=== PATIENT | female | born 1975 | race Caucasian/White ===

== ENCOUNTER → 2017-07-24 09:28 | Outpatient (CLI) | payer OTHER, SELFPAY ==
[2017-07-24 10:38] LABS: Erythrocyte Sedimentation Rate 2 mm/hr (0-20)
[2017-07-24 10:40] LABS: Absolute Lymphocyte Count 0.97 X10^3/ul (0.83-4.51); Absolute Neutrophil Count 3.8 X10^3/uL (2.0-7.7); Basophil# 0.03 X10^3/uL; Basophil% 0.6 % (0-1); Eosinophil# 0.19 X10^3/uL; Eosinophils% 3.6 % (0-5); Hematocrit 41.6 % (37-47); Hemoglobin 13.7 g/dl (12.0-15.0); Lymphocyte # 0.97 X10^3/ul (4.0); Lymphocyte % 18.1 % (19-41); Mean Corp Hgb Conc 32.9 g/gl (32-36); Mean Corpuscular Hgb 31.4 pg (27.0-32.0); Mean Corpuscular Volume 95.2 fL (81-99); Mean Platelet Vol. 10.7 fl (6.2-12.0); Monocyte% 7.5 % (0-10); Neutrophil # 3.75 X10^3/uL (2.7-7.7); Platelet Count 189 K/mm3 (150-450); RBC Distribution Width SD 41.7 fl (35.1-43.9); Red Blood Count 4.37 M/mm3 (4.2-5.4); White Blood Count 5.4 K/mm3 (4.4-11.0)
[2017-07-24 10:42] LABS: POSITIVE COUNT NO; POSITIVE DIFFERENTIAL NO; POSITIVE MORPHOLOGY NO
[2017-07-24 11:00] LABS: BUN 11 mg/dL (7-18); Creatinine, Serum 0.68 mg/dL (0.55-1.02); Glucose 89 mg/dL (74-106)
[2017-07-24 11:01] LABS: ALB/GLOB Ratio 1.4 RATIO (0.9-2.4); AST(SGOT) 16 U/L (15-37); Alanine Aminotransfer ALT/SGPT 18 U/L (13-56); Albumin, Serum 4.4 g/dL (3.2-5.0); Alkaline Phosphatase 49 U/L (45-117); Anion Gap 8 (5-15); BUN/Creat Ratio 16.1 RATIO (10-20); CRP < 2.90 mg/L (0.0-3.0); Calcium,Total 8.8 mg/dL (8.5-10.1); Chloride 105 mmol/L (98-107); EST Glomerular Filtration Rate 101 mL/min (>60); Est Glom Filt Rate - Afr Amer 122 mL/min (>60); Globulin 3.2 g/dL (2.2-4.2); Potassium 4.2 mmol/L (3.5-5.1); Protein, Total 7.6 g/dL (6.4-8.2); Sodium Level 141 mmol/L (136-145)
== END ==
PROVIDERS: Family Provider Family Medicine; PCP Family Medicine; Visit Provider Internal Medicine Rheumatology
DX: M06.00 Rheumatoid arthritis without rheumatoid factor, unspecified site (principal)
CPT/HCPCS: 36415; 80053; 85025; 85652; 86140

== ENCOUNTER → 2017-08-10 10:09 | Outpatient (CLI) | payer OTHER, SELFPAY ==
--- NOTE | 2017-08-10 10:09 | DT_ITS ---
This patient was seen during an EMR downtime August 07, 2017 - August 14, 2017. This patient may have a combination of paper and electronic documentation or all paper documentation. All documentation is viewable within the e-chart portion of [facility] for each patient visit.
--- NOTE | 2017-08-10 10:50 | MRI_ITS ---
STUDY: MRI LEFT WRIST WITH AND WITHOUT CONTRAST REASON FOR EXAM: Dorsal wrist swelling. TECHNIQUE: Standardized fat and water weighted pulse sequences were obtained in all 3 orthogonal planes, pre-and post gadolinium contrast administration. COMPARISON: Radiographs 09/29/2016. FINDINGS: Normal visualized distal radius and ulna. Normal distal radioulnar articulation (DRUJ). There is a small partial tear of the proximal surface of the ulnar aspect of the triangular fibrocartilage (inversion recovery coronal image 11; T1 coronal image 11). Normal carpal bones. Normal radiocarpal, intercarpal and midcarpal articulations. Normal pisotriquetral articulation. Normal visualized interosseous scapholunate ligament. There is fluid in the second and third extensor compartments (inversion recovery axial images 7-11) with contrast enhancement of the tendon sheath (postcontrast T1 axial images 8-15), corresponding to the skin marker. There is mild flexor carpi radialis tenosynovitis with contrast enhancement of the tendon sheath (postcontrast T1 axial images 12-15). Normal carpal tunnel with a normal median nerve. There is a small subchondral cyst of the base of the first metacarpal at the carpometacarpal articulation of the thumb. Normal second through fifth carpometacarpal articulations. Normal visualized metacarpal bones. There is no demonstrated soft tissue abnormality. MRI/Upper Ext Joint Only W/WO Cont IMPRESSION: Extensor carpi radialis brevis and longus tenosynovitis, and extensor pollicis longus tenosynovitis, corresponding to the skin marker. Mild flexor carpi radialis tenosynovitis. Small partial tear of the triangular fibrocartilage. Electronically Signed: Ashok Ambrocio MD at 13:38 EDT Tel , Service support ,
== END ==
PROVIDERS: Family Provider Family Medicine; PCP Family Medicine; Visit Provider Internal Medicine Rheumatology
DX: M06.00 Rheumatoid arthritis without rheumatoid factor, unspecified site (principal); G47.00 Insomnia, unspecified
CPT/HCPCS: 73223; A9585

== ENCOUNTER → 2017-10-19 08:14 | Outpatient (CLI) | payer OTHER, SELFPAY ==
[2017-10-19 09:36] LABS: Free T3 2.9 pg/mL (2.18-3.98); T4 Free Direct 0.82 ng/dL (0.76-1.46)
== END ==
PROVIDERS: Family Provider Family Medicine; PCP Family Medicine; Visit Provider Family Medicine
DX: E03.9 Hypothyroidism, unspecified (principal); M06.9 Rheumatoid arthritis, unspecified; Z51.81 Encounter for therapeutic drug level monitoring
CPT/HCPCS: 36415; 84439; 84443; 84481

== ENCOUNTER → 2017-11-16 10:09 | Outpatient (CLI) | payer OTHER, SELFPAY ==
--- NOTE | 2017-11-16 10:11 | BI_ITS ---
MAMMOGRAPHY - BILATERAL SCREENING REASON FOR EXAM: Female, 42 years old. Routine annual screening examination. PERTINENT HISTORY: Non-contributory. TECHNIQUE: Digital bilateral breast shanna (3D mammographic acquisition) in the CC and MLO projections. 2-D mediolateral oblique (MLO) and craniocaudad (CC) views of both breasts were obtained. CAD: Full Field Digital Mammography with Computer Added Detection was performed. COMPARISON: Comparison is made with prior study dated November 04, 2016. FINDINGS: Breast Composition: There are scattered areas of fibroglandular density. There are no dominant masses or suspicious calcifications. No other significant abnormalities are identified. There has been no significant change since the prior study. BI/SCREENING MAMM (CAD), BILAT IMPRESSION: Stable bilateral screening mammogram. Yearly follow-up mammogram recommended. (A) ASSESSMENT CATEGORY: BIRADS Category 1: Negative. A letter regarding these results will be sent to the patient by the facility within 30 days. Approximately 10% of breast cancers are not detected by mammography. A normal mammogram should not delay biopsy of a clinically suspicious abnormality. [id number] Electronically Signed: Juan Diego Sebastian MD at 9:24 EDT Tel [phone], Service support ,
== END ==
PROVIDERS: Family Provider Family Medicine; PCP Family Medicine; Visit Provider Obstetrics & Gynecology
DX: Z12.31 Encounter for screening mammogram for malignant neoplasm of breast (principal)
CPT/HCPCS: 77063; 77067

== ENCOUNTER 2018-01-19 19:01 | Emergency (ER) | payer OTHER, SELFPAY ==
[2018-01-19 19:02] VITALS: BP 132/85; PULSE 78; RESP 20; TEMP 36.5; O2SAT 100; BMI 25.3
--- NOTE | 2018-01-19 20:10 | EKG12_ITS ---
Test Reason : PALPITATIONS Blood Pressure : / mmHG Vent. Rate : 082 BPM Atrial Rate : 082 BPM P-R Int : 110 ms QRS Dur : 078 ms QT Int : 340 ms P-R-T Axes : 000 084 -37 degrees QTc Int : 397 ms Sinus rhythm with short OK with Premature atrial complexes with Aberrant conduction Abnormal QRS-T angle, consider primary T wave abnormality Abnormal ECG Confirmed by ILENE ALDANA, BC ([id number]), deputy editor in chief PAOLA JUAREZ ([id number]) on 01/24/2018 11:37:11 AM Referred By: SCHUYLER/MU Confirmed By:BC ODOM MD
--- NOTE | 2018-01-19 20:18 | ED.RN ---
NO OLD EKGS IN MUSE
--- NOTE | 2018-01-19 20:25 | ED.DCSUM_ITS ---
- ER Visit Summary Date of Service: 01/19/18 Chief Complaint: Palpitations, dyspnea History of Present Illness: The patient is a 42 F intermittent palpitation dyspnea over last 2 weeks. No cough or chest pains. No lightheaded symptoms. He does drink 2 cups of caffeine daily. Concern did not ed due to family history of atrial fibrillation. She is have history of rheumatoid arthritis on Plaquenil. No previous similar symptoms in the past. Denies any recent nausea vomiting or diarrhea. No diuretics. Physical Examination: General: Alert and oriented ?3, no acute distress HEENT: Normocephalic, atraumatic. Moist mucosa membranes Neck: supple, nontender. Cardiovascular: Regular rate and rhythm, no murmurs Respiratory: Normal breath sounds, symmetric, no distress Abdomen: Soft, nontender, nondistended Extremities: Nontender, no edema, pulses intact ?4 Neuro: no focal neurological deficits. Test Results: EKG: Sinus rate of 82, occasional PVCs noted. No ST changes. Emergency Department Course and Treatment: Patient on the monitor is noting occasional PVCs. She feels these symptoms. No recent nausea vomiting diarrhea, discussed evaluate for electrolytes however states recent blood tests outpatient has been normal. Discussed decreasing her caffeine intake. A 48-hour Holter monitor was placed. Patient given follow-up as an outpatient with cardiology for further management. Treatment Plan: [] Disposition: Discharge Impression: 1. Palpitations 2. Premature ventricular contractions This note was generated with [employer] dictation software. It may contain incorrect words, spelling, and punctuation that were not noted in review of the chart prior to signing ED Disposition - Plan for ED Patient: Disposition: Home or Assisted Living Chief Complaint: Palpitations Diagnosis: Palpitations, Premature ventricular contractions Instructions: Premature Ventricular Contractions, ED Palpitations Referrals: Stephanie Hedrick DO [Primary Care Provider] - 3-5 Days Jeremy Patel MD [STAFF PHYSICIAN] - 3-5 Days Additional Instructions: Occasional PVCs noted on the monitor. Holter monitor 48 hours. Follow-up as an outpatient. Decrease caffeine intake.
[2018-01-19 20:30] VITALS: BP 128/74; PULSE 75; RESP 14; O2SAT 98
== END 2018-01-19 21:27 | disposition home or self-care (01) ==
PROVIDERS: Emergency Provider Emergency Medicine; Family Provider Family Medicine; PCP Family Medicine
DX: I49.3 Ventricular premature depolarization (principal); M06.9 Rheumatoid arthritis, unspecified; Z79.899 Other long term (current) drug therapy
CPT/HCPCS: 93005; 93225; 93226; 99283

== ENCOUNTER → 2018-02-08 08:51 | Outpatient (CLI) | payer OTHER, SELFPAY ==
[2018-01-23 14:14] VITALS: BMI 25.2
--- NOTE | 2018-02-08 08:52 | ECHOCS_ITS ---
Reason For Study: Arrhythmia Procedure This was a 2D Doppler, Color Flow transthoracic echocardiogram. Contrast injection was performed. Exam performed in department. Left Ventricle Mildly dilated left ventricle. The estimated ejection fraction is 50 %. Normal diastology for age. There is mild global hypokinesis of the left ventricle. Right Ventricle Mildly dilated right ventricle. Normal systolic function. Atria The left atrium is mildly enlarged. Normal right atrium. Normal atrial septum. Positive bubble study with R to L crossover. Mitral Valve The mitral valve is structurally normal. No prolapse or stenosis seen. Mild (1+) mitral valve insufficiency. Tricuspid Valve Normal tricuspid valve. Mild (1+) tricuspid valve insufficiency. Right ventricular systolic pressure estimated to be 29 mmHg. Aortic Valve Trisinus/trileaflet aortic valve. Normal aortic valve. Pulmonic Valve Normal pulmonic valve. Great Vessels Normal aortic root. Normal arch. Normal inferior vena cava. Inferior vena cava collapse with respiration. Pericardium/Pleural No pericardial effusion. Medication 22 gauge I.V. with prn adaptor inserted into right arm. Diluted definity 3ml given slow IV push to enhance endocardial definition. Performed a rapid injection of agitated mix of 9 cc saline and 1cc air to assess for atrial septal defect. MMode/2D Measurements & Calculations LVIDd: 5.3 cm IVSd: 0.74 cm Ao root diam: 2.8 cm LVIDs: 4.2 cm LVPWd: 0.64 cm LA dimension: 3.8 cm RVDd: 4.3 cm FS: 22.1 % LAV(MOD-sp4): 68.7 ml LVAd ap4: 35.9 cm2 SV(MOD-sp4): 64.5 ml EDV(MOD-sp4): 129.3 ml EDV(sp4-el): 133.7 ml LVAs ap4: 22.8 cm2 ESV(MOD-sp4): 64.8 ml ESV(sp4-el): 65.9 ml EF(MOD-sp4): 49.9 % EF(sp4-el): 50.7 % SV(sp4-el): 67.8 ml LA A4 area: 21.8 cm2 RA A4 area: 16.5 cm2 Time Measurements MV dec time: 0.30 sec Doppler Measurements & Calculations MV E max cornelius: 76.2 cm/sec Lat Peak E' Cornelius: 16.9 cm/sec Med Peak E' Cornelius: 12.7 cm/sec MV A max cornelius: 52.8 cm/sec E/E' lat: 4.5 E/E' med: 6.0 MV E/A: 1.4 MV V2 max: 82.8 cm/sec MV P1/2t max cornelius: 84.7 cm/sec Ao V2 max: 105.9 cm/sec MV max P.7 mmHg MV P1/2t: 82.4 msec Ao max P.5 mmHg MV V2 mean: 46.2 cm/sec Ao V2 mean: 72.4 cm/sec MV mean P.99 mmHg MV dec slope: 301.3 cm/sec2 Ao mean P.4 mmHg MV V2 VTI: 26.2 cm MVA(P1/2t): 2.7 cm2 Ao V2 VTI: 22.1 cm LV V1 max: 80.5 cm/sec MR max cornelius: 528.9 cm/sec PA V2 max: 78.3 cm/sec LV V1 max P.6 mmHg MR max P.9 mmHg LV V1 mean P.3 mmHg MR mean cornelius: 407.3 cm/sec LV V1 mean: 52.1 cm/sec MR mean P.2 mmHg LV V1 VTI: 17.0 cm MR VTI: 203.7 cm TR max cornelius: 234.4 cm/sec TR max P.0 mmHg Interpretation Summary Mildly dilated left ventricle. The estimated ejection fraction is 50 %. Normal diastology for age. There is mild global hypokinesis of the left ventricle. Mildly dilated right ventricle. The left atrium is mildly enlarged. Positive bubble study with R to L crossover. Mild (1+) mitral valve insufficiency. Mild (1+) tricuspid valve insufficiency. Right ventricular systolic pressure estimated to be 29 mmHg. There is no comparison study available. The study was technically difficult. Contrast injection was performed. Ordering Physician: Jeremy Patel Referring Physician: Jeremy Patel Performed By: Nas Doll RCS
== END ==
PROVIDERS: Family Provider Family Medicine; PCP Family Medicine; Referring Provider Internal Medicine Cardiovascular Disease; Visit Provider Internal Medicine Cardiovascular Disease
DX: R06.00 Dyspnea, unspecified (principal); R00.2 Palpitations; I49.3 Ventricular premature depolarization
CPT/HCPCS: 93306; Q9957; A4216; C8929

== ENCOUNTER → 2018-02-09 09:28 | Outpatient (CLI) | payer OTHER, SELFPAY ==
[2018-01-23 14:14] VITALS: BMI 25.2
--- NOTE | 2018-02-09 09:29 | STEWCON_ITS ---
Reason For Study: ARRHYTHMIA Stress Results Protocol: Hans Protocol Maximum Predicted HR: 179 bpm Target HR: 152 bpm % Maximum Predicted HR: 103 % DurationHeart Rate Stage (mm:ss) (bpm) BP Comment BASELINE 75 112/700.2 ML DEFINITY STAGE 1 3:00 118 132/74 STAGE 2 3:00 134 138/74 STAGE 3 3:00 162 148/80 STAGE 4 2:30 184 / 0.2 ML DEFINITY RECOVERY 101 116/70 Stress Duration: 11:30 mm:ss Maximum Stress HR: 184 bpm Baseline Echocardiogram Findings The estimated ejection fraction is 45 %. Stress Echo Wall motion Data Resting WM Intermediate WM Stress WM Resting Wall Motion No regional wall motion abnormalities noted. EKG Data Normal intervals are noted. The patient exercised according to the regular Hans protocol for a total duration of 11:31. The maximum heart rate attained was 184 beats per minute. This was 102% of maximum predicted heart rate. The patient exercised into stage 4 of the Hans protocol. During stress, there were no ST or T wave changes noted to suggest ischemia. No clinical angina was noted. Interpretation Summary The study was technically difficult. Contrast injection was performed. The estimated ejection fraction is 45 %. Normal, adequate, treadmill echocardiogram. Negative for ischemia by EKG and echocardiographic criteria. No anginal symptoms noted. Rare PVC noted. Appropriate blood pressure response to exercise. Above average exercise capacity for age. Patient appeared to have mild global LV dysfunction at baseline with an EF around 45%. Decreased sensitivity due to poor echo windows requiring Definity agent. Final LVEF of 55%. Test terminated due to target heart rate, dyspnea and leg discomfort. No complications. Ordering Physician: Jeremy Patel Referring Physician: Jeremy Patel Performed By: Katty Mcmahan, MAMIE, RVT
== END ==
PROVIDERS: Family Provider Family Medicine; PCP Family Medicine; Referring Provider Internal Medicine Cardiovascular Disease; Visit Provider Internal Medicine Cardiovascular Disease
DX: R06.00 Dyspnea, unspecified (principal); R00.2 Palpitations; I49.3 Ventricular premature depolarization
CPT/HCPCS: 93017; 93350; Q9957; A4216; C8928

== ENCOUNTER → 2018-02-21 20:27 | Outpatient (CLI) | payer OTHER, SELFPAY ==
[2018-01-23 14:14] VITALS: BMI 25.2
== END ==
PROVIDERS: Family Provider Family Medicine; PCP Family Medicine; Referring Provider Internal Medicine Cardiovascular Disease; Visit Provider Internal Medicine Cardiovascular Disease
DX: G47.19 Other hypersomnia (principal); I49.3 Ventricular premature depolarization; R00.2 Palpitations
CPT/HCPCS: 95810

== ENCOUNTER → 2018-03-29 11:50 | Outpatient (CLI) | payer OTHER, SELFPAY ==
[2018-01-23 14:14] VITALS: BMI 25.2
[2018-03-29 15:21] LABS: Absolute Lymphocyte Count 1.28 X10^3/ul (0.83-4.51); Absolute Neutrophil Count 3.6 X10^3/uL (2.0-7.7); Basophil# 0.06 X10^3/uL; Basophil% 1.1 % (0-1); Eosinophil# 0.21 X10^3/uL; Eosinophils% 3.8 % (0-5); Hematocrit 43.3 % (37-47); Hemoglobin 14.1 g/dl (12.0-15.0); Lymphocyte # 1.28 X10^3/ul (4.0); Mean Corp Hgb Conc 32.6 g/gl (32-36); Mean Corpuscular Hgb 31.7 pg (27.0-32.0); Mean Corpuscular Volume 97.3 fL (81-99); Mean Platelet Vol. 11.2 fl (6.2-12.0); Monocyte# 0.43 X10^3/uL; Monocyte% 7.7 % (0-10); Neutrophil # 3.58 X10^3/uL (2.7-7.7); Neutrophil % 64.2 % (47-70); Platelet Count 185 K/mm3 (150-450); RBC Distribution Width CV 12.3 % (11.6-14.6); Red Blood Count 4.45 M/mm3 (4.2-5.4); White Blood Count 5.6 K/mm3 (4.4-11.0)
[2018-03-29 15:31] LABS: POSITIVE COUNT NO; POSITIVE DIFFERENTIAL NO; POSITIVE MORPHOLOGY NO
[2018-03-29 15:40] LABS: Progesterone Level 0.39 ng/mL (See Comment); Vitamin B12 579 pg/mL (211-911)
[2018-03-29 15:44] LABS: ALB/GLOB Ratio 1.3 RATIO (0.9-2.4); AST(SGOT) 18 U/L (15-37); Alanine Aminotransfer ALT/SGPT 32 U/L (13-56); Albumin, Serum 4.4 g/dL (3.2-5.0); Alkaline Phosphatase 47 U/L (45-117); Anion Gap 8 (5-15); BUN 20 mg/dL (7-18); BUN/Creat Ratio 27.3 RATIO (10-20); Calcium,Total 8.7 mg/dL (8.5-10.1); Chloride 107 mmol/L (98-107); Creatinine, Serum 0.73 mg/dL (0.55-1.02); EST Glomerular Filtration Rate 93 mL/min (>60); Est Glom Filt Rate - Afr Amer 112 mL/min (>60); Estradiol 25.6 pg/mL; Free T3 2.8 pg/mL (2.18-3.98); Globulin 3.4 g/dL (2.2-4.2); Glucose 88 mg/dL (74-106); Potassium 4.4 mmol/L (3.5-5.1); Protein, Total 7.8 g/dL (6.4-8.2); Sodium Level 140 mmol/L (136-145); Thyroid Stim Hormone (TSH) 3.47 uIU/mL (0.358-3.74)
== END ==
PROVIDERS: Family Provider Family Medicine; PCP Family Medicine; Visit Provider Family Medicine
DX: E53.8 Deficiency of other specified B group vitamins (principal); N92.6 Irregular menstruation, unspecified; R00.2 Palpitations; R53.83 Other fatigue; Z51.81 Encounter for therapeutic drug level monitoring
CPT/HCPCS: 36415; 80053; 82607; 82670; 84144; 84443; 84481; 85025

== ENCOUNTER → 2018-11-15 | Outpatient (CLI) | payer OTHER, SELFPAY ==
[2018-05-03 13:19] VITALS: BMI 25.5
[2018-11-21 12:12] LABS: HPV Reflexed? NOT INDICATED
== END | disposition home or self-care (01) ==
LOC: LABSPEC 13:51
PROVIDERS: PCP Family Medicine; Visit Provider Obstetrics & Gynecology
DX: Z12.4 Encounter for screening for malignant neoplasm of cervix (principal)
CPT/HCPCS: 87624; 88175; G0145

== ENCOUNTER → 2018-11-22 | Outpatient (CLI) | payer OTHER, SELFPAY ==
[2018-05-03 13:19] VITALS: BMI 25.5
--- NOTE | 2018-11-22 10:14 | BI_ITS ---
MAMMOGRAPHY - BILATERAL SCREENING REASON FOR EXAM: Female, 43 years old. Routine annual screening examination. PERTINENT HISTORY: Non-contributory. TECHNIQUE: Digital bilateral breast kolton (3D mammographic acquisition) in the CC and MLO projections. 2-D mediolateral oblique (MLO) and craniocaudad (CC) views of both breasts were obtained. CAD: Full Field Digital Mammography with Computer Added Detection was performed. COMPARISON: Comparison is made with prior study dated November 16, 2017 and November 04, 2016. FINDINGS: Breast Composition: There are scattered areas of fibroglandular density. There are no dominant masses or suspicious calcifications. No other significant abnormalities are identified. There has been no significant change since the prior study. BI/SCREEN MAMM (CAD) W/KOLTON BILAT IMPRESSION: Stable bilateral screening mammogram. Yearly follow-up mammogram recommended. (A) ASSESSMENT CATEGORY: BIRADS Category 1: Negative. A letter regarding these results will be sent to the patient by the facility within 30 days. Approximately 10% of breast cancers are not detected by mammography. A normal mammogram should not delay biopsy of a clinically suspicious abnormality. [id number] Electronically Signed: Juan Diego Sebastian, at 11:32 EDT , Service support ,
== END | disposition home or self-care (01) ==
LOC: OPBI 10:12
PROVIDERS: Family Provider Family Medicine; PCP Family Medicine; Referring Provider Obstetrics & Gynecology; Visit Provider Obstetrics & Gynecology
DX: Z12.31 Encounter for screening mammogram for malignant neoplasm of breast (principal)
CPT/HCPCS: 77063; 77067

== ENCOUNTER → 2019-07-12 | Outpatient (CLI) | payer OTHER, SELFPAY ==
[2019-07-04 11:14] VITALS: BMI 26.3
[2019-07-12 11:54] LABS: Absolute Lymphocyte Count 1.31 X10^3/uL (0.83-4.51); Absolute Neutrophil Count 4.7 X10^3/uL (2.0-7.7); Basophil# 0.08 X10^3/uL; Basophil% 1.1 % (0-1); Eosinophil# 0.22 X10^3/uL; Eosinophils% 3.1 % (0-5); Hematocrit 44.2 % (37-47); Hemoglobin 14.6 g/dL (12.0-15.0); Lymphocyte # 1.31 X10^3/ul (4.0); Lymphocyte % 18.7 % (19-41); Mean Corpuscular Hgb 32.7 pg (27.0-32.0); Mean Corpuscular Volume 99.1 fL (81-99); Mean Platelet Vol. 10.6 fl (6.2-12.0); NRBC Flagged by Analyzer 0 % (0-5); Neutrophil # 4.68 X10^3/uL (2.7-7.7); Neutrophil % 66.7 % (47-70); Platelet Count 214 K/mm3 (150-450); RBC Distribution Width SD 43.4 fl (35.1-43.9); Red Blood Count 4.46 M/mm3 (4.2-5.4)
[2019-07-12 12:06] LABS: ALB/GLOB Ratio 1.3 RATIO (0.9-2.4); AST(SGOT) 19 U/L (15-37); Alanine Aminotransfer ALT/SGPT 26 U/L (13-56); Albumin, Serum 4.3 g/dL (3.2-5.0); Alkaline Phosphatase 47 U/L (45-117); Anion Gap 5 (5-15); BUN 20 mg/dL (7-18); BUN/Creat Ratio 27.7 RATIO (10-20); Calcium,Total 9.3 mg/dL (8.5-10.1); Chloride 104 mmol/L (98-107); Creatinine, Serum 0.72 mg/dL (0.55-1.02); EST Glomerular Filtration Rate 94 mL/min (>60); Est Glom Filt Rate - Afr Amer 113 mL/min (>60); Globulin 3.3 g/dL (2.2-4.2); Glucose 89 mg/dL (74-106); Potassium 4.4 mmol/L (3.5-5.1); Protein, Total 7.6 g/dL (6.4-8.2); Sodium Level 138 mmol/L (136-145)
== END | disposition home or self-care (01) ==
LOC: LAB 10:47
PROVIDERS: PCP Family Medicine; Referring Provider Family Medicine; Visit Provider Family Medicine
DX: M06.9 Rheumatoid arthritis, unspecified (principal); Z51.81 Encounter for therapeutic drug level monitoring
CPT/HCPCS: 36415; 80053; 85025

== ENCOUNTER → 2019-10-28 | Outpatient (CLI) | payer OTHER, SELFPAY ==
[2019-07-04 11:14] VITALS: BMI 26.3
--- NOTE | 2019-10-28 16:10 | RAD_ITS ---
STUDY: X-RAY - LEFT WRIST REASON FOR EXAM: Female, 44 years old. LEFT WRIST INJURY FROM FALL X 3 DAYS AGO. PAIN IN L WRIST. TECHNIQUE: 3 view(s) of the wrist were obtained. COMPARISON: Comparison is made with prior examination dated 09/29/2016. FINDINGS: Normal visualized distal radius and ulna. Normal radiocarpal articulation. Normal distal radioulnar articulation. Normal carpal bones. Normal carpal articulations. Normal carpometacarpal articulation of the thumb. Normal second through fifth carpometacarpal articulations. Normal visualized metacarpal bones. Soft tissue swelling RAD/Wrist min 3 Views IMPRESSION: Soft tissue swelling. Electronically Signed: Juan Diego Sebastian, at 15:56 EDT , Service support ,
== END | disposition home or self-care (01) ==
LOC: RAD 16:02
PROVIDERS: PCP Family Medicine; Referring Provider Family Medicine; Visit Provider Family Medicine
DX: M25.532 Pain in left wrist (principal)
CPT/HCPCS: 73110

== ENCOUNTER → 2019-12-19 | Outpatient (CLI) | payer OTHER, SELFPAY ==
[2019-07-04 11:14] VITALS: BMI 26.3
--- NOTE | 2019-12-19 07:48 | BI_ITS ---
MAMMOGRAPHY - BILATERAL SCREENING REASON FOR EXAM: Female, 44 years old. Routine annual screening examination. PERTINENT HISTORY: Non-contributory. TECHNIQUE: Digital bilateral breast kolton (3D mammographic acquisition) in the CC and MLO projections. 2-D mediolateral oblique (MLO) and craniocaudad (CC) views of both breasts were obtained. CAD: Full Field Digital Mammography with Computer Added Detection was performed. COMPARISON: Comparison is made with prior examination dated 11/22/2018 and 11/16/2017. FINDINGS: Breast Composition: There are scattered areas of fibroglandular density. There are no dominant masses or suspicious calcifications. No other significant abnormalities are identified. There has been no significant change since the prior study. BI/SCREEN MAMM (CAD) W/KOLTON BILAT IMPRESSION: Stable bilateral screening mammogram. Yearly follow-up mammogram recommended. (A) ASSESSMENT CATEGORY: BIRADS Category 1: Negative. A letter regarding these results will be sent to the patient by the facility within 30 days. Approximately 10% of breast cancers are not detected by mammography. A normal mammogram should not delay biopsy of a clinically suspicious abnormality. [id number] Electronically Signed: Juan Diego Sebastian, at 9:21 EDT , Service support ,
== END | disposition home or self-care (01) ==
LOC: OPBI 07:47
PROVIDERS: PCP Family Medicine; Referring Provider Obstetrics & Gynecology; Visit Provider Obstetrics & Gynecology
DX: Z12.31 Encounter for screening mammogram for malignant neoplasm of breast (principal)
CPT/HCPCS: 77063; 77067

== ENCOUNTER → 2020-02-13 08:58 | Outpatient (CLI) | payer OTHER, SELFPAY ==
[2020-02-06 08:28] VITALS: BMI 27.6
[2020-02-13 11:12] LABS: Free T3 2.5 pg/mL (2.18-3.98); Thyroid Stim Hormone (TSH) 3.04 uIU/mL (0.358-3.74)
== END ==
PROVIDERS: PCP Family Medicine; Referring Provider Nurse Practitioner Family; Visit Provider Nurse Practitioner Family
DX: R00.2 Palpitations (principal); R53.83 Other fatigue; R63.5 Abnormal weight gain
CPT/HCPCS: 36415; 84439; 84443; 84481

== ENCOUNTER → 2020-07-30 | Outpatient (CLI) | payer OTHER, SELFPAY ==
[2020-04-24 08:29] VITALS: BMI 27.7
[2020-08-06 18:43] LABS: HPV Reflexed? NOT INDICATED
== END | disposition home or self-care (01) ==
LOC: LABSPEC 13:29
PROVIDERS: PCP Family Medicine; Visit Provider Obstetrics & Gynecology
DX: Z12.4 Encounter for screening for malignant neoplasm of cervix (principal)
CPT/HCPCS: 88175; G0145

== ENCOUNTER → 2020-12-24 07:01 | Outpatient (CLI) | payer OTHER, SELFPAY ==
[2020-04-24 08:29] VITALS: BMI 27.7
--- NOTE | 2020-12-24 07:03 | BI_ITS ---
MAMMOGRAPHY - BILATERAL SCREENING REASON FOR EXAM: Female, 45 years old. Routine annual screening examination. PERTINENT HISTORY: Non-contributory. TECHNIQUE: Digital bilateral breast kolton (3D mammographic acquisition) in the CC and MLO projections. 2-D mediolateral oblique (MLO) and craniocaudad (CC) views of both breasts were obtained. CAD: Full Field Digital Mammography with Computer Added Detection was performed. COMPARISON: Comparison is made with prior study of 12/19/2019 and 11/22/2018. FINDINGS: Breast Composition: There are scattered areas of fibroglandular density. There are no dominant masses or suspicious calcifications. No other significant abnormalities are identified. There has been no significant change since the prior study. BI/SCRN MAMM (CAD)W/KOLTON BILAT IMPRESSION: Stable bilateral screening mammogram. Yearly follow-up mammogram recommended. (A) ASSESSMENT CATEGORY: BIRADS Category 1: Negative. A letter regarding these results will be sent to the patient by the facility within 30 days. Approximately 10% of breast cancers are not detected by mammography. A normal mammogram should not delay biopsy of a clinically suspicious abnormality. [id number] Electronically Signed: Juan Diego Sebastian MD at 8:53 EDT , Service support ,
== END ==
PROVIDERS: PCP Family Medicine; Referring Provider Obstetrics & Gynecology; Visit Provider Obstetrics & Gynecology
DX: Z12.31 Encounter for screening mammogram for malignant neoplasm of breast (principal)
CPT/HCPCS: 77063; 77067

== ENCOUNTER → 2021-03-02 11:07 | Outpatient (CLI) | payer OTHER, SELFPAY ==
--- NOTE | 2021-03-02 11:09 | ECHOD_ITS ---
Reason For Study: PALPITATIONS Procedure This was a 2D Doppler, Color Flow transthoracic echocardiogram. The study was technically difficult. Due to arrhythmia. Exam performed in department. Left Ventricle Normal LV size. Left ventricular systolic function is normal. Normal diastology for age. No regional wall motion abnormalities noted. Right Ventricle Normal RV size. Normal systolic function. Atria Normal left atrium. Normal right atrium. Mitral Valve Normal mitral valve. Tricuspid Valve Normal tricuspid valve. Mild (1+) tricuspid valve insufficiency. Pulmonary artery systolic pressure is 26 mmHg. Aortic Valve Normal aortic valve. Trisinus/trileaflet aortic valve. Pulmonic Valve Normal pulmonic valve. Great Vessels Normal aortic root. The pulmonary artery is normal size. Normal inferior vena cava. Pericardium/Pleural No pericardial effusion. MMode/2D Measurements & Calculations LVIDd: 5.9 cm IVSd: 0.75 cm Ao root diam: 2.9 cm LVIDs: 3.7 cm LVPWd: 0.57 cm RVDd: 3.2 cm FS: 37.9 % LAV(MOD-bp): 72.2 ml LA A4 area: 21.4 cm2 LA dimension(2D): 4.0 cm LAV(MOD-bp) Indexed: 39.2 ml/m2 LAV(MOD-sp2): 60.6 ml LAV(MOD-sp4): 75.5 ml RA A4 area: 13.1 cm2 Time Measurements MV dec time: 0.19 sec Doppler Measurements & Calculations MV E max ann: 85.3 cm/sec Ao V2 max: 118.4 cm/sec LV V1 max: 111.8 cm/sec MV A max ann: 72.9 cm/sec Ao max P.6 mmHg LV V1 max P.0 mmHg MV E/A: 1.2 TR max ann: 231.7 cm/sec TR max P.5 mmHg ECHO/Echo Complete Interpretation Summary Normal LV size. Left ventricular systolic function is normal. Normal diastology for age. Pulmonary artery systolic pressure is 26 mmHg. Structurally normal valves. Ordering Physician: Orlin Galvan Referring Physician: Stephanie Hedrick Performed By: Ilda Gomez, MAMIE, RVT
== END ==
PROVIDERS: PCP Family Medicine; Referring Provider Internal Medicine Cardiovascular Disease; Visit Provider Internal Medicine Cardiovascular Disease
DX: R00.2 Palpitations (principal)
CPT/HCPCS: 93225; 93226; 93306

== ENCOUNTER 2021-03-30 13:53 | Outpatient (CLI) | payer OTHER, SELFPAY | END 2021-03-30 23:59 | disposition short-term general hospital (02) | LOC: PSN 13:55 | PROVIDERS: PCP Family Medicine; Referring Provider Physician Assistant Medical; Visit Provider Physician Assistant Medical | DX: I49.3 Ventricular premature depolarization (principal) | CPT/HCPCS: 93225; 93226 ==

== ENCOUNTER → 2021-12-30 | Outpatient (CLI) | payer OTHER, SELFPAY ==
--- NOTE | 2021-12-30 07:08 | BI_ITS ---
MAMMOGRAPHY - BILATERAL SCREENING REASON FOR EXAM: Female, 46 years old. Routine annual screening examination. PERTINENT HISTORY: Non-contributory. TECHNIQUE: Digital bilateral breast kolton (3D mammographic acquisition) in the CC and MLO projections. 2-D mediolateral oblique (MLO) and craniocaudad (CC) views of both breasts were obtained. CAD: Full Field Digital Mammography with Computer Added Detection was performed. COMPARISON: Comparison is made with prior study dated 12/24/2020 and 12/19/2019. FINDINGS: Breast Composition: There are scattered areas of fibroglandular density. There are no dominant masses or suspicious calcifications. No other significant abnormalities are identified. There has been no significant change since the prior study. BI/SCRN MAMM (CAD)W/KOLTON BILAT IMPRESSION: Stable bilateral screening mammogram. Yearly follow-up mammogram recommended. (A) ASSESSMENT CATEGORY: BIRADS Category 1: Negative. A letter regarding these results will be sent to the patient by the facility within 30 days. Approximately 10% of breast cancers are not detected by mammography. A normal mammogram should not delay biopsy of a clinically suspicious abnormality. [id number] Electronically Signed: Juan Diego Sebastian MD at 8:41 EDT ,
== END | disposition home or self-care (01) ==
PROVIDERS: PCP Family Medicine; Referring Provider Obstetrics & Gynecology; Visit Provider Family Medicine
DX: Z12.31 Encounter for screening mammogram for malignant neoplasm of breast (principal)
CPT/HCPCS: 77063; 77067

== ENCOUNTER 2022-02-18 07:25 | Day surgery (SDC) | payer OTHER, SELFPAY ==
[2022-02-18] MEDS: Lactated Ringers 1,000 ML 15 ML IV (07:35)
[2022-02-18 07:53] LABS: Internal QC Validated? YES +Cl - CLEAR BKGD; Pregnancy, Urine Negative Negative
[2022-02-18 07:55] VITALS: BP 132/96; PULSE 85; RESP 18; TEMP 36.9; O2SAT 98; BMI 27.3
--- NOTE | 2022-02-18 08:14 | HP.PCM_ITS ---
HPI - General HPI Narrative RANGEL BECKER, is a 46 F who presents for screening colonoscopy. She has never had a colonoscopy in the past. She denies abdominal pain or blood in the stool. She has no family history of colon cancer. FOR[facility]LY [facility], [facility] Medical History (Updated 02/16/22 @ 13:16 by Ashely Herring) Cardiology follow-up encounter Excessive daytime sleepiness History of echocardiogram History of stress test Multiple premature ventricular complexes Non-smoker Palpitations Rheumatoid arthritis Wears contact lenses Wears glasses Home Medications flecainide 50 mg tablet 50 mg PO Q12H #180 tabs 04/06/21 [Rx Last Taken 02/18/22] diltiazem HCl 180 mg capsule,extended release 24 hr 180 mg PO DAILY #90 caps 05/31/21 [Rx Last Taken 02/18/22] buspirone 10 mg tablet 7.5 mg PO BID 10/15/21 [History Last Taken Unknown] Allergy/AdvReac Type Severity Reaction Status Date / Time No Known Allergies Allergy Verified 02/18/22 07:54 Family History Other Hypertension Thyroid disorder Surgical History H/O arthroscopic knee surgery History of shoulder surgery jaw surgery Social History Smoking Status: Never smoker alcohol intake: current alcohol intake frequency: a few times a month Alcohol type: beer Past Medical/Surgical History Planned Operation Planned Operative Procedure/s: CSCOPE S.O.S: No Previous Hospitalizations/Surgeries HX Hospitalizations: No HX of Surgeries: LEFT ARTHROSCOPY X2 JAW SURGERY X2 TUBES EAR LEFT CHILDBIRTH X2 VAG Any Problems With Anesthesia: No You/Your Family Experience Fever (Hyperthermia) With Anes: No Cholinesterase deficiency: No Cardiovascular Hx Chest Pain within Last 2 months: No Hx of Irregular Heartbeat and/or Afib: No Hx Heart Attack: No Hx Congestive Heart Failure: No Hx Rheumatic Fever: No Hx Hypertension: No Hx Internal Defibrillator: No Hx Pacemaker: No Hx Cardiac Catheterization: No Hx Cardiac Surgery/Stents/Etc.: No Hx Stress Test: No Hx Pain in Legs when Walking/Leg Cramps: No Respiratory Chronic Cough: No HX of Shortness of Breath: No Hoarseness: No Hx Chronic Obstructive Pulmonary Disease (COPD): No Hx Asthma: No Hx Emphysema: No Hx Sleep Apnea: No CPAP: No BIPAP: No Hx Respiratory Tract Infection/Cold (presently): No Do You Snore Loudly (louder than talking or can be heard): No Do You Often Feel Tired/ Fatigued/ Sleepy Dring Daytime?: No Has Anyone Observed You Stop Breathing During Sleep?: No Result (for STOP score): Negative Hx Smoking: No Smoking Status: Never smoker Gastrointestinal Hx Gastroesophageal Reflux: No Hx Gastrointestinal Disorders: No Hx Gastrointestinal Bleed: No Hx Ulcer: No Hx Hiatal Hernia: No Difficulty Chewing/Swallowing: No Special diet followed at home: No Hx Unplanned Weight Loss of 20#: No HX Unplanned Weight Gain of 20#: No Neurological Hx Seizures: No HX Syncope/Blackout Spells/Unconsciousness: No Hx Transient Ischemic Attacks (TIA): No Hx Multiple Sclerosis: No Hx Parkinson's Disease: No Hx Head/Neck Injury: No Hx Headaches: No Hx Back Injury/Pain: No Recent Onset of Speech Difficulty: No Restless Legs: No Does patient have nerve stimulator: No Blood Disorder Hx Leukemia: No Bleeding Tendencies: No Hx Deep Vein Thrombosis: No Hx High Cholesterol: No Blood Transmitted Disease: No Hx Hepatitis: No Hx Cirrhosis: No Hx Anemia: No Hx Blood Disorders: No Reproduction : No Is Patient Lactating: No Hx Tubal Ligation: No Genitourinary Hx Renal Disease: No Musculoskeletal Hx Arthritis: No Hx Rheumatoid Arthritis: Yes Hx Gout: No Recent Onset of an Orthopedic Problem: No Endocrine Hx Diabetes: No Thyroid Disease: No Hx Steroid Therapy: Yes (SEPTEMBER 2013) Psycho/Social Hx Substance Use: No Hx Alcohol Use: No Hx Anxiety: No Hx Depression: No Mental Illness: No Hx Dementia: No Miscellaneous Hx Cancer: No Recent Exposure to Contagious Disease: No Hx of C-Diff: No Any Loose Teeth: No Allergies No Known Allergies Allergy (Verified 02/18/22 07:54) Discharge Is Pt Admitted From a Penitentiary, or a Fdc: No After D/C, Where Do you Plan to Go: Return Home Vital Signs Vital Signs Vital Signs: 02/18/22 07:55 02/18/22 07:55 Temperature 98.5 F Temperature Source Temporal Pulse Rate 85 Respiratory Rate 18 Respiratory Pattern Normal Blood Pressure 132/96 H Blood Pressure Mean 108 Blood Pressure Source Monitor Blood Pressure Position Semi-Fowlers Blood Pressure Location Left Arm Pulse Ox 98 Oxygen Delivery Method Room Air Weight Weight: 169 lb 12.095 oz Body Mass Index (BMI) 27.3 Physical Exam Const alert and oriented x3 HEENT normocephalic Eyes PERRL Resp normal respiratory effort and normal air movement Cardio regular rate and regular rhythm GI soft to palpation, non-tender and non-distended Extremity normal to inspection Assessment & Plan Assessment/Plan (1) Encounter for screening for malignant neoplasm of colon: PLAN: I explained endoscopy in detail to the patient. I explained the risks including but not limited to stroke or heart attack with anesthesia, perforation of the GI tract, bleeding, infection. I explained that any of these could necessitate further emergency surgery. The patient understands and all questions were answered sufficiently. The patient wishes to proceed with procedure. Mukesh Mendoza MD Pager: [facility] [address] [place] [address], [address] [place] [address] Office: Surgery Risks - Colonoscopy Risks Include but are not Limited To: Risks include but are not limited to: Bleeding, perforation requiring further surgery, inability to complete colonoscopy requiring barium enema.
--- NOTE | 2022-02-18 08:57 | OP.COLON_ITS ---
Patient Name: Natasha Trent Procedure Date: 02/18/2022 8:25 AM Date of : 1975 Age: 46 Procedure: Colonoscopy Indications: Screening for colorectal malignant neoplasm Providers: Mukesh Mendoza MD Referring MD: Stephanie Hedrick Medicines: Monitored Anesthesia Care Patient Profile: This is a 46 year old female. Refer to note in patient chart for documentation of history and physical. Last Colonoscopy: none. The patient's first colonoscopy is today. Complications: No immediate complications. Procedure: Pre-Anesthesia Assessment: - Prior to the procedure, a History and Physical was performed, and patient medications and allergies were reviewed. The patient's tolerance of previous anesthesia was also reviewed. The risks and benefits of the procedure and the sedation options and risks were discussed with the patient. All questions were answered, and informed consent was obtained. Prior Anticoagulants: The patient has taken no previous anticoagulant or antiplatelet agents. After reviewing the risks and benefits, the patient was deemed in satisfactory condition to undergo the procedure. After I obtained informed consent, the scope was passed under direct vision. Throughout the procedure, the patient's blood pressure, pulse, and oxygen saturations were monitored continuously. The Colonoscope was introduced through the anus and advanced to the cecum, identified by appendiceal orifice and ileocecal valve. The colonoscopy was performed without difficulty. The patient tolerated the procedure well. The quality of the bowel preparation was good. Scope In: 8:41:35 AM Scope Withdrawal Time 0 hours 6 minutes 12 seconds Scope Out: 8:53:30 AM Total Procedure Duration Time 0 hours 11 minutes 55 seconds Findings: The entire examined colon appeared normal on direct and retroflexion views. Impression: - The entire examined colon is normal on direct and retroflexion views. - No specimens collected. Recommendation: - Discharge patient to home. - Resume previous diet. - Continue present medications. - Repeat colonoscopy in 10 years for screening purposes. Procedure Code(s): --- Professional --- 66337, Colonoscopy, flexible; diagnostic, including collection of specimen(s) by brushing or washing, when performed (separate procedure) Diagnosis Code(s): --- Professional --- Z12.11, Encounter for screening for malignant neoplasm of colon CPT copyright 2017 [employer]. All rights reserved. The codes documented in this report are preliminary and upon time study statistician review may be revised to meet current compliance requirements. Mukesh Mendoza MD 02/18/2022 8:57:00 AM This report has been signed electronically. Number of Addenda: 0 Note Initiated On: 02/18/2022 8:25 AM
[2022-02-18 08:58] VITALS: BP 100/61; BP 132/96; PULSE 65; RESP 18; TEMP 37.1; O2SAT 98
--- NOTE | 2022-02-18 08:58 | OP.CCLET_ITS ---
02/18/2022 Stephanie Hedrick [address] [place] [address] Re : Colonoscopy procedure for Natasha Trent Dear Dr. Hedrick This procedure was performed on Friday, February 18, 2022. My impressions and recommendations are as follows: Impressions : - The entire examined colon is normal on direct and retroflexion views. - No specimens collected. Recommendations : - Discharge patient to home. - Resume previous diet. - Continue present medications. - Repeat colonoscopy in 10 years for screening purposes. My findings are described in the full procedure note, which is enclosed. If I can be of further assistance, please feel free to contact me at Doctor phone number(s): , Work: . Sincerely, Mukesh Mendoza MD 02/18/2022 8:57:00 AM This report has been signed electronically.
[2022-02-18 09:03] VITALS: BP 132/96; BP 96/64; PULSE 72; RESP 18; O2SAT 97
[2022-02-18 09:07] VITALS: BP 107/69; BP 132/96; PULSE 65; RESP 18; O2SAT 95
[2022-02-18 09:11] VITALS: BP 105/73; BP 132/96; PULSE 61; RESP 18; TEMP 36.4; O2SAT 99
[2022-02-18 09:30] VITALS: BP 132/96
== END 2022-02-18 09:51 | disposition home or self-care (01) ==
LOC: EN 07:25 → AC 07:26
PROVIDERS: Anesthesiology; PCP Family Medicine; Referring Provider Family Medicine; Visit Provider Surgery
PROC: 0DJD8ZZ Inspection of Lower Intestinal Tract, Via Natural or Artificial Opening Endoscopic (ICD-10-PCS; CPT 45378; principal; 2022-02-18 08:25)
DX: Z12.11 Encounter for screening for malignant neoplasm of colon (principal); Z79.899 Other long term (current) drug therapy
CPT/HCPCS: G0121; 81025; J7120; J2405

== ENCOUNTER → 2022-05-05 | Outpatient (CLI) | payer OTHER, SELFPAY ==
--- NOTE | 2022-05-05 10:48 | LES_PTH ---
PATIENT: RANGEL BECKER LOC: [facility]#:[id number] AGE/SX: 47/F ROOM: RE05/05/[address]: Dr. Stephanie Hedrick DO : 1975 BED: DIS: 05/05/2022 SPEC #: [id number] RECD: 05/05/22 14:57 STATUS: RALF KYRA #: [id number] YANDEL: 05/05/22 10:[address]: Stephanie Hedrick DEPT: SURGICAL PATHOLOGY RECD BY: Ernestina Nowak Tissues: A - Skin of breast, NOS B - Skin of arm C - Skin of arm Procedures: Surgery Specimen Level IV HEADER OPERATION: Excisional biopsies PRE-OP DIAGNOSIS: Nevus vs basal cell carcinoma; atypical nevus vs melanoma TISSUE SUBMITTED: A ? Left breast, B ? Right posterior shoulder, C ? Right inferior shoulder MICROSCOPIC DIAGNOSIS A. Skin lesion of left breast, biopsy: Compound nevus. B. Right posterior shoulder skin lesion, biopsy: Intradermal nevus. C. Right inferior shoulder skin lesion, biopsy: Consistent with solar lentigo. AM:an 05/10/2022 MICROSCOPIC DESCRIPTION Slides are reviewed. GROSS DESCRIPTION A - Received in fixative is one container labeled with the patient's name and designated left breast. The specimen consists of diego-white skin measuring 0.7 x 0.4 x 0.1 cm. A brown lesion is noted on the surface measuring 0.2 x 0.2 cm. The specimen is inked, bisected and submitted entirely in one cassette. B - Received in fixative is one container labeled with the patient's name and designated right posterior shoulder. The specimen consists of a piece of diego-white skin ellipse measuring 0.7 x 0.3 x 0.2 cm. The specimen is inked, serially sectioned and submitted entirely in one cassette. C - Received in fixative is one container labeled with the patient's name and designated right inferior shoulder. The specimen consists of one fragment of diego skin measuring 0.8 x 0.7 x 0.2 cm. The specimen is inked, bisected and submitted entirely in one cassette. / SJ:an 05/06/2022 TC:5 CPT: 02656 x3
== END | disposition home or self-care (01) ==
LOC: LABSPEC 11:49
PROVIDERS: PCP Family Medicine; Visit Provider Family Medicine
DX: D22.5 Melanocytic nevi of trunk (principal); D22.61 Melanocytic nevi of right upper limb, including shoulder
CPT/HCPCS: 88305

== ENCOUNTER → 2022-06-03 | Outpatient (CLI) | payer OTHER, SELFPAY ==
--- NOTE | 2022-06-03 07:40 | RAD_ITS ---
STUDY: X-RAY - LEFT KNEE REASON FOR EXAM: Female, 47 years old. left knee pain following recent fall. TECHNIQUE: 3 view(s) of the knee. COMPARISON: None. FINDINGS: Normal visualized distal femur. Normal visualized proximal tibia and fibula. Normal proximal tibiofibular articulation. Normal medial femorotibial compartment. Normal lateral femorotibial compartment. Normal patellofemoral articulation. Small joint effusion. RAD/Knee 3 Views IMPRESSION: Small joint effusion. Electronically Signed: Juan Diego Sebastian MD at 15:21 EDT ,
== END | disposition home or self-care (01) ==
LOC: RAD 07:34
PROVIDERS: PCP Family Medicine; Referring Provider Physician Assistant Medical; Visit Provider Physician Assistant Medical
DX: M25.562 Pain in left knee (principal)
CPT/HCPCS: 73562

== ENCOUNTER → 2022-06-30 | Outpatient (CLI) | payer OTHER, SELFPAY ==
--- NOTE | 2022-06-30 09:02 | RAD_ITS ---
HISTORY: injury. TECHNIQUE: XR Elbow Min 3 Views. COMPARISON: None. FINDINGS: BONES : Small vertically oriented linear lucency in the radial head with intra-articular extension. Mineralization unremarkable. JOINTS: No dislocation. Joint spaces maintained. SOFT TISSUES: Joint effusion with elevation of the fat pads. RAD/Elbow min 3 Views IMPRESSION: Nondisplaced radial head fracture. Mild joint effusion of the left elbow. Electronically Signed: Leidy Healy MD at 9:43 EDT ,
== END | disposition home or self-care (01) ==
LOC: MTRAD 09:02
PROVIDERS: PCP Family Medicine; Referring Provider Physician Assistant; Visit Provider Physician Assistant
DX: S59.902A Unspecified injury of left elbow, initial encounter (principal); X58.XXXA Exposure to other specified factors, initial encounter
CPT/HCPCS: 73080

== ENCOUNTER → 2022-07-26 | Outpatient (CLI) | payer OTHER, SELFPAY ==
--- NOTE | 2022-07-26 09:47 | RAD_ITS ---
INDICATION: f/u radial head fracture EXAMINATION/TECHNIQUE: X-RAY - LEFT XR Elbow Min 3 Views COMPARISON: Left elbow radiographs from 06/30/2022 FINDINGS: SOFT TISSUES: No significant soft tissue swelling. No radiopaque foreign body detected. BONES/JOINTS: Small nondisplaced linear lucency remains within radial head extending along articular surface. Adequate alignment of osseous structures. Preservation of the joint space(s). RAD/Elbow min 3 Views IMPRESSION: Persistent nondisplaced left radial head fracture Electronically Signed: Erickson Quinn MD at 7:29 EDT ,
== END | disposition home or self-care (01) ==
LOC: MTRAD 09:47
PROVIDERS: PCP Family Medicine
DX: S52.125A Nondisplaced fracture of head of left radius, initial encounter for closed fracture (principal)
CPT/HCPCS: 73080

== ENCOUNTER → 2023-01-03 | Outpatient (CLI) | payer OTHER, SELFPAY ==
--- NOTE | 2023-01-03 07:14 | BI_ITS ---
MAMMOGRAPHY - BILATERAL SCREENING REASON FOR EXAM: Female, 47 years old. Routine annual screening examination. PERTINENT HISTORY: Non-contributory. TECHNIQUE: Digital bilateral breast kolton (3D mammographic acquisition) in the CC and MLO projections. 2-D mediolateral oblique (MLO) and craniocaudad (CC) views of both breasts were obtained. CAD: Full Field Digital Mammography with Computer Added Detection was performed. COMPARISON: Comparison is made with prior study December 30, 2021 and December 24, 2020. FINDINGS: Breast Composition: There are scattered areas of fibroglandular density. There are no dominant masses or suspicious calcifications. No other significant abnormalities are identified. There has been no significant change since the prior study. BI/SCRN MAMM (CAD)W/KOLTON BILAT IMPRESSION: Stable bilateral screening mammogram. Yearly follow-up mammogram recommended. (A) ASSESSMENT CATEGORY: BIRADS Category 1: Negative. A letter regarding these results will be sent to the patient by the facility within 30 days. Approximately 10% of breast cancers are not detected by mammography. A normal mammogram should not delay biopsy of a clinically suspicious abnormality. [id number] Electronically Signed: Juan Diego Sebastian MD at 15:43 EDT ,
== END | disposition home or self-care (01) ==
LOC: OPBI 07:11
PROVIDERS: PCP Family Medicine; Referring Provider Family Medicine; Visit Provider Family Medicine
DX: Z12.31 Encounter for screening mammogram for malignant neoplasm of breast (principal)
CPT/HCPCS: 77063; 77067

== ENCOUNTER → 2023-08-23 | Outpatient (CLI) | payer OTHER, SELFPAY ==
[2023-08-26 11:11] LABS: HPV APTIMA, High Risk Negative (Negative)
== END | disposition home or self-care (01) ==
LOC: LABSPEC 12:00
PROVIDERS: PCP Family Medicine; Referring Provider Nurse Practitioner Women's Health; Visit Provider Nurse Practitioner Women's Health
DX: Z12.4 Encounter for screening for malignant neoplasm of cervix (principal)
CPT/HCPCS: 87624; 88175; G0145

== ENCOUNTER → 2023-08-28 | Outpatient (CLI) | payer OTHER, SELFPAY ==
--- NOTE | 2023-08-28 12:15 | RAD_ITS ---
STUDY: X-RAY - LEFT HAND REASON FOR EXAM: Female, 48 years old. Injury to the fifth digit. TECHNIQUE: 3 view(s) of the hand. COMPARISON: None. FINDINGS: Normal radiocarpal articulation. Normal distal radioulnar joint. Normal visualized carpal bones. Normal carpal articulations Normal carpometacarpal articulation of the thumb. Normal second through fifth carpometacarpal joints. Normal metacarpi. Normal metacarpophalangeal joint of the thumb. Normal interphalangeal joint of the thumb. Normal proximal and distal phalanges of the thumb. Normal metacarpophalangeal joints of the second through fifth fingers. Normal proximal and distal interphalangeal joints of the second through fifth fingers. Nondisplaced oblique fracture at the base of the proximal phalanx of the fifth digit. Soft tissue swelling. RAD/Hand Min 3 Views IMPRESSION: There is a nondisplaced oblique fracture at the base of the proximal phalanx of the fifth digit with overlying soft tissue swelling. Electronically Signed: Juan Diego Sebastian MD at 12:38 EDT ,
[2023-08-28 12:50] LABS: Vitamin D,25 Hydroxy 26.2 ng/mL
[2023-08-28 13:19] LABS: T4 Free Direct 0.74 ng/dL (0.76-1.46); Thyroid Stim Hormone (TSH) 2.89 uIU/mL (0.358-3.74)
[2023-08-29 08:11] LABS: Thyroid Peroxidase AB 119 IU/mL (0-34)
== END | disposition home or self-care (01) ==
LOC: RAD.FUTURE 11:51 → RAD 11:52
PROVIDERS: Nurse Practitioner Women's Health; PCP Family Medicine; Referring Provider Family Medicine; Visit Provider Family Medicine
DX: M79.645 Pain in left finger(s) (principal); L65.9 Nonscarring hair loss, unspecified; Z13.29 Encounter for screening for other suspected endocrine disorder; Z13.21 Encounter for screening for nutritional disorder
CPT/HCPCS: 36415; 73130; 82306; 84439; 84443; 86376

== ENCOUNTER → 2023-10-30 | Outpatient (CLI) | payer OTHER, SELFPAY ==
[2023-10-30 09:38] LABS: Free T3 2.5 pg/mL (2.18-3.98); T4 Free Direct 0.84 ng/dL (0.76-1.46)
== END | disposition home or self-care (01) ==
LOC: LAB 08:00
PROVIDERS: PCP Family Medicine; Referring Provider Family Medicine; Visit Provider Family Medicine
DX: E03.9 Hypothyroidism, unspecified (principal)
CPT/HCPCS: 36415; 84439; 84443; 84481

== ENCOUNTER → 2024-01-11 | Outpatient (CLI) | payer OTHER, SELFPAY | END | disposition home or self-care (01) | LOC: OPBI 07:24 | PROVIDERS: PCP Family Medicine; Referring Provider Nurse Practitioner Women's Health; Visit Provider Nurse Practitioner Women's Health | DX: Z12.31 Encounter for screening mammogram for malignant neoplasm of breast (principal) | CPT/HCPCS: 77063; 77067 ==

== ENCOUNTER → 2024-02-09 | Outpatient (CLI) | payer OTHER, SELFPAY ==
--- NOTE | 2024-02-09 12:05 | RAD_ITS ---
EXAM: XR LEFT FOOT COMPLETE, 3 OR MORE VIEWS CLINICAL INDICATION: PAIN IN LEFT FOOT TECHNIQUE: Frontal, lateral and oblique views of the left foot. COMPARISON: Ankle on the same date. FINDINGS: BONES/JOINTS: Degenerative changes in the foot with marginal osteophytes and joint space narrowing at the metatarsal phalangeal and interphalangeal joints. Calcaneal spurs. No acute fracture. No subluxation. Normal alignment. No sclerotic or destructive changes observed. SOFT TISSUES: No significant abnormality. No soft tissue swelling or gas. No radiopaque foreign body. RAD/Foot min 3 Views IMPRESSION: Degenerative changes. No acute findings. Electronically Signed: Chad Waterman DO at 21:56 EST ,
--- NOTE | 2024-02-09 12:05 | RAD_ITS ---
EXAM: XR LEFT ANKLE COMPLETE, 3 OR MORE VIEWS CLINICAL INDICATION: PAIN IN LEFT ANKLE AND JOINT TECHNIQUE: Frontal, lateral and oblique views of the left ankle. COMPARISON: Foot on the same date. FINDINGS: BONES/JOINTS: Calcaneal spurs. Spurring of the medial lateral malleoli. Midfoot arthrosis. No acute fracture. No subluxation. Normal alignment. Preservation of the joint space. No sclerotic or destructive changes observed. SOFT TISSUES: No significant abnormality. No soft tissue swelling or gas. No radiopaque foreign body. RAD/Ankle min 3 Views IMPRESSION: Degenerative changes. No acute osseous findings. Electronically Signed: Chad Waterman DO at 21:57 EST ,
== END | disposition home or self-care (01) ==
LOC: RAD 11:59
PROVIDERS: PCP Family Medicine; Referring Provider Nurse Practitioner Family; Visit Provider Nurse Practitioner Family
DX: M79.672 Pain in left foot (principal); M25.572 Pain in 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
CPT/HCPCS: 73610; 73630

== ENCOUNTER → 2024-03-21 | Outpatient (CLI) | payer OTHER, SELFPAY ==
--- NOTE | 2024-03-21 12:37 | MRI_ITS ---
STUDY: MRI LEFT ANKLE WITHOUT CONTRAST REASON FOR EXAM: Female, 48 years old. Osteochondritis. Left anterior ankle pain greater than 6 months. Sharp, nerve pain. TECHNIQUE: Standardized fat and water weighted pulse sequences were obtained in all 3 orthogonal planes. COMPARISON: Left ankle and foot radiographs dated 02/09/2024. FINDINGS: Normal subcutis adipose space. There is mild posterior tibialis tenosynovitis. Intact posterior tibialis tendon. Normal flexor digitorum longus tendon. Normal flexor hallucis longus tendon. Normal peroneus longus and brevis tendons. Normal tibialis anterior tendon. Normal extensor hallucis longus tendon. Normal extensor digitorum longus tendons. Normal Achilles tendon and teno-osseous insertion. Normal plantar fascia. Normal plantar calcaneal tubercles. Normal intrinsic muscles of the rearfoot. Normal distal tibiofibular syndesmotic ligamentous complex. Normal lateral ligamentous complex. Normal subtalar ligaments and sinus tarsi. Normal deltoid ligamentous complex. Normal plantar calcaneonavicular (spring) ligament. There is a tiny tibiotalar joint effusion. Normal talar dome. Normal subtalar articulations. There is marrow stress edema in the talar head/neck, anterior calcaneus, lateral navicular, medial cuneiform, lateral cuneiform, as well as bases of the second through fourth metatarsals. MRI/Lower Ext Joint Only (Routine) IMPRESSION: Marrow stress edema in the talar head/neck, anterior calcaneus, lateral navicular, medial cuneiform, lateral cuneiform, as well as bases of the second through fourth metatarsals. Mild posterior tibialis tenosynovitis. Tiny tibiotalar joint effusion. Electronically Signed: Brooks Little MD at 14:18 EST ,
== END | disposition home or self-care (01) ==
LOC: MRI 12:28
PROVIDERS: PCP Family Medicine; Referring Provider Podiatrist; Visit Provider Podiatrist
DX: M93.272 Osteochondritis dissecans, 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 (principal)
CPT/HCPCS: 73721

== ENCOUNTER → 2024-04-12 | Outpatient (CLI) | payer OTHER, SELFPAY ==
[2024-04-12 15:52] LABS: CRP < 2.90 mg/L (0.0-3.0); Rheumatoid Factor < 10.0 IU/mL (<15)
[2024-04-12 16:01] LABS: Erythrocyte Sedimentation Rate 5 mm/hr (0-30)
[2024-04-12 16:03] LABS: Hematocrit 41.6 % (37-47); Mean Corp Hgb Conc 33.7 g/dL (32-36); Mean Corpuscular Hgb 31.6 pg (27.0-32.0); Mean Corpuscular Volume 93.9 fL (81-99); Mean Platelet Vol. 11.2 fl (6.2-12.0); Platelet Count 304 K/mm3 (150-450); RBC Distribution Width CV 12.4 % (11.6-14.6); Red Blood Count 4.43 M/mm3 (4.2-5.4); White Blood Count 14.5 K/mm3 (4.4-11.0)
[2024-04-15 16:07] LABS: ANTINUCLEAR ANTIBODIES DIRECT Positive (Negative); Anti-Centromere B Ab <0.2 AI (0.0-0.9); Anti-Chromatin <0.2 AI (0.0-0.9); Anti-Jo <0.2 AI (0.0-0.9); Anti-Scleroderma-70 AB <0.2 AI (0.0-0.9); Anti-dsDNA Ab <1 IU/mL (0-9); RNP Ab 1.4 AI (0.0-0.9); SJOGREN'S Anti-SS-A test < 0.2 AI (0.0-0.9); SJOGREN'S Anti-SS-B test < 0.2 AI (0.0-0.9); Smith Ab <0.2 AI (0.0-0.9)
[2024-04-19 18:08] LABS: CCP IgG Antibodies 2 units (0-19); HLA B27 Negative (.)
== END | disposition home or self-care (01) ==
LOC: MTLAB 13:20
PROVIDERS: PCP Family Medicine; Referring Provider Podiatrist; Visit Provider Podiatrist
DX: M79.671 Pain in right foot (principal); M79.672 Pain in left foot
CPT/HCPCS: 36415; 81374; 85027; 85652; 86038; 86140; 86200; 86225; 86235; 86431

== ENCOUNTER → 2024-05-30 | Outpatient (CLI) | payer OTHER, SELFPAY ==
[2024-05-30 12:41] LABS: Erythrocyte Sedimentation Rate 2 mm/hr (0-30)
[2024-05-30 20:04] LABS: CRP < 3.00 mg/L (0.0-3.0); Rheumatoid Factor < 10.0 IU/mL (<15)
[2024-06-04 09:08] LABS: Anti-Nuclear Antibody Test Negative (.); RNP Ab 1.1 AI (0.0-0.9)
== END | disposition home or self-care (01) ==
PROVIDERS: PCP Family Medicine; Referring Provider Family Medicine; Visit Provider Family Medicine
DX: M25.50 Pain in unspecified joint (principal); M06.9 Rheumatoid arthritis, unspecified; M79.10 Myalgia, unspecified site
CPT/HCPCS: 36415; 85652; 86038; 86140; 86235; 86431

== ENCOUNTER → 2024-07-12 | Outpatient (CLI) | payer OTHER, SELFPAY ==
--- NOTE | 2024-07-12 08:29 | RAD_ITS ---
PROCEDURE: HAND MIN 3 VIEWS 07/12/2024 REASON FOR EXAM: INFLAMMATORY POLYARTHRITIS TECHNIQUE: 3 view(s) of the left hand COMPARISON: 08/28/2023 FINDINGS: Mild degenerative appearing osteoarthrosis at the 1st carpometacarpal and metacarpophalangeal joints. No inflammatory appearing arthropathy identified. Old healed intra-articular fracture of the 5th proximal phalanx at the MCP joint. Possible old fracture deformity of the radial styloid again noted. RAD/Hand Min 3 Views IMPRESSION: Mild degenerative appearing osteoarthrosis at the 1st carpometacarpal and metac arpophalangeal joints. No inflammatory appearing arthropathy identified. Reading Location: [id number]
--- NOTE | 2024-07-12 08:29 | RAD_ITS ---
PROCEDURE: HAND MIN 3 VIEWS 07/12/2024 REASON FOR EXAM: INFLAMMATORY POLYARTHRITIS TECHNIQUE: 4 view(s) of the right hand; AP, oblique, lateral and a bilateral oblique view COMPARISON: None available FINDINGS: Mild appearing degenerative osteoarthrosis at the 1st IP joint. No inflammatory appearing arthropathy identified. Joint spaces appear within limits. Visualized soft tissues appear within limits. RAD/Hand Min 3 Views IMPRESSION: Mild appearing degenerative osteoarthrosis at the 1st IP joint. No inflammatory appearing arthropathy identified. Reading Location: [id number]
--- NOTE | 2024-07-12 08:30 | RAD_ITS ---
EXAM: DX foot minimum three views CLINICAL HISTORY: Inflammatory polyarthritis COMPARISON: None available TECHNIQUE: Three views right foot FINDINGS: No fracture or dislocation. Developmental osseous fusion of the middle and distal phalanx of the 5th ray. The joint spaces otherwise appear within limits. Small enthesophyte formation at the Achilles surface of the calcaneus. Soft tissues appear within limits. RAD/Foot min 3 Views IMPRESSION: No inflammatory appearing arthropathy identified. Reading Location: [id number]
[2024-07-12 08:46] LABS: Bacteria 0 SEEN /hpf (None Seen); Mucous, Urine 0 SEEN /hpf (<or=2+)
[2024-07-12 13:42] LABS: Absolute Lymphocyte Count 1.03 X10^3/uL (0.83-4.51); Absolute Neutrophil Count 3.5 X10^3/uL (2.0-7.7); Basophil# 0.09 X10^3/uL; Basophil% 1.6 % (0-1); Eosinophil# 0.37 X10^3/uL; Eosinophils% 6.6 % (0-5); Hematocrit 42.5 % (37-47); Hemoglobin 14.3 g/dL (12.0-15.0); Lymphocyte # 1.03 X10^3/ul (0.83-4.51); Lymphocyte % 18.5 % (19-41); Mean Corp Hgb Conc 33.6 g/dL (32-36); Mean Corpuscular Hgb 31.8 pg (27.0-32.0); Mean Corpuscular Volume 94.4 fL (81-99); Mean Platelet Vol. 11.5 fl (6.2-12.0); Monocyte# 0.53 X10^3/uL; Monocyte% 9.5 % (0-10); NRBC Flagged by Analyzer 0 % (0-5); Neutrophil # 3.54 X10^3/uL (2.7-7.7); Neutrophil % 63.4 % (47-70); Platelet Count 185 K/mm3 (150-450); RBC Distribution Width CV 12.4 % (11.6-14.6); RBC Distribution Width SD 43.3 fl (35.1-43.9); White Blood Count 5.6 K/mm3 (4.4-11.0)
[2024-07-12 13:59] LABS: Erythrocyte Sedimentation Rate 4 mm/hr (0-30)
[2024-07-12 14:11] LABS: AST(SGOT) 19 U/L (<=31); Alanine Aminotransfer ALT/SGPT 14 U/L (<=34); Albumin, Serum 4.8 g/dL (3.5-5.0); Alkaline Phosphatase 49 U/L (35-104); Bilirubin, Direct 0.21 mg/dL (0.00-0.30); Globulin 2.8 g/dL (2.2-4.2); Protein, Total 7.6 g/dL (5.9-8.4); Total Bilirubin 0.49 mg/dL (0.00-1.30)
[2024-07-12 14:19] LABS: CRP < 3.00 mg/L (0.0-3.0)
[2024-07-12 15:13] LABS: Microalbumin,Random Urine < 12.0 mg/L (NO RANGE EST.); Microalbumin:Creatinine Ratio UNABLE TO CALCULATE mg/g CRE
[2024-07-12 15:27] LABS: Color, Urine Straw (Yellow); Glucose, Dipstick Normal (Normal); Ketone-Dipstick Negative (Negative); Leukocyte Esterase-Dipstick Negative /ul (Negative); Nitrite-Dipstick Negative (Negative); Occult Blood-Urine Negative /ul (Negative); Protein-Dipstick 15 mg/dl (Negative); Specific Gravity, Urine 1.005 (1.002-1.030); Urine Bilirubin Dipstick Negative (Negative); Urine Clarity Clear (Clear); Urine Urobilinogen Normal (Normal)
[2024-07-12 17:24] LABS: Red Blood Cells-Urine 0-5 SEEN /hpf (0-5); White Blood Cells 0-5 SEEN /hpf (0-5)
[2024-07-12 17:25] LABS: Squamous Epithelial Cells - UA 0-5 SEEN /hpf (5-10); Transitional Epithelial - Ur 0-5 SEEN /hpf (0-5)
[2024-07-13 11:51] LABS: Creatinine, Serum 0.78 mg/dL (0.70-1.20); EST Glomerular Filtration Rate 93 (>60)
[2024-07-17 13:08] LABS: ANTINUCLEAR ANTIBODIES DIRECT Positive (Negative); Anti-Centromere B Ab <0.2 AI (0.0-0.9); Anti-Histone Abs 0.3 Units (0.0-0.9); Anti-Jo <0.2 AI (0.0-0.9); Anti-Scleroderma-70 AB <0.2 AI (0.0-0.9); Anti-dsDNA Ab <1 IU/mL (0-9); Anti-ribosomal P Antibodies <0.2 AI (0.0-0.9); RNP Ab 1.1 AI (0.0-0.9); SJOGREN'S Anti-SS-A test < 0.2 AI (0.0-0.9); SJOGREN'S Anti-SS-B test < 0.2 AI (0.0-0.9); Smith Ab <0.2 AI (0.0-0.9)
== END | disposition home or self-care (01) ==
PROVIDERS: PCP Family Medicine; Referring Provider Internal Medicine Rheumatology; Visit Provider Internal Medicine Rheumatology
DX: M06.4 Inflammatory polyarthropathy (principal); R76.8 Other specified abnormal immunological findings in serum; E06.3 Autoimmune thyroiditis
CPT/HCPCS: 36415; 73130; 73630; 80076; 81001; 82043; 82565; 82570; 84432; 85025; 85652; 86038; 86140; 86147; 86160; 86225; 86235; 86376; 86800

== ENCOUNTER → 2024-10-07 | Outpatient (CLI) | payer OTHER, SELFPAY ==
--- OUTSIDE RECORDS SUMMARY | 2024-10-07 07:19 | XMS RPT_ITS | CCD ---
Author Organization [facility] Care Team Providers Care Pull Up Hand Name Role Phone Juan Jose CHIEF SCIENTIST, Elvia N Unavailable Unavailab le Juan Jose JASMINE, Elvia Sheets Unavailable Unavailab le Elvia Ingram LPN Unavailable Unavailab Dr. Stephanie Olivarez Primary Care Provider [phone] Dr. Stephanie Hedrick Referring Provider Puneet RIOS, RYANC Eli Attending Provider Dr. Stephanie Hedrick Primary Care Provider [phone] Elo Sands Attending Provider Unavailable Dr. Stephanie Hedrick Referring Provider Dr. Mukesh Mendoza Attending Provider Dr. Mukesh Mendoza Other Provider Puneet RIOS, RYANC Eli Attending Provider Stephanie Hedrick DO Primary Care Provider Cole, [place] S Unavailable COLE, ORLIN S Referring Unavailable STEPHANIE HEDRICK Primary Care Unavailable JUAN DONG Attending Unavailable Dr. Stephanie Hedrick Primary Care Provider [phone] Dr. Stephanie Hedrick Referring Provider Dr. Mukesh Mendoza Attending Provider Dr. Mukesh Mendoza Other Provider [phone] Puneet RIOS, GABRIEL-C Eli Attending Provider Samantha SOLANO, RUSS Hollingsworth Attending Provider Floridalma, Dr. Brown Primary Care Provider Floridalma, Dr. Brown Referring Provider RUSS Cates Attending Provider RUSS Ann Attending Provider Floridalma AVILEZ, Dr. Brown Primary Care Provider 1([facility])[phone] Magno LAY UPS ASSEMBLER-C, Katty Attending Provider Magno LAY UPS ASSEMBLER-C, Katty Referring Provider Samara DPM, Dr. Luna Attending Provider Samara DPM, Dr. Luna Referring Provider Floridalma DO, Dr. Brown Attending Provider [phone]([facility])[phone] Floridalma DO, Dr. Brown Referring Provider 1([facility])[phone] Floridalma AVILEZ, Dr. Brown Primary Care Provider 1([facility])[phone] Melissa ALDANA, Dr. Ramey Attending Provider Melissa ALDANA, Dr. Ramey Referring Provider Malys, Stephanie Attending Unavailable Malys, Stephanie Referring Unavailable Malys, Stephanie Primary Care Unavailable Malys, Stephanie Primary Care Unavailable TorresTanvir Attending Unavailable Torres, Tanvir Referring Unavailable Gregg LAY UPS ASSEMBLER, Gissell Referring Unavailable Malys, Stephanie Primary Care Unavailable Gregg LAY UPS ASSEMBLER, Gissell Attending Unavailable Malys, Stephanie Primary Care Unavailable Malys, Stephanie Attending Unavailable Malys, Stephanie Referring Unavailable Gregg LAY UPS ASSEMBLER, Gissell Consulting Unavailable Malys, Stephanie Primary Care Unavailable Malys, Stephanie Attending Unavailable Malys, Stephanie Referring Unavailable Gregg LAY UPS ASSEMBLER, Gissell Referring Unavailable Malys, Stephanie Primary Care Unavailable [place] LAY UPS ASSEMBLER, Gissell Attending Unavailable Assessment, Health Risk Attending Unavaila ble Malys, Stephanie Referring Unavailable Malys, Stephanie Primary Care Unavailable Gregg LAY UPS ASSEMBLER, Gissell Attending Unavailable Malys, Stephanie Primary Care Unavailable Malys, Stephanie Referring Unavailable Malys, Stephanie Primary Care Unavailable Magno, Katty Attending Unavailable Magno, Katty Referring Unavailable Malys, Stephanie Primary Care Unavailable Jeremy Pascual Attending Unavailable Jeremy Pascual Referring Unavailable Stephanie Hedrick Primary Care Unavailable Jeremy Pascual Attending Unavailable Jeremy Pascual Referring Unavailable Medications Current Medications Medication Drug Class(es) Dates Sig (Normalized) Sig (Original) meloxicam 15 mg oral tablet (1 source) Nonsteroidal Anti-inflammatory Drug Start: 06-18-2024 take 1 tablet by mouth once daily Meloxicam 15 mg tablet Active 15 mg PO DAILY June 18, 2024 12:00am Completed/Discontinued Medications Medication Drug Class(es) Dates Sig (Normalized) Sig (Original) acetaminophen 325 mg / oxyCODONE hydrochloride 5 mg oral tablet (9 sources) Opioid Agonist Start: 02-06-2014 End: 09-05-2017 Oxycodone-Acetamino phen 1 TABLET tablet Discontinued 1 - 2 {tbl} PO EVERY 4 HOURS NEEDED as needed for Pain 60 February 06, 2014 1:00am September 05, 2017 5:38pm Start: 02-06-2014 End: 09-05-2017 take 1 tablet by mouth every four hours as needed Oxycodone-Acetaminophen Discontinued 1 - 2 TABLET PO EVERY 4 HOURS NEEDED 60 February 06, 2014 1:00am September 05, 2017 5:38pm acyclovir 800 mg oral tablet (3 sources) Herpesvirus Nucleoside Analog DNA Polymerase Inhibitor, Herpes Simplex Virus Nucleoside Analog DNA Polymerase Inhibitor, Herpes Zoster Virus Nucleoside Analog DNA Polymerase Inhibitor Start: 05-20-2016 End: 05-27-2016 ACYCLOVIR 800 MG TABS Take one tab 5 times daily ACYCLOVIR [id number] Roque SOLANO amoxicillin 500 mg oral capsule (9 sources) Penicillin-class Antibacterial Start: 09-05-2017 End: 09-15-2017 take 2 capsules by mouth twice daily Amoxicillin 500 mg capsule Discontinued 1000 mg PO TWICE A DAY 40 September 05, 2017 12:00am September 14, 2017 12:00am September 15, 2017 12:09am Start: 09-05-2017 End: 09-15-2017 take 1000 mg by mouth twice daily Amoxicillin Discontinued 1000 MG PO TWICE A DAY 40 September 05, 2017 12:00am September 15, 2017 12:09am azithromycin 250 mg oral tablet (6 sources) Macrolide Antimicrobial Start: 07-17-2009 End: 07-21-2009 ZITHROMAX Z-LOLIS 250 MG TABS AZITHROMYCIN [id number] Dee Rosario MS,PABrendaC busPIRone hydrochloride 7.5 mg oral tablet (20 sources) Start: 03-29-2022 End: 05-13-2022 take 1 tablet by mouth twice daily busPIRone (BUSPAR) 7.5 mg tablet Take 7.5 mg by mouth twice daily. 0 03/29/2022 Active Start: 10-15-2021 take 7.5 mg by mouth twice daily Buspirone 10 mg tablet Active 7.5 mg PO TWICE A DAY October 15, 2021 8:31am Start: 10-15-2021 take 7.5 mg by mouth twice daily Buspirone Active 7.5 MG PO TWICE A DAY October 15, 2021 8:31am Start: 10-15-2021 take 5 mg by mouth twice daily Buspirone Active 5 MG PO TWICE A DAY October 15, 2021 8:31am Start: 04-09-2021 End: 10-15-2021 take 1 tablet by mouth twice daily Buspirone 10 mg tablet Discontinued 10 mg PO TWICE A DAY April 09, 2021 1:00am October 15, 2021 8:32am Start: 05-03-2018 End: 12-13-2018 take 1 tablet by mouth twice daily Buspirone 5 mg tablet Discontinued 5 mg PO TWICE A DAY May 03, 2018 1:00am December 13, 2018 1:45pm Comment on above: Take 7.5 mg by mouth twice daily. calcium carbonate 1500 mg / cholecalciferol 0.01 mg oral capsule (9 sources) Vitamin D Start: 09-05-2017 End: 01-23-2018 Calcium Carbonate-Vitamin D3 (Calcium 600 With Vitamin D3) 600 mg(1,500mg) -400 unit capsule Discontinued NMA PO September 05, 2017 12:00am January 23, 2018 3:17pm Start: 09-05-2017 End: 01-23-2018 Calcium Carbonate-Vitamin D3 (Calcium 600 With Vitamin D3) 600 mg(1,500mg) -400 unit capsule Discontinued CAP PO September 05, 2017 12:00am January 23, 2018 3:17pm ciprofloxacin 500 mg oral tablet (3 sources) Quinolone Antimicrobial Start: 05-14-2010 End: 05-24-2010 CIPRO 500 MG TABS Take 1 tablet by mouth morning and night X 10 days CIPROFLOXACIN HCL [id number] Alla Bruno PA-C 24 hr dilTIAZem hydrochloride 180 mg extended release oral capsule (20 sources) Calcium Channel Alberto Start: 02-11-2021 End: 06-30-2022 take 1 capsule by mouth once daily Diltiazem Hcl 180 mg capsule,extended release 24hr Discontinued 180 mg PO DAILY February 24, 2022 2:38pm June 30, 2022 9:25am Start: 03-03-2020 End: 02-11-2021 take 1 capsule by mouth once daily Diltiazem Hcl 120 mg capsule,extended release 24hr Discontinued 120 mg PO DAILY April 24, 2020 9:47am February 11, 2021 10:26am Comment on above: Take 180 mg by mouth once daily. docusate sodium 100 mg oral capsule (9 sources) Start: 014 End: take 1 capsule by mouth twice daily as needed for constipation Docusate Sodium 100 MG capsule Discontinued 100 mg PO TWICE DAILY NEEDED as needed for Constipation February 06, 2014 1:00am September 05, 2017 5:38pm flecainide acetate 50 mg oral tablet (20 sources) Antiarrhythmic Start: 023 take 1 tablet by mouth twice daily flecainide (TAMBOCOR) 50 mg tablet Take 50 mg by mouth twice daily. 0 03/29/2022 Active Start: 03-09-2021 End: 06-30-2022 take 1 tablet by mouth every twelve hours Flecainide 50 mg tablet Discontinued 50 mg PO Q12H March 29, 2022 1:51pm June 30, 2022 9:25am Comment on above: Take 50 mg by mouth twice daily. Take 50 mg by mouth q 12 HR. hydroxychloroquine sulfate 200 mg oral tablet (20 sources) Antimalarial, Antirheumatic Agent Start: 2017 End: 2022 take 1 tablet by mouth once daily Hydroxychloroquine 200 mg tablet Discontinued 200 mg PO DAILY January 23, 2018 3:17pm February 06, 2020 9:28am Start: 07-17-2009 End: 01-23-2018 take 1 tablet by mouth twice daily at mealtime Hydroxychloroquine 200 mg tablet Discontinued 200 mg PO TWICE DAILY WITH MEALS September 05, 2017 5:39pm January 23, 2018 3:17pm Comment on above: Take by mouth once d aily. ibuprofen 200 mg oral capsule (13 sources) Nonsteroidal Anti-inflammatory Drug Start: 3 End: take 1 capsule by mouth every six hours as needed Ibuprofen 200 mg capsule Discontinued 200 mg PO EVERY 6 HOURS as needed July 07, 2022 12:00am April 07, 2023 4:24pm Start: 02-06-2014 End: 09-05-2017 take 2 tablets by mouth every six hours as needed for pain Ibuprofen 200 MG tablet Discontinued 400 mg PO EVERY 6 HOURS NEEDED as needed for Pain February 06, 2014 1:00am September 05, 2017 5:38pm Start: 02-06-2014 End: 09-05-2017 take 400 mg by mouth every six hours as needed Ibuprofen Discontinued 400 MG PO EVERY 6 HOURS NEEDED February 06, 2014 1:00am September 05, 2017 5:38pm levonorgestrel 0.881421 mg/hr intrauterine system (12 sources) Progestin, Progestin-containing Intrauterine Device Start: 01-29-2014 End: 09-05-2017 Levonorgestrel 1 EACH intrauterine device Discontinued 1 NMA IY ONE TIME January 29, 2014 1:00am September 05, 2017 5:38pm Start: 07-17-2009 MIRENA (52 MG) 20 MCG/24HR IUD as directed LEVONORGESTREL [id number] Dee Rosario MSPABrendaC Start: 07-17-2009 MIRENA (52 MG) 20 MCG/24HR IUD as directed LEVONORGESTREL [id number] Dee Rosario MSPABrendaC metoprolol tartrate 25 mg oral tablet (20 sources) beta-Adrenergic Alberto Start: 02-11-2021 End: 02-11-2021 take 1 tablet by mouth once daily as needed Metoprolol Tartrate 25 mg tablet Discontinued 25 mg PO DAILY as needed February 11, 2021 10:09am February 11, 2021 10:25am Start: 04-24-2020 End: 02-11-2021 take 1 tablet by mouth twice daily Metoprolol Tartrate 25 mg tablet Discontinued 25 mg PO TWICE A DAY 180 April 24, 2020 9:47am February 11, 2021 10:10am Start: 03-03-2020 End: 04-02-2020 Metoprolol Tartrate 50 mg ta blet Discontinued 25 mg PO TWICE A DAY 1 March 03, 2020 3:19pm April 01, 2020 1:00am April 02, 2020 1:03am Start: 03-03-2020 End: 04-02-2020 take 25 mg by mouth twice daily Metoprolol Tartrate Di scontinued 25 MG PO TWICE A DAY 1 March 03, 2020 3:19pm April 02, 2020 1:03am Start: 02-06-2020 End: 03-03-2020 take 1 tablet by mouth three times daily Metoprolol Tartrate 50 mg tablet Discontinued 50 mg PO THREE TIMES A DAY February 06, 2020 10:06am March 03, 2020 3:20pm Start: 01-10-2019 End: 02-06-2020 take 1 tablet by mouth twice daily Metoprolol Tartrate 50 mg tablet Discontinued 50 mg PO TWICE A DAY 180 January 08, 2020 4:51pm February 06, 2020 9:28am Start: 06-01-2018 End: 01-10-2019 Metoprolol Tartrate 50 mg ta blet Discontinued 50 mg PO .COMPLEX January 08, 2019 11:14am January 10, 2019 11:46am 50 mg PO Patient is to take a 25 mg tablet in the am and a 50 mg tablet at night due to symptoms; Start: 05-18-2018 End: 01-10-2019 Metoprolol Tartrate 25 mg ta blet Discontinued 25 mg PO .COMPLEX January 08, 2019 11:14am January 10, 2019 11:45am 25 mg PO patient is to take a 25 mg tablet in the am and a 50 mg tablet at night due to symptoms; Start: 05-18-2018 End: 06-01-2018 take 1 tablet by mouth once daily in the evening Metoprolol Tartrate 50 mg tablet Discontinued 50 mg PO EVERY EVENING May 18, 2018 12:00am June 01, 2018 5:34pm Start: 02-12-2018 End: 05-18-2018 take 1 tablet by mouth twice daily Metoprolol Tartrate 25 mg tablet Discontinued 25 mg PO TWICE A DAY February 15, 2018 12:48pm May 18, 2018 2:37pm Start: 01-23-2018 End: 02-12-2018 Metoprolol Tartrate 25 mg ta blet Discontinued 12.5 mg PO TWICE A DAY January 23, 2018 4:28pm February 12, 2018 6:50pm Start: 01-23-2018 End: 02-12-2018 take 12.5 mg by mouth twice daily Metoprolol Tartrate Discontinued 12.5 MG PO TWICE A DAY January 23, 2018 4:28pm February 12, 2018 6:50pm MULTIPLE VITAMIN (2 sources) Start: 07-17-2009 take 1 tablet by mouth once daily MULTIVITAMINS TABS One tablet by mouth daily MULTIPLE VITAMIN [id number] Dee Rosario MS, PA-C MULTIPLE VITAMIN (1 source) Start: 07-17-2009 take 1 tablet by mouth once daily MULTIVITAMINS TABS One tablet by mouth daily MULTIPLE VITAMIN [id number] Dee Rosario MS, PA-C Multivitamin preparation (7 sources) Start: 01-23-2018 End: 10-15-2021 take 1 tablet by mouth once daily Multivitamin Discontinued 1 TABLET PO DAILY January 23, 2018 12:00am October 15, 2021 7:31am Start: 01-23-2018 End: 10-15-2021 take 1 tablet by mouth once daily Multivitamin Discontinued 1 TABLET PO DAILY January 23, 2018 1:00am October 15, 2021 8:31am Multivitamin tablet (2 sources) Start: 01-23-2018 End: 10-15-2021 Multivitamin tablet Discontinued 1 {tbl} PO DAILY January 23, 2018 1:00am October 15, 2021 8:31am Multivitamin With Folic Acid (7 sources) Start: 01-29-2014 End: 09-05-2017 take 1 tablet by mouth once daily Multivitamin With Folic Acid Discontinued 1 TABLET PO DAILY January 29, 2014 12:00am September 05, 2017 4:38pm Start: 01-29-2014 End: 09-05-2017 take 1 tablet by mouth once daily Multivitamin With Folic Acid Discontinued 1 TABLET PO DAILY January 29, 2014 1:00am September 05, 2017 5:38pm Multivitamin With Folic Acid 1 TABLET tablet (2 sources) Start: 01-29-2014 End: 09-05-2017 take 1 tablet by mouth once daily Multivitamin With Folic Acid 1 TABLET tablet Discontinued 1 {tbl} PO DAILY January 29, 2014 1:00am September 05, 2017 5:38pm naproxen 250 mg oral tablet (9 sources) Nonsteroidal Anti-inflammatory Drug Start: 01-29-2014 End: 09-05-2017 take 1 tablet by mouth twice daily as needed for pain Naproxen 250 MG tablet Discontinued 250 mg PO TWICE DAILY NEEDED as needed for Pain January 29, 2014 1:00am September 05, 2017 5:38pm predniSONE 20 mg oral tablet (15 sources) Start: 08-15-2022 End: 04-07-2023 Prednisone 20 mg tablet Discontinued 0 PO .COMPLEX as needed August 15, 2022 12:00am April 07, 2023 4:24pm Taper orally PRN; Start: 08-15-2022 Prednisone Act shaista 0 PO .COMPLEX August 15, 2022 12:00am Taper orally PRN; Start: 09-05-2016 End: 09-17-2016 PREDNISONE 10 MG TABS 4 tabl ets daily for 3 days, then 3 tablest daily for 3 days, then 2 tablets daily for 3 days, then 1 tablet daily for 3 days. PREDNISONE [id number] Roque SOLANO Start: 01-29-2014 End: 09-05-2017 take 1 tablet by mouth once daily as needed for pain Prednisone 10 MG tablet Discontinued 10 mg PO DAILY NEEDED as needed for Pain January 29, 2014 1:00am September 05, 2017 5:38pm promethazine hydrochloride 25 mg oral tablet (9 sources) Phenothiazine Start: 02-06-2014 End: 09-05-2017 take 1 tablet by mouth every four hours as needed for nausea Promethazine 25 MG tablet Discontinued 25 mg PO EVERY 4 HOURS NEEDED as needed for Nausea February 06, 2014 1:00am September 05, 2017 5:38pm SUMAtriptan 25 mg oral tablet (9 sources) Serotonin-1b and Serotonin-1d Receptor Agonist Start: 07-04-2019 End: 10-15-2021 take 1 tablet by mouth every two hours Sumatriptan Succinate (Imitrex) 25 mg tablet Discontinued 0 PO .COMPLEX July 04, 2019 12:00am October 15, 2021 8:32am take 1 tab at onset of headache; if no relief may repeat 1 tab after at least 2 hrs; max = 4 tabs/24 hr PO Problems Active Problems Problem Classification Problem Date Documented Date Episodic/Chronic Cardiac dysrhythmias (20 sources) Multiple premature ventricular complexes; Translations: [Ventricular premature depolarization] Onset: 3 Chronic Comment on above: 3.8% per holter 2017 , 13.5% 02/23, 0% 03/27. Cardiac dysrhythmias (20 sources) Palpitations; Translations: [Palpitations] 02-06-2020 Episodic Conditions associated with dizziness or vertigo (9 sources) Labyrinthitis; Translations: [Labyrinthitis, unspecified ear] 01-22-2018 Episodic Contraceptive and procreative management (2 sources) Intrauterine contraceptive device in situ; Translations: [Presence of (intrauterine) contraceptive device] 08-28-2023 Episodic Comment on above: 07/2019 inserted Fracture of upper limb (9 sources) Fracture of radial head; Translations: [Nondisplaced fracture of head of left radius, initial encounter for closed fracture] 06-30-2022 Episodic Other aftercare (2 sources) Long-term current use of drug therapy; Translations: [Other 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 block 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 (current) drug therapy] Episodic Other bone disease and musculoskeletal deformities (1 source) Osteochondritis dissecans, 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; Translations: [Osteochondritis dissecans, 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] Onset: 5 Chronic Other circulatory disease (7 sources) Elevated blood pressure; Translations: [Elevated blood-pressure reading, without diagnosis of hypertension] 04-15-2022 Episodic Other circulatory disease (4 sources) Elevated blood-pressure reading, without diagnosis of hypertension; Translations: [Elevated blood pressure reading without diagnosis of hypertension] 04-15-2022 Episodic Other non-traumatic joint disorders (3 sources) Arthritis of acromioclavicular joint; Translations: [Unspecified osteoarthritis, unspecified site] Onset: 4 07-05-2013 Chronic Other non-traumatic joint disorders (7 sources) Pain in left knee; Translations: [Left knee pain] 06-03-2022 Episodic Other non-traumatic joint disorders (1 source) Pain in unspecified joint; Translations: [Pain in unspecified joint] Onset: 04-03-202 5 Episodic Other skin disorders (2 sources) Loss of hair; Translations: [Nonscarring hair loss, unspecified] 08-23-2023 Episodic Comment on above: labs Residual codes; unclassified (9 sources) Daytime somnolence; Translations: [Other hypersomnia] 02-10-2021 Chronic Rheumatoid arthritis and related disease (14 sources) Rheumatoid arthritis; Translations: [Rheumatoid arthritis, unspecified] Onset: 2 07-17-2009 Chronic Sprains and strains (3 sources) Strain of muscle of lower limb; Translations: [Strain of unspecified muscle(s) and tendon(s) at lower leg level, left leg, initial encounter] 08-15-2022 Episodic Thyroid disorders (1 source) Hypothyroidism, unspecified; Translations: [Hypothyroidism, unspecified] Onset: Chronic Past or Other Problems Problem Classification Problem Date Documented Da te Episodic/Chronic Acute bronchitis (3 sources) Acute bronchitis; Translations: [Acute bronchitis, unspecified] Onset: 05-14-2010 Resolved: 06-13-2010 05-14-2010 Episodic Allergic reactions (6 sources) Contact dermatitis due to poison shruti; Translations: [Contact dermatitis due to plants] Onset: 09-05-2016 09-05-2016 Episodic Other aftercare (3 sources) Follow-up orthopedic assessment; Translations: [Encounter for other orthopedic aftercare] Onset: 02-20-2014 02-26-2014 Episodic Other connective tissue disease (1 source) Pain in right foot; Translations: [Pain in right foot] Onset: 04-30-2024 Episodic Other connective tissue disease (1 source) Pain in left foot; Translations: [Pain in left foot] Onset: 03-12-2024 Episodic Other connective tissue disease (1 source) Pain in left finger(s); Translations: [Pain in left finger(s)] Onset: 09-06-2023 Episodic Other non-traumatic joint disorders (3 sources) Pain in unspecified shoulder; Translations: [Pain in unspecified shoulder] Onset: 07-04-2013 07-05-2013 Episodic Other screening for suspected conditions (not mental disorders or infectious disease) (12 sources) Patient encounter status; Translations: [Encounter for screening for malignant neoplasm of colon] Onset: 08-23-2023 Episodic Other skin disorders (1 source) Nonscarring hair loss, unspecified; Translations: [Nonscarring hair loss, unspecified] Onset: 08-23-2023 Episodic Other upper respiratory infections (6 sources) Acute pharyngitis; Translations: [Sinusitis] Onset: 07-17-2009 Resolved: 08-16-2009 07-17-2009 Episodic Unclassified (3 sources) Contusion of left lower leg, initial encounter 08-15-2022 Viral infection (6 sources) Herpes zoster; Translations: [Zoster without complications] Onset: 05-20-2016 05-20-2016 Episodic Results Test Name Value Interpretation Reference Range Facility Anticardiolipin IgA,G,Mon ANTICARDIO IgA < 9 Normal 0-11 [facility] Comment on above: Result Comment: Nega tive: <12 Indeterminate: 12 - 20 Low-Med Positive: >20 - 80 High Positive: >80 Performed By: #### L 101.9900, L3100.5450, L3410.1400, L501.6710, L4600.0100, L505.7010, L100.0500 #### [facility] [address], [place], [id number] ANTICARDIO IgG < 9 Normal 0-14 [facility] Comment on above: Result Comment: Nega tive: <15 Indeterminate: 15 - 20 Low-Med Positive: >20 - 80 High Positive: >80 Performed By: #### L 101.9900, L3100.5450, L3410.1400, L501.6710, L4600.0100, L505.7010, L100.0500 #### [facility] [address] [facility] [place], [place], [id number] Anticardio.IgM < 9 Normal 0-12 [facility] Comment on above: Result Comment: Nega tive: <13 Indeterminate: 13 - 20 Low-Med Positive: >20 - 80 High Positive: >80 Performed By: #### L 101.9900, L3100.5450, L3410.1400, L501.6710, L4600.0100, L505.7010, L100.0500 #### [facility] [address] [place], [address] Complement C3on 07-24-2024 COMP C3 109 mg/dL Normal 82-167 [facility] Comment on above: Performed By: #### L 101.9900, L3100.5450, L3410.1400, L501.6710, L4600.0100, L505.7010, L100.0500 #### [facility] [address] [place], [address] Complement C4on 07-24-2024 COMPLEMENT, C4 24 mg/dL Normal 12-38 [facility] Comment on above: Performed By: #### L 101.9900, L3100.5450, L3410.1400, L501.6710, L4600.0100, L505.7010, L100.0500 #### [facility] [address] [place], [address] Lupus Anticoagulant Compon 0 - aPTT Coag (Bld) [Time] 38.1 s Normal 0.0-43.5 [facility] Comment on above: Performed By: #### L 101.9900, L3100.5450, L3410.1400, L501.6710, L4600.0100, L505.7010, L100.0500 #### [facility] [address] [place], [address] DILUTE PT (dPT) 39.4 sec Normal 0.0-47.6 [facility] Comment on above: Performed By: #### L 101.9900, L3100.5450, L3410.1400, L501.6710, L4600.0100, L505.7010, L100.0500 #### [facility] [address] [place], [address] dPT Conf. Ratio 1.06 Ratio Normal 0.00-1.34 [facility] Comment on above: Performed By: #### L 101.9900, L3100.5450, L3410.1400, L501.6710, L4600.0100, L505.7010, L100.0500 #### [facility] [address] [place], [place], [id number] DRVVT 42.4 sec Normal 0.0-47.0 [facility] Comment on above: Performed By: #### L 101.9900, L3100.5450, L3410.1400, L501.6710, L4600.0100, L505.7010, L100.0500 #### [facility] [address] [place], [address] Interpretation Comment: Normal . [facility] Comment on above: Result Comment: No l upus anticoagulant was detected. Performed By: #### L 101.9900, L3100.5450, L3410.1400, L501.6710, L4600.0100, L505.7010, L100.0500 #### [facility] [address] [place], [address] THROMBIN TIME 21.9 sec Normal 0.0-23.0 [facility] Comment on above: Performed By: #### L 101.9900, L3100.5450, L3410.1400, L501.6710, L4600.0100, L505.7010, L100.0500 #### [facility] [address] [place], [place], [id number] Thyroglobulin w/Anti-TG ABon 07-24-2024 Anti-TG AB 3.4 IU/mL High 0.0-0.9 [facility] Comment on above: Result Comment: Thyr oglobulin Antibody measured by [employer] It should be noted that the presence of thyroglobulin antibodies may not be pathogenic nor diagnostic, especially at very low levels. The assay ambulance driver has found that four percent of individuals without evidence of thyroid disease or autoimmunity will have positive TgAb levels up to 4 IU/mL. Performed By: #### L 101.9900, L3100.5450, L3410.1400, L501.6710, L4600.0100, L505.7010, L100.0500 #### [facility] Laboratory [address] [place], [place], [id number] TG-ALEXANDRA 15 ng/mL Normal . [facility] Comment on above: Result Comment: This test was developed and its performance characteristics determined by [employer]. It has not been cleared or approved by the Food and Drug Administration. Reference Range: Pubertal Children and Adults: <40 According to the National Academy of Clinical Biochemistry, the reference interval for Thyroglobulin (TG) should be related to euthyroid patients and not for patients who underwent thyroidectomy. TG reference intervals for these patients depend on the residual mass of the thyroid tissue left after surgery. Establishing a post-operative baseline is recommended. The assay quantitation limit is 2.0 ng/mL. Performed By: #### L 101.9900, L3100.5450, L3410.1400, L501.6710, L4600.0100, L505.7010, L100.0500 #### [facility] [address] [place], [address] Thyroid Peroxidase ABon 05-2 -2024 THYR PEROX AB 127 IU/mL High 0-34 [facility] Comment on above: Result Comment: Perf ormed at: [facility] [address] [id number] Cad Specialist: Qi Carney MD, Phone: [phone] Performed at: [facility] [address] [id number] Cad Specialist: Dallin Vizcaino PhD, Phone: [phone] Performed at: [facility] [address] [place] [id number] Cad Specialist: Johnnie Beavers MD, Phone: [phone] Performed By: #### L 101.9900, L3100.5450, L3410.1400, L501.6710, L4600.0100, L505.7010, L100.0500 #### [facility] [address] [place], [place], [address] L3410.9992on 07-19-2024 [facility] COMMENT Normal . [facility] Comment on above: Order Comment: 99111 3ANTICHROMATIN AB SERUM RF Result Comment: Test Ordered: [id number] Anti-Chromatin Ab, IgG (RDL) Anti-Chromatin Ab, IgG (RDL) <20 Units [facility] Reference Range: <20 Negative: <20 Weak Positive: 20-39 Moderate Positive: 40-80 Strong Positive: >80 Performed at: [facility] [address] [id number] Cad Specialist: Johnnie Beavers MD, Phone: [phone] Performed at: [address] [id number] Cad Specialist: Dallin Vizcaino PhD, Phone: [phone] Performed By: #### L 3410.9992 ####[facility] [address] [place], [address] ANTINUCLEAR ANTIBODIES DIREC Ton 07-17-2024 MARIE,DIRECT Positive Abnormal Negative [facility] Comment on above: Result Comment: Perf ormed at: [address] [id number] Cad Specialist: Dallin Vizcaino PhD, Phone: [phone] Performed at: [address] [id number] Cad Specialist: Qi Carney MD, Phone: [phone] Performed By: #### L 101.9900, L3100.5450, L3410.1400, L501.6710, L4600.0100, L505.7010, L100.0500 #### [facility] Laboratory [address] [place], [place], [address] Anti-Centromere B Abon 07-17 ANTI-CENT B AB <0.2 Normal 0.0-0.9 [facility] Comment on above: Result Comment: AMENDED REPORT 07/17/24 1308 ANTI-CENT B previously reported as: Test not performed Performed By: #### L 3410.0700, L3410.9992, L4500.0100, L501.1105, L3300.6900, L502.0250, L3100.8408, L3100.5500, L3410.0800, L500.3400, L3100.5475, L3300.6820, L3100.5700, L400.0001, L3410.4010, L101.9900, L3100.9100, L501.6710, L3100.5800, L3410.0500, L3100.9400, L100.0100, L3410.1200, L3410.1300 ####[facility] [address] [place], [place], [address] Anti-Histone Abson 5 ANTI-HISTONE AB 0.3 Units Normal 0.0-0.9 [facility] Comment on above: Result Comment: Nega tive <1.0 Weak Positive 1.0 - 1.5 Moderate Positive 1.6 - 2.5 Strong Positive >2.5 Performed By: #### L 101.9900, L3100.5450, L3410.1400, L501.6710, L4600.0100, L505.7010, L100.0500 #### [facility] [address] [facility] [place], [place], [address] Anti-Rocky 07-17-2024 ANTI-TERRI-1 <0.2 Normal 0.0-0.9 [facility] Comment on above: Result Comment: AMENDED REPORT 07/17/24 1308 ANTI-TERRI previously reported as: Test not performed Performed By: #### L 3410.0700, L3410.9992, L4500.0100, L501.1105, L3300.6900, L502.0250, L3100.8408, L3100.5500, L3410.0800, L500.3400, L3100.5475, L3300.6820, L3100.5700, L400.0001, L3410.4010, L101.9900, L3100.9100, L501.6710, L3100.5800, L3410.0500, L3100.9400, L100.0100, L3410.1200, L3410.1300 ####[facility] [address] [place], [address] Qdnp-Uprzmaznknq-11 ABon ANTISCLERODERM <0.2 Normal 0.0-0.9 [facility] Comment on above: Result Comment: AMENDED REPORT 07/17/24 1308 ANTISCLER previously reported as: Test not performed Performed By: #### L 101.9900, L3100.5450, L3410.1400, L501.6710, L4600.0100, L505.7010, L100.0500 #### [facility] [address] [place], [address] [facility] ANTI-DNA (DS)AB <1 Normal 0-9 [facility] Comment on above: Result Comment: Nega tive <5 Equivocal 5 - 9 Positive >9 Performed By: #### L 101.9900, L3100.5450, L3410.1400, L501.6710, L4600.0100, L505.7010, L100.0500 #### [facility] [address] [place], [address] Anti-ribosomal P Antibodieso n 07-17-2024 Antiribosomal P <0.2 Normal 0.0-0.9 [facility] Comment on above: Performed By: #### L 101.9900, L3100.5450, L3410.1400, L501.6710, L4600.0100, L505.7010, L100.0500 #### [facility] [address] [place], [address] L3410.9992on 07-17-2024 [facility] Misc. COMMENT Normal . [facility] Comment on above: Order Comment: [id number] 9ANTIPHOPHOLIPID ABS SERUM RT Result Comment: Test Ordered: [id number] Antiphospholipid Syndrome Anticardiolipin Ab,IgG,Qn <9 GPL U/mL CB Reference Range: 0-14 Negative: <15 Indeterminate: 15 - 20 Low-Med Positive: >20 - 80 High Positive: >80 Anticardiolipin Ab,IgM,Qn <9 MPL U/mL CB Reference Range: 0-12 Negative: <13 Indeterminate: 13 - 20 Low-Med Positive: >20 - 80 High Positive: >80 Beta-2 Glycoprotein I Ab, IgG <9 CB Units of Measure: GPI IgG units Reference Range: 0-20 The reference interval reflects a 3SD or 99th percentile interval, which is thought to represent a potentially clinically significant result in accordance with the International Consensus Statement on the classification criteria for definitive antiphospholipid syndrome (APS). J Thromb Haem 2006;4:295-306. Beta-2 Glycoprotein I Ab, IgM <9 CB Units of Measure: GPI IgM units Reference Range: 0-32 The reference interval reflects a 3SD or 99th percentile interval, which is thought to represent a potentially clinically significant result in accordance with the International Consensus Statement on the classification criteria for definitive antiphospholipid syndrome (APS). J Thromb Haem 2006;4:295-306. APS Panel Interpretation Comment BN Reference Range: . Please refer to the Coag Studies Interp Report. Performed at: [facility] [address] [place] [id number] Cad Specialist: Penelope lFeming MD, Phone: [phone] Performed at: [facility] [address] [id number] Cad Specialist: Dallin Vizcaino PhD, Phone: [phone] Performed at: [facility] [address] [id number] Cad Specialist: Qi Carney MD, Phone: [phone] AMENDED REPORT 07/17/24 1308 [facility]. previously reported as: COMMENT Test Ordered: [id number] Antiphospholipid Syndrome aPTT NOLAB Reference Range: . Test not performed PT NOLAB Reference Range: . Test not performed INR LAY UPS ASSEMBLER NOLAB Reference Range: . Thrombin Time NOLAB Reference Range: . Test not performed dRVVT NOLAB Reference Range: . Test not performed Hexagonal Phase Phospholipid NOLAB Reference Range: . Test not performed Anticardiolipin Ab,IgG,Qn <9 GPL U/mL CB Reference Range: 0-14 Negative: <15 Indeterminate: 15 - 20 Low-Med Positive: >20 - 80 High Positive: >80 Anticardiolipin Ab,IgM,Qn <9 MPL U/mL CB Reference Range: 0-12 Negative: <13 Indeterminate: 13 - 20 Low-Med Positive: >20 - 80 High Positive: >80 Beta-2 Glycoprotein I Ab, IgG <9 CB Units of Measure: GPI IgG units Reference Range: 0-20 The reference interval reflects a 3SD or 99th percentile interval, which is thought to represent a potentially clinically significant result in accordance with the International Consensus Statement on the classification criteria for definitive antiphospholipid syndrome (APS). J Thromb Haem 2006;4:295-306. Beta-2 Glycoprotein I Ab, IgM <9 CB Units of Measure: GPI IgM units Reference Range: 0-32 The reference interval reflects a 3SD or 99th percentile interval, which is thought to represent a potentially clinically significant result in accordance with the International Consensus Statement on the classification criteria for definitive antiphospholipid syndrome (APS). J Thromb Haem 2006;4:295-306. APS Panel Interpretation Comment BN Reference Range: . Please refer to the Coag Studies Interp Report. Performed at: [facility] [address] [place] [id number] Cad Specialist: Penelope Fleming MD, Phone: [phone] Performed at: [facility] [address] [id number] Cad Specialist: Dallin Vizcaino PhD, Phone: [phone] Performed at: [facility] [address] [id number] Cad Specialist: Qi Carney MD, Phone: [phone] Performed By: #### L 101.9900, L3100.5250, L3410.1400, L501.7610, L4600.0100, L505.7010, L100.0500 #### [facility] [address] [place] [address]. [place], [address] KARATE TEACHER Abon 05-14-2025 KARATE TEACHER Ab 1.1 AI Abnormal 0.0-0.9 [facility] Comment on above: Result Comment: AMENDED REPORT 07/17/241307 KARATE TEACHER Ab previously reported as: Test not performed Performed By: #### L 101.9900, L3100.5450, L3410.1400, L501.6710, L4600.0100, L505.7010, L100.0500 #### [facility] [address] [place], [address] Sjogren's Antibodies A/Bon 0 07-17-2024 ANTI-SS-A < 0.2 Normal 0.0-0.9 [facility] Comment on above: Performed By: #### L 101.9900, L3100.5450, L3410.1400, L501.6710, L4600.0100, L505.7010, L100.0500 #### [facility] [address] [place], [address] ANTI-SS-B < 0.2 Normal 0.0-0.9 [facility] Comment on above: Performed By: #### L 101.9900, L3100.5450, L3410.1400, L501.6710, L4600.0100, L505.7010, L100.0500 #### [facility] [address] [place], [address] Bowman Abon 07-17-2024 BOWMAN Ab <0.2 Normal 0.0-0.9 [facility] Comment on above: Result Comment: AMENDED REPORT 07/17/241307 BOWMAN Ab previously reported as: Test not performed Performed By: #### L 101.9900, L3100.5450, L3410.1400, L501.6710, L4600.0100, L505.7010, L100.0500 #### [facility] [address] [place], [address] Serum Creatinine AND GFRon 0 07-13-2024 Creatinine [Mass/Vol] 0.78 mg/dL Normal 0.70-1.20 [facility] Comment on above: Order Comment: ADD C REATININE TO LABS DONE ON 07/12/2024 Performed By: #### L 101.9900, L3100.5450, L3410.1400, L501.6710, L4600.0100, L505.7010, L100.0500 #### [facility] [address] [place], [place], [address] GFR/1.73 sq M.predicted among non-blacks MDRD (S/P/Bld) [Vol rate/Area] 93 mL/min/{1.73_m2} Normal >60 [facility] Comment on above: Order Comment: ADD C REATININE TO LABS DONE ON 07/12/2024 Result Comment: mL/m in/1.73m2 CKD-EPI Creatinine Equation (2020) Performed By: #### L 101.9900, L3100.5450, L3410.1400, L501.6710, L4600.0100, L505.7010, L100.0500 #### [facility] [address] [place], [address] Absolute lymphocyte countOrd ered By: Tanvir Torres on 07-12-2024 Lymphocytes Auto (Unsp spec) [#/Vol] 1.03 10*3/uL 0.83-4.51 [facility] Absolute neutrophil countOrd ered By: Tanvir Torres on 07-12-2024 Neutrophils (Bld) [#/Vol] 3.5 10*3/uL 2.0-7.7 [facility] Automated lymphocyte count a s percentage of total leukocytesOrdered By: Tanvir Torres on 07-12-2024 Lymphocytes/100 WBC Auto (Unsp spec) 18.5 % Low 19-41 [facility] Basophil percentageOrdered B y: Tanvir Torres on 07-12-2024 Basophils/100 WBC (Bld) 1.6 % High 0-1 [facility] Bilirubin Test strip Ql (U)O rdered By: Tanvir Torres on 07-12-2024 Bilirubin Ql (U) Negative Negative [facility] Bilirubin directOrdered By: Tanvir Torres on 07-12-2024 Bilirubin.direct [Mass/Vol] 0.21 mg/dL 0.00-0.30 [facility] Bilirubin, totalOrdered By: Tanvir Torres on 07-12-2024 Bilirubin [Mass/Vol] 0.49 mg/dL 0.00-1.30 [facility] CBC W/Diff, Automatedon Absolute Lymph 1.03 X10 3/uL Normal 0.83-4.51 [facility] Comment on above: Performed By: #### L 101.9900, L3100.5450, L3410.1400, L501.6710, L4600.0100, L505.7010, L100.0500 #### [facility] [address] [place], [address] Absolute Neut 3.5 X10 3/uL Normal 2.0-7.7 [facility] Comment on above: Performed By: #### L 101.9900, L3100.5450, L3410.1400, L501.6710, L4600.0100, L505.7010, L100.0500 #### [facility] [address] [place], [address] Basophils/100 WBC (Bld) 1.6 % High 0-1 [facility] Comment on above: Performed By: #### L 101.9900, L3100.5450, L3410.1400, L501.6710, L4600.0100, L505.7010, L100.0500 #### [facility] [address] [place], [address] Eosinophils/100 WBC (Bld) 6.6 % High 0-5 [facility] Comment on above: Performed By: #### L 101.9900, L3100.5450, L3410.1400, L501.6710, L4600.0100, L505.7010, L100.0500 #### [facility] [address] [place], [address] Erythrocyte distribution width (RBC) [Ratio] 12.4 % Normal 11.6-14.6 [facility] Comment on above: Performed By: #### L 101.9900, L3100.5450, L3410.1400, L501.6710, L4600.0100, L505.7010, L100.0500 #### [facility] [address] [place], [address] Hematocrit (Bld) [Volume fraction] 42.5 % Normal 37-47 [facility] Comment on above: Performed By: #### L 101.9900, L3100.5450, L3410.1400, L501.6710, L4600.0100, L505.7010, L100.0500 #### [facility] [address] [place], [address] Hemoglobin (Bld) [Mass/Vol] 14.3 g/dL Normal 12.0-15.0 [facility] Comment on above: Performed By: #### L 101.9900, L3100.5450, L3410.1400, L501.6710, L4600.0100, L505.7010, L100.0500 #### [facility] [address] [place], [address] IG% 0.400 Normal 0.0-0.9 [facility] Comment on above: Result Comment: IG% - Immature Granulocytes (promyelocytes, myelocytes and metamyelocytes) > 1% indicates that a LEFT SHIFT is Present. Performed By: #### L 101.9900, L3100.5450, L3410.1400, L501.6710, L4600.0100, L505.7010, L100.0500 #### [facility] [address] [place], [address] Lymphocytes/100 WBC (Bld) 18.5 % Low 19-41 [facility] Comment on above: Performed By: #### L 101.9900, L3100.5450, L3410.1400, L501.6710, L4600.0100, L505.7010, L100.0500 #### [facility] [address] [place], [address] MCH (RBC) [Entitic mass] 31.8 pg Normal 27.0-32.0 [facility] Comment on above: Performed By: #### L 101.9900, L3100.5450, L3410.1400, L501.6710, L4600.0100, L505.7010, L100.0500 #### [facility] [address] [place], [address] MCHC (RBC) [Mass/Vol] 33.6 g/dL Normal 32-36 [facility] Comment on above: Performed By: #### L 101.9900, L3100.5450, L3410.1400, L501.6710, L4600.0100, L505.7010, L100.0500 #### [facility] [address] [place], [address] MCV (RBC) [Entitic vol] 94.4 fL Normal 81-99 [facility] Comment on above: Performed By: #### L 101.9900, L3100.5450, L3410.1400, L501.6710, L4600.0100, L505.7010, L100.0500 #### [facility] [address] [place], [address] Monocytes/100 WBC (Bld) 9.5 % Normal 0-10 [facility] Comment on above: Performed By: #### L 101.9900, L3100.5450, L3410.1400, L501.6710, L4600.0100, L505.7010, L100.0500 #### [facility] [address] [place], [address] Neutrophils/100 WBC (Bld) 63.4 % Normal 47-70 [facility] Comment on above: Performed By: #### L 101.9900, L3100.5450, L3410.1400, L501.6710, L4600.0100, L505.7010, L100.0500 #### [facility] [address] [place], [address] Nucleated RBC (Bld) [#/Vol] 0 10*3/uL Normal 0-5 [facility] Comment on above: Performed By: #### L 101.9900, L3100.5450, L3410.1400, L501.6710, L4600.0100, L505.7010, L100.0500 #### [facility] [address] [place], [address] Platelet mean volume (Bld) [Entitic vol] 11.5 fL Normal 6.2-12.0 [facility] Comment on above: Performed By: #### L 101.9900, L3100.5450, L3410.1400, L501.6710, L4600.0100, L505.7010, L100.0500 #### [facility] [address] [place], [address] Platelets (Bld) [#/Vol] 185 10*3/uL Normal 150-450 [facility] Comment on above: Performed By: #### L 101.9900, L3100.5450, L3410.1400, L501.6710, L4600.0100, L505.7010, L100.0500 #### [facility] [address] [place], [address] RBC (Bld) [#/Vol] 4.50 10*6/uL Normal 4.2-5.4 [facility] Comment on above: Performed By: #### L 101.9900, L3100.5450, L3410.1400, L501.6710, L4600.0100, L505.7010, L100.0500 #### [facility] [address] [place], [address] RDW SD 43.3 fl Normal 35.1-43.9 [facility] Comment on above: Performed By: #### L 101.9900, L3100.5450, L3410.1400, L501.6710, L4600.0100, L505.7010, L100.0500 #### [facility] [address] [place], [address] WBC (Bld) [#/Vol] 5.6 10*3/uL Normal 4.4-11.0 [facility] Comment on above: Performed By: #### L 101.9900, L3100.5450, L3410.1400, L501.6710, L4600.0100, L505.7010, L100.0500 #### [facility] [address] [place], [address] CRPon 07-12-2024 C-REACTIVE PROT < 3.00 Normal 0.0-3.0 [facility] Comment on above: Performed By: #### L 101.9900, L3100.5450, L3410.1400, L501.6710, L4600.0100, L505.7010, L100.0500 #### [facility] [address] [place], [address] Eosinophil percentageOrdered By: Tanvir Torres on 07-12-2024 Eosinophils/100 WBC (Bld) 6.6 % High 0-5 [facility] Erythrocyte Sed Rateon 07-12 SED RATE 4 mm/hr Normal 0-30 [facility] Comment on above: Performed By: #### L 101.9900, L3100.5450, L3410.1400, L501.6710, L4600.0100, L505.7010, L100.0500 #### [facility] [address] [place], [address] Erythrocyte distribution wid th ratioOrdered By: Tanvir Torres on 07-12-2024 Erythrocyte distribution width (RBC) [Ratio] 12.4 % 11.6-14.6 [facility] Erythrocyte distribution wid th standard deviationOrdered By: Tanvir Trores on 07-12-2024 Erythrocyte distribution width (RBC) [Ratio] 43.3 fl 35.1-43.9 [facility] Erythrocyte sedimentation ra teOrdered By: Tanvir Torres on 07-12-2024 ESR (Bld) [Velocity] 4 mm/h 0-30 [facility] Foot min 3 Viewson Foot min 3 Views [facility] Imaging [facility] [address] [place] [address] Foot min 3 Views MR#: [id number] Acct: [id number] Name: RANGEL TRENT Rep #: [id number] : 1975 F 49 From: Juan Denise MD PCP: Dr. Stephanie Hedrick DO Status: REG CLI Study: Foot min 3 Views Date of Exam: 07/12/24 Exam# [id number] Ordering Dr: Tanvir Torres MD EXAM: DX foot minimum three views CLINICAL HISTORY: Inflammatory polyarthritis COMPARISON: None available TECHNIQUE: Three views right foot FINDINGS: No fracture or dislocation. Developmental osseous fusion of the middle and distal phalanx of the 5th ray. The joint spaces otherwise appear within limits. Small enthesophyte formation at the Achilles surface of the calcaneus. Soft tissues appear within limits. RAD/Foot min 3 Views IMPRESSION: No inflammatory appearing arthropathy identified. Reading Location: [id number] CC: Dr. Tanvir Torres MD; Dr. Stephanie Hedrick DO Cover Stripper: Signed Normal [facility] Glomerular filtration rate ( GFR) estimation/1.73 sq m using serum, plasma, or whole bOrdered By: Tanvir Torres on 07-12-2024 GFR/1.73 sq M.predicted among non-blacks MDRD (S/P/Bld) [Vol rate/Area] 93 mL/min/{1.73_m2} >60 [facility] Comment on above: mL/min/1.73m2 CKD-EP I Creatinine Equation (2020) Hand Min 3 Viewson Hand Min 3 Views [facility] Imaging Services [address] [place], [place] [address] [phone]- Hand Min 3 Views MR#: [id number] Acct: [id number] Name: RANGEL TRENT Rep #: [id number] : 1975 F 49 From: Juan Denise MD PCP: Dr. Stephanie Hedrick DO Status: REG CLI Study: Hand Min 3 Views Date of Exam: 07/12/24 Exam# [id number] Ordering Dr: Tanvir Torres MD PROCEDURE: HAND MIN 3 VIEWS 07/12/2024 REASON FOR EXAM: INFLAMMATORY POLYARTHRITIS TECHNIQUE: 4 view(s) of the right hand; AP, oblique, lateral and a bilateral oblique view COMPARISON: None available FINDINGS: Mild appearing degenerative osteoarthrosis at the 1st IP joint. No inflammatory appearing arthropathy identified. Joint spaces appear within limits. Visualized soft tissues appear within limits. RAD/Hand Min 3 Views IMPRESSION: Mild appearing degenerative osteoarthrosis at the 1st IP joint. No inflammatory appearing arthropathy identified. Reading Location: [facility] CC: Dr. Tanvir Torres MD; Dr. Stephanie Hedrick DO Cover Stripper: Signed Normal [facility] Hand Min 3 Views [place] [facility] [address] [place] [address] Hand Min 3 Views MR#: [id number] Acct: [id number] Name: RANGEL TRENT Rep #: [id number] : 1975 F 49 From: Juan Denise MD PCP: Dr. Stephanie Hedrick DO Status: REG CLI Study: Hand Min 3 Views Date of Exam: 07/12/24 Exam# [id number] Ordering Dr: Tanvir Torres MD PROCEDURE: HAND MIN 3 VIEWS 07/12/2024 REASON FOR EXAM: INFLAMMATORY POLYARTHRITIS TECHNIQUE: 3 view(s) of the left hand COMPARISON: 08/28/2023 FINDINGS: Mild degenerative appearing osteoarthrosis at the 1st carpometacarpal and metacarpophalangeal joints. No inflammatory appearing arthropathy identified. Old healed intra-articular fracture of the 5th proximal phalanx at the MCP joint. Possible old fracture deformity of the radial styloid again noted. RAD/Hand Min 3 Views IMPRESSION: Mild degenerative appearing osteoarthrosis at the 1st carpometacarpal and metacarpophalangeal joints. No inflammatory appearing arthropathy identified. Reading Location: [id number] CC: Dr. Tanvir Torres MD; Dr. Stephanie Hedrick DO Cover Stripper: Signed Normal [facility] Hematocrit Auto (Bld) [Volum e fraction]Ordered By: Tanvir Torres on 07-12-2024 Hematocrit (Bld) [Volume fraction] 42.5 % 37-47 [facility] Hemoglobin measurementOrdere d By: Tanvir Torres on 07-12-2024 Hemoglobin (Bld) [Mass/Vol] 14.3 g/dL 12.0-15.0 [facility] Immature granulocytes/100 WB C Auto (Bld)Ordered By: Tanvir Torres on 07-12-2024 Immature granulocytes/100 WBC (Bld) 0.400 % 0.0-0.9 [facility] Comment on above: IG% - Immature Granu locytes (promyelocytes, myelocytes and metamyelocytes) > 1% indicates that a LEFT SHIFT is Present. Ketones Test strip Ql (U)Ord ered By: Tanvir Torres on 07-12-2024 Ketones Ql (U) Negative Negative [facility] Laboratory - Chemistry and C hemistry - challengeOrdered By: Tanvir Torres on 07-12-2024 AST [Catalytic activity/Vol] 19 U/L <32 [facility] Liver Profileon 07-12-2024 Albumin [Mass/Vol] 4.8 g/dL Normal 3.5-5.0 [facility] Comment on above: Performed By: #### L 101.9900, L3100.5450, L3410.1400, L501.6710, L4600.0100, L505.7010, L100.0500 #### [facility] Laboratory [address] [place], [address] ALK PHOS 49 U/L Normal 35-104 [facility] Comment on above: Performed By: #### L 101.9900, L3100.5450, L3410.1400, L501.6710, L4600.0100, L505.7010, L100.0500 #### [facility] [address] [place], [address] ALT [Catalytic activity/Vol] 14 U/L Normal <=34 [facility] Comment on above: Performed By: #### L 101.9900, L3100.5450, L3410.1400, L501.6710, L4600.0100, L505.7010, L100.0500 #### [facility] [address] [place], [address] AST [Catalytic activity/Vol] 19 U/L Normal <=31 [facility] Comment on above: Performed By: #### L 101.9900, L3100.5450, L3410.1400, L501.6710, L4600.0100, L505.7010, L100.0500 #### [facility] [address] [place], [address] Bilirubin [Mass/Vol] 0.49 mg/dL Normal 0.00-1.30 [facility] Comment on above: Performed By: #### L 101.9900, L3100.5450, L3410.1400, L501.6710, L4600.0100, L505.7010, L100.0500 #### [facility] [address] [place], [address] Bilirubin.direct [Mass/Vol] 0.21 mg/dL Normal 0.00-0.30 [facility] Comment on above: Performed By: #### L 101.9900, L3100.5450, L3410.1400, L501.6710, L4600.0100, L505.7010, L100.0500 #### [facility] [address] [place], [address] Globulin (S) [Mass/Vol] 2.8 g/dL Normal 2.2-4.2 [facility] Comment on above: Performed By: #### L 101.9900, L3100.5450, L3410.1400, L501.6710, L4600.0100, L505.7010, L100.0500 #### [facility] [address] [place], [address] T PROT 7.6 g/dL Normal 5.9-8.4 [facility] Comment on above: Performed By: #### L 101.9900, L3100.5450, L3410.1400, L501.6710, L4600.0100, L505.7010, L100.0500 #### [facility] [address] [place], [address] MCV (mean corpuscular volume ) determinationOrdered By: Tanvir Torres on 07-12-2024 MCV (RBC) [Entitic vol] 94.4 fL 81-99 [facility] Mean corpuscular hemoglobin (MCH) determinationOrdered By: Tanvir Torres on 07-12-2024 MCH (RBC) [Entitic mass] 31.8 pg 27.0-32.0 [facility] Mean corpuscular hemoglobin concentration (MCHC) determinationOrdered By: Tanvir Torres on 07-12-2024 MCHC (RBC) [Mass/Vol] 33.6 g/dL 32-36 [facility] Mean platelet volume determi nationOrdered By: Tanvir Torres on 07-12-2024 Platelet mean volume (Bld) [Entitic vol] 11.5 fL 6.2-12.0 [facility] Microalb:Creat Ratio,Random URon 07-12-2024 Creatinine [Mass/Vol] 25.60 mg/dL Low 28.00- 217. 00 [facility] Comment on above: Performed By: #### L 101.9900, L3100.5450, L3410.1400, L501.6710, L4600.0100, L505.7010, L100.0500 #### [facility] Laboratory [address] [place], [place], [id number] (140) MALB:CREAT UNABLE TO CALCULATE Normal [facility] Comment on above: Performed By: #### L 101.9900, L3100.5450, L3410.1400, L501.6710, L4600.0100, L505.7010, L100.0500 #### [facility] [address] [place], [place], [id number] (593) MICROALBUMIN,UR < 12.0 Normal NO RANGE EST. [facility] Comment on above: Performed By: #### L 101.9900, L3100.5450, L3410.1400, L501.6710, L4600.0100, L505.7010, L100.0500 #### [facility] [address] [place], [place], [id number] Microalbumin/creat ratio urO rdered By: Tanvir Torres on 07-12-2024 Urine microalbumin/creatinin e ratio measurement UNABLE TO CALCULATE mg/g CRE [facility] Microscopic analysis of urin e for red blood cells (RBC)Ordered By: Tanvir Torres on 07-12-2024 Microscopic analysis of urine for red blood cells (RBC) 0-5 SEEN /hpf 0-5 [facility] Monocyte percentageOrdered B y: Tanvir Torres on 07-12-2024 Monocytes/100 WBC (Bld) 9.5 % 0-10 [facility] Mucus LM Ql (Urine sed)Order ed By: Tanvir Torres on 07-12-2024 Mucus Ql (Urine sed) 0 SEEN /hpf [facility] Neutrophil percentageOrdered By: Tanvir Torres on 07-12-2024 Neutrophils/100 WBC (Bld) 63.4 % 47-70 [facility] Nitrite Test strip Ql (U)Ord ered By: Tanvir Torres on 07-12-2024 Nitrite Ql (U) Negative Negative [facility] Nucleated red blood cell per centageOrdered By: Tanvir Torres on 07-12-2024 Nucleated RBC/100 WBC (Bld) [Ratio] 0 % 0-5 [facility] Platelet countOrdered By: Terri Torres on 07-12-2024 Platelets (Bld) [#/Vol] 185 10*3/uL 150-450 [facility] Protein Test strip Ql (U)Ord ered By: Tanvir Torres on 07-12-2024 Protein Ql (U) 15 mg/dl High Negative [facility] RBC Auto (Bld) [#/Vol]Ordere d By: Tanvir Torres on 07-12-2024 RBC (Bld) [#/Vol] 4.50 10*6/uL 4.2-5.4 [facility] Random urine creatinine moises urement (mass/volume)Ordered By: Tanvir Torres on 07-12-2024 Creatinine Unsp time (U) [Mass/Vol] 25.60 mg/dL Low 28.00-217. 00 [facility] Serum DNA double strand anti body assay (units/volume)Ordered By: Tanvir Torres on 07-12-2024 DNA double strand Ab Qn (S) [IU]/mL 0-9 [facility] Comment on above: Negative <5 Equivoca l 5 - 9 Positive >9 Serum Scl-70 antibody assay (units/volume)Ordered By: Tanvir Torres on 07-12-2024 SCL-70 extractable nuclear Ab Qn (S) <0.2 AI 0.0-0.9 [facility] Comment on above: Previous reported re sult: TNP AIEdited by: CHARY on 07/17/24:1308 AMENDED REPORT 07/17/24 1308 ANTISCLER previously reported as: Test not performed Serum creatinine measurement (mass/volume)Ordered By: Tanvir Torres on 07-12-2024 Creatinine [Mass/Vol] 0.78 mg/dL 0.70-1.20 [facility] Serum globulin measurementOr dered By: Tanvir Torres on 07-12-2024 Globulin (S) [Mass/Vol] 2.8 g/dL 2.2-4.2 [facility] Serum histone antibody assay (units/volume)Ordered By: Tanvir Torrse on 07-12-2024 Histone Ab Qn (S) 0.3 Units 0.0-0.9 [facility] Comment on above: Negative <1.0 Weak P ositive 1.0 - 1.5 Moderate Positive 1.6 - 2.5 Strong Positive >2.5 Serum or plasma C reactive p rotein measurement (mass/volume)Ordered By: Tanvir Torres on 07-12-2024 CRP [Mass/Vol] mg/L 0.0-3.0 [facility] Serum or plasma alanine wilcox otransferase (ALT) measurementOrdered By: Tanvir Torres on 07-12-2024 ALT [Catalytic activity/Vol] 14 U/L <35 [facility] Serum or plasma albumin moises urement (mass/volume)Ordered By: Tanvir Torres on 07-12-2024 Albumin [Mass/Vol] 4.8 g/dL 3.5-5.0 [facility] Serum or plasma alkaline matt sphatase measurementOrdered By: Tanvir Torres on 07-12-2024 ALP [Catalytic activity/Vol] 49 U/L 35-104 [facility] Squamous epithelial cells de tection in urine sediment by light microscopyOrdered By: Tanvir Torres on 07-12-2024 Epithelial cells.squamous LM Ql (Urine sed) 0-5 SEEN /hpf 5-10 [facility] Total proteinOrdered By: Darnell Torres on 07-12-2024 Protein [Mass/Vol] 7.6 g/dL 5.9-8.4 [facility] Transitional cells detection in urine sediment by light microscopyOrdered By: Tanvir Torres on 07-12-2024 Transitional cells LM Ql (Urine sed) 0-5 SEEN /hpf 0-5 [facility] Urinalysis, Completeon 07-12 EPI,SQUAMOUS 0-5 SEEN Normal 5-10 [facility] Comment on above: Order Comment: Urine , Random Performed By: #### L 101.9900, L3100.5450, L3410.1400, L501.6710, L4600.0100, L505.7010, L100.0500 #### [facility] Laboratory [facility] [place], [address] EPI,TRANSITION 0-5 SEEN Normal 0-5 [facility] Comment on above: Order Comment: Urine , Random Performed By: #### L 101.9900, L3100.5450, L3410.1400, L501.6710, L4600.0100, L505.7010, L100.0500 #### [facility] [address] [place], [address] RBC 0-5 SEEN Normal 0-5 [facility] Comment on above: Order Comment: Urine , Random Performed By: #### L 101.9900, L3100.5450, L3410.1400, L501.6710, L4600.0100, L505.7010, L100.0500 #### [facility] [address] [place], [address] WBC 0-5 SEEN Normal 0-5 [facility] Comment on above: Order Comment: Urine , Random Performed By: #### L 101.9900, L3100.5450, L3410.1400, L501.6710, L4600.0100, L505.7010, L100.0500 #### [facility] [address] [place], [address] BACTERIA 0 SEEN Normal None Seen [facility] Comment on above: Order Comment: Urine , Random Performed By: #### L 101.9900, L3100.5450, L3410.1400, L501.6710, L4600.0100, L505.7010, L100.0500 #### [facility] [address] [place], [address] Mucus Ql (Urine sed) 0 SEEN Normal [facility] Comment on above: Order Comment: Urine , Random Performed By: #### L 101.9900, L3100.5450, L3410.1400, L501.6710, L4600.0100, L505.7010, L100.0500 #### [facility] [address] [place], [address] Urine albumin measurement wi detection limit of 20 mg/L or less (mass/volume)Ordered By: Tanvir Torres on 07-12-2024 Albumin DL <= 20 mg/L (U) [Mass/Vol] < 12.0 mg/L NO RANGE EST. [facility] Urine clarityOrdered By: Darnell Torres on 07-12-2024 Clarity (U) Clear Clear [facility] Urine color determinationOrd ered By: Tanvir Torres on 07-12-2024 Color (U) Straw Yellow [facility] Urine glucose detectionOrder ed By: Tanvir Torres on 07-12-2024 Glucose Ql (U) Normal mg/dl Normal [facility] Urine leukocyte esterase det ection by dipstickOrdered By: Tanvir Torres on 07-12-2024 Leukocyte esterase Test strip Ql (U) Negative Negative [facility] Urine pHOrdered By: Tanvir Kirby u on 07-12-2024 pH (U) 6.0 [pH] 5.0 - 8.0 [facility] Urine sediment bacteria coun t by microscopy (number/high power field)Ordered By: Tanvir Torres on 07-12-2024 Bacteria LM.HPF (Urine sed) [#/Area] 0 /[HPF] None Seen [facility] Urine specific gravity measu rementOrdered By: Tanvir Torres on 07-12-2024 Specific gravity (U) [Rel density] 1.005 1.002-1.03 0 [facility] Urine urobilinogen measureme ntOrdered By: Tanvir Torres on 07-12-2024 Urobilinogen Ql (U) Normal mg/dl Normal [facility] White blood cell (WBC) count Ordered By: Tanvir Torres on 07-12-2024 WBC (Bld) [#/Vol] 5.6 10*3/uL 4.4-11.0 [facility] White blood cell countOrdere d By: Tanvir Torres on 07-12-2024 White blood cell count 0-5 SEEN /hpf 0-5 [facility] Antinuclear Antibody, IFAon 06-04-2024 MARIE, IFA Negative Normal . [facility] Comment on above: Result Comment: Nega tive <1:80 Borderline 1:80 Positive >1:80 ICAP nomenclature: AC-0 For more information about Hep-2 cell patterns use ANApatterns.org, the official website for the International Consensus on Antinuclear Antibody (MARIE) Patterns (ICAP). Performed at: [facility] [address] [place], [place] [id number] Cad Specialist: Dallin Vizcaino PhD, Phone: [phone] Performed By: #### L 101.9900, L3100.5450, L3410.1400, L501.6710, L4600.0100, L505.7010, L100.0500 #### [facility] Laboratory [address] [place], [address] KARATE TEACHER Abon 06-04-2024 KARATE TEACHER Ab 1.1 AI Abnormal 0.0-0.9 [facility] Comment on above: Result Comment: AMENDED REPORT 06/04/24 0908 KARATE TEACHER Ab previously reported as: Test not performed Performed By: #### L 101.9900, L3100.5450, L3410.1400, L501.6710, L4600.0100, L505.7010, L100.0500 #### [facility] [address] [place], [place], [id number] Antinuclear antibody (MARIE) a ssayOrdered By: Stephanie Hedrick on 05-30-2024 Anti-Nuclear Antibody Screen Negative . [facility] Comment on above: Negative <1:80 Borde rline 1:80 Positive >1:80ICAP nomenclature: AC-0For more information about Hep-2 cell patterns useANApatterns.org, the official website for theInternational Consensus on Antinuclear Antibody (MARIE)Patterns (ICAP).Performed at: [facility], [place] [id number] Director: Dallin Vizcaino PhD, Phone: [phone] CRPon 05-30-2024 C-REACTIVE PROT < 3.00 Normal 0.0-3.0 [facility] Comment on above: Performed By: #### L 101.9900, L3100.5450, L3410.1400, L501.6710, L4600.0100, L505.7010, L100.0500 #### [facility] [address] [place], [place], [id number] CRP [Mass/Vol]Ordered By: Miriam Hedrick on 05-30-2024 C-Reactive Protein Extended Range < 3.00 mg/L 0.0-3.0 [facility] Erythrocyte Sed Rateon 05-30 SED RATE 2 mm/hr Normal 0-30 [facility] Comment on above: Performed By: #### L 101.9900, L3100.5450, L3410.1400, L501.6710, L4600.0100, L505.7010, L100.0500 #### [facility] [address] [place], [address] Erythrocyte sedimentation ra teOrdered By: Stephanie Hedrick on 05-30-2024 ESR (Bld) [Velocity] 2 mm/h 0-30 [facility] KARATE TEACHER abOrdered By: Stephanie Hedrick on 05-30-2024 KARATE TEACHER Antibody 1.1 AI High 0.0-0.9 [facility] Comment on above: Previous reported re sult: TNP AIEdited by: CHARY on 06/04/24:0908 AMENDED REPORT 06/04/24 0908 KARATE TEACHER Ab previously reported as: Test not performed Rheumatoid Factoron 05-31-19 RHEUMATOID FAC < 10.0 Normal <15 [facility] Comment on above: Performed By: #### L 101.9900, L3100.5450, L3410.1400, L501.6710, L4600.0100, L505.7010, L100.0500 #### [facility] [address] [place], [address] Rheumatoid factor Ql (S)Orde red By: Stephanie Hedrick on 05-30-2024 Rheumatoid Factor < 10.0 IU/mL <15 [facility] Serum or plasma C reactive p rotein measurement (mass/volume)Ordered By: Stephanie Hedrick on 05-30-2024 CRP [Mass/Vol] mg/L 0.0-3.0 [facility] Serum rheumatoid factor dete ctionOrdered By: Stephanie Hedrick on 05-30-2024 Rheumatoid factor Ql (S) < 10.0 IU/mL <15 [facility] CCP IgG Antibodieson 025 CCP IgG Ab. 2 units Normal 0-19 [facility] Comment on above: Result Comment: Nega tive <20 Weak positive 20 - 39 Moderate positive 40 - 59 Strong positive >59 Performed at: [address] [place], [place] [address] [place], [place] [id number] Cad Specialist: Sepideh Hylton PhD, Phone: [phone] Performed at: [address] [id number] Cad Specialist: Dallin Vizcaino PhD, Phone: [phone] Performed By: #### L 101.9900, L3100.5450, L3410.1400, L501.6710, L4600.0100, L505.7010, L100.0500 #### [facility] [address] [place], [address] HLA B27on 04-19-2024 HLA B27 Negative Normal . [facility] Comment on above: Result Comment: HLA- B*27 Negative B27 allele interpretation for all loci based on IMGT/HLA database version 3.51.0 This test was developed and its performance characteristics determined by [employer]. It has not been cleared or approved by the Food and Drug Administration. The FDA has determined that such clearance or approval is not necessary. [facility] CLIA ID Number [id number] This test was performed using Polymerase Chain Reaction (PCR) and Sequence Specific Oligonucleotide Probes (SSOP) technique. Sequence Based Typing (SBT) may be used as a supplemental method when necessary. If you have questions, please call [facility] customer service at or email at [email or web address]. Performed By: #### L 101.9900, L3100.5450, L3410.1400, L501.6710, L4600.0100, L505.7010, L100.0500 #### [facility] [address] [place], [address] MARIE w/ Reflex Mult Confirmon 04-15-2024 MARIE,DIRECT Positive Abnormal Negative [facility] Comment on above: Performed By: #### L 101.9900, L3100.5450, L3410.1400, L501.6710, L4600.0100, L505.7010, L100.0500 #### [facility] [address] [place], [address] ANTI-DNA (DS)AB <1 Normal 0-9 [facility] Comment on above: Result Comment: Nega tive <5 Equivocal 5 - 9 Positive >9 Performed By: #### L 101.9900, L3100.5450, L3410.1400, L501.6710, L4600.0100, L505.7010, L100.0500 #### [facility] [address] [place], [address] ANTISCLERODERM <0.2 Normal 0.0-0.9 [facility] Comment on above: Performed By: #### L 101.9900, L3100.5450, L3410.1400, L501.6710, L4600.0100, L505.7010, L100.0500 #### [facility] [address] [place], [address] AMRIE serumOrdered By: Jeremy Pascual on 04-12-2024 Anti-Nuclear Antibody Screen Positive High Negative [facility] C-reactive protein measureme nt by high sensitivity methodOrdered By: Jeremy Pascual on 04-12-2024 C-Reactive Protein Extended Range < 2.90 mg/L 0.0-3.0 [facility] Comment on above: C-Reactive Protein ( CRP) provides useful information for thediagnosis, therapy and monitoring of inflammatory processesand associated diseases. For the evaluation of Relative Riskfor Cardiovascular Disease, a High Sensitivity CRP (HSCRP)should be ordered. CBC-Complete Blood Cnt No Di ffon 04-12-2024 Erythrocyte distribution width (RBC) [Ratio] 12.4 % Normal 11.6-14.6 [facility] Comment on above: Performed By: #### L 101.9900, L3100.5450, L3410.1400, L501.6710, L4600.0100, L505.7010, L100.0500 #### [facility] [address] [place], [address] Hematocrit (Bld) [Volume fraction] 41.6 % Normal 37-47 [facility] Comment on above: Performed By: #### L 101.9900, L3100.5450, L3410.1400, L501.6710, L4600.0100, L505.7010, L100.0500 #### [facility] [address] [place], [address] Hemoglobin (Bld) [Mass/Vol] 14.0 g/dL Normal 12.0-15.0 [facility] Comment on above: Performed By: #### L 101.9900, L3100.5450, L3410.1400, L501.6710, L4600.0100, L505.7010, L100.0500 #### [facility] [address] [place], [address] MCH (RBC) [Entitic mass] 31.6 pg Normal 27.0-32.0 [facility] Comment on above: Performed By: #### L 101.9900, L3100.5450, L3410.1400, L501.6710, L4600.0100, L505.7010, L100.0500 #### [facility] [address] [place], [address] MCHC (RBC) [Mass/Vol] 33.7 g/dL Normal 32-36 [facility] Comment on above: Performed By: #### L 101.9900, L3100.5450, L3410.1400, L501.6710, L4600.0100, L505.7010, L100.0500 #### [facility] [address] [place], [address] MCV (RBC) [Entitic vol] 93.9 fL Normal 81-99 [facility] Comment on above: Performed By: #### L 101.9900, L3100.5450, L3410.1400, L501.6710, L4600.0100, L505.7010, L100.0500 #### [facility] [address] [place], [address] Platelet mean volume (Bld) [Entitic vol] 11.2 fL Normal 6.2-12.0 [facility] Comment on above: Performed By: #### L 101.9900, L3100.5450, L3410.1400, L501.6710, L4600.0100, L505.7010, L100.0500 #### [facility] [address] [place], [address] Platelets (Bld) [#/Vol] 304 10*3/uL Normal 150-450 [facility] Comment on above: Performed By: #### L 101.9900, L3100.5450, L3410.1400, L501.6710, L4600.0100, L505.7010, L100.0500 #### [facility] [address] [place], [address] RBC (Bld) [#/Vol] 4.43 10*6/uL Normal 4.2-5.4 [facility] Comment on above: Performed By: #### L 101.9900, L3100.5450, L3410.1400, L501.6710, L4600.0100, L505.7010, L100.0500 #### [facility] [address] [place], [address] RDW SD 43.0 fl Normal 35.1-43.9 [facility] Comment on above: Performed By: #### L 101.9900, L3100.5450, L3410.1400, L501.6710, L4600.0100, L505.7010, L100.0500 #### [facility] [address] [place], [address] WBC (Bld) [#/Vol] 14.5 10*3/uL High 4.4-11.0 [facility] [place] Comment on above: Performed By: #### L 101.9900, L3100.5450, L3410.1400, L501.6710, L4600.0100, L505.7010, L100.0500 #### [facility] [address] [place], [address] CRPon 04-12-2024 C-REACTIVE PROT < 2.90 Normal 0.0-3.0 [facility] Comment on above: Result Comment: C-Re active Protein (CRP) provides useful information for the diagnosis, therapy and monitoring of inflammatory processes and associated diseases. For the evaluation of Relative Risk for Cardiovascular Disease, a High Sensitivity CRP (HSCRP) should be ordered. Performed By: #### L 101.9900, L3100.5450, L3410.1400, L501.6710, L4600.0100, L505.7010, L100.0500 #### [facility] [address] [place], [address] Centromere B antibody assayO rdered By: Jeremy Pascual on 04-12-2024 Centromere B Antibody <0.2 AI 0.0-0.9 [facility] Comment on above: Previous reported re sult: TNP AIEdited by: CHARY on 04/15/24:1607 AMENDED REPORT 04/15/24 1607 ANTI-CENT B previously reported as: Test not performed Chromatin antibody assayOrde red By: Jeremy Pascual on 04-12-2024 Antichromatin Antibodies <0.2 AI 0.0-0.9 [facility] Comment on above: Previous reported re sult: TNP AIEdited by: CHARY on 04/15/24:1607 AMENDED REPORT 04/15/24 1607 ANTICHROMATIN previously reported as: Test not performed Cyclic citrullinated peptide IgG QnOrdered By: Jeremy Pascual on 04-12-2024 Cyclic Citrullinated Peptide IgG Ab 2 units 0-19 [facility] Comment on above: Negative <20 Weak po sitive 20 - 39 Moderate positive 40 - 59 Strong positive >59Performed at: [facility] [id number] [place], [place] [id number] Director: Sepideh Hylton PhD, Phone: [phone] at: [facility] [address] [id number] Director: Dallin Vizcaino PhD, Phone: [phone] DNA double strand Ab Qn (S)O rdered By: Jeremy Pascual on 04-12-2024 Anti-Double Strand DNA Antibody <1 IU/mL 0-9 [facility] Comment on above: Negative <5 Equivoca l 5 - 9 Positive >9 Erythrocyte Sed Rateon 04-12 SED RATE 5 mm/hr Normal 0-30 [facility] Comment on above: Performed By: #### L 101.9900, L3100.5450, L3410.1400, L501.6710, L4600.0100, L505.7010, L100.0500 #### [facility] [address] [place] [address]. [place], [place], [id number] Erythrocyte distribution wid th (RBC) [Ratio]Ordered By: Jeremy Pascual on 04-12-2024 Erythrocyte distribution width (RBC) [Entitic vol] 43.0 fL 35.1-43.9 [facility] Erythrocyte distribution wid th ratioOrdered By: Jeremy Pascual on 04-12-2024 Erythrocyte distribution width (RBC) [Ratio] 12.4 % 11.6-14.6 [facility] Erythrocyte distribution wid th standard deviationOrdered By: Jeremy Pascual on 04-12-2024 Erythrocyte distribution width (RBC) [Ratio] 43.0 fl 35.1-43.9 [facility] Erythrocyte sedimentation ra teOrdered By: Jeremy Pascual on 04-12-2024 ESR (Bld) [Velocity] 5 mm/h 0-30 [facility] [place] Hematocrit Auto (Bld) [Volum e fraction]Ordered By: Jeremy Samara on 04-12-2024 Hematocrit (Bld) [Volume fraction] 41.6 % 37-47 [facility] Hemoglobin measurementOrdere d By: Jeremy Pascual on 04-12-2024 Hemoglobin (Bld) [Mass/Vol] 14.0 g/dL 12.0-15.0 [facility] Human leukocyte antigen (HLA ) B27 typingOrdered By: Jeremy Pascual on 04-12-2024 HLA-B27 Negative . [facility] Comment on above: HLA-B*27 KvsuzfixU22 allele interpretation for all loci based on IMGT/HLAdatabase version 3.51.0This test was developed and its performance characteristicsdetermined by [employer]. It has not been cleared or approvedby the Food and Drug Administration.The FDA has determined that such clearance or approval isnot necessary.[facility] Lab CLIA ID Number [id number] test was performed using Polymerase Chain Reaction(PCR) and Sequence Specific Oligonucleotide Probes (SSOP)technique. Sequence Based Typing (SBT) may be used as asupplemental method when necessary.If you have questions, please call [employer] customer serviceat or email at [email or web address]. Terri-1 antibody assayOrdered B y: Jeremy Thomasard on 04-12-2024 TERRI-1 Antibody <0.2 AI 0.0-0.9 [facility] Comment on above: Previous reported re sult: TNP AIEdited by: CHARY on 04/15/24:1607 AMENDED REPORT 04/15/24 1607 ANTI-TERRI previously reported as: Test not performed MCV (mean corpuscular volume ) determinationOrdered By: Jeremy Pascual on 04-12-2024 MCV (RBC) [Entitic vol] 93.9 fL 81-99 [facility] Mean corpuscular hemoglobin (MCH) determinationOrdered By: Jeremy Pascual on 04-12-2024 MCH (RBC) [Entitic mass] 31.6 pg 27.0-32.0 [facility] Mean corpuscular hemoglobin concentration (MCHC) determinationOrdered By: Jeremy Pascual on 04-12-2024 MCHC (RBC) [Mass/Vol] 33.7 g/dL 32-36 [facility] Mean platelet volume determi nationOrdered By: Jeremy Pascual on 04-12-2024 Platelet mean volume (Bld) [Entitic vol] 11.2 fL 6.2-12.0 [facility] Platelet countOrdered By: Liu Pascual on 04-12-2024 Platelets (Bld) [#/Vol] 304 10*3/uL 150-450 [facility] RBC Auto (Bld) [#/Vol]Ordere d By: Jeremy Pascual on 04-12-2024 RBC (Bld) [#/Vol] 4.43 10*6/uL 4.2-5.4 [facility] [place] KARATE TEACHER abOrdered By: Jeremy marrufo on 04-12-2024 KARATE TEACHER Antibody 1.4 AI High 0.0-0.9 [facility] Comment on above: Previous reported re sult: TNP AIEdited by: CHARY on 04/15/24:1607 AMENDED REPORT 04/15/24 1607 KARATE TEACHER Ab previously reported as: Test not performed Rheumatoid Factoron 04-12-19 RHEUMATOID FAC < 10.0 Normal <15 [facility] Comment on above: Performed By: #### L 101.9900, L3100.5450, L3410.1400, L501.6710, L4600.0100, L505.7010, L100.0500 #### [facility] [address] [place] [address]. [place], [address] Rheumatoid factor measuremen tOrdered By: Jeremy Pascual on 04-12-2024 Rheumatoid Factor < 10.0 IU/mL <15 [facility] [place] SCL-70 extractable nuclear A b Qn (S)Ordered By: Jeremy Pascual on 04-12-2024 Scl-70 (Scleroderma) Antibody <0.2 AI 0.0-0.9 [facility] SS-A IgG antibody assayOrder ed By: Jeremy Pascual on 04-12-2024 SS-A/Ro IgG Antibody < 0.2 AI 0.0-0.9 [facility] [place] Comment on above: Previous reported re sult: TNP AIEdited by: CHARY on 04/15/24:1607 AMENDED REPORT 04/15/241606 Anti-SS-A previously reported as: Test not performed SS-B IgG antibody assayOrder ed By: Jeremy Pascual on 04-12-2024 SS-B/La IgG Antibody < 0.2 AI 0.0-0.9 [facility] [place] Comment on above: Previous reported re sult: TNP AIEdited by: CHARY on 04/15/24:1607 AMENDED REPORT 04/15/241606 Anti-SS-B previously reported as: Test not performed Serum DNA double strand anti body assay (units/volume)Ordered By: Jeremy Pascual on 04-12-2024 DNA double strand Ab Qn (S) [IU]/mL 0-9 [facility] Comment on above: Negative <5 Equivoca l 5 - 9 Positive >9 Serum Scl-70 antibody assay (units/volume)Ordered By: Jeremy Pascual on 04-12-2024 SCL-70 extractable nuclear Ab Qn (S) <0.2 AI 0.0-0.9 [facility] Serum or plasma cyclic citru llinated peptide IgG antibody assay (units/volume)Ordered By: Jeremy Pascual on 04-12-2024 Cyclic citrullinated peptide IgG Qn 2 units 0-19 [facility] Comment on above: Negative <20 Weak po sitive 20 - 39 Moderate positive 40 - 59 Strong positive >59Performed at: 2 - [facility] [id number] [place], [place] [id number] Director: Sepideh Hylton PhD, Phone: [phone] at: [facility] [address] [id number] Director: Dallin Vizcaino PhD, Phone: [phone] Bowman antibody assayOrdered By: Jeremy Pascual on 04-12-2024 SM Antibody <0.2 AI 0.0-0.9 [facility] Comment on above: Previous reported re sult: TNP AIEdited by: CHARY on 04/15/24:1607 AMENDED REPORT 04/15/24 1607 HORACIO Rodríguez previously reported as: Test not performed White blood cell (WBC) count Ordered By: Jeremy Pascual on 04-12-2024 WBC (Bld) [#/Vol] 14.5 10*3/uL High 4.4-11.0 [facility] [place] Lower Ext Joint Only (Routin e)on 03-21-2024 Lower Ext Joint Only (Routine) [facility] Imaging Services [address] [place], [place] [address] Lower Ext Joint Only (Routine) MR#: [id number] Acct: [id number] Name: RANGEL TRENT Rep #: [id number] : 1975 F 48 From: Brooks Little MD PCP: Dr. Stephanie Hedrick, DO Status: REG CLI Study: Lower Ext Joint Only (Routine) Date of Exam: 0 03/21/24 Exam# [id number] Ordering Dr: Jeremy Pascual [facility] [id number] STUDY: MRI LEFT ANKLE WITHOUT CONTRAST REASON FOR EXAM: Female, 48 years old. Osteochondritis. Left anterior ankle pain greater than 6 months. Sharp, nerve pain. TECHNIQUE: Standardized fat and water weighted pulse sequences were obtained in all 3 orthogonal planes. COMPARISON: Left ankle and foot radiographs dated 02/09/2024. FINDINGS: Normal subcutis adipose space. There is mild posterior tibialis tenosynovitis. Intact posterior tibialis tendon. Normal flexor digitorum longus tendon. Normal flexor hallucis longus tendon. Normal peroneus longus and brevis tendons. Normal tibialis anterior tendon. Normal extensor hallucis longus tendon. Normal extensor digitorum longus tendons. Normal Achilles tendon and teno-osseous insertion. Normal plantar fascia. Normal plantar calcaneal tubercles. Normal intrinsic muscles of the rearfoot. Normal distal tibiofibular syndesmotic ligamentous complex. Normal lateral ligamentous complex. Normal subtalar ligaments and sinus tarsi. Normal deltoid ligamentous complex. Normal plantar calcaneonavicular (spring) ligament. There is a tiny tibiotalar joint effusion. Normal talar dome. Normal subtalar articulations. There is marrow stress edema in the talar head/neck, anterior calcaneus, lateral navicular, medial cuneiform, lateral cuneiform, as well as bases of the second through fourth metatarsals. MRI/Lower Ext Joint Only (Routine) IMPRESSION: Marrow stress edema in the talar head/neck, anterior calcaneus, lateral navicular, medial cuneiform, lateral cuneiform, as well as bases of the second through fourth metatarsals. Mild posterior tibialis tenosynovitis. Tiny tibiotalar joint effusion. Electronically Signed: Brooks Little MD at 14:18 EST Reading Location ID and State: [facility] / [place] , Service support , CC: STERLING Pascual; Dr. Stephanie Hedrick DO Cover Stripper: Signed Normal [facility] Ankle min 3 Viewson 02-09-20 Ankle min 3 Views [facility] Imaging Services [address] [place], [place] [id number] Ankle min 3 Views MR#: [id number] Acct: [id number] Name: RANGEL TRENT Rep #: [id number] : 1975 F 48 From: Chad ricketts DO PCP: Dr. Stephanie Hedrick DO Status: REG CLI Study: Ankle min 3 Views Date of Exam: 02/09/24 Exam# [id number] Ordering Dr: Katty Kiran [employer] [id number] EXAM: XR LEFT ANKLE COMPLETE, 3 OR MORE VIEWS CLINICAL INDICATION: PAIN IN LEFT ANKLE AND JOINT TECHNIQUE: Frontal, lateral and oblique views of the left ankle. COMPARISON: Foot on the same date. FINDINGS: BONES/JOINTS: Calcaneal spurs. Spurring of the medial lateral malleoli. Midfoot arthrosis. No acute fracture. No subluxation. Normal alignment. Preservation of the joint space. No sclerotic or destructive changes observed. SOFT TISSUES: No significant abnormality. No soft tissue swelling or gas. No radiopaque foreign body. RAD/Ankle min 3 Views IMPRESSION: Degenerative changes. No acute osseous findings. Electronically Signed: Chad Waterman DO at 21:57 EST , CC: NORMA Kiran; Dr. Stephanie Hedrick DO Cover Stripper: Signed Normal [facility] Foot min 3 Viewson 4 Foot min 3 Views [facility] Imaging Services [address] [place] [id number] Foot min 3 Views MR#: [id number] Acct: [id number] Name: RANGEL TRENT Rep #: [id number] : 1975 F 48 From: Chad ricketts DO PCP: Dr. Stephanie Hedrick DO Status: REG CLI Study: Foot min 3 Views Date of Exam: 02/09/24 Exam# [id number] Ordering Dr: aKtty Kiran [id number] EXAM: XR LEFT FOOT COMPLETE, 3 OR MORE VIEWS CLINICAL INDICATION: PAIN IN LEFT FOOT TECHNIQUE: Frontal, lateral and oblique views of the left foot. COMPARISON: Ankle on the same date. FINDINGS: BONES/JOINTS: Degenerative changes in the foot with marginal osteophytes and joint space narrowing at the metatarsal phalangeal and interphalangeal joints. Calcaneal spurs. No acute fracture. No subluxation. Normal alignment. No sclerotic or destructive changes observed. SOFT TISSUES: No significant abnormality. No soft tissue swelling or gas. No radiopaque foreign body. RAD/Foot min 3 Views IMPRESSION: Degenerative changes. No acute findings. Electronically Signed: Chad WatermanDO at 21:56 EST , CC: [employer] Katty Kiran; Dr. Stephanie Hedrick DO Cover Stripper: Signed Normal [facility] SCRN MAMM (CAD)W/KOLTON BILATo n 01-11-2024 SCRN MAMM (CAD)W/KOLTON BILAT [facility] Imaging Services [address] [place] [address] SCRN MAMM (CAD)W/KOLTON BILAT MR#: [id number] Acct: [id number] Name: RANGEL TRENT Rep #: [id number] : 1975 F 48 From: Juan Diego kc MD PCP: Dr. Stephanie Hedrick DO Status: REG CLI Study: SCRN MAMM (CAD)W/KOLTON BILAT Date of Exam: 09/26 Exam# [id number] Ordering Dr: Gissell Escobedo NP [employer] -[employer] [id number] MAMMOGRAPHY - BILATERAL SCREENING REASON FOR EXAM: Female, 48 years old. Routine annual screening examination. PERTINENT HISTORY: Non-contributory. TECHNIQUE: Digital bilateral breast kolton (3D mammographic acquisition) in the CC and MLO projections. 2-D mediolateral oblique (MLO) and craniocaudad (CC) views of both breasts were obtained. CAD: Full Field Digital Mammography with Computer Added Detection was performed. COMPARISON: Comparison is made with prior study dated January 03, 2023 and December 30, 2021. FINDINGS: Breast Composition: There are scattered areas of fibroglandular density. There are no dominant masses or suspicious calcifications. No other significant abnormalities are identified. There has been no significant change since the prior study. BI/SCRN MAMM (CAD)W/KOLTON BILAT IMPRESSION: Stable bilateral screening mammogram. Yearly follow-up mammogram recommended. (A) ASSESSMENT CATEGORY: BIRADS Category 1: Negative. A letter regarding these results will be sent to the patient by the facility within 30 days. Approximately 10% of breast cancers are not detected by mammography. A normal mammogram should not delay biopsy of a clinically suspicious abnormality. [id number] Electronically Signed: Juan Diego Sebastian MD at 8:54 EST Reading Location ID and State: [address] [place] [address] , Service support , CC: NORMA Escobedo; Dr. Stephanie Herdick, DO Cover Stripper: Signed Normal [facility] CBC, Employeeon 10-30-2023 Absolute Lymph 1.01 X10 3/uL Normal 0.83-4.51 [facility] Comment on above: Performed By: #### L 400.0100, L100.0200, L500.2900 ####[facility] [address] [place], [place], [id number] Performed By: #### L 500.2900, L400.0100, L100.0200 ####[facility] [address] [place], [address] Absolute Neut 3.4 X10 3/uL Normal 2.0-7.7 [facility] Comment on above: Performed By: #### L 400.0100, L100.0200, L500.2900 ####[facility] [address] [place], [address] Performed By: #### L 500.2900, L400.0100, L100.0200 ####[facility] [address] [place], [address] Basophils/100 WBC (Bld) 1.5 % High 0-1 [facility] Comment on above: Performed By: #### L 400.0100, L100.0200, L500.2900 ####[facility] [address] [place], [address] Performed By: #### L 500.2900, L400.0100, L100.0200 ####[facility] [address] [place], [address] Eosinophils/100 WBC (Bld) 5.9 % High 0-5 [facility] Comment on above: Performed By: #### L 400.0100, L100.0200, L500.2900 ####[facility] [address] [place], [address] Performed By: #### L 500.2900, L400.0100, L100.0200 ####[facility] [address] [place], [address] Erythrocyte distribution width (RBC) [Ratio] 12.1 % Normal 11.6-14.6 [facility] Comment on above: Performed By: #### L 400.0100, L100.0200, L500.2900 ####[facility] [address] [place], [address] Performed By: #### L 500.2900, L400.0100, L100.0200 ####[facility] [address] [place], [address] Hematocrit (Bld) [Volume fraction] 41.4 % Normal 37-47 [facility] Comment on above: Performed By: #### L 400.0100, L100.0200, L500.2900 ####[facility] [address] [place], [address] Performed By: #### L 500.2900, L400.0100, L100.0200 ####[facility] [address] [place], [address] Hemoglobin (Bld) [Mass/Vol] 13.6 g/dL Normal 12.0-15.0 [facility] Comment on above: Performed By: #### L 400.0100, L100.0200, L500.2900 ####[facility] [address] [place], [address] Performed By: #### L 500.2900, L400.0100, L100.0200 ####[facility] [address] [place], [address] Lymphocytes/100 WBC (Bld) 19.1 % Normal 19-41 [facility] Comment on above: Performed By: #### L 400.0100, L100.0200, L500.2900 ####[facility] [address] [place], [address] Performed By: #### L 500.2900, L400.0100, L100.0200 ####[facility] [address] [place], [address] MCH (RBC) [Entitic mass] 31.1 pg Normal 27.0-32.0 [facility] Comment on above: Performed By: #### L 400.0100, L100.0200, L500.2900 ####[facility] [address] [place], [address] Performed By: #### L 500.2900, L400.0100, L100.0200 ####[facility] [address] [place], [address] MCHC (RBC) [Mass/Vol] 32.9 g/dL Normal 32-36 [facility] Comment on above: Performed By: #### L 400.0100, L100.0200, L500.2900 ####[facility] [address] [place], [address] Performed By: #### L 500.2900, L400.0100, L100.0200 ####[facility] [address] [place], [address] MCV (RBC) [Entitic vol] 94.7 fL Normal 81-99 [facility] Comment on above: Performed By: #### L 400.0100, L100.0200, L500.2900 ####[facility] [address] [place], [address] Performed By: #### L 500.2900, L400.0100, L100.0200 ####[facility] [address] [place], [address] Monocytes/100 WBC (Bld) 9.3 % Normal 0-10 [facility] Comment on above: Performed By: #### L 400.0100, L100.0200, L500.2900 ####[facility] [address] [place], [address] Performed By: #### L 500.2900, L400.0100, L100.0200 ####[facility] [address] [place], [address] Neutrophils/100 WBC (Bld) 63.8 % Normal 47-70 [facility] Comment on above: Performed By: #### L 400.0100, L100.0200, L500.2900 ####[facility] [address] [place], [address] Performed By: #### L 500.2900, L400.0100, L100.0200 ####[facility] [address] [place], [address] NRBC # 0.00 10 3/uL Normal 0-5 [facility] Comment on above: Performed By: #### L 400.0100, L100.0200, L500.2900 ####[facility] [address] [place], [address] Performed By: #### L 500.2900, L400.0100, L100.0200 ####[facility] [address] [place], [address] Nucleated RBC (Bld) [#/Vol] 0 10*3/uL Normal 0-5 [facility] Comment on above: Performed By: #### L 400.0100, L100.0200, L500.2900 ####[facility] [address] [place], [address] Performed By: #### L 500.2900, L400.0100, L100.0200 ####[facility] [address] [place], [address] Platelet mean volume (Bld) [Entitic vol] 10.0 fL Normal 6.2-12.0 [facility] Comment on above: Performed By: #### L 400.0100, L100.0200, L500.2900 ####[facility] [address] [place], [address] Performed By: #### L 500.2900, L400.0100, L100.0200 ####[facility] [address] [place], [address] Platelets (Bld) [#/Vol] 251 10*3/uL Normal 150-450 [facility] Comment on above: Performed By: #### L 400.0100, L100.0200, L500.2900 ####[facility] [address] [place], [address] Performed By: #### L 500.2900, L400.0100, L100.0200 ####[facility] [address] [place], [address] RBC (Bld) [#/Vol] 4.37 10*6/uL Normal 4.2-5.4 [facility] [place] Comment on above: Performed By: #### L 400.0100, L100.0200, L500.2900 ####[facility] [address] [place], [address] Performed By: #### L 500.2900, L400.0100, L100.0200 ####[facility] [address] [place], [address] RDW SD 42.5 fl Normal 35.1-43.9 [facility] Comment on above: Performed By: #### L 400.0100, L100.0200, L500.2900 ####[facility] [address] [place], [address] Performed By: #### L 500.2900, L400.0100, L100.0200 ####[facility] [address] [place], [address] WBC (Bld) [#/Vol] 5.3 10*3/uL Normal 4.4-11.0 [facility] Comment on above: Performed By: #### L 400.0100, L100.0200, L500.2900 ####[facility] [address] [place], [address] Performed By: #### L 500.2900, L400.0100, L100.0200 ####[facility] [address] [place], [address] Employee Profileon 4 Albumin [Mass/Vol] 3.9 g/dL Normal 3.2-5.0 [facility] Comment on above: Performed By: #### L 400.0100, L100.0200, L500.2900 ####[facility] [address] [place], [address] Performed By: #### L 500.2900, L400.0100, L100.0200 ####[facility] [address] [place], [address] Albumin/Globulin [Mass ratio] 1.1 {ratio} Normal 0.9-2.4 [facility] Comment on above: Performed By: #### L 400.0100, L100.0200, L500.2900 ####[facility] [address] [place], [address] Performed By: #### L 500.2900, L400.0100, L100.0200 ####[facility] [address] [place], [address] ALK P 56 U/L Normal 45-117 [facility] Comment on above: Performed By: #### L 400.0100, L100.0200, L500.2900 ####[facility] [address] [place], [address] Performed By: #### L 500.2900, L400.0100, L100.0200 ####[facility] [address] [place], [address] ALT [Catalytic activity/Vol] 21 U/L Normal 13-56 [facility] Comment on above: Performed By: #### L 400.0100, L100.0200, L500.2900 ####[facility] [address] [place], [address] Performed By: #### L 500.2900, L400.0100, L100.0200 ####[facility] [address] [place], [address] AST [Catalytic activity/Vol] 14 U/L Low 15-37 [facility] Comment on above: Performed By: #### L 400.0100, L100.0200, L500.2900 ####[facility] [address] [place], [address] Performed By: #### L 500.2900, L400.0100, L100.0200 ####[facility] [address] [place], [address] Bilirubin [Mass/Vol] 0.60 mg/dL Normal 0.20-1.00 [facility] [place] Comment on above: Result Comment: For patients on eltrombopag therapy, use of Dimension [place] TBIL is not recommended. Performed By: #### L 400.0100, L100.0200, L500.2900 ####[facility] [address] [place], [address] Performed By: #### L 500.2900, L400.0100, L100.0200 ####[facility] [address] [place], [address] Bilirubin.direct [Mass/Vol] 0.14 mg/dL Normal 0.00-0.30 [facility] Comment on above: Performed By: #### L 400.0100, L100.0200, L500.2900 ####[facility] [address] [place], [address] Performed By: #### L 500.2900, L400.0100, L100.0200 ####[facility] [address] [place], [address] BUN/CRE 21.2 RATIO High 10-20 [facility] Comment on above: Performed By: #### L 400.0100, L100.0200, L500.2900 ####[facility] [address] [place], [address] Performed By: #### L 500.2900, L400.0100, L100.0200 ####[facility] [address] [place], [address] CA,Total 8.5 mg/dL Normal 8.5-10.1 [facility] Comment on above: Performed By: #### L 400.0100, L100.0200, L500.2900 ####[facility] [address] [place], [address] Performed By: #### L 500.2900, L400.0100, L100.0200 ####[facility] [address] [place], [address] Chloride [Moles/Vol] 109 mmol/L High 98-107 [facility] [place] Comment on above: Performed By: #### L 400.0100, L100.0200, L500.2900 ####[facility] [address] [place], [address] Performed By: #### L 500.2900, L400.0100, L100.0200 ####[facility] [address] [place], [address] CHOL:HDL 3.20 Normal [facility] Comment on above: Performed By: #### L 400.0100, L100.0200, L500.2900 ####[facility] [address] [place], [address] Performed By: #### L 500.2900, L400.0100, L100.0200 ####[facility] [address] [place], [address] Cholesterol [Mass/Vol] 230 mg/dL High 200 [facility] Comment on above: Result Comment: <200 mg/dL Desirable 200-240 mg/dL Borderline >240 mg/dL High Risk Performed By: #### L 400.0100, L100.0200, L500.2900 ####[facility] [address] [place], [address] Performed By: #### L 500.2900, L400.0100, L100.0200 ####[facility] [address] [place], [address] Cholesterol in HDL [Mass/Vol] 71 mg/dL Normal [facility] Comment on above: Result Comment: The drugs N-Acetylcysteine and Metamizole may falsely depress this assay. Reference Range HDL <40 mg/dL Low HDL Cholesterol HDL >or= 60 mg/dL High HDL Cholesterol Performed By: #### L 400.0100, L100.0200, L500.2900 ####[facility] [address] [place], [address] Performed By: #### L 500.2900, L400.0100, L100.0200 ####[facility] [address] [place], [address] Cholesterol in LDL [Mass/Vol] 145 mg/dL High 0-130 [facility] Comment on above: Performed By: #### L 400.0100, L100.0200, L500.2900 ####[facility] [address] [place], [address] Performed By: #### L 500.2900, L400.0100, L100.0200 ####[facility] [address] [place], [address] Cholesterol in VLDL [Mass/Vol] 14 mg/dL Normal 5-40 [facility] Comment on above: Performed By: #### L 400.0100, L100.0200, L500.2900 ####[facility] [address] [place], [address] Performed By: #### L 500.2900, L400.0100, L100.0200 ####[facility] [address] [place], [address] CO2 [Moles/Vol] 24.0 mmol/L Normal 21.0-32.0 [facility] Comment on above: Performed By: #### L 400.0100, L100.0200, L500.2900 ####[facility] [address] [place], [address] Performed By: #### L 500.2900, L400.0100, L100.0200 ####[facility] [address] [place], [address] Creatinine [Mass/Vol] 0.85 mg/dL Normal 0.55-1.02 [facility] Comment on above: Result Comment: The validity of the calculated GFR GFRAA in patients over 70 years has not been determined. Clinical correlation is essential. Performed By: #### L 400.0100, L100.0200, L500.2900 ####[facility] [address] [place], [address] Performed By: #### L 500.2900, L400.0100, L100.0200 ####[facility] [address] [place], [address] EST GFR - AA 92 mL/min Normal >60 [facility] Comment on above: Result Comment: Afri can Pakistani GFR Calc Performed By: #### L 400.0100, L100.0200, L500.2900 ####[facility] [address] [place], [address] Performed By: #### L 500.2900, L400.0100, L100.0200 ####[facility] [address] [place], [address] GAP 6 Normal 5-15 [facility] Comment on above: Performed By: #### L 400.0100, L100.0200, L500.2900 ####[facility] [address] [place], [address] Performed By: #### L 500.2900, L400.0100, L100.0200 ####[facility] [address] [place], [address] GFR/1.73 sq M.predicted among non-blacks MDRD (S/P/Bld) [Vol rate/Area] 76 mL/min/{1.73_m2} Normal >60 [facility] Comment on above: Result Comment: Non- GFR Calc Performed By: #### L 400.0100, L100.0200, L500.2900 ####[facility] [address] [place], [address] Performed By: #### L 500.2900, L400.0100, L100.0200 ####[facility] [address] [place], [address] Globulin (S) [Mass/Vol] 3.4 g/dL Normal 2.2-4.2 [facility] Comment on above: Performed By: #### L 400.0100, L100.0200, L500.2900 ####[facility] [address] [place], [address] Performed By: #### L 500.2900, L400.0100, L100.0200 ####[facility] [address] [place], [address] Glucose [Mass/Vol] 101 mg/dL Normal 74-106 [facility] Comment on above: Result Comment: Fast ing Glucose result from 100 to 125 mg/dL suggests IMPAIRED HOMEOSTASIS per A.D.A. criteria. Performed By: #### L 400.0100, L100.0200, L500.2900 ####[facility] [address] [place], [address] Performed By: #### L 500.2900, L400.0100, L100.0200 ####[facility] [address] [place], [address] LDH 172 U/L Normal 84-246 [facility] Comment on above: Performed By: #### L 400.0100, L100.0200, L500.2900 ####[facility] [address] [place], [address] Performed By: #### L 500.2900, L400.0100, L100.0200 ####[facility] [address] [place], [address] Phosphate [Mass/Vol] 2.2 mg/dL Low 2.5-4.9 [facility] Comment on above: Performed By: #### L 400.0100, L100.0200, L500.2900 ####[facility] [address] [place], [address] Performed By: #### L 500.2900, L400.0100, L100.0200 ####[facility] [address] [place], [address] Potassium [Moles/Vol] 4.3 mmol/L Normal 3.5-5.1 [facility] Comment on above: Performed By: #### L 400.0100, L100.0200, L500.2900 ####[facility] [address] [place], [address] Performed By: #### L 500.2900, L400.0100, L100.0200 ####[facility] [address] [place], [address] Sodium [Moles/Vol] 139 mmol/L Normal 136-145 [facility] Comment on above: Performed By: #### L 400.0100, L100.0200, L500.2900 ####[facility] [address] [place], [address] Performed By: #### L 500.2900, L400.0100, L100.0200 ####[facility] [address] [place], [address] T PROT 7.3 g/dL Normal 6.4-8.2 [facility] Comment on above: Performed By: #### L 400.0100, L100.0200, L500.2900 ####[facility] [address] [place], [address] Performed By: #### L 500.2900, L400.0100, L100.0200 ####[facility] [address] [place], [address] Triglyceride [Mass/Vol] 68 mg/dL Normal [facility] Comment on above: Result Comment: The drugs N-Acetylcysteine and Metamizole may falsely depress this assay. Serum Triglycerides Reference Interval Normal <150 mg/dL Borderline high 150 - 199 mg/dL High 200 - 499 mg/dL Very High > or = 500 mg/dL Performed By: #### L 400.0100, L100.0200, L500.2900 ####[facility] [address] [place], [address] Performed By: #### L 500.2900, L400.0100, L100.0200 ####[facility] [address] [place], [address] Urea nitrogen [Mass/Vol] 18 mg/dL Normal 7-18 [facility] Comment on above: Performed By: #### L 400.0100, L100.0200, L500.2900 ####[facility] [address] [place], [address] Performed By: #### L 500.2900, L400.0100, L100.0200 ####[facility] [address] [place], [address] URIC 6.1 mg/dL High 2.6-6.0 [facility] Comment on above: Result Comment: The drugs N-Acetylcysteine and Metamizole may falsely depress this assay. Performed By: #### L 400.0100, L100.0200, L500.2900 ####[facility] [address] [place], [address] Performed By: #### L 500.2900, L400.0100, L100.0200 ####[facility] [address] [place], [address] Free T3on 10-30-2023 Free T3 [Mass/Vol] 2.5 pg/mL Normal 2.18-3.98 [facility] Comment on above: Performed By: #### L 501.9520, L506.0400, L501.83269 ####[facility] [address] [place], [address] Performed By: #### L 501.9520, L501.43464, L506.0400 ####[facility] [address] [place], [address] T4 Free Directon 10-30-2023 T4 FREE DIRECT 0.84 ng/dL Normal 0.76-1.46 [facility] Comment on above: Performed By: #### L 501.9520, L506.0400, L501.51345 ####[facility] [address] [place], [address] Performed By: #### L 501.9520, L501.91903, L506.0400 ####[facility] [address] [place], [address] Thyroid Stim Hormone (TSH)on 10-30-2023 TSH 2.220 uIU/mL Normal 0.358-3.74 0 [facility] Comment on above: Performed By: #### L 501.9520, L506.0400, L501.19391 ####[facility] [address] [place], [address] Performed By: #### L 501.9520, L501.44627, L506.0400 ####[facility] [address] [place], [address] Urinalysis, Employeeon 10-29 Clarity (U) Sl Cldy Normal Clear [facility] Comment on above: Performed By: #### L 400.0100, L100.0200, L500.2900 ####[facility] [address] [place], [address] Performed By: #### L 500.2900, L400.0100, L100.0200 ####[facility] [address] [place], [address] Color (U) YELLOW Normal Yellow [facility] Comment on above: Performed By: #### L 400.0100, L100.0200, L500.2900 ####[facility] [address] [place], [address] Performed By: #### L 500.2900, L400.0100, L100.0200 ####[facility] [address] [place], [address] BILIRUBIN URINE Negative Normal Negative [facility] Comment on above: Performed By: #### L 400.0100, L100.0200, L500.2900 ####[facility] [address] [place], [address] Performed By: #### L 500.2900, L400.0100, L100.0200 ####[facility] [address] [place], [address] GLUCOSE, UR Normal Normal Normal [facility] Comment on above: Performed By: #### L 400.0100, L100.0200, L500.2900 ####[facility] [address] [place], [address] Performed By: #### L 500.2900, L400.0100, L100.0200 ####[facility] [address] [place], [address] KETONE UR Negative Normal Negative [facility] Comment on above: Performed By: #### L 400.0100, L100.0200, L500.2900 ####[facility] [address] [place], [address] Performed By: #### L 500.2900, L400.0100, L100.0200 ####[facility] [address] [place], [address] LEUK ESTERASE Negative Normal Negative [facility] Comment on above: Performed By: #### L 400.0100, L100.0200, L500.2900 ####[facility] [address] [place], [address] Performed By: #### L 500.2900, L400.0100, L100.0200 ####[facility] [address] [place], [address] Nitrite Ql (U) Negative Normal Negative [facility] Comment on above: Performed By: #### L 400.0100, L100.0200, L500.2900 ####[facility] [address] [place], [address] Performed By: #### L 500.2900, L400.0100, L100.0200 ####[facility] [address] [place], [address] OCCULT BLOOD-UR 25 /ul Abnormal Negative [facility] Comment on above: Performed By: #### L 400.0100, L100.0200, L500.2900 ####[facility] [address] [place], [address] Performed By: #### L 500.2900, L400.0100, L100.0200 ####[facility] [address] [place], [address] pH UR 5.0 Normal 5.0 - 8.0 [facility] Comment on above: Performed By: #### L 400.0100, L100.0200, L500.2900 ####[facility] [address] [place], [address] Performed By: #### L 500.2900, L400.0100, L100.0200 ####[facility] [address] [place], [address] PROT DIPSTX 15 mg/dl Abnormal Negative [facility] Comment on above: Performed By: #### L 400.0100, L100.0200, L500.2900 ####[facility] [address] [place], [address] Performed By: #### L 500.2900, L400.0100, L100.0200 ####[facility] [address] [place], [address] SP.GR. DIPSTX 1.020 Normal 1.002-1.03 0 [facility] Comment on above: Performed By: #### L 400.0100, L100.0200, L500.2900 ####[facility] [address] [place], [address] Performed By: #### L 500.2900, L400.0100, L100.0200 ####[facility] [address] [place], [address] UROBILI Normal Normal Normal [facility] Comment on above: Performed By: #### L 400.0100, L100.0200, L500.2900 ####[facility] [address] [place], [address] Performed By: #### L 500.2900, L400.0100, L100.0200 ####[facility] [address] [place], [address] Thyroid Peroxidase ABon 06-2 THYR PEROX AB 119 IU/mL High 0-34 [facility] Comment on above: Result Comment: Perf ormed at: - [facility] [address] [id number] Cad Specialist: Dallin Vizcaino PhD, Phone: [phone] Performed By: #### L 3300.6900, L501.3720, L506.0400, L506.1000 ####[facility] [address] [place], [address] Hand Min 3 Viewson 4 Hand Min 3 Views [facility] [address] [place] [address] Hand Min 3 Views MR#: [id number] Acct: [id number] Name: EUGENIORANGEL HANSONE Rep #: [id number] : 1975 F 48 From: Juan Diego kc MD PCP: Dr. Stephanie Hedrick DO Status: [facility] Study: Hand Min 3 Views Date of Exam: 08/28/23 Exam# [id number] Ordering Dr: Stephanie Hedrick DO 3:[id number] STUDY: X-RAY - LEFT HAND REASON FOR EXAM: Female, 48 years old. Injury to the fifth digit. TECHNIQUE: 3 view(s) of the hand. COMPARISON: None. FINDINGS: Normal radiocarpal articulation. Normal distal radioulnar joint. Normal visualized carpal bones. Normal carpal articulations Normal carpometacarpal articulation of the thumb. Normal second through fifth carpometacarpal joints. Normal metacarpi. Normal metacarpophalangeal joint of the thumb. Normal interphalangeal joint of the thumb. Normal proximal and distal phalanges of the thumb. Normal metacarpophalangeal joints of the second through fifth fingers. Normal proximal and distal interphalangeal joints of the second through fifth fingers. Nondisplaced oblique fracture at the base of the proximal phalanx of the fifth digit. Soft tissue swelling. RAD/Hand Min 3 Views IMPRESSION: There is a nondisplaced oblique fracture at the base of the proximal phalanx of the fifth digit with overlying soft tissue swelling. Electronically Signed: Juan Diego Sebastian MD at 12:38 EDT , CC: Dr. Stephanie Hedrick DO Cover Stripper: Signed Normal [facility] T4 Free Directon 08-28-2023 T4 FREE DIRECT 0.74 ng/dL Low 0.76-1.46 [facility] Comment on above: Performed By: #### L 3300.6900, L501.9520, L506.0400, L506.1000 ####[facility] [address] [place], [address] Thyroid Stim Hormone (TSH)on 08-28-2023 TSH 2.89 uIU/mL Normal 0.358-3.74 [facility] Comment on above: Performed By: #### L 3300.6900, L501.9520, L506.0400, L506.1000 ####[facility] [address] [place], [address] Vitamin D,25 Hydroxyon 08-27 Vitamin D 25-OH 26.2 ng/mL Normal [facility] Comment on above: Result Comment: Che min D 25(OH) Status Range Deficiency <20 ng/mL (50nmol/L) Insufficiency 20 - 30 ng/mL (50 - 75 nmol/L) Sufficiency 30 - 100 ng/mL (75 - 250 nmol/L) Toxicity >100 ng/mL (>250 nmol/L) Performed By: #### L 3300.6900, L501.9520, L506.0400, L506.1000 ####[facility] [address] [place], [address] PAP IG HPV APTIMA 16/18,45on 08-26-2023 ADEQ Comment Normal . [facility] Comment on above: Order Comment: Speci men Comment: [id number] Comment: Source.............CervixSpecimen Comment: No. of containers..01 ThinPrep Vial Result Comment: Sati sfactory for evaluation. Endocervical and/or squamous metaplastic cells (endocervical component) are present. Performed By: #### L 7400.0280 ####[facility] [address] [place], [address] COMM . Normal . [facility] Comment on above: Order Comment: Speci men Comment: [id number] Comment: Source.............CervixSpecimen Comment: No. of containers..01 ThinPrep Vial Performed By: #### L 7400.0280 ####[facility] [address] [place], [address] COMMENT Comment Normal . [facility] Comment on above: Order Comment: Speci men Comment: [id number] Comment: Source.............CervixSpecimen Comment: No. of containers..01 ThinPrep Vial Result Comment: This liquid based ThinPrep(R) pap test was screened with the use of an image guided system. Performed By: #### L 7400.0280 ####[facility] [address] [place], [address] DIAG Comment Normal . [facility] Comment on above: Order Comment: Speci men Comment: [id number] Comment: Source.............CervixSpecimen Comment: No. of containers..01 ThinPrep Vial Result Comment: NEGA TIVE FOR INTRAEPITHELIAL LESION OR MALIGNANCY. Performed By: #### L 7400.0280 ####[facility] [address] [place], [address] HPV APTIMA, HR Negative Normal Negative [facility] Comment on above: Order Comment: Speci men Comment: [id number] Comment: Source.............CervixSpecimen Comment: No. of containers..01 ThinPrep Vial Result Comment: This nucleic acid amplification test detects fourteen high- risk HPV types (16,18,31,33,35,39,45,51,52,56,58,59,66,68) without differentiation. Performed By: #### L 7400.0280 ####[facility] [address] [place], [address] HPV Xiao Rfx Comment Normal . [facility] Comment on above: Order Comment: Speci men Comment: [id number] Comment: Source.............CervixSpecimen Comment: No. of containers..01 ThinPrep Vial Result Comment: Crit venus not met, HPV Genotype not performed. Performed at: - [facility] [id number] Cad Specialist: Mary Lynch MD, Phone: [phone] Performed at: = - [facility] [id number] Cad Specialist: Mary Lynch MD, Phone: [phone] Performed By: #### L 7400.0280 ####[facility] [address] [place], [place], [address] PAPSMR Comment Normal . [facility] Comment on above: Order Comment: Speci men Comment: [id number] Comment: Source.............CervixSpecimen Comment: No. of containers..01 ThinPrep Vial Result Comment: The Pap smear is a screening test designed to aid in the detection of premalignant and malignant conditions of the uterine cervix. It is not a diagnostic procedure and should not be used as the sole means of detecting cervical cancer. Both false-positive and false-negative reports do occur. Performed By: #### L 7400.0280 ####[facility] [address] [place], [place], [id number] PERFORM Comment Normal . [facility] Comment on above: Order Comment: Speci men Comment: [id number] Comment: Source.............CervixSpecimen Comment: No. of containers..01 ThinPrep Vial Result Comment: Ana Ma Programmer Developer (ASCP) Performed By: #### L 7400.0280 ####[facility] [address] [place], [place], [id number] Biology Adjunct Instructor Office Visit Reporton 08-23-2023 Biology Adjunct Instructor Office Visit Report [facility] 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 Date Name GA/Weeks Outcome Route Bth Weight Gen Labor Lgth Anesthesia Del Locatn Provider FOB Unknown Kaila Unknown Any HPI Encounter for routine gynecological examination Details: RANGEL TRENT is a 48 year old who presents for new patient annual exam. Denies SAS ADMINISTRATOR concerns. Previous exams Dr Bailon. Rare light menses with liletta IUD, thinks placed in 2019. 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 Last PAP: 2020 pap only History of abnormal PAP: no Last mammogram: 2021 History of abnormal mammogram: no Colon cancer screenin Other preventative health care screenings: Malys ROS Const Constitutional: Denies fatigue, weight gain or weight loss Cardio Card: Denies chest pain Resp Resp: Denies cough or dyspnea on exertion GI GI: Denies abdominal pain, bloating, change in stool character, constipation or vomiting : Reports as per HPI; Denies difficulty voiding, pelvic pain, urinary frequency, urinary incontinence, urinary urgency, vaginal discharge or vaginal pruritus Exam Const General: cooperative, healthy appearing, no acute distress and well developed Orientation: alert, oriented to person and oriented to place HENKS Head: normal to inspection Neck Neck: normal visual inspection Thyroid: thyroid normal Lymphatic: no lymphadenopathy noted Chest Breast inspection: normal inspection of the breasts and normal inspection of the axillae Breast palpation: normal palpation of the breasts, normal palpation of the axillae and no axillary lymphadenopathy Resp Effort Inspection: normal respiratory effort GI Palpation: soft, no masses and nontender Rectal Exam: deferred External Female Exam: normal external appearance and normal appearance of the urethra Urethra: normal appearance of the urethra and normal palpation Speculum Exam - Vagina: normal appearance of the vagina and normal vaginal discharge Speculum Exam - Cervix: normal appearance of the cervix (IUD strings 1cm from os) Bimanual Exam- Vagina Uterus: normal bimanual exam, uterine size normal, uterine shape normal and non-tender Bimanual Exam- Adnexa, other: normal adnexae, no masses, normal and non-tender Pelvic Support: normal Neuro General: patient alert and patient oriented x3 Psych Affect: normal affect Coding Level of (more content not included)... Normal [facility] Absolute lymphocyte countOrd ered By: HEALTH ASSESSMENT on 11-01-2022 Lymphocytes Auto (Unsp spec) [#/Vol] 1.27 10*3/uL 0.83-4.51 [facility] Absolute reticulocyte countO rdered By: HEALTH ASSESSMENT on 11-01-2022 Reticulocytes (Bld) [#/Vol] 0.00 10*3/uL 0-5 [facility] Basophil percentageOrdered B y: HEALTH ASSESSMENT on 11-01-2022 Basophil percentage 2.6 mg/dL 2.5-4.9 [facility] Bilirubin [Mass/Vol] 0.70 mg/dL 0.20-1.00 [facility] Comment on above: For patients on eltr ombopag therapy, use of Dimension [place] TBIL is not recommended. Chloride [Moles/Vol] 106 mmol/L 98-107 [facility] Cholesterol [Mass/Vol] 187 mg/dL <200 [facility] Comment on above: <200 mg/dL Desirable 200-240 mg/dL Borderline >240 mg/dL High Risk Glucose [Mass/Vol] 97 mg/dL 74-106 [facility] LDH [Catalytic activity/Vol] 149 U/L 84-246 [facility] Neutrophils (Bld) [#/Vol] 4.7 10*3/uL 2.0-7.7 [facility] Potassium [Moles/Vol] 4.0 mmol/L 3.5-5.1 [facility] Protein [Mass/Vol] 6.7 g/dL 6.4-8.2 [facility] Sodium [Moles/Vol] 138 mmol/L 136-145 [facility] Triglyceride [Mass/Vol] 58 mg/dL <199 [facility] Comment on above: The drugs N-Acetylcy steine and Metamizole may falsely depress this assay.Serum Triglycerides Reference Interval Normal <150 mg/dL Borderline high 150 - 199 mg/dL High 200 - 499 mg/dL Very High > or = 500 mg/dL WBC (Bld) [#/Vol] 6.9 10*3/uL 4.4-11.0 [facility] Bilirubin Test strip Ql (U)O rdered By: HEALTH ASSESSMENT on 11-01-2022 Bilirubin Ql (U) Negative Negative [facility] Blood erythrocytes count (nu mber/volume)Ordered By: HEALTH ASSESSMENT on 11-01-2022 RBC (Bld) [#/Vol] 4.21 10*6/uL 4.2-5.4 [facility] Blood hemoglobin measurement (mass/volume)Ordered By: HEALTH ASSESSMENT on 11-01-2022 Hemoglobin (Bld) [Mass/Vol] 13.4 g/dL 12.0-15.0 [facility] Blood platelet mean volumeOr dered By: HEALTH ASSESSMENT on 11-01-2022 Platelet mean volume (Bld) [Entitic vol] 10.9 fL 6.2-12.0 [facility] Determination of erythrocyte mean corpuscular volume (MCV)Ordered By: HEALTH ASSESSMENT on 11-01-2022 MCV (RBC) [Entitic vol] 99.5 fL 81-99 [facility] Direct bilirubinOrdered By: HEALTH ASSESSMENT on 11-01-2022 Bilirubin.direct [Mass/Vol] 0.15 mg/dL 0.00-0.30 [facility] Hematocrit Auto (Bld) [Volum e fraction]Ordered By: HEALTH ASSESSMENT on 11-01-2022 Hematocrit (Bld) [Volume fraction] 41.9 % 37-47 [facility] Ketones Test strip Ql (U)Ord ered By: HEALTH ASSESSMENT on 11-01-2022 Ketones Ql (U) Negative Negative [facility] Laboratory - Chemistry and C hemistry - challengeOrdered By: HEALTH ASSESSMENT on 11-01-2022 ALP [Catalytic activity/Vol] 48 U/L 45-117 [facility] ALT [Catalytic activity/Vol] 18 U/L 13-56 [facility] Cholesterol.total/Chol esterol in HDL [Mass ratio] 3.00 {ratio} [facility] CO2 [Moles/Vol] 26.0 mmol/L 21.0-32.0 [facility] Globulin (S) [Mass/Vol] 3.0 g/dL 2.2-4.2 [facility] Urea nitrogen/Creatinine [Mass ratio] 21.9 mg/mg 10-20 [facility] Laboratory - Hematology and Cell countsOrdered By: HEALTH ASSESSMENT on 11-01-2022 Erythrocyte distribution width (RBC) [Entitic vol] 43.6 fL 35.1-43.9 [facility] Erythrocyte distribution width (RBC) [Ratio] 11.9 % 11.6-14.6 [facility] MCH (RBC) [Entitic mass] 31.8 pg 27.0-32.0 [facility] Nucleated RBC/100 WBC (Bld) [Ratio] 0 % 0-5 [facility] MCHC Auto (RBC) [Mass/Vol]Or dered By: HEALTH ASSESSMENT on 11-01-2022 MCHC (RBC) [Mass/Vol] 32.0 g/dL 32-36 [facility] Nitrite Test strip Ql (U)Ord ered By: HEALTH ASSESSMENT on 11-01-2022 Nitrite Ql (U) Negative Negative [facility] No Panel InformationOrdered By: HEALTH ASSESSMENT on 11-01-2022 Estimated GFR (MDRD) Amer 110 mL/min >60 [facility] Comment on above: GFR Calc Estimated GFR (MDRD) Non-Af Amer 91 mL/min >60 [facility] Comment on above: Non- GFR Calc Platelets bldOrdered By: [facility] ASSESSMENT on 11-01-2022 Platelets (Bld) [#/Vol] 183 10*3/uL 150-450 [facility] Protein Test strip Ql (U)Ord ered By: HEALTH ASSESSMENT on 11-01-2022 Protein Ql (U) Negative Negative [facility] Segmented neutrophils/100 WB C Auto (Bld)Ordered By: HEALTH ASSESSMENT on 11-01-2022 Segmented neutrophils/100 WBC (Bld) 68.0 % 47-70 [facility] Serum or plasma albumin moises urement (mass/volume)Ordered By: HEALTH ASSESSMENT on 11-01-2022 Albumin [Mass/Vol] 3.7 g/dL 3.2-5.0 [facility] Serum or plasma albumin/glob ulin mass ratioOrdered By: HEALTH ASSESSMENT on 11-01-2022 Albumin/Globulin [Mass ratio] 1.2 {ratio} 0.9-2.4 [facility] Serum or plasma calcium moises urement (mass/volume)Ordered By: HEALTH ASSESSMENT on 11-01-2022 Calcium [Mass/Vol] 8.5 mg/dL 8.5-10.1 [facility] Serum or plasma cholesterol in HDL measurement (mass/volume)Ordered By: HEALTH ASSESSMENT on 11-01-2022 Cholesterol in HDL [Mass/Vol] 62 mg/dL >40 [facility] Comment on above: The drugs N-Acetylcy steine and Metamizole may falsely depress this assay. Reference Range HDL <40 mg/dL Low HDL Cholesterol HDL >or= 60 mg/dL High HDL Cholesterol Serum or plasma cholesterol in VLDL measurement (mass/volume)Ordered By: HEALTH ASSESSMENT on 11-01-2022 Cholesterol in VLDL [Mass/Vol] 12 mg/dL 5-40 [facility] Serum or plasma creatinine m easurement (mass/volume)Ordered By: HEALTH ASSESSMENT on 11-01-2022 Creatinine [Mass/Vol] 0.73 mg/dL 0.55-1.02 [facility] Comment on above: The validity of the calculated GFR & GFRAA in patients over 70 years has not been determined. Clinical correlation is essential. Serum or plasma low density lipoprotein (LDL) cholesterol measurement (mass/volume)Ordered By: HEALTH ASSESSMENT on 11-01-2022 Cholesterol in LDL [Mass/Vol] 113 mg/dL 0-130 [facility] Serum or plasma urea nitroge n measurement (mass/volume)Ordered By: HEALTH ASSESSMENT on 11-01-2022 Urea nitrogen [Mass/Vol] 16 mg/dL 7-18 [facility] Serum or plasma uric acid me asurement (mass/volume)Ordered By: HEALTH ASSESSMENT on 11-01-2022 Urate [Mass/Vol] 4.6 mg/dL 2.6-6.0 [facility] Comment on above: The drugs N-Acetylcy steine and Metamizole may falsely depress this assay. Thin prep Papanicolaou smear with manual screeningOrdered By: HEALTH ASSESSMENT on 11-01-2022 Thin prep Papanicolaou smear with manual screening 11 U/L 15-37 [facility] Thin prep Papanicolaou smear with manual screening 6 5-15 [facility] Urine blood detectionOrdered By: HEALTH ASSESSMENT on 11-01-2022 RBC Ql (U) 25 /ul Negative [facility] Urine clarityOrdered By: HEA LTH ASSESSMENT on 11-01-2022 Clarity (U) Sl. Cloudy Clear [facility] Urine color determinationOrd ered By: HEALTH ASSESSMENT on 11-01-2022 Color (U) Yellow Yellow [facility] Urine glucose detectionOrder ed By: HEALTH ASSESSMENT on 11-01-2022 Glucose Ql (U) Normal mg/dl Normal [facility] Urine leukocyte esterase det ection by dipstickOrdered By: HEALTH ASSESSMENT on 11-01-2022 Leukocyte esterase Test strip Ql (U) Negative Negative [facility] Urine pHOrdered By: HEALTH A SSESSMENT on 11-01-2022 pH (U) 6.0 [pH] 5.0 - 8.0 [facility] Urine specific gravity measu rementOrdered By: HEALTH ASSESSMENT on 11-01-2022 Specific gravity (U) [Rel density] 1.015 1.002-1.03 0 [facility] Urobilinogen Auto test strip Ql (U)Ordered By: HEALTH ASSESSMENT on 11-01-2022 Urobilinogen Ql (U) Normal mg/dl Normal [facility] CNOVon 05-13-2022 CNOV Office Visit (HALINA DIAL) RANGEL TRENT ([id number]) 1975 F Date Time Provider Department 05/13/22 1:00 PM JUAN DONG During your visit today, we recorded the following information about you: Pulse Blood pressure Weight Height 83/minute 147/84 76.7 kg 1.689 m Ni Melvin MA 05/13/2022 1:14 PM Signed No cardiac complaints today. SHELDON Lynch MD 05/16/2022 5:53 PM Signed PRIMARY CARE PHYSICIAN: Stephanie Hedrick [address] [place] [address] REFERRING PHYSICIAN: Orlin Galvan MD ([facility]) [address] [place] [address] Patient Care Team: Stephanie Hedrick DO as PCP - General (Family Medicine) Orlin Galvan as Specialty Electronic Technologist (Cardiology) CHIEF COMPLAINT: Evaluation for arrhythmia HISTORY OF PRESENT ILLNESS: Ms. Trent is a 47 year old female who presents today for evaluation of arrhythmia. She states she has experienced symptoms since about 2019. She experiences bothersome palpitations. She thinks that the palpitations have been worse or even precipitated by COVID illness or more specifically COVID vaccines. She regrets having received the COVID vaccines. She states that early in the process she was experiencing about 3% PVC burden. However that has increased to about 13% more recently. She experiences bothersome symptoms, including feeling exhausted, fatigue, and exertional shortness of breath. She has not experienced severe lightheadedness, near-syncope or syncope. She states about a year ago she was treated with flecainide and diltiazem. Her symptoms were relieved at that time but she does not want to continue to take these medications forever. She also feels that her heart rate is limited when she works out and exercises. She does feel sometimes lightheadedness or dizziness. She does not experience severe exertional symptoms more recently such as shortness of breath or chest discomfort. I have confirmed and edited as necessary, the PFSH and ROS obtained by others. PAST MEDICAL HISTORY Diagnosis Date skilled nursing current use of antiarrhythmic drug Palpitations Premature ventricular contractions (PVCs) (VPCs) 05/12/2022 Rheumatoid arthritis (HCC) Ventricular premature depolarization PAST SURGICAL HISTORY Procedure Laterality Date COLONOSCOPY SCREENING 02/2022 EXTENSIVE JAW SURGERY KNEE ARTHROSCOPY/SURGERY Left SHOULDER SURGERY HX Right bone spur SOCIAL HISTORY Social History Tobacco Use Smoking status: Never Smokeless tobacco: Never Substance Use Topics Alcohol use: Yes Comment: occasionally Drug use: Never FAMILY HISTORY Problem Relation Age of Onset Thyroid Mother hypothyroidism other (palpitations) Mother since COVID vaccination Arrhythmia Father atrial fibrillation; has had multiple ablations Heart Father has AVR other (pacemaker) Father Hyperlipidemia Father Hypertension Sister Back Pain Sister Thyroid Sister hyperthyroidism Thyroid Sister hypothyrodism other (other) Maternal Grandmother in her sleep at age 60 yrs, no autopsy Hypertension Maternal Grandmother Hypertension Maternal Grandfather Stroke Maternal Grandfather 92 Diabetes Paternal Grandmother Stroke Paternal Grandmother Heart Attack Paternal Grandmother 68 Arrhythmia Paternal Grandfather atrial fibrillation since his 60s ALLERGIES: ALLERGIES No Known Allergies MEDICATIONS: busPIRone (BUSPAR) 7.5 mg tablet Take 7.5 mg by mouth twice daily. dilTIAZem CD (CARDIZEM CD, CARTIA XT) 180 mg 24 hr capsule Take 180 mg by mouth once daily. flecainide (TAMBOCOR) 50 mg tablet Take 50 mg by mouth twice daily. REVIEW OF SYSTEMS: Review of Systems Constitutional: Positive for malaise/fatigue. Negative for chills and fever. Respiratory: Negative for cough, hemoptysis, sputum production and shortness of breath. Cardiovascular: Positive for palpitations. Negative for chest pain, orthopnea, claudication, leg swelling and PND. Gastrointestinal: Negative for abdominal pain, nausea and vomiting. Musculoskeletal: Negative for falls. Skin: Negative for rash. Neurological: Positive for dizziness. Negative for loss of consciousness. PHYSICAL EXAMINATION: BP 147/84 Pulse 83 Ht 5' 6.5 (1.69m) Wt 169 lb (76.7kg) SpO2 99% BMI 26.87 kg/(m2). Physical Exam Vitals reviewed. Constitutional: General: She is not in acute distress. Appearance: Normal appearance. HENT: Head: Normocephalic and atraumatic. Cardiovascular: Rate and Rhythm: Normal rate and regular rhythm. Heart sounds: Normal heart sounds, S1 normal and S2 normal. No murmur heard. No friction rub. Pulmonary: Effort: Pulmonary effort is normal. No respiratory distress. Breath sounds: Normal breath sounds. No wheezing, rhonchi or rales. Musculoskeletal: (more content not included)... Normal [facility] Laboratory - Chemistry and C hemistry - challengeOrdered By: Dr. Bailon on 02-18-2022 HCG ( test) Ql (U) Negative [facility] Comment on above: Very dilute urine sp ecimens, as indicated by a low specificgravity, may not contain patient registration representative levels of hCG. If is still suspected, a first morning urinespecimen should be collected 48 hours later and tested. Absolute lymphocyte counton 10-20-2022 Lymphocytes Auto (Unsp spec) [#/Vol] 1.12 10*3/uL 0.83-4.51 [facility] Work Phone: Absolute reticulocyte counto n 12-23-2021 Reticulocytes (Bld) [#/Vol] 0.00 10*3/uL 0-5 [facility] Work Phone: [phone] Basophil percentageon 2021 Basophil percentage 3.1 mg/dL 2.5-4.9 [facility] Work Phone: [phone] Bilirubin [Mass/Vol] 0.50 mg/dL 0.20-1.00 [facility] Work Phone: [phone] Comment on above: For patients on eltr ombopag therapy, use of Dimension [place] TBIL is not recommended. Chloride [Moles/Vol] 108 mmol/L 98-107 [facility] Work Phone: [phone] Cholesterol [Mass/Vol] 210 mg/dL <200 [facility] Work Phone: [phone] Comment on above: <200 mg/dL Desirable 200-240 mg/dL Borderline >240 mg/dL High Risk Glucose [Mass/Vol] 99 mg/dL 74-106 [facility] Work Phone: [phone] Neutrophils (Bld) [#/Vol] 4.2 10*3/uL 2.0-7.7 [facility] Work Phone: [phone] Potassium [Moles/Vol] 4.2 mmol/L 3.5-5.1 [facility] Work Phone: [phone] Protein [Mass/Vol] 6.8 g/dL 6.4-8.2 [facility] Work Phone: [phone] Sodium [Moles/Vol] 139 mmol/L 136-145 [facility] Work Phone: [phone] Triglyceride [Mass/Vol] 72 mg/dL <199 [facility] Work Phone: [phone] Comment on above: The drugs N-Acetylcy steine and Metamizole may falsely depress this assay.Serum Triglycerides Reference Interval Normal <150 mg/dL Borderline high 150 - 199 mg/dL High 200 - 499 mg/dL Very High > or = 500 mg/dL WBC (Bld) [#/Vol] 6.2 10*3/uL 4.4-11.0 [facility] Work Phone: Bilirubin Test strip Ql (U)o n 12-23-2021 Bilirubin Ql (U) Negative Negative [facility] Work Phone: Blood erythrocytes count (nu mber/volume)on 12-23-2021 RBC (Bld) [#/Vol] 4.34 10*6/uL 4.2-5.4 [facility] Work Phone: Blood hemoglobin measurement (mass/volume)on 12-23-2021 Hemoglobin (Bld) [Mass/Vol] 14.3 g/dL 12.0-15.0 [facility] Work Phone: Blood platelet mean volumeon 12-23-2021 Platelet mean volume (Bld) [Entitic vol] 9.9 fL 6.2-12.0 [facility] Work Phone: [phone] Determination of erythrocyte mean corpuscular volume (MCV)on 12-23-2021 MCV (RBC) [Entitic vol] 96.3 fL 81-99 [facility] Work Phone: Direct bilirubinon Bilirubin.direct [Mass/Vol] 0.11 mg/dL 0.00-0.30 [facility] Work Phone: Hematocrit Auto (Bld) [Volum e fraction]on 12-23-2021 Hematocrit (Bld) [Volume fraction] 41.8 % 37-47 [facility] Work Phone: [phone] Ketones Test strip Ql (U)on 12-23-2021 Ketones Ql (U) Negative Negative [facility] Work Phone: [phone] Laboratory - Chemistry and C hemistry - challengeon 12-23-2021 ALP [Catalytic activity/Vol] 53 U/L 45-117 [facility] Work Phone: [phone] ALT [Catalytic activity/Vol] 23 U/L 13-56 [facility] Work Phone: [phone] Cholesterol.total/Chol esterol in HDL [Mass ratio] 2.80 {ratio} [facility] Work Phone: [phone] CO2 [Moles/Vol] 26.0 mmol/L 21.0-32.0 [facility] Work Phone: [phone] Globulin (S) [Mass/Vol] 3.0 g/dL 2.2-4.2 [facility] Work Phone: [phone] Urea nitrogen/Creatinine [Mass ratio] 22.6 mg/mg 12-23 [facility] Work Phone: Laboratory - Hematology and Cell countson 12-23-2021 Erythrocyte distribution width (RBC) [Entitic vol] 42.4 fL 35.1-43.9 [facility] Work Phone: [phone] Erythrocyte distribution width (RBC) [Ratio] 11.9 % 11.6-14.6 [facility] Work Phone: [phone] MCH (RBC) [Entitic mass] 32.9 pg 27.0-32.0 [facility] Work Phone: [phone] Nucleated RBC/100 WBC (Bld) [Ratio] 0 % 0-5 [facility] Work Phone: MCHC Auto (RBC) [Mass/Vol]on 12-23-2021 MCHC (RBC) [Mass/Vol] 34.2 g/dL 32-36 [facility] Work Phone: Nitrite Test strip Ql (U)on 12-23-2021 Nitrite Ql (U) Negative Negative [facility] Work Phone: No Panel Informationon 12-23 Estimated GFR (MDRD) Amer 100 mL/min >60 [facility] Work Phone: Comment on above: GFR Calc Estimated GFR (MDRD) Non-Af Amer 83 mL/min >60 [facility] Work Phone: Comment on above: Non- GFR Calc Platelets bldon 12-23-2021 Platelets (Bld) [#/Vol] 196 10*3/uL 150-450 [facility] Work Phone: [phone] Protein Test strip Ql (U)on 12-23-2021 Protein Ql (U) 15 mg/dl Negative [facility] Work Phone: [phone] Segmented neutrophils/100 WB C Auto (Bld)on 12-23-2021 Segmented neutrophils/100 WBC (Bld) 67.5 % 47-70 [facility] Work Phone: [phone] Serum or plasma albumin moises urement (mass/volume)on 12-23-2021 Albumin [Mass/Vol] 3.8 g/dL 3.2-5.0 [facility] Work Phone: [phone] Serum or plasma albumin/glob ulin mass ratioon 12-23-2021 Albumin/Globulin [Mass ratio] 1.3 {ratio} 0.9-2.4 [facility] Work Phone: [phone] Serum or plasma calcium moises urement (mass/volume)on 12-23-2021 Calcium [Mass/Vol] 8.6 mg/dL 8.5-10.1 [facility] Work Phone: Serum or plasma cholesterol in HDL measurement (mass/volume)on 12-23-2021 Cholesterol in HDL [Mass/Vol] 74 mg/dL >40 [facility] Work Phone: Comment on above: The drugs N-Acetylcy steine and Metamizole may falsely depress this assay. Reference Range HDL <40 mg/dL Low HDL Cholesterol HDL >or= 60 mg/dL High HDL Cholesterol Serum or plasma cholesterol in VLDL measurement (mass/volume)on 12-23-2021 Cholesterol in VLDL [Mass/Vol] 14 mg/dL 5-40 [facility] Work Phone: Serum or plasma creatinine m easurement (mass/volume)on 12-23-2021 Creatinine [Mass/Vol] 0.80 mg/dL 0.55-1.02 [facility] Work Phone: Comment on above: The validity of the calculated GFR & GFRAA in patients over 70 years has not been determined. Clinical correlation is essential. Serum or plasma low density lipoprotein (LDL) cholesterol measurement (mass/volume)on 12-23-2021 Cholesterol in LDL [Mass/Vol] 122 mg/dL 0-130 [facility] Work Phone: Serum or plasma urea nitroge n measurement (mass/volume)on 12-23-2021 Urea nitrogen [Mass/Vol] 18 mg/dL 7-18 [facility] Work Phone: Serum or plasma uric acid me asurement (mass/volume)on 12-23-2021 Urate [Mass/Vol] 5.0 mg/dL 2.6-6.0 [facility] Work Phone: Comment on above: The drugs N-Acetylcy steine and Metamizole may falsely depress this assay. Thin prep Papanicolaou smear with manual screeningon 12-23-2021 Thin prep Papanicolaou smear with manual screening 17 U/L 15-37 [facility] Work Phone: Thin prep Papanicolaou smear with manual screening 5 5-15 [facility] Work Phone: Thin prep Papanicolaou smear with manual screening 165 U/L 84-246 [facility] Work Phone: Urine blood detectionon 12-05 RBC Ql (U) 10 /ul Negative [facility] Work Phone: Urine clarityon 12-23-2021 Clarity (U) Clear Clear [facility] Work Phone: Urine color determinationon 12-23-2021 Color (U) Yellow Yellow [facility] Work Phone: Urine glucose detectionon Glucose Ql (U) Normal mg/dl Normal [facility] Work Phone: Urine leukocyte esterase det ection by dipstickon 12-23-2021 Leukocyte esterase Test strip Ql (U) Negative Negative [facility] Work Phone: Urine pHon 12-23-2021 pH (U) 6.5 [pH] 5.0 - 8.0 [facility] Work Phone: Urine specific gravity measu rementon 12-23-2021 Specific gravity (U) [Rel density] 1.015 1.002-1.03 0 [facility] Work Phone: Urobilinogen Auto test strip Ql (U)on 12-23-2021 Urobilinogen Ql (U) Normal mg/dl Normal [facility] Work Phone: Office Visit: UC: kaycee bahena on 09-05-2016 Documentation of current medications (procedure) Done Invalid Interpretation Code [facility] Work Phone: Fall risk assessment No Invalid Interpretation Code [facility] Work Phone: Protein mass conc Done [facility] Work Phone: Tobacco smoking status NHIS Never smoker [facility] Work Phone: Tobacco use HS Never smoker Invalid Interpretation Code [facility] Work Phone: Lab Report: CBCDon 4 Absolute Neutrophil count 3.7 X10 3/UL Normal 2.0-7.7 [facility] Work Phone: ANC 3.7 X10 3/UL Normal 2.0-7.7 [facility] Work Phone: Basophils/100 leukocytes 0.6 % Normal 0-1 [facility] Work Phone: Basophils/100 WBC (Bld) 0.6 % Normal 0-1 [facility] Work Phone: Eosinophils/100 leukocytes 3.3 % Normal 0-5 [facility] Work Phone: Eosinophils/100 WBC (Bld) 3.3 % Normal 0-5 [facility] Work Phone: [phone] Erythrocytes (RBC) 4.28 10*6/uL Normal 4.2-5.4 [facility] Work Phone: Hematocrit (HCT) 40.5 % Normal 37-47 [facility] Work Phone: [phone] Hematocrit Volume Fraction (Bld) 40.5 % Normal 37-47 [facility] Work Phone: Hemoglobin mass conc (Bld) 13.7 g/dL Normal 12.0-15.0 [facility] Work Phone: Lymphocytes/100 leukocytes 19.7 % Normal 19-41 [facility] Work Phone: Lymphocytes/100 WBC (Bld) 19.7 % Normal 19-41 [facility] Work Phone: MCH 32.0 pg Normal 27.0-32.0 [facility] Work Phone: MCH Entitic mass (RBC) 32.0 pg Normal 27.0-32.0 [facility] Work Phone: MCHC 33.8 G/GL Normal 32-36 [facility] Work Phone: MCHC mass conc (RBC) 33.8 G/GL Normal 32-36 [facility] Work Phone: MCV 94.6 fL Normal 81-99 [facility] Work Phone: MCV Entitic volume (RBC) 94.6 fL Normal 81-99 [facility] Work Phone: Monocytes/100 leukocytes 8.7 % Normal 0-10 [facility] Work Phone: Monocytes/100 WBC (Bld) 8.7 % Normal 0-10 [facility] Work Phone: Neutrophils/100 leukocytes 67.5 % Normal 47-70 [facility] Work Phone: Neutrophils/100 WBC (Bld) 67.5 % Normal 47-70 [facility] Work Phone: Platelet mean volume Entitic volume (Bld) 11.1 fL Normal 6.2-12.0 [facility] Work Phone: Platelets 174 10*3/mm3 Normal 150-450 [facility] Work Phone: Platelets #/vol (Bld) 174 10*3/mm3 Normal 150-450 [facility] Work Phone: PMV by Luis 11.1 fL Normal 6.2-12.0 [facility] Work Phone: RBC #/vol (Bld) 4.28 10*6/uL Normal 4.2-5.4 [facility] Work Phone: WBC #/vol (Bld) 5.4 10*3/uL Normal 4.4-11.0 [facility] Work Phone: WBC (Leukocytes) 5.4 10*3/uL Normal 4.4-11.0 [facility] Work Phone: Lab Report: John 01-30-20 14 GE use only - for [employer] import when terms are not otherwise specified Negative Normal 0-9 Nonpreg [facility] Work Phone: tPREGS Negative Normal 0-9 Nonpreg [facility] Work Phone: Office Visiton 07-17-2009 Rapid strep test Positive Invalid Interpretation Code [facility] Work Phone: S. pyogenes DNA OLVIN+probe Ql (Throat) Positive [facility] Work Phone: ECG B/O W INTERP (MED OFFICE ) [facility] Vital Signs Date Time Vital Sign Value Performing Clinician Faci lity 07-07-2022 13:40-0400 Body height 167.[address] Stephanie Hedrick Work Phone: [facility] 07-07-2022 13:40-0400 Body mass index (BMI) [Ratio] 27.1 kg/m2 Dr. Stephanie Hedrick Work Phone: [facility] 07-07-2022 13:40-0400 Body weight 76.[address] Stephanie Hedrick Work Phone: [facility] 06-30-2022 09:23-0400 Body height 167.[address] Stephanie Hedrick Work Phone: [facility] 06-30-2022 09:23-0400 Body mass index (BMI) [Ratio] 27 kg/m2 Dr. Stephanie Hedrick Work Phone: [facility] 06-30-2022 09:23-0400 Body temperature 98.1 [degF] Dr. Stephanie Hedrick Work Phone: [facility] 06-30-2022 09:23-0400 Body weight 75.[address] Stephanie Hedrick Work Phone: [facility] 06-30-2022 09:23-0400 Diastolic blood pressure 78 mm[Hg] Dr. Stephanie Hedrick Work Phone: [facility] 06-30-2022 09:23-0400 Heart rate 75 /min Dr. Stephanie Hedrick Work Phone: [facility] 06-30-2022 09:23-0400 Respiratory rate 16 /min Dr. Stephanie Hedrick Work Phone: [facility] 06-30-2022 09:23-0400 SaO2% (BldA) [Mass fraction] 98 % Dr. Stephanie Hedrick Work Phone: [facility] 06-30-2022 09:23-0400 Systolic blood pressure 124 mm[Hg] Dr. Stephanie Hedrick Work Phone: [facility] 06-03-2022 07:10-0400 Body temperature 98.6 [degF] Dr. Stephanie Hedrick Work Phone: [facility] 06-03-2022 07:10-0400 Diastolic blood pressure 72 mm[Hg] Dr. Stephanie Hedrick Work Phone: [facility] 06-03-2022 07:10-0400 Heart rate 83 /min Dr. Stephanie Hedrick Work Phone: [facility] 06-03-2022 07:10-0400 Respiratory rate 12 /min Dr. Stephanie Hedrick Work Phone: [facility] 06-03-2022 07:10-0400 SaO2% (BldA) [Mass fraction] 98 % Dr. Stephanie Hedrick Work Phone: [facility] 06-03-2022 07:10-0400 Systolic blood pressure 122 mm[Hg] Dr. Stephanie Hedrick Work Phone: [facility] 05-13-2022 13:05-0500 Body height 168.9 cm Juan Dong MD Work Phone: [facility] 05-13-2022 13:05-0500 Body weight 76.66 kg Juan Dong MD Work Phone: [facility] 05-13-2022 13:05-0500 Diastolic blood pressure 84 mm[Hg] Juan Dong MD Work Phone: [facility] 05-13-2022 13:05-0500 Heart rate 83 /min Juan Dong MD Work Phone: [facility] 05-13-2022 13:05-0500 SaO2% (BldA) [Mass fraction] 99 % Juan Dong MD Work Phone: [facility] 05-13-2022 13:05-0500 Systolic blood pressure 147 mm[Hg] Juan Dong MD Work Phone: [facility] 04-15-2022 08:44-0500 Body height 167.[address] Stephanie Hedrick Work Phone: [facility] 04-15-2022 08:44-0500 Body mass index (BMI) [Ratio] 28.3 kg/m2 Dr. Stephanie Hedrick Work Phone: [facility] 04-15-2022 08:44-0500 Body weight 79.[address] Stephanie Hedrick Work Phone: [facility] 04-15-2022 08:44-0500 Diastolic blood pressure 90 mm[Hg] Dr. Stephanie Hedrick Work Phone: [facility] 04-15-2022 08:44-0500 Heart rate 73 /min Dr. Stephanie Hedrick Work Phone: [facility] 04-15-2022 08:44-0500 Respiratory rate 16 /min Dr. Stephanie Hedrick Work Phone: [facility] 04-15-2022 08:44-0500 SaO2% (BldA) [Mass fraction] 98 % Dr. Stephanie Hedrick Work Phone: [facility] 04-15-2022 08:44-0500 Systolic blood pressure 147 mm[Hg] Dr. Stephanie Hedrick Work Phone: [facility] 02-18-2022 09:11-0500 Body temperature 97.6 [degF] Dr. Stephanie Hedrick Work Phone: [facility] 02-18-2022 09:11-0500 Diastolic blood pressure 73 mm[Hg] Dr. Stephanie Hedrick Work Phone: [facility] 02-18-2022 09:11-0500 Heart rate 61 /min Dr. Stephanie Hedrick Work Phone: [facility] 02-18-2022 09:11-0500 Respiratory rate 18 /min Dr. Stephanie Hedrick Work Phone: [facility] 02-18-2022 09:11-0500 SaO2% (BldA) [Mass fraction] 99 % Dr. Stephanie Hedrick Work Phone: [facility] 02-18-2022 09:11-0500 Systolic blood pressure 105 mm[Hg] Dr. Stephanie Hedrick Work Phone: [facility] 02-18-2022 07:55-0500 Body height 167.[address] Stephanie Hedrick Work Phone: [facility] Work Phone: 02-18-2022 07:55-0500 Body mass index (BMI) [Ratio] 27.3 kg/m2 Dr. Stephanie Hedrick Work Phone: [facility] 02-18-2022 07:55-0500 Body weight [address] Stephanie Hedrick Work Phone: [facility] 01-13-2022 08:25-0500 Body mass index (BMI) [Ratio] 26.6 kg/m2 Dr. Stephanie Hedrick Work Phone: [facility] 01-13-2022 08:25-0500 Body weight 74.[address] Stephanie Hedrick Work Phone: [facility] 10-15-2021 08:28-0400 Body height 177.[address] Stephanie Hedrick Work Phone: [facility] Work Phone: 10-15-2021 08:28-0400 Body mass index (BMI) [Ratio] 25.9 kg/m2 Dr. Stephanie Hedrick Work Phone: [facility] Work Phone: 10-15-2021 08:28-0400 Body weight 73.[address] Stephanie Hedrick Work Phone: [facility] Work Phone: 10-15-2021 08:28-0400 Diastolic blood pressure 87 mm[Hg] Dr. Stephanie Hedrick Work Phone: [facility] Work Phone: 10-15-2021 08:28-0400 Heart rate 59 /min Dr. Stephanie Hedrick Work Phone: [facility] Work Phone: 10-15-2021 08:28-0400 Respiratory rate 18 /min Dr. Stephanie Hedrick Work Phone: [facility] Work Phone: 10-15-2021 08:28-0400 Systolic blood pressure 125 mm[Hg] Dr. Stephanie Hedrick Work Phone: [facility] Work Phone: 09-05-2016 17:35-0400 BMI (Body Mass Index) 24.3 kg/m2 Elvia Ingram LPN [facility] Work Phone: 09-05-2016 17:35-0400 Body Temperature 98.5 [degF] Elvia Ingram LPN [facility] Work Phone: 09-05-2016 17:35-0400 BP Diastolic 74 mm[Hg] Elvia Ingram LPN [facility] Work Phone: 09-05-2016 17:35-0400 BP Systolic 110 mm[Hg] Elvia Ingram LPN [facility] Work Phone: 09-05-2016 17:35-0400 Height 167.64 cm Elvia Ingram LPN [facility] Work Phone: 09-05-2016 17:35-0400 Pulse (Heart Rate) 81 /min Elvia Ingram LPN [facility] Work Phone: 09-05-2016 17:35-0400 Respiratory Rate 14 /min Elvia Ingram LPN [facility] Work Phone: 09-05-2016 17:35-0400 Weight 68.31 kg Elvia Ingram LPN [facility] Work Phone: Encounters Encounter Date Encounter Type Care Provider Facility Start: 07-12-2024 End: 07-12-[address] Stephanie Hedrick DO Work Phone: [facility] Work Phone: Start: 07-12-2024 End: 07-12-[address] Tanvir Torres MD -Laboratory [facility] Work Phone: Start: 07-12-2024 End: 07-12-2024 ambulatory Stephanie Hedrick Facility:[facility] Start: 05-30-2024 End: 05-30-[address] Stephanie Hedrick DO Work Phone: [facility] Work Phone: Start: 05-30-2024 End: 05-30-[address] Stephanie Hedrick DO -Laboratory, [facility] Start: 05-30-2024 End: 05-30-2024 ambulatory Stephanie Malys Facility:[facility] Start: 04-12-2024 End: 04-12-[address] Jeremy Pascual DPM -Laboratory, [facility] Work Phone: Start: 04-12-2024 End: 04-12-2024 ambulatory Stephanieteddy Hedrick Facility:[facility] Start: 03-21-2024 End: 03-21-[address] Jeremy Pascual DPM -MRI - [facility] Work Phone: Start: 03-21-2024 End: 03-21-2024 ambulatory Stephanieteddy Hedrick Facility:[facility] Start: 02-09-2024 End: 02-09-2024 Patient encounter procedure Katty Kiran [employer] -Radiology, [facility] Work Phone: Start: 02-09-2024 End: 02-09-2024 ambulatory Stephanie Malys Facility:[facility] Start: 01-11-2024 End: 01-11-2024 ambulatory Gissell Gregg [employer] Facility:[facility] Start: 10-30-2023 ambulatory Health Risk Assessment Facility:[facility] Start: 10-30-2023 End: 10-30-2023 ambulatory Stephanie Malys Facility:[facility] Start: 08-28-2023 End: 08-28-2023 ambulatory Stephanie Malys Facility:[facility] Start: 08-23-2023 End: 08-23-2023 ambulatory Gissell Gregg [employer] Facility:[facility] Start: 08-23-2023 End: 08-23-2023 ambulatory Gissell [place] [employer] Facility:[facility] Start: 01-03-2023 End: 01-03-2023 ambulatory [facility] Work Phone: Start: 01-03-2023 End: 01-03-2023 Patient encounter procedure [facility]-Outpatient Breast Imaging Work Phone: Start: 11-01-2022 Registered Referred [facility] Start: 07-27-2022 End: 07-27-[address] Stephanie Hedrick Work Phone: [facility] Start: 07-26-2022 End: 07-26-[address] Stephanie Hedrick Work Phone: [facility] Work Phone: Start: 07-26-2022 End: 07-26-[address] Stephanie Hedrick Work Phone: [facility] Start: 07-07-2022 End: 07-07-[address] Stephanie Hedrick Work Phone: [facility] Start: 06-30-2022 End: 06-30-[address] Stephanie Hedrick Work Phone: [facility] Work Phone: Start: 06-30-2022 End: 06-30-[address] Stephanie Hedrick Work Phone: [facility] Start: 06-03-2022 End: 06-03-[address] Stephanie Hedrick Work Phone: [facility] Work Phone: Start: 06-03-2022 End: 06-03-[address] 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 Stephanie Hedrick Work Phone: [facility] Work Phone: Start: 05-05-2022 End: 05-05-[address] Stephanie Hedrick Work Phone: [facility]-Laboratory, Specimen Start: 04-15-2022 End: 04-15-[address] Stephanie Hedrick Work Phone: [facility] Start: 02-18-2022 Non-patient / Non-visit Dr. Miriam Hedrick Work Phone: [facility] Start: 02-18-2022 End: 02-18-2022 Admission to same day surgery center Dr. Stephanie Hedrick Work Phone: [facility]-Endoscopy Start: 02-18-2022 End: 02-18-[address] Stephanie Hedrick Work Phone: [facility] Work Phone: Start: 01-13-2022 Non-patient / Non-visit Dr. Miriam Hedrick Work Phone: [facility] Start: 12-30-2021 End: 12-30-[address] Stephanie Hedrick Work Phone: [facility] Work Phone: Start: 12-30-2021 End: 12-30-[address] Stephanie Hedrick Work Phone: [facility]-Outpatient Breast Imaging Start: 12-23-[address] Stephanie rodriguez Work Phone: [facility] Start: 10-15-2021 End: 10-15-[address] Stephanie Hedrick Work Phone: [facility] Procedures Date Procedure Procedure Detail Performing Clinician Start: 07-12-[address] Stephanie Hedrick DO Work Phone: Comment on above: Test Ordered: [id number] Antiphospholipid Sy ndromeAnticardiolipin Ab,IgG,Qn <9 GPL U/mL CB Reference Range: 0-14 Negative: <15 Indeterminate: 15 - 20 Low-Med Positive: >20 - 80 High Positive: >80Anticardiolipin Ab,IgM,Qn <9 MPL U/mL CB Reference Range: 0-12 Negative: <13 Indeterminate: 13 - 20 Low-Med Positive: >20 - 80 High Positive: >80Beta-2 Glycoprotein I Ab, IgG <9 CB Units of Measure: GPI IgG units Reference Range: 0-20The reference interval reflects a 3SD or 99th percentileinterval, which is thought to represent a potentiallyclinically significant result in accordance with theInternational Consensus Statement on the classificationcriteria for definitive antiphospholipid syndrome (APS). JThromb Haem 2006;4:295-306.Beta-2 Glycoprotein I Ab, IgM <9 CB Units of Measure: GPI IgM units Reference Range: 0-32The reference interval reflects a 3SD or 99th percentileinterval, which is thought to represent a potentiallyclinically significant result in accordance with theInternational Consensus Statement on the classificationcriteria for definitive antiphospholipid syndrome (APS). JThromb Haem 2006;4:295-306.APS Panel Interpretation Comment BN Reference Range: .Please refer to the Coag Studies Interp Report.Performed at: [facility] [facility] Clinical / [id number] [place] [address] [id number] Director: Penelope Fleming MD, Phone: [phone] at: [facility] [address] [id number] Director: Dallin Vizcaino PhD, Phone: [phone] at: [facility] [address] [id number] Director: Qi Carney MD, Phone: [phone] reported result: COMMENT Edited by: CHARY on 07/17/24:1308 AMENDED REPORT 07/17/24 1308 [facility]. previously reported as: COMMENT Test Ordered: [id number] Antiphospholipid SyndromeaPTT NOLAB Reference Range: .Test not performedPT NOLAB Reference Range: .Test not performedINR [employer] NOLAB Reference Range: .Thrombin Time NOLAB Reference Range: .Test not performeddRVVT NOLAB Reference Range: .Test not performedHexagonal Phase Phospholipid NOLAB Reference Range: .Test not performedAnticardiolipin Ab,IgG,Qn <9 GPL U/mL CB Reference Range: 0-14 Negative: <15 Indeterminate: 15 - 20 Low-Med Positive: >20 - 80 High Positive: >80Anticardiolipin Ab,IgM,Qn <9 MPL U/mL CB Reference Range: 0-12 Negative: <13 Indeterminate: 13 - 20 Low-Med Positive: >20 - 80 High Positive: >80Beta-2 Glycoprotein I Ab, IgG <9 CB Units of Measure: GPI IgG units Reference Range: 0-20The reference interval reflects a 3SD or 99th percentileinterval, which is thought to represent a potentiallyclinically significant result in accordance with theInternational Consensus Statement on the classificationcriteria for definitive antiphospholipid syndrome (APS). JThromb Haem 2006;4:295-306.Beta-2 Glycoprotein I Ab, IgM <9 CB Units of Measure: GPI IgM units Reference Range: 0-32The reference interval reflects a 3SD or 99th percentileinterval, which is thought to represent a potentiallyclinically significant result in accordance with theInternational Consensus Statement on the classificationcriteria for definitive antiphospholipid syndrome (APS). JThromb Haem 2006;4:295-306.APS Panel Interpretation Comment BN Reference Range: .Please refer to the Coag Studies Interp Report.Performed at: [facility] Clinical / [email or web address] [place] [id number] Director: Penelope Fleming MD, Phone: [phone] at: [address] [id number] Director: Dallin Vizcaino PhD, Phone: [phone] at: [facility] Lab[address] [id number] Director: Qi Carney MD, Phone: [phone] Start: 07-12-2024 Urnls dip stick/tablet reagent auto microscopy Dr. Stephanie Hedrick DO Work Phone: Start: 07-12-[address] Stephanie Hedrick DO Work Phone: Comment on above: Performed at: - [facility] [id number] [place], [place] [id number] Director: Dallin Vizcaino PhD, Phone: [phone] at: - [facility] [address] [id number] Director: Qi Carney MD, Phone: [phone] Start: 07-12-2024 Antibody to centromere measurement Dr. Vlad Hedrick DO Work Phone: Comment on above: Previous reported result: TNP AIEdited b y: INFCE on 07/17/24:1308 AMENDED REPORT 07/17/24 1308 ANTI-CENT B previously reported as: Test not performed Start: 07-12-2024 Antibody to extractable nuclear antigen measurement Dr. Stephanie Hedrick DO Work Phone: Comment on above: Previous reported result: TNP AIEdited b y: INFCE on 07/17/24:1308 AMENDED REPORT 07/17/24 1308 BOWMAN Ab previously reported as: Test not performed Start: 07-12-2024 Antibody to TERRI-[address] Stephanie landaverde DO Work Phone: Comment on above: Previous reported result: TNP AIEdited b y: INFCE on 07/17/24:1308 AMENDED REPORT 07/17/24 1308 ANTI-TERRI previously reported as: Test not performed Start: 07-12-2024 Antibody to lupus La protein measurement Dr. Stephanie Hedrick DO Work Phone: Start: 07-12-2024 Antibody to SS-A measurement Dr. Stephanie landaverde DO Work Phone: Start: 07-12-2024 Measurement of ribosomal P protein antibody Dr. Stephanie Hedrick DO Work Phone: Start: 07-12-2024 KARATE TEACHER antibody measurement Dr. Stephanie Hedrick DO Work Phone: Comment on above: Previous reported result: TNP AIEdited b y: INFCE on 07/17/24:1308 AMENDED REPORT 07/17/24 1308 KARATE TEACHER Ab previously reported as: Test not performed Start: 07-12-2024 X-ray of foot, three or more views Dr. Vlad Hedrick DO Work Phone: Start: 07-12-2024 Plain x-ray of hand Dr. Stephanie Hedrick DO Work Phone: Start: 05-30-[address] Stephanie Hedrick DO Work Phone: Comment on above: Negative <1:80 Borderline 1:80 Positive >1:80ICAP nomenclature: AC-0For more information about Hep-2 cell patterns useANApatterns.org, the official website for theInternational Consensus on Antinuclear Antibody (MARIE)Patterns (ICAP).Performed at: [facility] [address] [id number] Director: Dallin Vizcaino PhD, Phone: [phone] Start: 05-30-2024 KARATE TEACHER antibody measurement Dr. Stephanie Hedrick DO Work Phone: Comment on above: Previous reported result: TNP AIEdited b y: INFCE on 06/04/24:0908 AMENDED REPORT 06/04/24 0908 KARATE TEACHER Ab previously reported as: Test not performed Start: 04-12-[address] Stephanie Hedrick DO Work Phone: Start: 04-12-2024 Antibody to centromere measurement Dr. Vlad Hedrick DO Work Phone: Comment on above: Previous reported result: TNP AIEdited b y: INFCE on 04/15/24:1607 AMENDED REPORT 04/15/24 1607 ANTI-CENT B previously reported as: Test not performed Start: 04-12-2024 Antibody to extractable nuclear antigen measurement Dr. Stephanie Hedrick DO Work Phone: Comment on above: Previous reported result: TNP AIEdited b y: INFCE on 04/15/24:1607 AMENDED REPORT 04/15/24 1607 BOWMAN Ab previously reported as: Test not performed Start: 04-12-2024 Antibody to TERRI-[address] Stephanie landaverde DO Work Phone: Comment on above: Previous reported result: TNP AIEdited b y: INFCE on 04/15/24:1607 AMENDED REPORT 04/15/24 1607 ANTI-TERRI previously reported as: Test not performed Start: 04-12-2024 Antibody to lupus La protein measurement Dr. Stephanei Hedrick DO Work Phone: Comment on above: Previous reported result: TNP AIEdited b y: INFCE on 04/15/24:1607 AMENDED REPORT 04/15/24 1607 Anti-SS-B previously reported as: Test not performed Start: 04-12-2024 Antibody to SS-A measurement Dr. Stephanie landaverde DO Work Phone: Comment on above: Previous reported result: TNP AIEdited b y: INFCE on 04/15/24:1607 AMENDED REPORT 04/15/24 1607 Anti-SS-A previously reported as: Test not performed Start: 04-12-[address] Stephanie Hedrick DO Work Phone: Comment on above: Previous reported result: TNP AIEdited b y: INFCE on 04/15/24:1607 AMENDED REPORT 04/15/24 1607 ANTICHROMATIN previously reported as: Test not performed Start: 04-12-2024 Human leukocyte antigen B27 antigen phenotyping Dr. Stephanie Hedrick DO Work Phone: Comment on above: HLA-B*27 [id number] allele interpretati on for all loci based on IMGT/HLAdatabase version 3.51.0This test was developed and its performance characteristicsdetermined by [facility]. It has not been cleared or approvedby the Food and Drug Administration.The FDA has determined that such clearance or approval isnot necessary.[facility] CLIA ID Number [id number] test was performed using Polymerase Chain Reaction(PCR) and Sequence Specific Oligonucleotide Probes (SSOP)technique. Sequence Based Typing (SBT) may be used as asupplemental method when necessary.If you have questions, please call [facility] customer serviceat or email at [email or web address]. Start: 04-12-2024 Measurement of C-reactive protein using high sensitivity technique Dr. Stephanie Hedrick DO Work Phone: Comment on above: C-Reactive Protein (CRP) provides useful information for thediagnosis, therapy and monitoring of inflammatory processesand associated diseases. For the evaluation of Relative Riskfor Cardiovascular Disease, a High Sensitivity CRP (HSCRP)should be ordered. Start: 04-12-[address] Stephanie Hedrick DO Work Phone: Start: 04-12-20[address] KARATE TEACHER antibody measurement Dr. Stephanie Hedrick DO Work Phone: Comment on above: Previous reported result: TNP AIEdited b y: INFCE on 04/15/24:1607 AMENDED REPORT 04/15/24 1607 KARATE TEACHER Ab previously reported as: Test not performed Start: 03-21-2024 MRI of joint of lower extremity Dr. Stephanie Hedrick DO Work Phone: Start: 02-09-2024 X-ray of ankle, three or more views Dr. Stephanie Hedrick DO Work Phone: Start: 02-09-2024 X-ray of both feet Dr. Stephanie Hedrick DO Work Phone: Start: 01-03-2023 Screening mammography Start: 07-26-2022 Plain x-ray of elbow Dr. Stephanie Hedrick Work Phone: Start: 06-30-2022 Plain x-ray of elbow Dr. Stephanie Hedrick Work Phone: Start: 06-03-2022 Radiologic examination of knee Dr. Stephanie Hedrick Work Phone: Start: 05-13-2022 Ecg routine ecg w/least 12 lds w/i&r Juan Dong MD Work Phone: Start: 02-18-[address] Stephanie Hedrick Work Phone: Start: 12-30-[address] Stephanie Hedrick Work Phone: Start: 09-05-2016 End: 09-05-2016 Ther/proph/diag inj, sc/im Roque SOLANO Work Phone: Start: 01-22-2014 End: 01-23-2014 Documentation of current medications Jaydon Robert Start: 07-17-2009 End: 07-17-2009 Iaadiadoo streptococcus group a Dee Rosario MS,ISABEL Start: 07-17-2009 End: 07-17-2009 Rapid strep test Dee Rosario MSPABrendaC Plan of Treatment Date Care Activity Detail Author Start: 05-05-2032 Urine microalbumin profile DTAP,TDAP,TD (2 - Td or Tdap) [facility] Start: 07-12-2024 Procedure [facility] Start: 07-12-2024 Lupus anticoagulant assay [facility] Start: 06-30-2022 Patient referral [facility] Work Phone: Start: 04-15-2022 Patient referral [facility] Work Phone: Start: 03-06-2022 DEPRESSION ASSESSMENT DEPRESSION ASSESSMENT [facility] Start: 02-18-2022 Patient discharge [facility] Start: 11-04-2021 Influenza vaccination INFLUENZA (#1) [facility] Start: 2021 COLOGUARD (FIT-DNA) COLOGUARD (FIT-DNA) [facility] Start: 2021 Colonoscopy COLONOSCOPY [facility] Start: 2021 COLORECTAL CANCER SCREENING COLORECTAL CANCER SCREENING [facility] Start: [address] COLONOGRAPHY [facility] Start: 2021 DIABETES SCREEN DIABETES SCREEN [facility] Start: 2021 FECAL OCCULT BLOOD FECAL OCCULT BLOOD [facility] Start: 2021 LIPID SCREEN LIPID SCREEN [facility] Start: 2021 SIGMOIDOSCOPY SIGMOIDOSCOPY [facility] Start: 06-16-2020 COVID-19 VACCINE (3 - Booster for Moderna series) COVID-19 VACCINE (3 - Booster for Moderna series) [facility] Start: 09-05-2016 End: 09-05-2016 Appointment Appointment [facility] Work Phone: Start: 2016 Mammography MAMMOGRAM [facility] Start: 2006 HPV TESTING HPV TESTING [facility] Start: 1997 PAP TESTING PAP TESTING [facility] Start: 1994 HEPATITIS C SCREENING HEPATITIS C SCREENING [facility] Start: 1994 HIV SCREENING HIV SCREENING [facility] Start: 1976 HEPATITIS B (1 of 3 - 3-dose series) HEPATITIS B (1 of 3 - 3-dose series) [facility] Cardiolipin IgG Ab [Units/volume] in Serum or Plasma [facility] Cardiolipin IgM Ab [Units/volume] in Serum or Plasma [facility] Colonoscopy [facility] Work Phone: Colonoscopy [facility] Complement C3 [Mass/volume] in Serum or Plasma [facility] Complement C4 [Mass/volume] in Serum or Plasma [facility] IgA anticardiolipin level [facility] Lupus anticoagulant screening test [facility] Partial thromboplast in time ratio [facility] Patient Education [facility] Now [facility] in Work Phone: Patient referral [facility] Work Phone: Thrombin time [facility] Thyroglobulin antibo dy measurement [facility] Thyroperoxidase Ab [Units/volume] in Serum or Plasma [facility] Immunizations Immunization Date Immunization Notes Care Provider Fa cility 05-05-2022 tetanus toxoid, reduced diphtheria toxoid, and acellular pertussis vaccine, adsorbed Juan Dong MD Work Phone: [facility] Work Phone: 12-21-2020 influenza, injectabl e, quadrivalent, preservative free [facility] 12-21-2020 influenza, seasonal, injectable Dr. Stephanie Hedrick Work Phone: [facility] 12-21-2020 influenza, seasonal, injectable, preservative free Juan Dong MD Work Phone: [facility] Work Phone: 04-21-2020 Covid (Moderna) Dr. Stephanie pennington Work Phone: [facility] 03-24-2020 Covid (Moderna) Dr. Stephanie pennington Work Phone: [facility] 12-11-2019 influenza, injectabl e, quadrivalent, preservative free [facility] 12-11-2019 influenza, seasonal, injectable Dr. Stephanie Hedrick Work Phone: [facility] 12-11-2019 influenza, seasonal, injectable, preservative free Juan Dong MD Work Phone: [facility] Work Phone: 11-29-2018 influenza, injectabl e, quadrivalent, preservative free [facility] 11-29-2018 influenza, seasonal, injectable Dr. Stephanie Hedrick Work Phone: [facility] 11-29-2018 influenza, seasonal, injectable, preservative free Juan Dong MD Work Phone: [facility] Work Phone: 12-18-2017 influenza, injectabl e, quadrivalent, preservative free [facility] 12-18-2017 influenza, seasonal, injectable Dr. Stephanie Hedrick Work Phone: [facility] 11-30-2016 influenza, injectabl e, quadrivalent, preservative free [facility] 11-30-2016 influenza, seasonal, injectable Dr. Stephanie Hedrick Work Phone: [facility] 12-03-2015 influenza, injectabl e, quadrivalent, preservative free [facility] 12-03-2015 influenza, seasonal, injectable Dr. Stephanie Hedrick Work Phone: [facility] 12-04-2014 influenza, injectabl e, quadrivalent, preservative free [facility] 12-04-2014 influenza, seasonal, injectable Dr. Stephanie Hedrick Work Phone: [facility] 12-04-2014 influenza, seasonal, injectable, preservative free Juan Dong MD Work Phone: [facility] Work Phone: 01-13-2014 influenza, injectabl e, quadrivalent, preservative free [facility] 01-13-2014 influenza, seasonal, injectable Dr. Stephanie Hedrick Work Phone: [facility] 01-13-2014 influenza, seasonal, injectable, preservative free Juan Dong MD Work Phone: [facility] Work Phone: Payers Date Payer Category Payer Self-pay [id number] 2022 Private Health Insurance [employer] [id number] 2022-Present [phone] [address] [place] [address] PPO [id number] 2022 Unknown [id number] Unknown [id number] Unknown [id number] 62 Unknown [id number] 62 Unknown [id number] 62 Unknown [id number] 62 Unknown [id number] 62 Unknown [id number] 62 Unknown [id number] 62 Unknown [id number] 62 Unknown [id number] 62 Unknown [id number] 62 Unknown [id number] 62 Social History Date Type Detail Facility Start: 10-15-2021 End: 08-15-2022 Tobacco smoking status NHIS Unknown if ever smoked [facility] Start: 1975 Sex Assigned At Female [facility] Start: 05-13-2022 End: 08-23-2023 Tobacco smoking status NHIS Never smoked tobacco [facility] Work Phone: Start: 05-13-2022 Tobacco use and exposure Smokeless tobacco non-user [facility] Work Phone: Start: 05-13-2022 Alcohol intake Current drinke r of alcohol (finding) [facility] Start: 05-13-2022 Alcohol Comment occasionally [facility] Start: 1975 Sex Assigned At Not on file [facility] Start: 06-06-2024 Sex Female (finding) [facility] NEGATED: Highlighted row [facility] Goals Date Patient Goal Desired Activity /State Mental Status Date Assessment Result Facility 02-18-2022 Cognitive function Level Of Cons ciousness Awake;Alert;Appropriate [facility] Work Phone: 02-18-2022 Cognitive function Voice/Name [facility] Work Phone: Clinical Notes 05-13-2022 to 07-13-2024 Juan Dong MD - 05/13/2022 1:45 PM ESTAntoaimee Melvin MA - 05/13/2022 1:09 PM EST Note Date & Type Note Facility 07-13-2024 Radiology Diagnostic study note [facility] [address] [place] [address] Foot min 3 Views MR#: [id number] Acct: [id number] Name: RANGEL TRENT Rep #: [id number] : 1975 F 49 From: Bishop Denise MD PCP: Dr. Stephanie Hedrick DO Status: REG CLI Study:Foot min 3 Views Date of Exam: 11/28 Exam# [id number] Ordering Dr: Ino Torres MD EXAM: DX foot minimum three views CLINICAL HISTORY: Inflammatory polyarthritis COMPARISON: None available TECHNIQUE: Three views right foot FINDINGS: No fracture or dislocation. Developmental osseous fusion of the middle and distal phalanx of the 5th ray. The joint spaces otherwise appear within limits. Small enthesophyte formation at the Achilles surface of the calcaneus. Soft tissues appear within limits. RAD/Foot min 3 Views IMPRESSION: No inflammatory appearing arthropathy identified. Reading Location: [facility] CC: Dr. Tanvir Torres MD; Dr. Stephanie Hedrick, ~ Cover Stripper: Signed [facility] 07-13-2024 Radiology Diagnostic study note [facility] [address] [place], [place] [address] Hand Min 3 Views MR#: [id number] Acct: [id number] Name: RANGEL TRENT Rep #: [id number] : 1975 F 49 From: Bishop Denise MD PCP: Dr. Stephanie Hedrick, Status: REG CLI Study:Hand Min 3 Views Date of Exam: 11/28 Exam# [id number] Ordering Dr: Ino Torres MD PROCEDURE: HAND MIN 3 VIEWS 07/12/2024 REASON FOR EXAM: INFLAMMATORY POLYARTHRITIS TECHNIQUE: 4 view(s) of the right hand; AP, oblique, lateral and a bilateral oblique view COMPARISON: None available FINDINGS: Mild appearing degenerative osteoarthrosis at the 1st IP joint. No inflammatoryappearing arthropathy identified. Joint spaces appear within limits. Visualized soft tissues appear within limits. RAD/Hand Min 3 Views IMPRESSION: Mild appearing degenerative osteoarthrosis at the 1st IP joint. No inflammatory appearing arthropathy identified. Reading Location: [facility] CC: Dr. Tanvir Torres MD; Dr. Stephanie Hedrick DO ~ Cover Stripper: Signed [facility] 07-13-2024 Radiology Diagnostic study note [facility] [address] [place], [place] [id number] Hand Min 3 Views MR#: [id number] Acct: [id number] Name: RANGEL TRENT Rep #: [id number] : 1975 F 49 From: Bishop Denise MD PCP: Dr. Stephanie Hedrick DO Status: REG CLI Study:Hand Min 3 Views Date of Exam: 11/28 Exam# [id number] Ordering Dr: Ino Torres MD PROCEDURE: HAND MIN 3 VIEWS 07/12/2024 REASON FOR EXAM: INFLAMMATORY POLYARTHRITIS TECHNIQUE: 3 view(s) of the left hand COMPARISON: 08/28/2023 FINDINGS: Mild degenerative appearing osteoarthrosis at the 1st carpometacarpal and metacarpophalangeal joints. No inflammatory appearing arthropathy identified. Old healed intra-articular fracture of the 5th proximalphalanx at the MCP joint. Possible old fracture deformity of the radial styloid again noted. RAD/Hand Min 3 Views IMPRESSION: Mild degenerative appearing osteoarthrosis at the 1st carpometacarpal and metacarpophalangeal joints. No inflammatory appearing arthropathy identified. Reading Location: [facility] CC: Dr. Tanvir Torres MD; Dr. Stephanie Hedrick DO ~ Cover Stripper: Signed [facility] 05-13-2022 Note HNO ID: [id number] Author: Juan Dong MD Service: ? Author Type: Physician Type: Progress Notes Filed: 05/16/2022 5:53 PM Note Text: PRIMARY CARE PHYSICIAN: Stephanie Hedrick [address] [place] [address] REFERRING PHYSICIAN: Orlin Galvan MD ([facility]) [address] [place] [address] Patient Care Team: Stephanie Hedrick DO as PCP - General (Family Medicine) Orlin Galvan as Specialty Electronic Technologist (Cardiology) CHIEF COMPLAINT: Evaluation for arrhythmia HISTORY OF PRESENT ILLNESS: Ms. Trent is a 47 year old female who presents today for evaluation of arrhythmia. She states she has experienced symptoms since about 2019. She experiences bothersome palpitations. She thinks that the palpitations have been worse or even precipitated by COVID illness or more specifically COVID vaccines. She regrets having received the COVID vaccines. She states that early in the process she was experiencing about 3% PVC burden. However that has increased to about 13% more recently. She experiences bothersome symptoms, including feeling exhausted, fatigue, and exertional shortness of breath. She has not experienced severe lightheadedness, near-syncope or syncope. She states about a year ago she was treated with flecainide and diltiazem. Her symptoms were relieved at that time but she does not want to continue to take these medications forever. She also feels that her heart rate is limited when she works out and exercises. She does feel sometimes lightheadedness or dizziness. She does not experience severe exertional symptoms more recently such as shortness of breath or chest discomfort. I have confirmed and edited as necessary, the PFSH and ROS obtained by others. PAST MEDICAL HISTORY Diagnosis Date skilled nursing current use of antiarrhythmic drug Palpitations Premature ventricular contractions (PVCs) (VPCs) 05/12/2022 Rheumatoid arthritis (HCC) Ventricular premature depolarization PAST SURGICAL HISTORY Procedure Laterality Date COLONOSCOPY SCREENING 02/2022 EXTENSIVE JAW SURGERY KNEE ARTHROSCOPY/SURGERY Left SHOULDER SURGERY HX Right bone spur SOCIAL HISTORY Social History Tobacco Use Smoking status: Never Smokeless tobacco: Never Substance Use Topics Alcohol use: Yes Comment: occasionally Drug use: Never FAMILY HISTORY Problem Relation Age of Onset Thyroid Mother hypothyroidism other (palpitations) Mother since COVID vaccination Arrhythmia Father atrial fibrillation; has had multiple ablations Heart Father has AVR other (pacemaker) Father Hyperlipidemia Father Hypertension Sister Back Pain Sister Thyroid Sister hyperthyroidism Thyroid Sister hypothyrodism other (other) Maternal Grandmother in her sleep at age 60 yrs, no autopsy Hypertension Maternal Grandmother Hypertension Maternal Grandfather Stroke Maternal Grandfather 92 Diabetes Paternal Grandmother Stroke Paternal Grandmother Heart Attack Paternal Grandmother 68 Arrhythmia Paternal Grandfather atrial fibrillation since his 60s ALLERGIES: ALLERGIES No Known Allergies MEDICATIONS: busPIRone (BUSPAR) 7.5 mg tablet Take 7.5 mg by mouth twice daily. dilTIAZem CD (CARDIZEM CD, CARTIA XT) 180 mg 24 hr capsule Take 180 mg by mouth once daily. flecainide (TAMBOCOR) 50 mg tablet Take 50 mg by mouth twice daily. REVIEW OF SYSTEMS: Review of Systems Constitutional: Positive for malaise/fatigue. Negative for chills and fever. Respiratory: Negative for cough, hemoptysis, sputum production and shortness of breath. Cardiovascular: Positive for palpitations. Negative for chest pain, orthopnea, claudication, leg swelling and PND. Gastrointestinal: Negative for abdominal pain, nausea and vomiting. Musculoskeletal: Negative for falls. Skin: Negative for rash. Neurological: Positive for dizziness. Negative for loss of consciousness. PHYSICAL EXAMINATION: BP 147/84 Pulse 83 Ht 5' 6.5 (1.69m) Wt 169 lb (76.7kg) SpO2 99% BMI 26.87 kg/(m2). Physical Exam Vitals reviewed. Constitutional: General: She is not in acute distress. Appearance: Normal appearance. HENT: Head: Normocephalic and atraumatic. Cardiovascular: Rate and Rhythm: Normal rate and regular rhythm. Heart sounds: Normal heart sounds, S1 normal and S2 normal. No murmur heard. No friction rub. Pulmonary: Effort: Pulmonary effort is normal. No respiratory distress. Breath sounds: Normal breath sounds. No wheezing, rhonchi or rales. Musculoskeletal: Cervical back: Neck supple. Right lower leg: No edema. Left lower leg: No edema. Skin: General: Skin is warm and dry. Neurological: General: No focal deficit present. Mental Status: She is alert and oriented to person, place, and time. Psychiatric: Mood and Affect: Mood normal. Behavior: Behavior normal. Thought Content: Thought content normal. CAR (more content not included)... [facility] 05-13-2022 History of Present illness Narrative PRIMARY CARE PHYSICIAN: Stephanie Hedrick [address] [place] [address] REFERRING PHYSICIAN: Orlin Galvan MD ([facility]) [address] [facility] [address] maria esther [facility] [address] Patient Care Team: Stephanie Hedrick DO as PCP - General (Family Medicine) Orlin Galvan as Specialty Electronic Technologist (Cardiology) CHIEF COMPLAINT: Evaluation for arrhythmia HISTORY OF PRESENT ILLNESS: Ms. Trent is a 47 year old female who presents today for evaluation of arrhythmia. She states she has experienced symptoms since about 2019. She experiences bothersome palpitations. She thinks that the palpitations have been worse or even precipitated by COVID illness or more specifically COVID vaccines. She regrets having received the COVID vaccines. She states that early in the process she was experiencing about 3% PVC burden. However that has increased to about 13% more recently. She experiences bothersome symptoms, including feeling exhausted, fatigue, and exertional shortness of breath. She has not experienced severe lightheadedness, near-syncope or syncope. She states about a year ago she was treated with flecainide and diltiazem. Her symptoms were relieved at that time but she does not want to continue to take these medications forever. She also feels that her heart rate is limited when she works out and exercises. She does feel sometimes lightheadedness or dizziness. She does not experience severe exertional symptoms more recently such as shortness of breath or chest discomfort. I have confirmed and edited as necessary, the PFSH and ROS obtained by others. PAST MEDICAL HISTORY Diagnosis Date skilled nursing current use of antiarrhythmic drug Palpitations Premature ventricular contractions (PVCs) (VPCs) 05/12/2022 Rheumatoid arthritis (HCC) Ventricular premature depolarization PAST SURGICAL HISTORY Procedure Laterality Date COLONOSCOPY SCREENING 02/2022 EXTENSIVE JAW SURGERY KNEE ARTHROSCOPY/SURGERY Left SHOULDER SURGERY HX Right bone spur SOCIAL HISTORY Social History Tobacco Use Smoking status: Never Smokeless tobacco: Never Substance Use Topics Alcohol use: Yes Comment: occasionally Drug use: Never FAMILY HISTORY Problem Relation Age of Onset Thyroid Mother hypothyroidism other (palpitations) Mother since COVID vaccination Arrhythmia Father atrial fibrillation; has had multiple ablations Heart Father has AVR other (pacemaker) Father Hyperlipidemia Father Hypertension Sister Back Pain Sister Thyroid Sister hyperthyroidism Thyroid Sister hypothyrodism other (other) Maternal Grandmother in her sleep at age 60 yrs, no autopsy Hypertension Maternal Grandmother Hypertension Maternal Grandfather Stroke Maternal Grandfather 92 Diabetes Paternal Grandmother Stroke Paternal Grandmother Heart Attack Paternal Grandmother 68 Arrhythmia Paternal Grandfather atrial fibrillation since his 60s ALLERGIES: ALLERGIES No Known Allergies MEDICATIONS: busPIRone (BUSPAR) 7.5 mg tablet Take 7.5 mg by mouth twice daily. dilTIAZem CD (CARDIZEM CD, CARTIA XT) 180 mg 24 hr capsule Take 180 mg by mouth once daily. flecainide (TAMBOCOR) 50 mg tablet Take 50 mg by mouth twice daily. REVIEW OF SYSTEMS: Review of Systems Constitutional: Positive for malaise/fatigue. Negative for chills and fever. Respiratory: Negative for cough, hemoptysis, sputum production and shortness of breath. Cardiovascular: Positive for palpitations. Negative for chest pain, orthopnea, claudication, leg swelling and PND. Gastrointestinal: Negative for abdominal pain, nausea and vomiting. Musculoskeletal: Negative for falls. Skin: Negative for rash. Neurological: Positive for dizziness. Negative for loss of consciousness. PHYSICAL EXAMINATION: BP 147/84 Pulse 83 Ht 5' 6.5 (1.69m) Wt 169 lb (76.7kg) SpO2 99% BMI 26.87 kg/(m^2). Physical Exam Vitals reviewed. Constitutional: General: She is not in acute distress. Appearance: Normal appearance. HENT: Head: Normocephalic and atraumatic. Cardiovascular: Rate and Rhythm: Normal rate and regular rhythm. Heart sounds: Normal heart sounds, S1 normal and S2 normal. No murmur heard. No friction rub. Pulmonary: Effort: Pulmonary effort is normal. No respiratory distress. Breath sounds: Normal breath sounds. No wheezing, rhonchi or rales. Musculoskeletal: Cervical back: Neck supple. Right lower leg: No edema. Left lower leg: No edema. Skin: General: Skin is warm and dry. Neurological: General: No focal deficit present. Mental Status: She is alert and oriented to person, place, and time. Psychiatric: Mood and Affect: Mood normal. Behavior: Behavior normal. Thought Content: Thought content normal. CARDIOVASCULAR MEDICINE TESTING: Electrocardiogram: Sinus rhythm 71 bpm; normal conduction intervals (AR 148 ms, QRS 96 ms); QTc 436 ms; conduction intervals and QTc appropriate on flecainide I have personally reviewed the Electrocardiogram. ASSESSMENT/PLAN: 1. Premature ventricular contractions (PVCs) (VPCs) - ICD9: 427.69, ICD10: I49.3 (primary diagnosis) 2. Palpitations - ICD9: 785.1, ICD10: R00.2 3. 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 Trent has a history of symptomatic PVCs, with improvement with antiarrhythmic drug therapy (flecainide) and diltiazem. She has been experiencing bothersome symptoms that she attributes to side effects from these medications. She would like to discontinue the medications. I did reassure her that the PVCs are benign, and that if she would like to discontinue the flecainide and the diltiazem she could do so without endangering herself. If the PVCs recur, she could be a very reasonable candidate for catheter ablation. I had a detailed discussion with Ms. Trent regarding my evaluation and recommendations. After our discussion, Ms. Trent expressed her understanding and I answered all her questions to her apparent satisfaction. PLAN AND RECOMMENDATIONS: She would like to try to see how she does with discontinuation of the flecainide and diltiazem, and consider treatment options such as catheter ablation if the PVCs recur off these medications. I would need her off these medications anyway for such a procedure. Juan Dong MD 05/13/2022 Medical Decision Making: Problems: Moderate: New problem with uncertain prognosis Data: Unique source(s) for external note(s) reviewed: 3+ Unique test result(s) reviewed: 3+ Unique test(s) ordered: 1 Risk: Moderate: Moderate risk from testing/treatment, Drug management and Decision on minor surgery w/ risk factors Medical Decision Making Level: 4 - Moderate documented in this encounter [facility] 05-13-2022 Nurse Note No cardiac complaints today. Ni Melvin MA documented in this encounter [facility] Evaluation note Diagnosis Onset Date Multiple premature ventricular complexes chronic [facility] Work Phone: Evaluation note* Diagnosis Onset Date Resolution Status Encounter for screening for malignant neoplasm of colo n acute [facility] Work Phone: Evaluation note* Diagnosis Onset Date Resolution Status Encounter for screening for malignant neoplasm of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
[2024-10-07 08:02] LABS: Creatinine, Urine (random) 77.00 mg/dL (28.00-217.00); Protein, Urine (Random) 7.7 mg/dL (0.0-12.0); Protein:Creat Ratio 100 mg/g CRE (0-200)
[2024-10-07 08:32] LABS: CRP < 3.00 mg/L (0.0-3.0)
[2024-10-08 13:08] LABS: ANTINUCLEAR ANTIBODIES DIRECT Positive (Negative); Anti-dsDNA Ab <1 IU/mL (0-9)
== END | disposition home or self-care (01) ==
LOC: LAB 07:09
PROVIDERS: PCP Family Medicine; Referring Provider Internal Medicine Rheumatology; Visit Provider Internal Medicine Rheumatology
DX: R76.8 Other specified abnormal immunological findings in serum (principal); M35.9 Systemic involvement of connective tissue, unspecified; Z79.899 Other long term (current) drug therapy
CPT/HCPCS: 36415; 82570; 84156; 85652; 86038; 86140; 86160; 86225

== ENCOUNTER → 2025-01-17 | Outpatient (CLI) | payer OTHER, SELFPAY ==
--- NOTE | 2025-01-17 07:49 | BI_ITS ---
EXAM: SCRN MAMM (CAD)W/KOLTON BILAT DATE: 01/17/2025 CLINICAL HISTORY: F, Age 49 y/o , SCREENING No family history. TECHNIQUE: Procedure Code: [id number] Modality: MG Procedure: SCRN MAMM (CAD)W/KOLTON BILAT COMPARISON: Prior exam(s) dated January 11, 2024.. FINDINGS: TISSUE DENSITY: The breasts are heterogeneously dense, which may obscure small masses. Bilateral Breast Mammographic Findings: Faint cluster of microcalcification is seen in the upper lateral aspect of the right breast. The patient will be recalled for additional views including compression magnification spot views. BI/SCRN MAMM (CAD)W/KOLTON BILAT IMPRESSION: Cluster of microcalcification in the upper lateral aspect of the right breast a s described. The patient will be recalled for additional views including magnification spot views. OVERALL FINAL ASSESSMENT BI-RADS 0: INCOMPLETE - NEED ADDITIONAL IMAGING EVALUATION. RECOMMENDATION: Additional Views obtained/call backs Additional Recommendation none A letter with findings and recommendations will be mailed to the patient. Reading Location: [place] [address]
== END | disposition home or self-care (01) ==
LOC: OPBI 07:47
PROVIDERS: PCP Family Medicine; Referring Provider Family Medicine; Visit Provider Family Medicine
DX: Z12.31 Encounter for screening mammogram for malignant neoplasm of breast (principal)
CPT/HCPCS: 77063; 77067

== ENCOUNTER → 2025-01-24 | Outpatient (CLI) | payer OTHER, SELFPAY ==
--- NOTE | 2025-01-24 12:56 | BI_ITS ---
EXAM: DIAG MAMM W/CAD, UNILAT; RT BRST UNILAT KOLTON ADD-ON 01/24/2025 CLINICAL HISTORY: F, Age 49 y/o , ABD MAMM RIGHT SIDE ONLY; ABN MAMM TECHNIQUE: Procedure Code: [id number]; MARLIITOBETTIE Modality: MG Procedure: DIAG MAMM W/CAD, UNILAT; RT BRST UNILAT KOLTON ADD-ON. COMPARISON: Prior exam(s) dated 01/17/2025, 01/11/2024, 01/03/2023, 12/30/2021. FINDINGS: TISSUE DENSITY: The breasts are heterogeneously dense, which may obscure small masses. Unilateral Right Breast Mammographic Findings: Follow-up examination performed for the calcifications in the right breast seen on examination of 01/17/2025. On the present examination, there are round calcifications in the central outer right breast at middle depth. These appear not significantly changed when compared to multiple priors dating back to 2021. BI/DIAG MAMM W/CAD, UNILAT IMPRESSION: Probably benign right breast calcifications. Recommend short interval six-izzy h diagnostic mammogram with magnification views of the right breast. OVERALL FINAL ASSESSMENT BI-RADS 3: PROBABLY BENIGN. RECOMMENDATION: 6 Month Follow-up Additional Recommendation none A letter with findings and recommendations will be mailed to the patient. Reading Location: [id number]
--- OUTSIDE RECORDS SUMMARY | 2025-01-24 13:13 | XMS RPT_ITS | CCD ---
Author Organization [facility] Care Team Providers Care Pharmacy Informatics Manager Name Role Phone Juan Jose LIBRARY PARAPROFESSIONAL, Elvia N Unavailable Unavailab le Juan Jose JASMINE, Elvia Sheets Unavailable Unavailab le Elvia Ingram LPN Unavailable Unavailab Dr. Stephanie Olivarez Primary Care Provider Dr. Stephanie Hedrick Referring Provider Puneet RIOS, RYANC Eli Attending Provider Dr. Stephanie Hedrick Primary Care Provider Elo Sands Attending Provider Unavailable Dr. Stephanie Hedrick Referring Provider Dr. Mukesh Mendoza Attending Provider [phone] Dr. Mukesh Mendoza Other Provider Puneet RIOS, RYANC Eli Attending Provider Stephanie Hedrick DO Primary Care Provider Cole, Spencer S Unavailable COLE, ORLIN S Referring Unavailable STEPHANIE HEDRICK Primary Care Unavailable JUAN DONG Attending Unavailable Dr. Stephanie Hedrick Primary Care Provider Dr. Stephanie Hedrick Referring Provider Dr. Mukesh Mendoza Attending Provider Dr. Mukesh Mendoza Other Provider Puneet RIOS, GABRIEL-C Eli Attending Provider Samnatha SOLANO, RUSS Hollingsworth Attending Provider Floridalma, Dr. Brown Primary Care Provider Floridalma, Dr. Brown Referring Provider 1([facility])[phone] RUSS Cates Attending Provider RUSS Ann Attending Provider 1([facility])[phone] Floridalma AVILEZ, Dr. Brown Primary Care Provider 1([facility])[phone] Magno ELECTRIC STOP INSTALLER-C, Katty Attending Provider [phone] Magno ELECTRIC STOP INSTALLER-C, Katty Referring Provider Samara DPM, Dr. Luna Attending Provider Samara DPM, Dr. Luna Referring Provider [phone] Floridalma AVILEZ, Dr. Brown Attending Provider 1([facility])[phone] [place]ma DO, Dr. Brown Referring Provider 1([facility])[phone] Floridalma DO, Dr. Brown Primary Care Provider 1([facility])[phone] Melissa ALDANA, Dr. Ramey Attending Provider Melissa ALDANA, Dr. Ramey Referring Provider 1([facility])[phone] Floridalma AVILEZ, Dr. Brown Primary Care Provider 1([facility])2 -2007 Assessment, Health Risk Attending Provider Unava ilable Assessment, Health Risk Referring Provider Unava ilable Assessment, Health Risk Attending Unavaila ble Malys, Stephanie Primary Care Unavailable Assessment, Health Risk Referring Unavaila ble Malys, Stephanie Primary Care Unavailable Jeremy Pascual Attending Unavailable Jeremy Pascual Referring Unavailable Malys, Stephanie Primary Care Unavailable Malys, Stepahnie Attending Unavailable Malys, Stephanie Referring Unavailable Torres, Tanvir Referring Unavailable Malys, Stephanie Primary Care Unavailable Torres, Tanvir Attending Unavailable Malys, Stephanie Primary Care Unavailable Jeremy Pascual Attending Unavailable Jeremy Pascual Referring Unavailable Malys, Stephanie Primary Care Unavailable Magno, Katty Attending Unavailable Magno, Katty Referring Unavailable [place] ELECTRIC STOP INSTALLER, Gissell Attending Unavailable [place] ELECTRIC STOP INSTALLER, Gissell Referring Unavailable Malys, Stephanie Primary Care Unavailable Torres, Tanvir Referring Unavailable Malys, Stephanie Primary Care Unavailable TorresTanvir Attending Unavailable Malys, Stephanie Primary Care Unavailable Malys, Stephanie Attending Unavailable Malys, Stephanie Referring Unavailable Gissell Escobedo NP Attending Unavailable Stephanie Hedrick Primary Care Unavailable Stephanie Hedrick Referring Unavailable Medications Current Medications Medication Drug Class(es) Dates Sig (Normalized) Sig (Original) meloxicam 15 mg oral tablet (2 sources) Nonsteroidal Anti-inflammatory Drug Start: 06-18-2024 take 1 tablet by mouth once daily Meloxicam 15 mg tablet Active 15 mg PO DAILY 30 June 18, 2024 12:00am Completed/Discontinued Medications Medication Drug Class(es) Dates Sig (Normalized) Sig (Original) acetaminophen 325 mg / oxyCODONE hydrochloride 5 mg oral tablet (10 sources) Opioid Agonist Start: 02-06-2014 End: 09-05-2017 [...] Take one tab 5 times daily ACYCLOVIR [id number] Roque SOLANO amoxicillin 500 mg oral capsule (10 sources) Penicillin-class Antibacterial Start: 09-05-2017 End: 09-15-2017 take 2 capsules by mouth twice daily Amoxicillin 500 mg capsule Discontinued 1000 mg PO TWICE A DAY 40 10 0 September 05, 2017 12:00am September 14, 2017 12:00am September 15, 2017 12:09am Labyrinthitis, unspecified ear Start: 09-05-2017 End: 09-15-2017 take 1000 mg by mouth twice daily Amoxicillin Discontinued 1000 MG PO TWICE A DAY 40 10 September 05, 2017 12:00am September 15, 2017 12:09am azithromycin 250 mg oral tablet (6 sources) Macrolide Antimicrobial Start: 07-17-2009 End: 07-21-2009 ZITHROMAX Z-LOLIS 250 MG TABS AZITHROMYCIN [id number] Dee Rosario MS,PA-C busPIRone hydrochloride 7.5 mg oral tablet (20 [...] mg / cholecalciferol 0.01 mg oral capsule (10 sources) Vitamin D Start: 09-05-2017 End: 01-23-2018 Calcium Carbonate-Vitamin D3 (Calcium 600 With Vitamin D3) 600 mg(1,500mg) -400 unit capsule Discontinued NMA PO 0 September 05, 2017 12:00am January 23, 2018 [...] and night X 10 days CIPROFLOXACIN HCL [id number] Alla Bruno PA-C 24 hr dilTIAZem hydrochloride 180 mg extended release oral capsule (20 sources) Calcium Channel Alberto Start: 02-11-2021 End: 06-30-2022 take 1 capsule by mouth once daily Diltiazem Hcl 180 mg capsule,extended release 24hr Discontinued 180 mg PO DAILY 90 3 February 24, 2022 2:38pm June 30, 2022 9:25am Start: 03-03-2020 End: 02-11-2021 take 1 capsule by mouth once daily Diltiazem Hcl 120 mg capsule,extended release 24hr Discontinued 120 mg PO DAILY 90 3 April 24, 2020 9:47am February 11, 2021 10:26am Comment on above: Take 180 mg by mouth once daily. docusate sodium 100 mg oral capsule (10 sources) Start: 014 End: take 1 capsule by mouth twice daily as needed for constipation Docusate Sodium 100 MG capsule Discontinued 100 mg PO TWICE DAILY NEEDED as needed for Constipation 10 0 February 06, 2014 1:00am September 05, 2017 5:38pm flecainide acetate 50 mg oral tablet (20 sources) Antiarrhythmic Start: 023 take 1 tablet by mouth twice daily flecainide (TAMBOCOR) 50 mg tablet Take 50 mg by mouth twice daily. 0 03/29/2022 Active Start: 03-09-2021 End: 06-30-2022 take 1 tablet by mouth every twelve hours Flecainide 50 mg tablet Discontinued 50 mg PO Q12H 180 March 29, 2022 1:51pm June 30, 2022 [...] d aily. ibuprofen 200 mg oral capsule (15 sources) Nonsteroidal Anti-inflammatory Drug Start: End: take 1 capsule by mouth every [...] 2014 1:00am September 05, 2017 5:38pm levonorgestrel 0.925500 mg/hr intrauterine system (13 sources) Progestin, Progestin-containing Intrauterine Device Start: 01-29-2014 End: 09-05-2017 Levonorgestrel 1 EACH intrauterine device Discontinued 1 NMA IY ONE TIME January 29, 2014 1:00am September 05, 2017 5:38pm Start: 07-17-2009 MIRENA (52 MG) 20 MCG/24HR IUD as directed LEVONORGESTREL [id number] Dee Rosario MSPABrendaC Start: 07-17-2009 MIRENA (52 MG) 20 MCG/24HR IUD as directed LEVONORGESTREL [id number] Dee Rosario MSPABrendaC metoprolol tartrate 25 mg [...] 25 mg PO TWICE A DAY 1 30 March 03, 2020 3:19pm April 01, 2020 [...] 50 mg PO THREE TIMES A DAY 90 04 03February 06, 2020 10:06am March 03, 2020 3:20pm Start: 01-10-2019 End: 02-06-2020 take 1 tablet by mouth twice daily Metoprolol Tartrate 50 mg tablet Discontinued 50 mg PO TWICE A DAY 180 January 08, 2020 4:51pm February 06, 2020 9:28am Start: 06-01-2018 End: 01-10-2019 Metoprolol Tartrate 50 mg ta blet Discontinued 50 mg PO .COMPLEX 30 January 08, 2019 11:14am January 10, 2019 11:46am 50 mg PO Patient is to take a 25 mg tablet in the am and a 50 mg tablet at night due to symptoms; Start: 05-18-2018 End: 01-10-2019 Metoprolol Tartrate 25 mg ta blet Discontinued 25 mg PO .COMPLEX 30 January 08, 2019 11:14am January 10, 2019 11:45am palpitations 25 mg PO patient is to take a 25 mg tablet in the am and a 50 mg tablet at night due to symptoms; Start: 05-18-2018 End: 06-01-2018 take 1 tablet by mouth once daily in the evening Metoprolol Tartrate 50 mg tablet Discontinued 50 mg PO EVERY EVENING 30 May 18, 2018 12:00am June 01, 2018 5:34pm Start: 02-12-2018 End: 05-18-2018 take 1 tablet by mouth twice daily Metoprolol Tartrate 25 mg tablet Discontinued 25 mg PO TWICE A DAY 02 02February 15, 2018 12:48pm May 18, 2018 2:37pm palpitations Start: 01-23-2018 End: 02-12-2018 Metoprolol Tartrate 25 mg ta blet Discontinued 12.5 mg PO TWICE A DAY 02 02January 23, 2018 4:28pm February 12, 2018 6:50pm palpitations Start: 01-23-2018 End: 02-12-2018 take 12.5 mg by mouth twice daily Metoprolol Tartrate Discontinued 12.5 MG PO TWICE A DAY January 23, 2018 4:28pm February 12, 2018 6:50pm MULTIPLE VITAMIN (2 sources) Start: 07-17-2009 take 1 tablet by mouth once daily MULTIVITAMINS TABS One tablet by mouth daily MULTIPLE VITAMIN [id number] Dee Rosario MS,PA-C MULTIPLE VITAMIN (1 source) Start: 07-17-2009 take 1 tablet by mouth once daily MULTIVITAMINS TABS One tablet by mouth daily MULTIPLE VITAMIN [id number] Dee Rosario MSPABrendaC Multivitamin preparation (7 sources) Start: 01-23-2018 End: 10-15-2021 take 1 tablet by mouth once daily Multivitamin Discontinued 1 TABLET PO DAILY January 23, 2018 12:00am October 15, 2021 7:31am Start: 01-23-2018 End: 10-15-2021 take 1 tablet by mouth once daily Multivitamin Discontinued 1 TABLET PO DAILY January 23, 2018 1:00am October 15, 2021 8:31am Multivitamin tablet (3 sources) Start: 01-23-2018 End: 10-15-2021 Multivitamin tablet [...] Multivitamin With Folic Acid 1 TABLET tablet (3 sources) Start: 01-29-2014 End: 09-05-2017 take 1 tablet by mouth once daily Multivitamin With Folic Acid 1 TABLET tablet Discontinued 1 {tbl} PO DAILY January 29, 2014 1:00am September 05, 2017 5:38pm naproxen 250 mg oral tablet (10 sources) Nonsteroidal Anti-inflammatory Drug Start: 01-29-2014 End: 09-05-2017 take 1 tablet by mouth twice daily as needed for pain Naproxen 250 MG tablet Discontinued 250 mg PO TWICE DAILY NEEDED as needed for Pain January 29, 2014 1:00am September 05, 2017 5:38pm predniSONE 20 mg oral tablet (17 sources) Start: 08-15-2022 End: 04-07-2023 Prednisone 20 [...] 1 tablet daily for 3 days. PREDNISONE [id number] Roque SOLANO Start: 01-29-2014 End: 09-05-2017 take 1 tablet by mouth once daily as needed for pain Prednisone 10 MG tablet Discontinued 10 mg PO DAILY NEEDED as needed for Pain January 29, 2014 1:00am September 05, 2017 5:38pm promethazine hydrochloride 25 mg oral tablet (10 sources) Phenothiazine Start: 02-06-2014 End: 09-05-2017 take 1 tablet by mouth every four hours as needed for nausea Promethazine 25 MG tablet Discontinued 25 mg PO EVERY 4 HOURS NEEDED as needed for Nausea 10 0 February 06, 2014 1:00am September 05, 2017 5:38pm SUMAtriptan 25 mg oral tablet (10 sources) Serotonin-1b and Serotonin-1d Receptor Agonist Start: [...] Episodic Conditions associated with dizziness or vertigo (10 sources) Labyrinthitis; Translations: [Labyrinthitis, unspecified ear] 01-22-2018 Episodic Contraceptive and procreative management (3 sources) Intrauterine contraceptive device in situ; Translations: [Presence of (intrauterine) contraceptive device] 08-28-2023 Episodic Comment on above: 07/2019 inserted Fracture of upper limb (10 sources) Fracture of radial head; Translations: [Nondisplaced fracture of head of left radius, initial encounter for closed fracture] 06-30-2022 Episodic Immunizations and screening for infectious disease (1 source) Other specified abnormal immunological findings in serum; Translations: [Other specified abnormal immunological findings in serum] Onset: 5 Episodic Other aftercare (2 sources) Long-term current use of drug therapy; Translations: [Other detention (current) drug therapy] Episodic Other bone disease and musculoskeletal deformities (1 source) Osteochondritis dissecans, 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; Translations: [Osteochondritis dissecans, 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] Onset: 5 Chronic Other circulatory disease (8 sources) Elevated blood pressure; Translations: [Elevated blood-pressure [...] Translations: [Left knee pain] 06-03-2022 Episodic Other screening for suspected conditions (not mental disorders or infectious disease) (11 sources) Patient encounter status; Translations: [Encounter for screening for malignant neoplasm of colon] Onset: Episodic Other skin disorders (3 sources) Loss of hair; Translations: [Nonscarring hair loss, unspecified] 08-23-2023 Episodic Comment on above: labs Residual codes; unclassified (10 sources) Daytime somnolence; Translations: [Other hypersomnia] 02-10-2021 Chronic Rheumatoid arthritis and related disease (15 sources) Rheumatoid arthritis; Translations: [Rheumatoid arthritis, unspecified] Onset: 2 07-17-2009 Chronic Sprains and strains (4 sources) Strain of muscle of lower limb; Translations: [Strain of unspecified muscle(s) and tendon(s) at lower leg level, left leg, initial encounter] 08-15-2022 Episodic Past or Other Problems Problem Classification Problem [...] in left foot] Onset: 03-12-2024 Episodic Other non-traumatic joint disorders (3 sources) Pain in unspecified shoulder; Translations: [Pain in unspecified shoulder] Onset: 07-04-2013 07-05-2013 Episodic Other non-traumatic joint disorders (1 source) Pain in unspecified joint; Translations: [Pain in unspecified joint] Onset: 06-06-2024 Episodic Other upper respiratory infections (6 sources) Acute pharyngitis; Translations: [Sinusitis] Onset: 07-17-2009 Resolved: 08-16-2009 07-17-2009 Episodic Unclassified (4 sources) Contusion of left lower leg, initial encounter 08-15-2022 Viral infection (6 sources) Herpes zoster; Translations: [Zoster without complications] Onset: 05-20-2016 05-20-2016 Episodic Results Test Name Value Interpretation Reference Range Facility Electrotype Finisher Office Visit Reporton 12-26-2024 Electrotype Finisher Office Visit Report [facility] [address], [address] [place] [address] OFFICE VISIT Date of Service: 12/26/24 MR#: [id number] Acct: [id number] Name: RANGEL TRENT Rep #: [id number] : 1975 Provider: NORMA celestin Age/Sex: 49/F Location: [facility] Status: Signed Intake Vital Signs 08/23/23 09:06 12/26/24 13:10 12/26/24 13:16 Height 5 ft 6 in 5 ft 6 in 5 ft 6 in Weight: 152 lb 7 oz BMI 24.5 BP 138/84 H Intake Visit Reasons: 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 Required: No Is patient in pain?: No Allergies No Known Allergies Allergy (Verified 12/26/24 13:18) Medications ???Medication ???Instructions ???Recorded ???Confirmed ???Type buspirone 10 mg tablet 7.5 mg PO BID 10/15/21 12/26/24 Hi story levothyroxine 13 mcg capsule 13 mcg PO QDAY 12/26/24 12/26/24 H istory Is last menstrual period known: No Post menopausal: No Patient : No : No Control Method: Adwoa MULTANI Medical History Nondisplaced fracture of head of left radius Wears contact lenses Wears glasses Non-smoker Cardiology follow-up encounter Multiple premature ventricular complexes Excessive daytime sleepiness Rheumatoid arthritis Palpitations Surgical History H/O arthroscopic knee surgery jaw surgery History of shoulder surgery Family History Other Hypertension Thyroid disorder Social History household members: spouse current occupational status: employed 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 Date Name GA/Weeks Outcome Route Bth Weight Infant Gen Labor Lgth Anesthesia Del Locatn Provider FOB Unknown Kaila Agarwal HPI Encounter for routine gynecological examination Details: RANGEL TRENT is a 49 year old who presents for annual exam. Denies concerns. Light spotting end of each month but not problematic. Adwoa placed 2019 20 yr wound center and going to cardiac rehab in February Last PAP: 2023 History of abnormal PAP: no Last mammogram: 01/2024 History of abnormal mammogram: no Colon cancer screenin Other preventative health care screenings: Malys Female Reproductive History Questions: metrorrhagia: No, sexually active: Yes, dyspareunia: No and PCB: No ROS Const Constitutional: Denies fatigue, weight gain [...] oriented to person and oriented to place HENOK Head: normal to inspection Neck Neck: normal [...] Psych Affect: normal affect Coding Level of Care Code Off vis,est,prev 40-64yrs Diagnoses Encounter for gynecological examination without abnormal finding Z01.419 Gynecolo (more content not included)... Normal [facility] ANTINUCLEAR ANTIBODIES DIREC Ton 10-08-2024 MARIE,DIRECT Positive Abnormal Negative [facility] Comment on above: Result Comment: Perf ormed at: [employer] [address] [id number] [employer] Supervisor: Dallin Vizcaino PhD, Phone: [phone] Performed By: #### L 501.6710, L3100.5500, L3100.5800, L501.0900, L101.9900, L3100.5475, L3100.5700 ####[facility] [id number] [place], [place], [id number] Anti-dsDNA Abon 10-08-2024 ANTI-DNA (DS)AB <1 Normal 0-9 [facility] Comment on above: Result Comment: Nega tive <5 Equivocal 5 - 9 Positive >9 Performed By: #### L 501.6710, L3100.5500, L3100.5800, L501.0900, L101.9900, L3100.5475, L3100.5700 ####[facility] [id number] [facility] [place], [place], [id number] Complement C3on 10-08-2024 COMP C3 88 mg/dL Normal 82-167 [facility] Comment on above: Result Comment: Perf ormed at: [employer] [id number] [employer] Supervisor: Dallin Vizcaino PhD, Phone: [phone] Performed By: #### L 501.6710, L3100.5500, L3100.5800, L501.0900, L101.9900, L3100.5475, L3100.5700 ####[facility] [id number] [place], [place], [phone] Complement C4on 10-08-2024 COMPLEMENT, C4 22 mg/dL Normal 12-38 [facility] Comment on above: Performed By: #### L 501.6710, L3100.5500, L3100.5800, L501.0900, L101.9900, L3100.5475, L3100.5700 ####[facility] [id number] [place], [place], [phone] Absolute lymphocyte countOrd ered By: HEALTH ASSESSMENT on 10-07-2024 Lymphocytes Auto (Unsp spec) [#/Vol] 1.27 10*3/uL 0.83-4.51 [facility] Absolute neutrophil countOrd ered By: HEALTH ASSESSMENT on 10-07-2024 Neutrophils (Bld) [#/Vol] 2.8 10*3/uL 2.0-7.7 [facility] Absolute nucleated red blood cell countOrdered By: HEALTH ASSESSMENT on 10-07-2024 Nucleated RBC (Bld) [#/Vol] 0.00 10*3/uL 0-5 [facility] Anion gap in Serum or Plasma Ordered By: HEALTH ASSESSMENT on 10-07-2024 Anion gap [Moles/Vol] 11 mmol/L 5-15 [facility] BUN/creatinine ratioOrdered By: HEALTH ASSESSMENT on 10-07-2024 Urea nitrogen/Creatinine [Mass ratio] 22.8 mg/mg High 10-20 [facility] Bilirubin Test strip Ql (U)O rdered By: HEALTH ASSESSMENT on 10-07-2024 Bilirubin Ql (U) Negative Negative [facility] Bilirubin directOrdered By: HEALTH ASSESSMENT on 10-07-2024 Bilirubin.direct [Mass/Vol] 0.15 mg/dL 0.00-0.30 [facility] Bilirubin, totalOrdered By: HEALTH ASSESSMENT on 10-07-2024 Bilirubin [Mass/Vol] 0.40 mg/dL 0.00-1.30 [facility] Blood band neutrophil count as percentage of total leukocytesOrdered By: HEALTH ASSESSMENT on 10-07-2024 Band form neutrophils/100 WBC (Bld) 57.3 % 47-70 [facility] CBC, Employeeon 10-07-2024 Absolute Lymph 1.27 X10 3/uL Normal 0.83-4.51 [facility] Comment on above: Performed By: #### L 500.2900, L400.0100, L100.0200 #### [facility] Laboratory [address] [place], [address] Absolute Neut 2.8 X10 3/uL Normal 2.0-7.7 [facility] Comment on above: Performed By: #### L 500.2900, L400.0100, L100.0200 #### [facility] [address] [place], [address] Basophils/100 WBC (Bld) 1.4 % High 0-1 [facility] Comment on above: Performed By: #### L 500.2900, L400.0100, L100.0200 #### [facility] [address] [place], [address] Eosinophils/100 WBC (Bld) 5.5 % High 0-5 [facility] Comment on above: Performed By: #### L 500.2900, L400.0100, L100.0200 #### [facility] [address] [place], [address] Erythrocyte distribution width (RBC) [Ratio] 12.2 % Normal 11.6-14.6 [facility] Comment on above: Performed By: #### L 500.2900, L400.0100, L100.0200 #### [facility] [address] [place], [address] Hematocrit (Bld) [Volume fraction] 41.9 % Normal 37-47 [facility] Comment on above: Performed By: #### L 500.2900, L400.0100, L100.0200 #### [facility] [address] [place], [address] Hemoglobin (Bld) [Mass/Vol] 14.1 g/dL Normal 12.0-15.0 [facility] Comment on above: Performed By: #### L 500.2900, L400.0100, L100.0200 #### [facility] [address] [place], [address] Lymphocytes/100 WBC (Bld) 26.0 % Normal 19-41 [facility] Comment on above: Performed By: #### L 500.2900, L400.0100, L100.0200 #### [facility] [address] [place], [address] MCH (RBC) [Entitic mass] 32.1 pg High 27.0-32.0 [facility] Comment on above: Performed By: #### L 500.2900, L400.0100, L100.0200 #### [facility] [address] [place], [address] MCHC (RBC) [Mass/Vol] 33.7 g/dL Normal 32-36 [facility] Comment on above: Performed By: #### L 500.2900, L400.0100, L100.0200 #### [facility] [address] [place], [address] MCV (RBC) [Entitic vol] 95.4 fL Normal 81-99 [facility] Comment on above: Performed By: #### L 500.2900, L400.0100, L100.0200 #### [facility] [address] [place], [address] Monocytes/100 WBC (Bld) 9.6 % Normal 0-10 [facility] Comment on above: Performed By: #### L 500.2900, L400.0100, L100.0200 #### [facility] [address] [place], [address] Neutrophils/100 WBC (Bld) 57.3 % Normal 47-70 [facility] Comment on above: Performed By: #### L 500.2900, L400.0100, L100.0200 #### [facility] [address] [place], [address] NRBC # 0.00 10 3/uL Normal 0-5 [facility] Comment on above: Performed By: #### L 500.2900, L400.0100, L100.0200 #### [facility] Laboratory [address] [place], [address] Nucleated RBC (Bld) [#/Vol] 0 10*3/uL Normal 0-5 [facility] Comment on above: Performed By: #### L 500.2900, L400.0100, L100.0200 #### [facility] Laboratory [address] [place], [address] Platelet mean volume (Bld) [Entitic vol] 10.9 fL Normal 6.2-12.0 [facility] Comment on above: Performed By: #### L 500.2900, L400.0100, L100.0200 #### [facility] Laboratory [address] [place], [address] Platelets (Bld) [#/Vol] 195 10*3/uL Normal 150-450 [facility] Comment on above: Performed By: #### L 500.2900, L400.0100, L100.0200 #### [facility] Laboratory [address] [place], [address] RBC (Bld) [#/Vol] 4.39 10*6/uL Normal 4.2-5.4 [facility] Comment on above: Performed By: #### L 500.2900, L400.0100, L100.0200 #### [facility] Laboratory [address] [place], [address] RDW SD 42.9 fl Normal 35.1-43.9 [facility] Comment on above: Performed By: #### L 500.2900, L400.0100, L100.0200 #### [facility] Laboratory [address] [place], [address] WBC (Bld) [#/Vol] 4.9 10*3/uL Normal 4.4-11.0 [facility] Comment on above: Performed By: #### L 500.2900, L400.0100, L100.0200 #### [facility] Laboratory [address] [place], [address] CRPon 10-07-2024 C-REACTIVE PROT < 3.00 Normal 0.0-3.0 [facility] Comment on above: Performed By: #### L 501.6710, L3100.5500, L3100.5800, L501.0900, L101.9900, L3100.5475, L3100.5700 ####[facility] [address] [place], [address] Calculated very low density lipoprotein (VLDL) cholesterol measurementOrdered By: HEALTH ASSESSMENT on 10-07-2024 Calculated very low density lipoprotein (VLDL) cholesterol measurement 12 mg/dL 5-40 [facility] Carbon dioxide, total [Moles /volume] in Central venous bloodOrdered By: HEALTH ASSESSMENT on 10-07-2024 CO2 [Moles/Vol] 23.3 mmol/L 21.0-32.0 [facility] Chloride assayOrdered By: HE ALTH ASSESSMENT on 10-07-2024 Chloride [Moles/Vol] 107 mmol/L 98-108 [facility] Employee Profileon LDH 181 U/L Normal 84-246 [facility] Comment on above: Order Comment: SEND ALL TO DR.JOHNNY TORRES Performed By: #### L 500.2900, L400.0100, L100.0200 ####[facility] [address] [place], [address] Phosphate [Mass/Vol] 3.0 mg/dL Normal 2.7-4.5 [facility] Comment on above: Order Comment: SEND ALL TO DR.JOHNNY TORRES Performed By: #### L 500.2900, L400.0100, L100.0200 ####[facility] [address] [place], [address] URIC 5.3 mg/dL Normal 2.6-6.0 [facility] Comment on above: Order Comment: SEND ALL TO DR.JOHNNY TORRES Result Comment: The drugs N-Acetylcysteine and Metamizole may falsely depress this assay. Performed By: #### L 500.2900, L400.0100, L100.0200 ####[facility] [address] [place], [address] Erythrocyte Sed Rateon 10-07 SED RATE 1 mm/hr Normal 0- [facility] Comment on above: Performed By: #### L 501.6710, L3100.5500, L3100.5800, L501.0900, L101.9900, L3100.5475, L3100.5700 ####[facility] [address] [place], [address] Erythrocyte distribution wid th ratioOrdered By: HEALTH ASSESSMENT on 10-07-2024 Erythrocyte distribution width (RBC) [Ratio] 12.2 % 11.6-14.6 [facility] Erythrocyte distribution wid th standard deviationOrdered By: HEALTH ASSESSMENT on 10-07-2024 Erythrocyte distribution width (RBC) [Ratio] 42.9 fl 35.1-43.9 [facility] Erythrocyte sedimentation ra teOrdered By: Tanvir Torres on 10-07-2024 ESR (Bld) [Velocity] 1 mm/h 0-30 [facility] Glomerular filtration rate ( GFR) estimation/1.73 sq m using serum, plasma, or whole bOrdered By: HEALTH ASSESSMENT on 10-07-2024 GFR/1.73 sq M.predicted among non-blacks MDRD (S/P/Bld) [Vol rate/Area] 92 mL/min/{1.73_m2} >60 [facility] Comment on above: mL/min/1.73m2 CKD-EP I Creatinine Equation (2020) Hematocrit Auto (Bld) [Volum e fraction]Ordered By: HEALTH ASSESSMENT on 10-07-2024 Hematocrit (Bld) [Volume fraction] 41.9 % 37-47 [facility] Hemoglobin measurementOrdere d By: HEALTH ASSESSMENT on 10-07-2024 Hemoglobin (Bld) [Mass/Vol] 14.1 g/dL 12.0-15.0 [facility] Ketones Test strip Ql (U)Ord ered By: HEALTH ASSESSMENT on 10-07-2024 Ketones Ql (U) Negative Negative [facility] LDL calc ser/plasOrdered By: HEALTH ASSESSMENT on 10-07-2024 Cholesterol in LDL [Mass/Vol] 140 mg/dL [facility] Comment on above: Nvrxoergbp=279-472 m g/dL & Higher Tstw=635 mg/dL or greaterFriedwald Equation for LDL-C Laboratory - Chemistry and C hemistry - challengeOrdered By: HEALTH ASSESSMENT on 10-07-2024 AST [Catalytic activity/Vol] 18 U/L <32 [facility] Lactate dehydrogenase (LDH) measurementOrdered By: HEALTH ASSESSMENT on 10-07-2024 LDH [Catalytic activity/Vol] 181 U/L 84-246 [facility] MCV (mean corpuscular volume ) determinationOrdered By: HEALTH ASSESSMENT on 10-07-2024 MCV (RBC) [Entitic vol] 95.4 fL 81-99 [facility] Mean corpuscular hemoglobin (MCH) determinationOrdered By: HEALTH ASSESSMENT on 10-07-2024 MCH (RBC) [Entitic mass] 32.1 pg High 27.0-32.0 [facility] Mean corpuscular hemoglobin concentration (MCHC) determinationOrdered By: HEALTH ASSESSMENT on 10-07-2024 MCHC (RBC) [Mass/Vol] 33.7 g/dL 32-36 [facility] Mean platelet volume determi nationOrdered By: HEALTH ASSESSMENT on 10-07-2024 Platelet mean volume (Bld) [Entitic vol] 10.9 fL 6.2-12.0 [facility] Nitrite Test strip Ql (U)Ord ered By: HEALTH ASSESSMENT on 10-07-2024 Nitrite Ql (U) Negative Negative [facility] Nucleated red blood cell per centageOrdered By: HEALTH ASSESSMENT on 10-07-2024 Nucleated RBC/100 WBC (Bld) [Ratio] 0 % 0-5 [facility] Platelet countOrdered By: HE ALTH ASSESSMENT on 10-07-2024 Platelets (Bld) [#/Vol] 195 10*3/uL 150-450 [facility] Potassium measurement (mass/ volume)Ordered By: HEALTH ASSESSMENT on 10-07-2024 Potassium (Unsp spec) [Mass/Vol] 4.3 mmol/L 3.3-5.1 [facility] Protein Test strip Ql (U)Ord ered By: HEALTH ASSESSMENT on 10-07-2024 Protein Ql (U) 15 mg/dl High Negative [facility] Protein+Creatinine Ratio,Uri neon 10-07-2024 PROT:CRE RATIO 100 mg/g CRE Normal 0-200 [facility] Comment on above: Performed By: #### L 501.6710, L3100.5500, L3100.5800, L501.0900, L101.9900, L3100.5475, L3100.5700 ####[facility] [address] [place], [address] Protein (U) [Mass/Vol] 7.7 mg/dL Normal 0.0-12.0 [facility] Comment on above: Performed By: #### L 501.6710, L3100.5500, L3100.5800, L501.0900, L101.9900, L3100.5475, L3100.5700 ####[facility] [address] [place], [address] UR CREAT 77.00 mg/dL Normal 28.00-217. 00 [facility] Comment on above: Performed By: #### L 501.6710, L3100.5500, L3100.5800, L501.0900, L101.9900, L3100.5475, L3100.5700 ####[facility] [address] [place], [address] RBC Auto (Bld) [#/Vol]Ordere d By: HEALTH ASSESSMENT on 10-07-2024 RBC (Bld) [#/Vol] 4.39 10*6/uL 4.2-5.4 [facility] Random urine creatinine moises urement (mass/volume)Ordered By: Tanvir Torres on 10-07-2024 Creatinine Unsp time (U) [Mass/Vol] 77.00 mg/dL 28.00-217. 00 [facility] Screening total cholesterol/ high density lipoprotein (HDL) cholesterol ratioOrdered By: HEALTH ASSESSMENT on 10-07-2024 Cholesterol.total/Chol esterol in HDL [Mass ratio] 2.86 {ratio} [facility] Serum DNA double strand anti body assay (units/volume)Ordered By: Tanvir Torres on 10-07-2024 DNA double strand Ab Qn (S) [IU]/mL 0-9 [facility] Comment on above: Negative <5 Equivoca l 5 - 9 Positive >9 Serum creatinine measurement (mass/volume)Ordered By: HEALTH ASSESSMENT on 10-07-2024 Creatinine [Mass/Vol] 0.79 mg/dL 0.70-1.20 [facility] Serum globulin measurementOr dered By: HEALTH ASSESSMENT on 10-07-2024 Globulin (S) [Mass/Vol] 2.4 g/dL 2.2-4.2 [facility] Serum glucose measurement (m ass/volume)Ordered By: HEALTH ASSESSMENT on 10-07-2024 Glucose [Mass/Vol] 104 mg/dL High 70-99 [facility] Serum or plasma C reactive p rotein measurement (mass/volume)Ordered By: Tanvir Torres on 10-07-2024 CRP [Mass/Vol] mg/L 0.0-3.0 [facility] Serum or plasma alanine wilcox otransferase (ALT) measurementOrdered By: HEALTH ASSESSMENT on 10-07-2024 ALT [Catalytic activity/Vol] 12 U/L <35 [facility] Serum or plasma albumin moises urement (mass/volume)Ordered By: HEALTH ASSESSMENT on 10-07-2024 Albumin [Mass/Vol] 4.5 g/dL 3.5-5.0 [facility] Serum or plasma albumin/glob ulin mass ratioOrdered By: HEALTH ASSESSMENT on 10-07-2024 Albumin/Globulin [Mass ratio] 1.9 {ratio} 0.9-2.4 [facility] Serum or plasma alkaline matt sphatase measurementOrdered By: HEALTH ASSESSMENT on 10-07-2024 ALP [Catalytic activity/Vol] 45 U/L 35-104 [facility] Serum or plasma calcium moises urement (mass/volume)Ordered By: HEALTH ASSESSMENT on 10-07-2024 Calcium [Mass/Vol] 9.1 mg/dL 7.6-11.0 [facility] Serum or plasma cholesterol in HDL measurement (mass/volume)Ordered By: HEALTH ASSESSMENT on 10-07-2024 Cholesterol in HDL [Mass/Vol] 82 mg/dL >40 [facility] Comment on above: National Cholesterol Education Program (NCEP) guidelines:<40 mg/dL: Low HDL-cholesterol (major risk factor for CHD)>= 60 mg/dL: High HDL-cholesterol (negative risk factor for CHD)HDL-cholesterol is affected by a number of factors, e.g. smoking, exercise, hormones, sex and age. Serum or plasma cholesterol measurement (mass/volume)Ordered By: HEALTH ASSESSMENT on 10-07-2024 Cholesterol [Mass/Vol] 235 mg/dL High <201 [facility] Comment on above: Cholesterol level, D esirable <200 mg/dLBorderline high cholesterol 200-239 mg/dLHigh cholesterol >=240 mg/dLRecommendations of the NCEP Adult Treatment Panel for the following risk-cutoff thresholds for the [place] population. Serum or plasma complement C 4 measurement (mass/volume)Ordered By: Tanvir Torres on 10-07-2024 Complement C4 [Mass/Vol] 22 mg/dL 12-38 [facility] Serum or plasma urea nitroge n measurement (mass/volume)Ordered By: HEALTH ASSESSMENT on 10-07-2024 Urea nitrogen [Mass/Vol] 18 mg/dL 4-19 [facility] Serum or plasma uric acid me asurement (mass/volume)Ordered By: HEALTH ASSESSMENT on 10-07-2024 Urate [Mass/Vol] 5.3 mg/dL 2.6-6.0 [facility] Comment on above: The drugs N-Acetylcy steine and Metamizole may falsely depress this assay. Sodium levelOrdered By: HEAL ASSESSMENT on 10-07-2024 Sodium [Moles/Vol] 141 mmol/L 133-145 [facility] Total proteinOrdered By: [facility] ASSESSMENT on 10-07-2024 Protein [Mass/Vol] 6.9 g/dL 5.9-8.4 [facility] Triglycerides measurementOrd ered By: HEALTH ASSESSMENT on 10-07-2024 Triglyceride [Mass/Vol] 62 mg/dL <199 [facility] Comment on above: The drugs N-Acetylcy steine and Metamizole may falsely depress this assay. Normal range: <150 mg/dLBorderline High: 150-199 mg/dLHigh: 200-499 mg/dLVery High: >500 mg/dL Urinalysis, Employeeon 10-07 BILIRUBIN URINE Negative Normal Negative [facility] Comment on above: Order Comment: Urine , Random Performed By: #### L 500.2900, L400.0100, L100.0200 #### [facility] Laboratory [address] [place], [place], [address] Clarity (U) Clear Normal Clear [facility] Comment on above: Order Comment: Urine , Random Performed By: #### L 500.2900, L400.0100, L100.0200 #### [facility] Laboratory [address] [place], [address] Color (U) Yellow Normal Yellow [facility] Comment on above: Order Comment: Urine , Random Performed By: #### L 500.2900, L400.0100, L100.0200 #### [facility] Laboratory [address] [place], [place], [address] GLUCOSE, UR Normal Normal Normal [facility] Comment on above: Order Comment: Urine , Random Performed By: #### L 500.2900, L400.0100, L100.0200 #### [facility] Laboratory [address] [place], [address] KETONE UR Negative Normal Negative [facility] Comment on above: Order Comment: Urine , Random Performed By: #### L 500.2900, L400.0100, L100.0200 #### [facility] Laboratory [address] [place], [address] LEUK ESTERASE Negative Normal Negative [facility] Comment on above: Order Comment: Urine , Random Performed By: #### L 500.2900, L400.0100, L100.0200 #### [facility] Laboratory [address] [place], [address] Nitrite Ql (U) Negative Normal Negative [facility] Comment on above: Order Comment: Urine , Random Performed By: #### L 500.2900, L400.0100, L100.0200 #### [facility] Laboratory [address] [place], [address] OCCULT BLOOD-UR 25 /ul Abnormal Negative [facility] Comment on above: Order Comment: Urine , Random Performed By: #### L 500.2900, L400.0100, L100.0200 #### [facility] Laboratory [address] [place], [address] pH UR 6.0 Normal 5.0 - 8.0 [facility] Comment on above: Order Comment: Urine , Random Performed By: #### L 500.2900, L400.0100, L100.0200 #### [facility] Laboratory [address] [place], [address] PROT DIPSTX 15 mg/dl Abnormal Negative [facility] Comment on above: Order Comment: Urine , Random Performed By: #### L 500.2900, L400.0100, L100.0200 #### [facility] Laboratory [address] [place], [address] SP.GR. DIPSTX 1.015 Normal 1.002-1.03 0 [facility] Comment on above: Order Comment: Urine , Random Performed By: #### L 500.2900, L400.0100, L100.0200 #### [facility] Laboratory [address] [place], [place], [address] UROBILI Normal Normal Normal [facility] Comment on above: Order Comment: Urine , Random Performed By: #### L 500.2900, L400.0100, L100.0200 #### [facility] Laboratory [address] [place], [place], [address] Urine clarityOrdered By: [facility] ASSESSMENT on 10-07-2024 Clarity (U) Clear Clear [facility] Urine color determinationOrd ered By: HEALTH ASSESSMENT on 10-07-2024 Color (U) Yellow Yellow [facility] Urine glucose detectionOrder ed By: HEALTH ASSESSMENT on 10-07-2024 Glucose Ql (U) Normal mg/dl Normal [facility] Urine leukocyte esterase det ection by dipstickOrdered By: HEALTH ASSESSMENT on 10-07-2024 Leukocyte esterase Test strip Ql (U) Negative Negative [facility] Urine pHOrdered By: HEALTH A SSESSMENT on 10-07-2024 pH (U) 6.0 [pH] 5.0 - 8.0 [facility] Urine protein measurement (m ass/volume)Ordered By: Tanvir Torres on 10-07-2024 Protein (U) [Mass/Vol] 7.7 mg/dL 0.0-12.0 [facility] Urine protein/creatinine mas s ratioOrdered By: Tanvir Torres on 10-07-2024 Protein/Creatinine (U) [Mass ratio] 100 mg/g CRE 0-200 [facility] Urine specific gravity measu rementOrdered By: HEALTH ASSESSMENT on 10-07-2024 Specific gravity (U) [Rel density] 1.015 1.002-1.03 0 [facility] Urine urobilinogen measureme ntOrdered By: HEALTH ASSESSMENT on 10-07-2024 Urobilinogen Ql (U) Normal mg/dl Normal [facility] White blood cell (WBC) count Ordered By: HEALTH ASSESSMENT on 10-07-2024 WBC (Bld) [#/Vol] 4.9 10*3/uL 4.4-11.0 [facility] Anticardiolipin IgA,G,Mon ANTICARDIO IgA < 9 Normal 0-11 [facility] Comment on above: Result Comment: Nega tive: <12 Indeterminate: 12 - 20 Low-Med Positive: >20 - 80 High Positive: >80 Performed By: #### L 502.0250, L3100.8408, L3100.5500, L3410.0800, L500.3400, L3100.5475, L3300.6820, L3410.4010, L101.9900, L3100.9100, L501.6710, L3100.5800, L3410.0500, L3100.9400, L3410.0700, L3410.9992, L4500.0100, L501.1105, L3300.6900, L100.0100, L3410.1200, L3410.1300, L3100.5700, L400.0001 ####[facility] [address] [place], [address] ANTICARDIO IgG < 9 Normal 0-14 [facility] Comment on above: Result Comment: Nega tive: <15 Indeterminate: 15 - 20 Low-Med Positive: >20 - 80 High Positive: >80 Performed By: #### L 502.0250, L3100.8408, L3100.5500, L3410.0800, L500.3400, L3100.5475, L3300.6820, L3410.4010, L101.9900, L3100.9100, L501.6710, L3100.5800, L3410.0500, L3100.9400, L3410.0700, L3410.9992, L4500.0100, L501.1105, L3300.6900, L100.0100, L3410.1200, L3410.1300, L3100.5700, L400.0001 ####[facility] [address] [place], [place], [address] Anticardio.IgM < 9 Normal 0-12 [facility] Comment on above: Result Comment: Nega tive: <13 Indeterminate: 13 - 20 Low-Med Positive: >20 - 80 High Positive: >80 Performed By: #### L 502.0250, L3100.8408, L3100.5500, L3410.0800, L500.3400, L3100.5475, L3300.6820, L3410.4010, L101.9900, L3100.9100, L501.6710, L3100.5800, L3410.0500, L3100.9400, L3410.0700, L3410.9992, L4500.0100, L501.1105, L3300.6900, L100.0100, L3410.1200, L3410.1300, L3100.5700, L400.0001 ####[facility] [address] [place], [place], [address] Complement C3on 07-24-2024 COMP C3 109 mg/dL Normal 82-167 [facility] Comment on above: Performed By: #### L 502.0250, L3100.8408, L3100.5500, L3410.0800, L500.3400, L3100.5475, L3300.6820, L3410.4010, L101.9900, L3100.9100, L501.6710, L3100.5800, L3410.0500, L3100.9400, L3410.0700, L3410.9992, L4500.0100, L501.1105, L3300.6900, L100.0100, L3410.1200, L3410.1300, L3100.5700, L400.0001 ####[facility] [address] [place], [place], [address] Complement C4on 07-24-2024 COMPLEMENT, C4 24 mg/dL Normal 12-38 [facility] Comment on above: Performed By: #### L 502.0250, L3100.8408, L3100.5500, L3410.0800, L500.3400, L3100.5475, L3300.6820, L3410.4010, L101.9900, L3100.9100, L501.6710, L3100.5800, L3410.0500, L3100.9400, L3410.0700, L3410.9992, L4500.0100, L501.1105, L3300.6900, L100.0100, L3410.1200, L3410.1300, L3100.5700, L400.0001 ####[facility] [address] [facility] [place], [address] Lupus Anticoagulant Compon 0 - aPTT Coag (Bld) [Time] 38.1 s Normal 0.0-43.5 [facility] Comment on above: Performed By: #### L 502.0250, L3100.8408, L3100.5500, L3410.0800, L500.3400, L3100.5475, L3300.6820, L3410.4010, L101.9900, L3100.9100, L501.6710, L3100.5800, L3410.0500, L3100.9400, L3410.0700, L3410.9992, L4500.0100, L501.1105, L3300.6900, L100.0100, L3410.1200, L3410.1300, L3100.5700, L400.0001 ####[facility] [address] [place], [address] DILUTE PT (dPT) 39.4 sec Normal 0.0-47.6 [facility] Comment on above: Performed By: #### L 502.0250, L3100.8408, L3100.5500, L3410.0800, L500.3400, L3100.5475, L3300.6820, L3410.4010, L101.9900, L3100.9100, L501.6710, L3100.5800, L3410.0500, L3100.9400, L3410.0700, L3410.9992, L4500.0100, L501.1105, L3300.6900, L100.0100, L3410.1200, L3410.1300, L3100.5700, L400.0001 ####[facility] [address] [place], [place], [address] dPT Conf. Ratio 1.06 Ratio Normal 0.00-1.34 [facility] Comment on above: Performed By: #### L 502.0250, L3100.8408, L3100.5500, L3410.0800, L500.3400, L3100.5475, L3300.6820, L3410.4010, L101.9900, L3100.9100, L501.6710, L3100.5800, L3410.0500, L3100.9400, L3410.0700, L3410.9992, L4500.0100, L501.1105, L3300.6900, L100.0100, L3410.1200, L3410.1300, L3100.5700, L400.0001 ####[facility] [address] [place], [place], [address] DRVVT 42.4 sec Normal 0.0-47.0 [facility] Comment on above: Performed By: #### L 502.0250, L3100.8408, L3100.5500, L3410.0800, L500.3400, L3100.5475, L3300.6820, L3410.4010, L101.9900, L3100.9100, L501.6710, L3100.5800, L3410.0500, L3100.9400, L3410.0700, L3410.9992, L4500.0100, L501.1105, L3300.6900, L100.0100, L3410.1200, L3410.1300, L3100.5700, L400.0001 ####[facility] [address] [place], [place], [address] Interpretation Comment: Normal . [facility] [place] Comment on above: Result Comment: No l upus anticoagulant was detected. Performed By: #### L 502.0250, L3100.8408, L3100.5500, L3410.0800, L500.3400, L3100.5475, L3300.6820, L3410.4010, L101.9900, L3100.9100, L501.6710, L3100.5800, L3410.0500, L3100.9400, L3410.0700, L3410.9992, L4500.0100, L501.1105, L3300.6900, L100.0100, L3410.1200, L3410.1300, L3100.5700, L400.0001 ####[facility] [place] [address] [place], [address] THROMBIN TIME 21.9 sec Normal 0.0-23.0 [facility] [place] Comment on above: Performed By: #### L 502.0250, L3100.8408, L3100.5500, L3410.0800, L500.3400, L3100.5475, L3300.6820, L3410.4010, L101.9900, L3100.9100, L501.6710, L3100.5800, L3410.0500, L3100.9400, L3410.0700, L3410.9992, L4500.0100, L501.1105, L3300.6900, L100.0100, L3410.1200, L3410.1300, L3100.5700, L400.0001 ####[facility] [place] [address] [place], [address] Thyroglobulin w/Anti-TG ABon 07-24-2024 Anti-TG AB 3.4 IU/mL High 0.0-0.9 [facility] [place] Comment on above: Result Comment: Thyr oglobulin Antibody measured by [facility] [place] Methodology It should be noted that the presence of thyroglobulin antibodies may not be pathogenic nor diagnostic, especially at very low levels. The assay campaign specialist has found that four percent of individuals without evidence of thyroid disease or autoimmunity will have positive TgAb levels up to 4 IU/mL. Performed By: #### L 502.0250, L3100.8408, L3100.5500, L3410.0800, L500.3400, L3100.5475, L3300.6820, L3410.4010, L101.9900, L3100.9100, L501.6710, L3100.5800, L3410.0500, L3100.9400, L3410.0700, L3410.9992, L4500.0100, L501.1105, L3300.6900, L100.0100, L3410.1200, L3410.1300, L3100.5700, L400.0001 ####[facility] [place] [address] [place], [address] TG-ALEXANDRA 15 ng/mL Normal . [facility] [place] Comment on above: Result Comment: This test was developed and its performance characteristics determined by [employer]. It has not been cleared or approved [...] is 2.0 ng/mL. Performed By: #### L 502.0250, L3100.8408, L3100.5500, L3410.0800, L500.3400, L3100.5475, L3300.6820, L3410.4010, L101.9900, L3100.9100, L501.6710, L3100.5800, L3410.0500, L3100.9400, L3410.0700, L3410.9992, L4500.0100, L501.1105, L3300.6900, L100.0100, L3410.1200, L3410.1300, L3100.5700, L400.0001 ####[facility] [place] [address] [place], [place], [phone] Thyroid Peroxidase ABon 05-2 THYR PEROX AB 127 IU/mL High 0-34 [facility] [place] Comment on above: Result Comment: Perf ormed at: - [facility] [id number] [employer] Supervisor: Qi Carney MD, Phone: [phone] Performed at: [facility] [address] [id number] [employer] Supervisor: Dallin Vizcaino PhD, Phone: [phone] Performed at: [facility] [address] [place] [id number] [employer] Supervisor: Johnnie Beavers MD, Phone: [phone] Performed By: #### L 502.0250, L3100.8408, L3100.5500, L3410.0800, L500.3400, L3100.5475, L3300.6820, L3410.4010, L101.9900, L3100.9100, L501.6710, L3100.5800, L3410.0500, L3100.9400, L3410.0700, L3410.9992, L4500.0100, L501.1105, L3300.6900, L100.0100, L3410.1200, L3410.1300, L3100.5700, L400.0001 ####[facility] [place] [address] [place], [place], [address] L3410.9992on 07-19-2024 [facility]. COMMENT Normal . [facility] [place] Comment on above: Order Comment: [id number] 3ANTICHROMATIN AB SERUM RF Result Comment: Test Ordered: [id number] Anti-Chromatin Ab, IgG (RDL) Anti-Chromatin Ab, IgG (RDL) <20 Units ESECF Reference Range: <20 Negative: <20 Weak Positive: 20-39 Moderate Positive: 40-80 Strong Positive: >80 Performed at: [facility] [address] [place] [id number] [employer] Supervisor: Johnnie Beavers MD, Phone: [phone] Performed at: [address] [id number] [employer] Supervisor: Dallin Vizcaino PhD, Phone: [phone] Performed By: #### L 3410.9992 ####[facility] [place] [address] [place], [address] ANTINUCLEAR ANTIBODIES DIREC Ton 07-17-2024 MARIE,DIRECT Positive Abnormal Negative [facility] [place] Comment on above: Result Comment: Perf ormed at: [address] [id number] [employer] Supervisor: Dallin Vizcaino PhD, Phone: [phone] Performed at: [address] [id number] [employer] Supervisor: Qi Carney MD, Phone: [phone] Performed By: #### L 502.0250, L3100.8408, L3100.5500, L3410.0800, L500.3400, L3100.5475, L3300.6820, L3410.4010, L101.9900, L3100.9100, L501.6710, L3100.5800, L3410.0500, L3100.9400, L3410.0700, L3410.9992, L4500.0100, L501.1105, L3300.6900, L100.0100, L3410.1200, L3410.1300, L3100.5700, L400.0001 ####[facility] [place] [address] [place], [address] Anti-Centromere B Abon 07-17 ANTI-CENT B AB <0.2 Normal 0.0-0.9 [facility] [place] Comment on above: Result Comment: AMENDED REPORT 07/17/24 1308 ANTI-CENT B previously reported as: Test not performed Performed By: #### L 502.0250, L3100.8408, L3100.5500, L3410.0800, L500.3400, L3100.5475, L3300.6820, L3410.4010, L101.9900, L3100.9100, L501.6710, L3100.5800, L3410.0500, L3100.9400, L3410.0700, L3410.9992, L4500.0100, L501.1105, L3300.6900, L100.0100, L3410.1200, L3410.1300, L3100.5700, L400.0001 ####[facility] [place] [address] [facility] [place], [place], [phone] Anti-Histone Abson ANTI-HISTONE AB 0.3 Units Normal 0.0-0.9 [facility] [place] Comment on above: Result Comment: Nega tive <1.0 Weak Positive 1.0 - 1.5 Moderate Positive 1.6 - 2.5 Strong Positive >2.5 Performed By: #### L 502.0250, L3100.8408, L3100.5500, L3410.0800, L500.3400, L3100.5475, L3300.6820, L3410.4010, L101.9900, L3100.9100, L501.6710, L3100.5800, L3410.0500, L3100.9400, L3410.0700, L3410.9992, L4500.0100, L501.1105, L3300.6900, L100.0100, L3410.1200, L3410.1300, L3100.5700, L400.0001 ####[facility] [place] [address] [facility] [place], [place], [phone] Anti-Rocky 07-17-2024 ANTI-TERRI-1 <0.2 Normal 0.0-0.9 [facility] [place] Comment on above: Result Comment: AMENDED REPORT 07/17/24 1308 ANTI-TERRI previously reported as: Test not performed Performed By: #### L 502.0250, L3100.8408, L3100.5500, L3410.0800, L500.3400, L3100.5475, L3300.6820, L3410.4010, L101.9900, L3100.9100, L501.6710, L3100.5800, L3410.0500, L3100.9400, L3410.0700, L3410.9992, L4500.0100, L501.1105, L3300.6900, L100.0100, L3410.1200, L3410.1300, L3100.5700, L400.0001 ####[facility] [place] [address] [place], [address] Xynd-Byjbdobuiqd-18 [facility] ANTISCLERODERM <0.2 Normal 0.0-0.9 [facility] [place] Comment on above: Result Comment: AMENDED REPORT 07/17/24 1308 ANTISCLER previously reported as: Test not performed Performed By: #### L 502.0250, L3100.8408, L3100.5500, L3410.0800, L500.3400, L3100.5475, L3300.6820, L3410.4010, L101.9900, L3100.9100, L501.6710, L3100.5800, L3410.0500, L3100.9400, L3410.0700, L3410.9992, L4500.0100, L501.1105, L3300.6900, L100.0100, L3410.1200, L3410.1300, L3100.5700, L400.0001 ####[facility] [place] [address] [place], [address] Anti-dsDNA [facility] 07-17-2024 ANTI-DNA (DS)AB <1 Normal 0-9 [facility] [place] Comment on above: Result Comment: Nega tive <5 Equivocal 5 - 9 Positive >9 Performed By: #### L 502.0250, L3100.8408, L3100.5500, L3410.0800, L500.3400, L3100.5475, L3300.6820, L3410.4010, L101.9900, L3100.9100, L501.6710, L3100.5800, L3410.0500, L3100.9400, L3410.0700, L3410.9992, L4500.0100, L501.1105, L3300.6900, L100.0100, L3410.1200, L3410.1300, L3100.5700, L400.0001 ####[facility] [place] [address] [place], [place], [address] Anti-ribosomal P Antibodieso n 07-17-2024 Antiribosomal P <0.2 Normal 0.0-0.9 [facility] [place] Comment on above: Performed By: #### L 502.0250, L3100.8408, L3100.5500, L3410.0800, L500.3400, L3100.5475, L3300.6820, L3410.4010, L101.9900, L3100.9100, L501.6710, L3100.5800, L3410.0500, L3100.9400, L3410.0700, L3410.9992, L4500.0100, L501.1105, L3300.6900, L100.0100, L3410.1200, L3410.1300, L3100.5700, L400.0001 ####[facility] [place] [address] [place], [place], [address] L3410.9992on 07-17-2024 [facility] Misc. COMMENT Normal . [facility] [place] Comment on above: Order Comment: [id number] 9ANTIPHOPHOLIPID ABS SERUM RT Result Comment: Test Ordered: [id number] Antiphospholipid Syndrome Anticardiolipin Ab,IgG,Qn <9 GPL U/mL [...] Thromb Haem 2006;4:295-306. APS Panel Interpretation Comment Reference Range: . Please refer to the Coag Studies Interp Report. Performed at: [facility] [employer] [facility] Clinical / Digital [address] [place] [id number] [employer] Supervisor: Penelope Fleming MD, Phone: [phone] Performed at: [facility] [employer] [address] [id number] [employer] Supervisor: Dallin Vizcaino PhD, Phone: [phone] Performed at: [facility] [address] [id number] [employer] Supervisor: Qi Carney MD, Phone: [phone] AMENDED REPORT 07/17/24 1308 [facility]. previously reported as: COMMENT Test Ordered: [id number] Antiphospholipid Syndrome aPTT NOLAB Reference Range: . Test not performed PT NOLAB Reference Range: . 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 Thrombin Time NOLAB [...] Thromb Haem 2006;4:295-306. APS Panel Interpretation Comment Reference Range: . Please refer to the Coag Studies Interp Report. Performed at: [facility] [employer] [facility] [address] [place] [id number] [employer] Supervisor: Penelope Fleming MD, Phone: [phone] Performed at: [facility] [employer] [address] [id number] [employer] Supervisor: Dallin Vizcaino PhD, Phone: [phone] Performed at: [facility] [address] [id number] [employer] Supervisor: Qi Carney MD, Phone: [phone] Performed By: #### L 502.0250, L3100.8408, L3100.5500, L3410.0800, L500.3400, L3100.5475, L3300.6820, L3410.4010, L101.9900, L3100.9100, L501.6710, L3100.5800, L3410.0500, L3100.9400, L3410.0700, L3410.9992, L4500.0100, L501.1105, L3300.6900, L100.0100, L3410.1200, L3410.1300, L3100.5700, L400.0001 ####[facility] [address] [place], [place], [phone] FENDER MECHANIC Abon 07-17-2024 FENDER MECHANIC Ab 1.1 AI Abnormal 0.0-0.9 [facility] [place] Comment on above: Result Comment: AMENDED REPORT 07/17/24 1308 [employer] MECHANIC Ab previously reported as: Test not performed Performed By: #### L 502.0250, L3100.8408, L3100.5500, L3410.0800, L500.3400, L3100.5475, L3300.6820, L3410.4010, L101.9900, L3100.9100, L501.6710, L3100.5800, L3410.0500, L3100.9400, L3410.0700, L3410.9992, L4500.0100, L501.1105, L3300.6900, L100.0100, L3410.1200, L3410.1300, L3100.5700, L400.0001 ####[facility] [place] [address] [place], [place], [phone] Sjogren's Antibodies A/Bon 0 07-17-2024 ANTI-SS-A < 0.2 Normal 0.0-0.9 [facility] [place] Comment on above: Performed By: #### L 502.0250, L3100.8408, L3100.5500, L3410.0800, L500.3400, L3100.5475, L3300.6820, L3410.4010, L101.9900, L3100.9100, L501.6710, L3100.5800, L3410.0500, L3100.9400, L3410.0700, L3410.9992, L4500.0100, L501.1105, L3300.6900, L100.0100, L3410.1200, L3410.1300, L3100.5700, L400.0001 ####[facility] [place] [address] [place], [address] ANTI-SS-B < 0.2 Normal 0.0-0.9 [facility] [place] Comment on above: Performed By: #### L 502.0250, L3100.8408, L3100.5500, L3410.0800, L500.3400, L3100.5475, L3300.6820, L3410.4010, L101.9900, L3100.9100, L501.6710, L3100.5800, L3410.0500, L3100.9400, L3410.0700, L3410.9992, L4500.0100, L501.1105, L3300.6900, L100.0100, L3410.1200, L3410.1300, L3100.5700, L400.0001 ####[facility] [place] [address] [place], [address] Bowman Abon 07-17-2024 BOWMAN Ab <0.2 Normal 0.0-0.9 [facility] [place] Comment on above: Result Comment: AMENDED REPORT 07/17/24 1308 BOWMAN Ab previously reported as: Test not performed Performed By: #### L 502.0250, L3100.8408, L3100.5500, L3410.0800, L500.3400, L3100.5475, L3300.6820, L3410.4010, L101.9900, L3100.9100, L501.6710, L3100.5800, L3410.0500, L3100.9400, L3410.0700, L3410.9992, L4500.0100, L501.1105, L3300.6900, L100.0100, L3410.1200, L3410.1300, L3100.5700, L400.0001 ####[facility] [place] [address] [place], [address] Serum Creatinine AND GFRon 0 07-13-2024 Creatinine [Mass/Vol] 0.78 mg/dL Normal 0.70-1.20 [facility] Comment on above: Order Comment: ADD C REATININE TO LABS DONE ON 07/12/2024 Performed By: #### L 502.0250, L3100.8408, L3100.5500, L3410.0800, L500.3400, L3100.5475, L3300.6820, L3410.4010, L101.9900, L3100.9100, L501.6710, L3100.5800, L3410.0500, L3100.9400, L3410.0700, L3410.9992, L4500.0100, L501.1105, L3300.6900, L100.0100, L3410.1200, L3410.1300, L3100.5700, L400.0001 ####[facility] [address] [place], [address] GFR/1.73 sq M.predicted among non-blacks MDRD (S/P/Bld) [Vol rate/Area] 93 mL/min/{1.73_m2} Normal >60 [facility] [place] Comment on above: Order Comment: ADD C REATININE TO LABS DONE ON 07/12/2024 Result Comment: mL/m in/1.73m2 CKD-EPI Creatinine Equation (2020) Performed By: #### L 502.0250, L3100.8408, L3100.5500, L3410.0800, L500.3400, L3100.5475, L3300.6820, L3410.4010, L101.9900, L3100.9100, L501.6710, L3100.5800, L3410.0500, L3100.9400, L3410.0700, L3410.9992, L4500.0100, L501.1105, L3300.6900, L100.0100, L3410.1200, L3410.1300, L3100.5700, L400.0001 ####[facility] [place] [address] [place], [address] Absolute lymphocyte countOrd ered By: Tanvir Torres on 07-12-2024 Lymphocytes Auto (Unsp spec) [#/Vol] 1.03 10*3/uL 0.83-4.51 [facility] Absolute neutrophil countOrd ered By: Tanvir Torres on 07-12-2024 Neutrophils (Bld) [#/Vol] 3.5 10*3/uL 2.0-7.7 [facility] [place] Automated lymphocyte count a s percentage of total leukocytesOrdered By: Tanvir Torres on 07-12-2024 Lymphocytes/100 WBC Auto (Unsp spec) 18.5 % Low 19-41 [facility] [place] Basophil percentageOrdered B y: Tanvir Torres on 07-12-2024 Basophils/100 WBC (Bld) 1.6 % High 0-1 [facility] [place] Bilirubin Test strip Ql (U)O rdered By: Tanvir Torres on 07-12-2024 Bilirubin Ql (U) Negative Negative [facility] Bilirubin directOrdered By: Tanvir Torres on 07-12-2024 Bilirubin.direct [Mass/Vol] 0.21 mg/dL 0.00-0.30 [facility] [place] Bilirubin, totalOrdered By: Tanvir Torres on 07-12-2024 Bilirubin [Mass/Vol] 0.49 mg/dL 0.00-1.30 [facility] CBC W/Diff, Automatedon Absolute Lymph 1.03 X10 3/uL Normal 0.83-4.51 [facility] [place] Comment on above: Performed By: #### L 502.0250, L3100.8408, L3100.5500, L3410.0800, L500.3400, L3100.5475, L3300.6820, L3410.4010, L101.9900, L3100.9100, L501.6710, L3100.5800, L3410.0500, L3100.9400, L3410.0700, L3410.9992, L4500.0100, L501.1105, L3300.6900, L100.0100, L3410.1200, L3410.1300, L3100.5700, L400.0001 ####[facility] [address] [place], [address] Absolute Neut 3.5 X10 3/uL Normal 2.0-7.7 [facility] [place] Comment on above: Performed By: #### L 502.0250, L3100.8408, L3100.5500, L3410.0800, L500.3400, L3100.5475, L3300.6820, L3410.4010, L101.9900, L3100.9100, L501.6710, L3100.5800, L3410.0500, L3100.9400, L3410.0700, L3410.9992, L4500.0100, L501.1105, L3300.6900, L100.0100, L3410.1200, L3410.1300, L3100.5700, L400.0001 ####[facility] [address] [facility] [place], [place], [phone]) Basophils/100 WBC (Bld) 1.6 % High 0-1 [facility] [place] Comment on above: Performed By: #### L 502.0250, L3100.8408, L3100.5500, L3410.0800, L500.3400, L3100.5475, L3300.6820, L3410.4010, L101.9900, L3100.9100, L501.6710, L3100.5800, L3410.0500, L3100.9400, L3410.0700, L3410.9992, L4500.0100, L501.1105, L3300.6900, L100.0100, L3410.1200, L3410.1300, L3100.5700, L400.0001 ####[facility] [address] [place], [place], [phone]) Eosinophils/100 WBC (Bld) 6.6 % High 0-5 [facility] [place] Comment on above: Performed By: #### L 502.0250, L3100.8408, L3100.5500, L3410.0800, L500.3400, L3100.5475, L3300.6820, L3410.4010, L101.9900, L3100.9100, L501.6710, L3100.5800, L3410.0500, L3100.9400, L3410.0700, L3410.9992, L4500.0100, L501.1105, L3300.6900, L100.0100, L3410.1200, L3410.1300, L3100.5700, L400.0001 ####[facility] [address] [facility] [place], [place], [phone] Erythrocyte distribution width (RBC) [Ratio] 12.4 % Normal 11.6-14.6 [facility] [place] Comment on above: Performed By: #### L 502.0250, L3100.8408, L3100.5500, L3410.0800, L500.3400, L3100.5475, L3300.6820, L3410.4010, L101.9900, L3100.9100, L501.6710, L3100.5800, L3410.0500, L3100.9400, L3410.0700, L3410.9992, L4500.0100, L501.1105, L3300.6900, L100.0100, L3410.1200, L3410.1300, L3100.5700, L400.0001 ####[facility] [address] [facility] [place], [place], [phone] Hematocrit (Bld) [Volume fraction] 42.5 % Normal 37-47 [facility] [place] Comment on above: Performed By: #### L 502.0250, L3100.8408, L3100.5500, L3410.0800, L500.3400, L3100.5475, L3300.6820, L3410.4010, L101.9900, L3100.9100, L501.6710, L3100.5800, L3410.0500, L3100.9400, L3410.0700, L3410.9992, L4500.0100, L501.1105, L3300.6900, L100.0100, L3410.1200, L3410.1300, L3100.5700, L400.0001 ####[facility] [address] [facility] [place], [place], [phone] Hemoglobin (Bld) [Mass/Vol] 14.3 g/dL Normal 12.0-15.0 [facility] [place] Comment on above: Performed By: #### L 502.0250, L3100.8408, L3100.5500, L3410.0800, L500.3400, L3100.5475, L3300.6820, L3410.4010, L101.9900, L3100.9100, L501.6710, L3100.5800, L3410.0500, L3100.9400, L3410.0700, L3410.9992, L4500.0100, L501.1105, L3300.6900, L100.0100, L3410.1200, L3410.1300, L3100.5700, L400.0001 ####[facility] [address] [facility] [place], [place], [phone] IG% 0.400 Normal 0.0-0.9 [facility] Comment on above: Result Comment: IG% - Immature Granulocytes (promyelocytes, myelocytes and metamyelocytes) > 1% indicates that a LEFT SHIFT is Present. Performed By: #### L 502.0250, L3100.8408, L3100.5500, L3410.0800, L500.3400, L3100.5475, L3300.6820, L3410.4010, L101.9900, L3100.9100, L501.6710, L3100.5800, L3410.0500, L3100.9400, L3410.0700, L3410.9992, L4500.0100, L501.1105, L3300.6900, L100.0100, L3410.1200, L3410.1300, L3100.5700, L400.0001 ####[facility] [address] [place], [address] Lymphocytes/100 WBC (Bld) 18.5 % Low 19-41 [facility] Comment on above: Performed By: #### L 502.0250, L3100.8408, L3100.5500, L3410.0800, L500.3400, L3100.5475, L3300.6820, L3410.4010, L101.9900, L3100.9100, L501.6710, L3100.5800, L3410.0500, L3100.9400, L3410.0700, L3410.9992, L4500.0100, L501.1105, L3300.6900, L100.0100, L3410.1200, L3410.1300, L3100.5700, L400.0001 ####[facility] [address] [place], [place], [id number] MCH (RBC) [Entitic mass] 31.8 pg Normal 27.0-32.0 [facility] Comment on above: Performed By: #### L 502.0250, L3100.8408, L3100.5500, L3410.0800, L500.3400, L3100.5475, L3300.6820, L3410.4010, L101.9900, L3100.9100, L501.6710, L3100.5800, L3410.0500, L3100.9400, L3410.0700, L3410.9992, L4500.0100, L501.1105, L3300.6900, L100.0100, L3410.1200, L3410.1300, L3100.5700, L400.0001 ####[facility] [address] [place], [address] MCHC (RBC) [Mass/Vol] 33.6 g/dL Normal 32-36 [facility] Comment on above: Performed By: #### L 502.0250, L3100.8408, L3100.5500, L3410.0800, L500.3400, L3100.5475, L3300.6820, L3410.4010, L101.9900, L3100.9100, L501.6710, L3100.5800, L3410.0500, L3100.9400, L3410.0700, L3410.9992, L4500.0100, L501.1105, L3300.6900, L100.0100, L3410.1200, L3410.1300, L3100.5700, L400.0001 ####[facility] [address] [facility] [place], [place], [phone] MCV (RBC) [Entitic vol] 94.4 fL Normal 81-99 [facility] Comment on above: Performed By: #### L 502.0250, L3100.8408, L3100.5500, L3410.0800, L500.3400, L3100.5475, L3300.6820, L3410.4010, L101.9900, L3100.9100, L501.6710, L3100.5800, L3410.0500, L3100.9400, L3410.0700, L3410.9992, L4500.0100, L501.1105, L3300.6900, L100.0100, L3410.1200, L3410.1300, L3100.5700, L400.0001 ####[facility] [id number] [place], [address] Monocytes/100 WBC (Bld) 9.5 % Normal 0-10 [facility] Comment on above: Performed By: #### L 502.0250, L3100.8408, L3100.5500, L3410.0800, L500.3400, L3100.5475, L3300.6820, L3410.4010, L101.9900, L3100.9100, L501.6710, L3100.5800, L3410.0500, L3100.9400, L3410.0700, L3410.9992, L4500.0100, L501.1105, L3300.6900, L100.0100, L3410.1200, L3410.1300, L3100.5700, L400.0001 ####[facility] [address] [place], [address] Neutrophils/100 WBC (Bld) 63.4 % Normal 47-70 [facility] Comment on above: Performed By: #### L 502.0250, L3100.8408, L3100.5500, L3410.0800, L500.3400, L3100.5475, L3300.6820, L3410.4010, L101.9900, L3100.9100, L501.6710, L3100.5800, L3410.0500, L3100.9400, L3410.0700, L3410.9992, L4500.0100, L501.1105, L3300.6900, L100.0100, L3410.1200, L3410.1300, L3100.5700, L400.0001 ####[facility] [address] [place], [place], [phone]) Nucleated RBC (Bld) [#/Vol] 0 10*3/uL Normal 0-5 [facility] Comment on above: Performed By: #### L 502.0250, L3100.8408, L3100.5500, L3410.0800, L500.3400, L3100.5475, L3300.6820, L3410.4010, L101.9900, L3100.9100, L501.6710, L3100.5800, L3410.0500, L3100.9400, L3410.0700, L3410.9992, L4500.0100, L501.1105, L3300.6900, L100.0100, L3410.1200, L3410.1300, L3100.5700, L400.0001 ####[facility] [address] [place], [place], [phone](388) Platelet mean volume (Bld) [Entitic vol] 11.5 fL Normal 6.2-12.0 [facility] Comment on above: Performed By: #### L 502.0250, L3100.8408, L3100.5500, L3410.0800, L500.3400, L3100.5475, L3300.6820, L3410.4010, L101.9900, L3100.9100, L501.6710, L3100.5800, L3410.0500, L3100.9400, L3410.0700, L3410.9992, L4500.0100, L501.1105, L3300.6900, L100.0100, L3410.1200, L3410.1300, L3100.5700, L400.0001 ####[facility] [address] [facility] [place], [place], [phone]) Platelets (Bld) [#/Vol] 185 10*3/uL Normal 150-450 [facility] Comment on above: Performed By: #### L 502.0250, L3100.8408, L3100.5500, L3410.0800, L500.3400, L3100.5475, L3300.6820, L3410.4010, L101.9900, L3100.9100, L501.6710, L3100.5800, L3410.0500, L3100.9400, L3410.0700, L3410.9992, L4500.0100, L501.1105, L3300.6900, L100.0100, L3410.1200, L3410.1300, L3100.5700, L400.0001 ####[facility] [address] [place], [place], [phone] RBC (Bld) [#/Vol] 4.50 10*6/uL Normal 4.2-5.4 [facility] Comment on above: Performed By: #### L 502.0250, L3100.8408, L3100.5500, L3410.0800, L500.3400, L3100.5475, L3300.6820, L3410.4010, L101.9900, L3100.9100, L501.6710, L3100.5800, L3410.0500, L3100.9400, L3410.0700, L3410.9992, L4500.0100, L501.1105, L3300.6900, L100.0100, L3410.1200, L3410.1300, L3100.5700, L400.0001 ####[facility] [address] [place], [address] RDW SD 43.3 fl Normal 35.1-43.9 [facility] Comment on above: Performed By: #### L 502.0250, L3100.8408, L3100.5500, L3410.0800, L500.3400, L3100.5475, L3300.6820, L3410.4010, L101.9900, L3100.9100, L501.6710, L3100.5800, L3410.0500, L3100.9400, L3410.0700, L3410.9992, L4500.0100, L501.1105, L3300.6900, L100.0100, L3410.1200, L3410.1300, L3100.5700, L400.0001 ####[facility] [address] [facility] [place], [place], [phone] WBC (Bld) [#/Vol] 5.6 10*3/uL Normal 4.4-11.0 [facility] Comment on above: Performed By: #### L 502.0250, L3100.8408, L3100.5500, L3410.0800, L500.3400, L3100.5475, L3300.6820, L3410.4010, L101.9900, L3100.9100, L501.6710, L3100.5800, L3410.0500, L3100.9400, L3410.0700, L3410.9992, L4500.0100, L501.1105, L3300.6900, L100.0100, L3410.1200, L3410.1300, L3100.5700, L400.0001 ####[facility] [address] [place], [place], [phone] CRPon 07-12-2024 C-REACTIVE PROT < 3.00 Normal 0.0-3.0 [facility] Comment on above: Performed By: #### L 502.0250, L3100.8408, L3100.5500, L3410.0800, L500.3400, L3100.5475, L3300.6820, L3410.4010, L101.9900, L3100.9100, L501.6710, L3100.5800, L3410.0500, L3100.9400, L3410.0700, L3410.9992, L4500.0100, L501.1105, L3300.6900, L100.0100, L3410.1200, L3410.1300, L3100.5700, L400.0001 ####[facility] [address] [place], [place], [phone] Dilute Wil's viper venom timeOrdered By: Tanvir Torres on 07-12-2024 dRVVT Coag (PPP) [Time] 42.4 s 0.0-47.0 [facility] Eosinophil percentageOrdered By: Tanvir Torres on 07-12-2024 Eosinophils/100 WBC (Bld) 6.6 % High 0-5 [facility] Erythrocyte Sed Rateon 07-12 SED RATE 4 mm/hr Normal 0-30 [facility] Comment on above: Performed By: #### L 502.0250, L3100.8408, L3100.5500, L3410.0800, L500.3400, L3100.5475, L3300.6820, L3410.4010, L101.9900, L3100.9100, L501.6710, L3100.5800, L3410.0500, L3100.9400, L3410.0700, L3410.9992, L4500.0100, L501.1105, L3300.6900, L100.0100, L3410.1200, L3410.1300, L3100.5700, L400.0001 ####[facility] [address] [place], [address] Erythrocyte distribution wid th ratioOrdered By: Tanvir Torres on 07-12-2024 Erythrocyte distribution width (RBC) [Ratio] 12.4 % 11.6-14.6 [facility] Erythrocyte distribution wid th standard deviationOrdered By: Tanvir Torres on 07-12-2024 Erythrocyte distribution width (RBC) [Ratio] 43.3 fl 35.1-43.9 [facility] Erythrocyte sedimentation ra teOrdered By: Tanvir Torres on 07-12-2024 ESR (Bld) [Velocity] 4 mm/h 0-30 [facility] Foot min 3 Viewson 5 Foot min 3 Views [facility] Imaging Services [address] [place], [place] [address] Foot min 3 Views MR#: [id number] Acct: [id number] Name: RANGEL TRENT Rep #: [id number] : 1975 F 49 From: Juan Denise MD PCP: Dr. Stephanie Hedrick DO Status: REG CLI Study: Foot min 3 Views Date of Exam: 07/12/24 Exam# [id number] Ordering Dr: Tanvir Torres MD EXAM: DX [...] Tanvir Torres MD; Dr. Stephanie Hedrick DO Color Dipper: Signed Normal [facility] Glomerular filtration rate ( GFR) estimation/1.73 sq m using serum, plasma, or whole bOrdered By: Tanvir Torres on 07-12-2024 GFR/1.73 sq M.predicted among non-blacks MDRD (S/P/Bld) [Vol rate/Area] 93 mL/min/{1.73_m2} >60 [facility] Comment on above: mL/min/1.73m2 CKD-EP I Creatinine Equation (2020) Hand Min 3 Viewson Hand Min [address] [facility] [address] [place], [place] [address] Hand Min 3 Views MR#: [id number] Acct: [id number] Name: RANGEL TRENT Rep #: [id number] : 1975 F 49 From: Juan Denise MD PCP: Dr. Stephanie Hedrick DO Status: REG CLI Study: Hand Min 3 Views Date of Exam: 07/12/24 Exam# [id number] Ordering Dr: Tanvir Torres MD PROCEDURE: HAND [...] Tanvir Torres MD; Dr. Stephanie Hedrick DO Color Dipper: Signed Normal [facility] Hand Min [address] [facility] [address] [place], [place] [address] Hand Min 3 Views MR#: [id number] Acct: [id number] Name: RANGEL TRENT Rep #: [id number] : 1975 F 49 From: Juan Denise MD PCP: Dr. Stephanie Hedrick DO Status: REG CLI Study: Hand Min 3 Views Date of Exam: 07/12/24 Exam# [id number] Ordering Dr: Tanvir Torres MD PROCEDURE: HAND [...] Tanvir Torres MD; Dr. Stephanie Hedrick DO Color Dipper: Signed Normal [facility] Hematocrit Auto (Bld) [Volum e fraction]Ordered By: Tanvir Torres on 07-12-2024 Hematocrit (Bld) [Volume fraction] 42.5 % 37-47 [facility] Hemoglobin measurementOrdere d By: Tanvir Torres on 07-12-2024 Hemoglobin (Bld) [Mass/Vol] 14.3 g/dL 12.0-15.0 [facility] Immature granulocytes/100 WB C Auto (Bld)Ordered By: Tanvir Torres on 07-12-2024 Immature granulocytes/100 WBC (Bld) 0.400 % 0.0-0.9 [facility] Comment on above: IG% - Immature Granu locytes (promyelocytes, myelocytes and metamyelocytes) > 1% indicates that a LEFT SHIFT is Present. Ketones Test strip Ql (U)Ord ered By: Tanvir Torres on 07-12-2024 Ketones Ql (U) Negative Negative [facility] Laboratory - Chemistry and C hemistry - challengeOrdered By: Tanvir Torres on 07-12-2024 AST [Catalytic activity/Vol] 19 U/L <32 [facility] Liver Profileon 07-12-2024 Albumin [Mass/Vol] 4.8 g/dL Normal 3.5-5.0 [facility] Comment on above: Performed By: #### L 502.0250, L3100.8408, L3100.5500, L3410.0800, L500.3400, L3100.5475, L3300.6820, L3410.4010, L101.9900, L3100.9100, L501.6710, L3100.5800, L3410.0500, L3100.9400, L3410.0700, L3410.9992, L4500.0100, L501.1105, L3300.6900, L100.0100, L3410.1200, L3410.1300, L3100.5700, L400.0001 ####[facility] [address] [place], [place], [phone] ALK PHOS 49 U/L Normal 35-104 [facility] Comment on above: Performed By: #### L 502.0250, L3100.8408, L3100.5500, L3410.0800, L500.3400, L3100.5475, L3300.6820, L3410.4010, L101.9900, L3100.9100, L501.6710, L3100.5800, L3410.0500, L3100.9400, L3410.0700, L3410.9992, L4500.0100, L501.1105, L3300.6900, L100.0100, L3410.1200, L3410.1300, L3100.5700, L400.0001 ####[facility] [address] [place], [address] ALT [Catalytic activity/Vol] 14 U/L Normal <=34 [facility] Comment on above: Performed By: #### L 502.0250, L3100.8408, L3100.5500, L3410.0800, L500.3400, L3100.5475, L3300.6820, L3410.4010, L101.9900, L3100.9100, L501.6710, L3100.5800, L3410.0500, L3100.9400, L3410.0700, L3410.9992, L4500.0100, L501.1105, L3300.6900, L100.0100, L3410.1200, L3410.1300, L3100.5700, L400.0001 ####[facility] [address] [place], [address] AST [Catalytic activity/Vol] 19 U/L Normal <=31 [facility] Comment on above: Performed By: #### L 502.0250, L3100.8408, L3100.5500, L3410.0800, L500.3400, L3100.5475, L3300.6820, L3410.4010, L101.9900, L3100.9100, L501.6710, L3100.5800, L3410.0500, L3100.9400, L3410.0700, L3410.9992, L4500.0100, L501.1105, L3300.6900, L100.0100, L3410.1200, L3410.1300, L3100.5700, L400.0001 ####[facility] [address] [facility] [place], [place], [phone] Bilirubin [Mass/Vol] 0.49 mg/dL Normal 0.00-1.30 [facility] Comment on above: Performed By: #### L 502.0250, L3100.8408, L3100.5500, L3410.0800, L500.3400, L3100.5475, L3300.6820, L3410.4010, L101.9900, L3100.9100, L501.6710, L3100.5800, L3410.0500, L3100.9400, L3410.0700, L3410.9992, L4500.0100, L501.1105, L3300.6900, L100.0100, L3410.1200, L3410.1300, L3100.5700, L400.0001 ####[facility] [address] [place], [place], [phone](885) Bilirubin.direct [Mass/Vol] 0.21 mg/dL Normal 0.00-0.30 [facility] Comment on above: Performed By: #### L 502.0250, L3100.8408, L3100.5500, L3410.0800, L500.3400, L3100.5475, L3300.6820, L3410.4010, L101.9900, L3100.9100, L501.6710, L3100.5800, L3410.0500, L3100.9400, L3410.0700, L3410.9992, L4500.0100, L501.1105, L3300.6900, L100.0100, L3410.1200, L3410.1300, L3100.5700, L400.0001 ####[facility] [address] [place], [place], [phone](289) Globulin (S) [Mass/Vol] 2.8 g/dL Normal 2.2-4.2 [facility] Comment on above: Performed By: #### L 502.0250, L3100.8408, L3100.5500, L3410.0800, L500.3400, L3100.5475, L3300.6820, L3410.4010, L101.9900, L3100.9100, L501.6710, L3100.5800, L3410.0500, L3100.9400, L3410.0700, L3410.9992, L4500.0100, L501.1105, L3300.6900, L100.0100, L3410.1200, L3410.1300, L3100.5700, L400.0001 ####[facility] [address] [place], [place], [phone](646) T PROT 7.6 g/dL Normal 5.9-8.4 [facility] Comment on above: Performed By: #### L 502.0250, L3100.8408, L3100.5500, L3410.0800, L500.3400, L3100.5475, L3300.6820, L3410.4010, L101.9900, L3100.9100, L501.6710, L3100.5800, L3410.0500, L3100.9400, L3410.0700, L3410.9992, L4500.0100, L501.1105, L3300.6900, L100.0100, L3410.1200, L3410.1300, L3100.5700, L400.0001 ####[facility] [address] [place], [place], [phone] MCV (mean corpuscular volume ) determinationOrdered By: Tanvir Torres on 07-12-2024 MCV (RBC) [Entitic vol] 94.4 fL 81-99 [facility] Mean corpuscular hemoglobin (MCH) determinationOrdered By: Tanvir Torres on 07-12-2024 MCH (RBC) [Entitic mass] 31.8 pg 27.0-32.0 [facility] Mean corpuscular hemoglobin concentration (MCHC) determinationOrdered By: Tanvir Torres on 07-12-2024 MCHC (RBC) [Mass/Vol] 33.6 g/dL 32-36 [facility] Mean platelet volume determi nationOrdered By: Tanvir Torres on 07-12-2024 Platelet mean volume (Bld) [Entitic vol] 11.5 fL 6.2-12.0 [facility] Microalb:Creat Ratio,Random URon 07-12-2024 Creatinine [Mass/Vol] 25.60 mg/dL Low 28.00- 217. 00 [facility] Comment on above: Performed By: #### L 502.0250, L3100.8408, L3100.5500, L3410.0800, L500.3400, L3100.5475, L3300.6820, L3410.4010, L101.9900, L3100.9100, L501.6710, L3100.5800, L3410.0500, L3100.9400, L3410.0700, L3410.9992, L4500.0100, L501.1105, L3300.6900, L100.0100, L3410.1200, L3410.1300, L3100.5700, L400.0001 ####[facility] [address] [place], [place], [phone] MALB:CREAT UNABLE TO CALCULATE Normal [facility] Comment on above: Performed By: #### L 502.0250, L3100.8408, L3100.5500, L3410.0800, L500.3400, L3100.5475, L3300.6820, L3410.4010, L101.9900, L3100.9100, L501.6710, L3100.5800, L3410.0500, L3100.9400, L3410.0700, L3410.9992, L4500.0100, L501.1105, L3300.6900, L100.0100, L3410.1200, L3410.1300, L3100.5700, L400.0001 ####[facility] [address] [place], [place], [phone] MICROALBUMIN,UR < 12.0 Normal NO RANGE EST. [facility] Comment on above: Performed By: #### L 502.0250, L3100.8408, L3100.5500, L3410.0800, L500.3400, L3100.5475, L3300.6820, L3410.4010, L101.9900, L3100.9100, L501.6710, L3100.5800, L3410.0500, L3100.9400, L3410.0700, L3410.9992, L4500.0100, L501.1105, L3300.6900, L100.0100, L3410.1200, L3410.1300, L3100.5700, L400.0001 ####[facility] [address] [place], [address] Microalbumin/creat ratio urO rdered By: Tanvir Torres on 07-12-2024 Urine microalbumin/creatinin e ratio measurement UNABLE TO CALCULATE mg/g CRE [facility] Microscopic analysis of urin e for red blood cells (RBC)Ordered By: Tanvir Torres on 07-12-2024 Microscopic analysis of urine for red blood cells (RBC) 0-5 SEEN /hpf 0-5 [facility] Monocyte percentageOrdered B y: Tanvir Torres on 07-12-2024 Monocytes/100 WBC (Bld) 9.5 % 0-10 [facility] Mucus LM Ql (Urine sed)Order ed By: Tanvir Torres on 07-12-2024 Mucus Ql (Urine sed) 0 SEEN /hpf [facility] Neutrophil percentageOrdered By: Tanvir Torres on 07-12-2024 Neutrophils/100 WBC (Bld) 63.4 % 47-70 [facility] Nitrite Test strip Ql (U)Ord ered By: Tanvir Torres on 07-12-2024 Nitrite Ql (U) Negative Negative [facility] Nucleated red blood cell per centageOrdered By: Tanvir Torres on 07-12-2024 Nucleated RBC/100 WBC (Bld) [Ratio] 0 % 0-5 [facility] Platelet countOrdered By: Terri Torres on 07-12-2024 Platelets (Bld) [#/Vol] 185 10*3/uL 150-450 [facility] Protein Test strip Ql (U)Ord ered By: Tanvir Torres on 07-12-2024 Protein Ql (U) 15 mg/dl High Negative [facility] RBC Auto (Bld) [#/Vol]Ordere d By: Tanvir Torres on 07-12-2024 RBC (Bld) [#/Vol] 4.50 10*6/uL 4.2-5.4 [facility] Random urine creatinine moises urement (mass/volume)Ordered By: Tanvir Torres on 07-12-2024 Creatinine Unsp time (U) [Mass/Vol] 25.60 mg/dL Low 28.00-217. 00 [facility] Serum DNA double strand anti body assay (units/volume)Ordered By: Tanvir Torres on 07-12-2024 DNA double strand Ab Qn (S) [IU]/mL 0-9 [facility] Comment on above: Negative <5 Equivoca l 5 - 9 Positive >9 Serum Scl-70 antibody assay (units/volume)Ordered By: Tanvir Torres on 07-12-2024 SCL-70 extractable nuclear Ab Qn (S) <0.2 AI 0.0-0.9 [facility] Comment on above: Previous reported re sult: TNP AIEdited by: CHARY on 07/17/24:1308 AMENDED REPORT 07/17/24 [id number] ANTISCLER previously reported as: Test not performed Serum cardiolipin IgG antibo dy assay by immunoassay (units/volume)Ordered By: Tanvir Torres on 07-12-2024 Cardiolipin IgG IA Qn (S) < 9 GPL U/mL 0-14 [facility] Comment on above: Negative: <15 Indete rminate: 15 - 20 Low-Med Positive: >20 - 80 High Positive: >80 Serum creatinine measurement (mass/volume)Ordered By: Tanvir Torres on 07-12-2024 Creatinine [Mass/Vol] 0.78 mg/dL 0.70-1.20 [facility] Serum globulin measurementOr dered By: Tanvir Torres on 07-12-2024 Globulin (S) [Mass/Vol] 2.8 g/dL 2.2-4.2 [facility] Serum histone antibody assay (units/volume)Ordered By: Tanvir Torres on 07-12-2024 Histone Ab Qn (S) 0.3 Units 0.0-0.9 [facility] Comment on above: Negative <1.0 Weak P ositive 1.0 - 1.5 Moderate Positive 1.6 - 2.5 Strong Positive >2.5 Serum or plasma C reactive p rotein measurement (mass/volume)Ordered By: Tanvir Torres on 07-12-2024 CRP [Mass/Vol] mg/L 0.0-3.0 [facility] Serum or plasma alanine wilcox otransferase (ALT) measurementOrdered By: Tanvir Torres on 07-12-2024 ALT [Catalytic activity/Vol] 14 U/L <35 [facility] Serum or plasma albumin moises urement (mass/volume)Ordered By: Tanvir Torres on 07-12-2024 Albumin [Mass/Vol] 4.8 g/dL 3.5-5.0 [facility] Serum or plasma alkaline matt sphatase measurementOrdered By: Tanvir Torres on 07-12-2024 ALP [Catalytic activity/Vol] 49 U/L 35-104 [facility] Serum or plasma cardiolipin IgA antibody assay (units/volume)Ordered By: Tanvir Torres on 07-12-2024 Cardiolipin IgA Qn < 9 APL U/mL 0-11 [facility] Comment on above: Negative: <12 Indete rminate: 12 - 20 Low-Med Positive: >20 - 80 High Positive: >80 Serum or plasma complement C 4 measurement (mass/volume)Ordered By: Tanvir Torres on 07-12-2024 Complement C4 [Mass/Vol] 24 mg/dL 12-38 [facility] Serum or plasma thyroperoxid ase antibody assay (units/volume)Ordered By: Tanvir Torres on 07-12-2024 TPO Ab Qn 127 [IU]/mL High 0-34 [facility] Comment on above: Performed at: [employer] [facility] [address] [id number] Director: Qi Carney MD, Phone: [phone] at: CB - [facility] [address] [id number] Director: Dallin Vizcaino PhD, Phone: [phone] at: ES - [facility] [address] [id number] Director: Johnnie Beavers MD, Phone: [phone] Squamous epithelial cells de tection in urine sediment by light microscopyOrdered By: Tanvir Torres on 07-12-2024 Epithelial cells.squamous LM Ql (Urine sed) 0-5 SEEN /hpf 5-10 [facility] Thrombin timeOrdered By: Darnell Torres on 07-12-2024 Thrombin time Coag (PPP) [Time] 21.9 sec 0.0-23.0 [facility] Thyroglobulin measurement by radioimmunoassay (ALEXANDRA)Ordered By: Tanvir Torres on 07-12-2024 Thyroglobulin Ab ALEXANDRA Qn (S) 15 ng/mL . [facility] Comment on above: This test was develo ped and its performance characteristicsdetermined by [employer]. It has not been cleared or approvedby the Food and Drug Administration.Reference Range:Pubertal Childrenand Adults: <40According to the National Academy of Clinical Biochemistry,the reference interval for Thyroglobulin (TG) should berelated to euthyroid patients and not for patients whounderwent thyroidectomy. TG reference intervals for thesepatients depend on the residual mass of the thyroid tissueleft after surgery. Establishing a post-operative baselineis recommended. The assay quantitation limit is 2.0 ng/mL. Total proteinOrdered By: Darnell Torres on 07-12-2024 Protein [Mass/Vol] 7.6 g/dL 5.9-8.4 [facility] Transitional cells detection in urine sediment by light microscopyOrdered By: Tanvir Torres on 07-12-2024 Transitional cells LM Ql (Urine sed) 0-5 SEEN /hpf 0-5 [facility] Urinalysis, Completeon 07-12 EPI,SQUAMOUS 0-5 SEEN Normal 5-10 [facility] Comment on above: Order Comment: Urine , Random Performed By: #### L 502.0250, L3100.8408, L3100.5500, L3410.0800, L500.3400, L3100.5475, L3300.6820, L3410.4010, L101.9900, L3100.9100, L501.6710, L3100.5800, L3410.0500, L3100.9400, L3410.0700, L3410.9992, L4500.0100, L501.1105, L3300.6900, L100.0100, L3410.1200, L3410.1300, L3100.5700, L400.0001 ####[facility] [address] [place], [place], [id number] EPI,TRANSITION 0-5 SEEN Normal 0-5 [facility] Comment on above: Order Comment: Urine , Random Performed By: #### L 502.0250, L3100.8408, L3100.5500, L3410.0800, L500.3400, L3100.5475, L3300.6820, L3410.4010, L101.9900, L3100.9100, L501.6710, L3100.5800, L3410.0500, L3100.9400, L3410.0700, L3410.9992, L4500.0100, L501.1105, L3300.6900, L100.0100, L3410.1200, L3410.1300, L3100.5700, L400.0001 ####[facility] [address] [place], [place], [id number] RBC 0-5 SEEN Normal 0-5 [facility] Comment on above: Order Comment: Urine , Random Performed By: #### L 502.0250, L3100.8408, L3100.5500, L3410.0800, L500.3400, L3100.5475, L3300.6820, L3410.4010, L101.9900, L3100.9100, L501.6710, L3100.5800, L3410.0500, L3100.9400, L3410.0700, L3410.9992, L4500.0100, L501.1105, L3300.6900, L100.0100, L3410.1200, L3410.1300, L3100.5700, L400.0001 ####[facility] [id number] [place], [address] WBC 0-5 SEEN Normal 0-5 [facility] Comment on above: Order Comment: Urine , Random Performed By: #### L 502.0250, L3100.8408, L3100.5500, L3410.0800, L500.3400, L3100.5475, L3300.6820, L3410.4010, L101.9900, L3100.9100, L501.6710, L3100.5800, L3410.0500, L3100.9400, L3410.0700, L3410.9992, L4500.0100, L501.1105, L3300.6900, L100.0100, L3410.1200, L3410.1300, L3100.5700, L400.0001 ####[facility] [id number] [place], [place], [id number] BACTERIA 0 SEEN Normal None Seen [facility] Comment on above: Order Comment: Urine , Random Performed By: #### L 502.0250, L3100.8408, L3100.5500, L3410.0800, L500.3400, L3100.5475, L3300.6820, L3410.4010, L101.9900, L3100.9100, L501.6710, L3100.5800, L3410.0500, L3100.9400, L3410.0700, L3410.9992, L4500.0100, L501.1105, L3300.6900, L100.0100, L3410.1200, L3410.1300, L3100.5700, L400.0001 ####[facility] [address] [place], [place], [id number] Mucus Ql (Urine sed) [address] [facility] Comment on above: Order Comment: Urine , Random Performed By: #### L 502.0250, L3100.8408, L3100.5500, L3410.0800, L500.3400, L3100.5475, L3300.6820, L3410.4010, L101.9900, L3100.9100, L501.6710, L3100.5800, L3410.0500, L3100.9400, L3410.0700, L3410.9992, L4500.0100, L501.1105, L3300.6900, L100.0100, L3410.1200, L3410.1300, L3100.5700, L400.0001 ####[facility] [address] [place], [place], [id number] Urine albumin measurement [facility] detection limit of 20 mg/L or less (mass/volume)Ordered By: Tanvir Torres on 05-09-2025 Albumin DL <= 20 mg/L (U) [Mass/Vol] < 12.0 mg/L NO RANGE EST. [facility] Urine clarityOrdered By: Darnell Torres on 07-12-2024 Clarity (U) Clear Clear [facility] Urine color determinationOrd ered By: Tanvir Torres on 07-12-2024 Color (U) Straw Yellow [facility] Urine glucose detectionOrder ed By: Tanvir Torres on 07-12-2024 Glucose Ql (U) Normal mg/dl Normal [facility] Urine leukocyte esterase det ection by dipstickOrdered By: Tanvir Torres on 07-12-2024 Leukocyte esterase Test strip Ql (U) Negative Negative [facility] Urine pHOrdered By: Tanvir rolon on 07-12-2024 pH (U) 6.0 [pH] 5.0 - 8.0 [facility] Urine sediment bacteria coun t by microscopy (number/high power field)Ordered By: Tanvir Torres on 07-12-2024 Bacteria LM.HPF (Urine sed) [#/Area] 0 /[HPF] None Seen [facility] Urine specific gravity measu rementOrdered By: Tnavir Torres on 07-12-2024 Specific gravity (U) [Rel density] 1.005 1.002-1.03 0 [facility] Urine urobilinogen measureme ntOrdered By: Tanvir Torres on 07-12-2024 Urobilinogen Ql (U) Normal mg/dl Normal [facility] White blood cell (WBC) count Ordered By: Tanvir Torres on 07-12-2024 WBC (Bld) [#/Vol] 5.6 10*3/uL 4.4-11.0 [facility] White blood cell countOrdere d By: Tanvir Torres on 07-12-2024 White blood cell count 0-5 SEEN /hpf 0-5 [facility] Antinuclear Antibody, IFAon 06-04-2024 MARIE, IFA Negative Normal . [facility] Comment on above: Result Comment: Nega tive <1:80 Borderline 1:80 Positive >1:80 ICAP nomenclature: AC-0 For more information about Hep-2 cell patterns use ANApatterns.org, the official website for the International Consensus on Antinuclear Antibody (MARIE) Patterns (ICAP). Performed at: [facility] [address] [place], [place] [id number] [employer] Supervisor: Dallin Vizcaino PhD, Phone: [phone] Performed By: #### L 3410.1200, L101.9900, L3100.7950, L501.6710, L505.7010 ####[facility] [address] [place], [address] FENDER MECHANIC Abon 06-04-2024 FENDER MECHANIC Ab 1.1 AI Abnormal 0.0-0.9 [facility] Comment on above: Result Comment: AMENDED REPORT 06/04/24 0908 FENDER MECHANIC Ab previously reported as: Test not performed Performed By: #### L 3410.1200, L101.9900, L3100.7950, L571.6710, L522.7010 ####[facility] [address] [place], [address] Antinuclear antibody (MARIE) a ssayOrdered By: Stephanie Hedrick on 05-30-2024 Anti-Nuclear Antibody Screen Negative . [facility] Comment on above: Negative <1:80 Borde rline 1:80 Positive >1:80ICAP nomenclature: AC-0For more information about Hep-2 cell patterns useANApatterns.org, the official website for theInternational Consensus on Antinuclear Antibody (MARIE)Patterns (ICAP).Performed at: [facility] [employer] [facility] [place], [place] [address]Yde Director: Dallin Vizcaino PhD, Phone: [phone] CRPon 05-30-2024 C-REACTIVE PROT < 3.00 Normal 0.0-3.0 [facility] Comment on above: Performed By: #### L 3410.1200, L101.9900, L3100.7950, L5016710, L589.7010 ####[facility] [address] [place], [address] CRP [Mass/Vol]Ordered By: Miriam Hedrick on 05-30-2024 C-Reactive Protein Extended Range < 3.00 mg/L 0.0-3.0 [facility] Erythrocyte Sed Rateon 05-30 SED RATE 2 mm/hr Normal 0-30 [facility] Comment on above: Performed By: #### L 3410.1200, L101.9900, L3100.7950, L501.6710, L505.7010 ####[facility] [address] [place], [place], [id number] Erythrocyte sedimentation ra teOrdered By: Stephanie Hedrick on 05-30-2024 ESR (Bld) [Velocity] 2 mm/h 0-30 [facility] FENDER MECHANIC abOrdered By: Stephanie Hedrick on 05-30-2024 FENDER MECHANIC Antibody 1.1 AI High 0.0-0.9 [facility] Comment on above: Previous reported re sult: TNP AIEdited by: CHARY on 06/04/24:0908 AMENDED REPORT 06/04/24 0908 FENDER MECHANIC Ab previously reported as: Test not performed Rheumatoid Factoron 05-31-19 RHEUMATOID FAC < 10.0 Normal <15 [facility] Comment on above: Performed By: #### L 3410.1200, L101.9900, L3100.7950, L501.6710, L505.7010 ####[facility] [address] [place], [place], [address] Rheumatoid factor Ql (S)Orde red By: Stephanie Hedrick on 05-30-2024 Rheumatoid Factor < 10.0 IU/mL <15 [facility] Serum or plasma C reactive p rotein measurement (mass/volume)Ordered By: Stephanie Hedrick on 05-30-2024 CRP [Mass/Vol] mg/L 0.0-3.0 [facility] Serum rheumatoid factor dete ctionOrdered By: Stephanie Hedrick on 05-30-2024 Rheumatoid factor Ql (S) < 10.0 IU/mL <15 [facility] CCP IgG Antibodieson 025 CCP IgG Ab. 2 units Normal 0-19 [facility] Comment on above: Result Comment: Nega tive <20 Weak positive 20 - 39 Moderate positive 40 - 59 Strong positive >59 Performed at: 2Q - [facility] DNA [facility] [place], [place] [address] [employer] Supervisor: Sepideh Hylton PhD, Phone: [phone] Performed at: - [address] [id number] [employer] Supervisor: Dallin Vizcaino PhD, Phone: [phone] Performed By: #### L 3100.5450, L3410.1400, L501.6710, L4600.0100, L505.7010, L100.0500, L101.9900 ####[facility] [address] [place], [address] HLA B27on 04-19-2024 HLA B27 Negative Normal . [facility] Comment on above: Result Comment: HLA- B*27 Negative B27 allele interpretation for all loci based on IMGT/HLA database version 3.51.0 This test was developed and its performance characteristics determined by [employer]. It has not been cleared or approved by the Food and Drug Administration. The FDA has determined that such clearance or approval is not necessary. [facility] CLIA ID Number [id number] This test was performed using Polymerase Chain Reaction (PCR) and Sequence Specific Oligonucleotide Probes (SSOP) technique. Sequence Based Typing (SBT) may be used as a supplemental method when necessary. If you have questions, please call HLA customer service at or email at [email or web address]. Performed By: #### L 3100.5450, L3410.1400, L501.6710, L4600.0100, L505.7010, L100.0500, L101.9900 ####[facility] [address] [place], [address] MARIE w/ Reflex Mult Confirmon 04-15-2024 MARIE,DIRECT Positive Abnormal Negative [facility] Comment on above: Performed By: #### L 3100.5450, L3410.1400, L501.6710, L4600.0100, L505.7010, L100.0500, L101.9900 ####[facility] [address] [place], [place], [address] ANTI-DNA (DS)AB <1 Normal 0-9 [facility] Comment on above: Result Comment: Nega tive <5 Equivocal 5 - 9 Positive >9 Performed By: #### L 3100.5450, L3410.1400, L501.6710, L4600.0100, L505.7010, L100.0500, L101.9900 ####[facility] [address] [place], [address] ANTISCLERODERM <0.2 Normal 0.0-0.9 [facility] Comment on above: Performed By: #### L 3100.5450, L3410.1400, L501.6710, L4600.0100, L505.7010, L100.0500, L101.9900 ####[facility] [address] [place], [place], [address] MARIE serumOrdered By: Jeremy Pascual on 04-12-2024 Anti-Nuclear Antibody Screen Positive High Negative [facility] C-reactive protein measureme nt by high sensitivity methodOrdered By: Jeremy Pascual on 04-12-2024 C-Reactive Protein Extended Range < 2.90 mg/L 0.0-3.0 [facility] Comment on above: C-Reactive Protein ( CRP) provides useful information for thediagnosis, therapy and monitoring of inflammatory processesand associated diseases. For the evaluation of Relative Riskfor Cardiovascular Disease, a High Sensitivity CRP (HSCRP)should be ordered. CBC-Complete Blood Cnt No Di ffon 04-12-2024 Erythrocyte distribution width (RBC) [Ratio] 12.4 % Normal 11.6-14.6 [facility] Comment on above: Performed By: #### L 3100.5450, L3410.1400, L501.6710, L4600.0100, L505.7010, L100.0500, L101.9900 ####[facility] [address] [place], [address] Hematocrit (Bld) [Volume fraction] 41.6 % Normal 37-47 [facility] Comment on above: Performed By: #### L 3100.5450, L3410.1400, L501.6710, L4600.0100, L505.7010, L100.0500, L101.9900 ####[facility] [address] [place], [address] Hemoglobin (Bld) [Mass/Vol] 14.0 g/dL Normal 12.0-15.0 [facility] Comment on above: Performed By: #### L 3100.5450, L3410.1400, L501.6710, L4600.0100, L505.7010, L100.0500, L101.9900 ####[facility] [address] [place], [address] MCH (RBC) [Entitic mass] 31.6 pg Normal 27.0-32.0 [facility] Comment on above: Performed By: #### L 3100.5450, L3410.1400, L501.6710, L4600.0100, L505.7010, L100.0500, L101.9900 ####[facility] [address] [place], [address] MCHC (RBC) [Mass/Vol] 33.7 g/dL Normal 32-36 [facility] Comment on above: Performed By: #### L 3100.5450, L3410.1400, L501.6710, L4600.0100, L505.7010, L100.0500, L101.9900 ####[facility] [address] [place], [address] MCV (RBC) [Entitic vol] 93.9 fL Normal 81-99 [facility] Comment on above: Performed By: #### L 3100.5450, L3410.1400, L501.6710, L4600.0100, L505.7010, L100.0500, L101.9900 ####[facility] [address] [place], [address] Platelet mean volume (Bld) [Entitic vol] 11.2 fL Normal 6.2-12.0 [facility] Comment on above: Performed By: #### L 3100.5450, L3410.1400, L501.6710, L4600.0100, L505.7010, L100.0500, L101.9900 ####[facility] [address] [place], [address] Platelets (Bld) [#/Vol] 304 10*3/uL Normal 150-450 [facility] Comment on above: Performed By: #### L 3100.5450, L3410.1400, L501.6710, L4600.0100, L505.7010, L100.0500, L101.9900 ####[facility] [address] [place], [address] RBC (Bld) [#/Vol] 4.43 10*6/uL Normal 4.2-5.4 [facility] Comment on above: Performed By: #### L 3100.5450, L3410.1400, L501.6710, L4600.0100, L505.7010, L100.0500, L101.9900 ####[facility] [address] [place], [address] RDW SD 43.0 fl Normal 35.1-43.9 [facility] Comment on above: Performed By: #### L 3100.5450, L3410.1400, L501.6710, L4600.0100, L505.7010, L100.0500, L101.9900 ####[facility] [address] [place], [address] WBC (Bld) [#/Vol] 14.5 10*3/uL High 4.4-11.0 [facility] Comment on above: Performed By: #### L 3100.5450, L3410.1400, L501.6710, L4600.0100, L505.7010, L100.0500, L101.9900 ####[facility] [address] [place], [address] CRPon 04-12-2024 C-REACTIVE PROT < 2.90 Normal 0.0-3.0 [facility] Comment on above: Result Comment: C-Re active Protein (CRP) provides useful information for the diagnosis, therapy and monitoring of inflammatory processes and associated diseases. For the evaluation of Relative Risk for Cardiovascular Disease, a High Sensitivity CRP (HSCRP) should be ordered. Performed By: #### L 3100.5450, L3410.1400, L501.6710, L4600.0100, L505.7010, L100.0500, L101.9900 ####[facility] [address] [place], [place], [address] Centromere B antibody assayO rdered By: Jeremy Pascual on 04-12-2024 Centromere B Antibody <0.2 AI 0.0-0.9 [facility] Comment on above: Previous reported re sult: TNP AIEdited by: CHARY on 04/15/24:160 AMENDED REPORT 04/15/241606 ANTI-CENT B previously reported as: Test not performed Chromatin antibody assayOrde red By: Jeremy Pascual on 04-12-2024 Antichromatin Antibodies <0.2 AI 0.0-0.9 [facility] Comment on above: Previous reported re sult: TNP AIEdited by: CHARY on 04/15/24:1607 AMENDED REPORT 04/15/241606 ANTICHROMATIN previously reported as: Test not performed Cyclic citrullinated peptide IgG QnOrdered By: Jeremy Pascual on 04-12-2024 Cyclic Citrullinated Peptide IgG Ab 2 units 0-19 [facility] Comment on above: Negative <20 Weak po sitive 20 - 39 Moderate positive 40 - 59 Strong positive >59Performed at: 2Q - [facility] [address] [place], [place] [id number] Director: Sepideh Hylton PhD, Phone: [phone] at: [facility] LabcoVirtua BerlinMffaua[address] [place], [place] [address]Yau Director: Dallin Vizcaino PhD, Phone: [phone] DNA double strand Ab Qn (S)O rdered By: Jeremy Pascual on 04-12-2024 Anti-Double Strand DNA Antibody <1 IU/mL 0-9 [facility] Comment on above: Negative <5 Equivoca l 5 - 9 Positive >9 Erythrocyte Sed Rateon 04-12 SED RATE 5 mm/hr Normal 0-30 [facility] Comment on above: Performed By: #### L 3100.5450, L3410.1400, L501.6710, L4600.0100, L505.7010, L100.0500, L101.9900 ####[facility] [address] [place], [address] Erythrocyte distribution wid th (RBC) [Ratio]Ordered By: Jeremy Pascual on 04-12-2024 Erythrocyte distribution width (RBC) [Entitic vol] 43.0 fL 35.1-43.9 [facility] Erythrocyte distribution wid th ratioOrdered By: Jeremy Pascual on 04-12-2024 Erythrocyte distribution width (RBC) [Ratio] 12.4 % 11.6-14.6 [facility] Erythrocyte distribution wid th standard deviationOrdered By: Jeremy Pascual on 04-12-2024 Erythrocyte distribution width (RBC) [Ratio] 43.0 fl 35.1-43.9 [facility] Erythrocyte sedimentation ra teOrdered By: Jeremy Pascual on 04-12-2024 ESR (Bld) [Velocity] 5 mm/h 0-30 [facility] Hematocrit Auto (Bld) [Volum e fraction]Ordered By: Jeremy Pascual on 04-12-2024 Hematocrit (Bld) [Volume fraction] 41.6 % 37-47 [facility] Hemoglobin measurementOrdere d By: Jeremy Pascual on 04-12-2024 Hemoglobin (Bld) [Mass/Vol] 14.0 g/dL 12.0-15.0 [facility] Human leukocyte antigen (HLA ) B27 typingOrdered By: Jeremy Pascual on 04-12-2024 HLA-B27 Negative . [facility] Comment on above: HLA-B*27 NxpukrtxM33 allele interpretation for all loci based on IMGT/HLAdatabase version 3.51.0This test was developed and its performance characteristicsdetermined by [employer]. It has not been cleared or approvedby the Food and Drug Administration.The FDA has determined that such clearance or approval isnot necessary.[facility] CLIA ID Number [id number] test was performed using Polymerase Chain Reaction(PCR) and Sequence Specific Oligonucleotide Probes (SSOP)technique. Sequence Based Typing (SBT) may be used as asupplemental method when necessary.If you have questions, please call HLA EadBoxer serviceat or email at [email or web address]. Terri-1 antibody assayOrdered B y: Jeremy Pascual on 04-12-2024 TERRI-1 Antibody <0.2 AI 0.0-0.9 [facility] Comment on above: Previous reported re sult: TNP AIEdited by: CHARY on 04/15/24:1607 AMENDED REPORT 04/15/24 1607 ANTI-TERRI previously reported as: Test not performed MCV (mean corpuscular volume ) determinationOrdered By: Jeremy Pascual on 04-12-2024 MCV (RBC) [Entitic vol] 93.9 fL 81-99 [facility] Mean corpuscular hemoglobin (MCH) determinationOrdered By: Jeremy Pascual on 04-12-2024 MCH (RBC) [Entitic mass] 31.6 pg 27.0-32.0 [facility] Mean corpuscular hemoglobin concentration (MCHC) determinationOrdered By: Jeremy Pascual on 04-12-2024 MCHC (RBC) [Mass/Vol] 33.7 g/dL 32-36 [facility] Mean platelet volume determi nationOrdered By: Jeremy Pascual on 04-12-2024 Platelet mean volume (Bld) [Entitic vol] 11.2 fL 6.2-12.0 [facility] Platelet countOrdered By: Liu Pascual on 04-12-2024 Platelets (Bld) [#/Vol] 304 10*3/uL 150-450 [facility] RBC Auto (Bld) [#/Vol]Ordere d By: Jeremy Pascual on 04-12-2024 RBC (Bld) [#/Vol] 4.43 10*6/uL 4.2-5.4 [facility] FENDER MECHANIC abOrdered By: Jeremy marrufo on 04-12-2024 FENDER MECHANIC Antibody 1.4 AI High 0.0-0.9 [facility] Comment on above: Previous reported re sult: TNP AIEdited by: CHARY on 04/15/24:1607 AMENDED REPORT 04/15/241606 FENDER MECHANIC Ab previously reported as: Test not performed Rheumatoid Factoron 04-12-19 RHEUMATOID FAC < 10.0 Normal <15 [facility] Comment on above: Performed By: #### L 3100.5450, L3410.1400, L501.6710, L4600.0100, L505.7010, L100.0500, L101.9900 ####[facility] [address] [place], [place], [address] Rheumatoid factor measuremen tOrdered By: Jeremy Pascual on 04-12-2024 Rheumatoid Factor < 10.0 IU/mL <15 [facility] SCL-70 extractable nuclear A b Qn (S)Ordered By: Jeremy Pascual on 04-12-2024 Scl-70 (Scleroderma) Antibody <0.2 AI 0.0-0.9 [facility] SS-A IgG antibody assayOrder ed By: Jeremy Pascual on 04-12-2024 SS-A/Ro IgG Antibody < 0.2 AI 0.0-0.9 [facility] Comment on above: Previous reported re sult: TNP AIEdited by: CHARY on 04/15/24:1607 AMENDED REPORT 04/15/241606 Anti-SS-A previously reported as: Test not performed SS-B IgG antibody assayOrder ed By: Jeremy Pascual on 04-12-2024 SS-B/La IgG Antibody < 0.2 AI 0.0-0.9 [facility] Comment on above: Previous reported re sult: TNP AIEdited by: CHARY on 04/15/24:1607 AMENDED REPORT 04/15/241606 Anti-SS-B previously reported as: Test not performed Serum DNA double strand anti body assay (units/volume)Ordered By: Jeremy Pascual on 04-12-2024 DNA double strand Ab Qn (S) [IU]/mL 0-9 [facility] Comment on above: Negative <5 Equivoca l 5 - 9 Positive >9 Serum Scl-70 antibody assay (units/volume)Ordered By: Jeremy Pascual on 04-12-2024 SCL-70 extractable nuclear Ab Qn (S) <0.2 AI 0.0-0.9 [facility] Serum or plasma cyclic citru llinated peptide IgG antibody assay (units/volume)Ordered By: Jeremy Pascual on 04-12-2024 Cyclic citrullinated peptide IgG Qn 2 units 0-19 [facility] Comment on above: Negative <20 Weak po sitive 20 - 39 Moderate positive 40 - 59 Strong positive >59Performed at: [address] [place] [address] [address] [place], [place] [address]Vjw Director: Sepideh Hylton PhD, Phone: [phone] at: [address] [id number] Director: Dallin Vizcaino PhD, Phone: [phone] Bowman antibody assayOrdered By: Jeremy Pascual on 04-12-2024 SM Antibody <0.2 AI 0.0-0.9 [facility] Comment on above: Previous reported re sult: TNP AIEdited by: CHARY on 04/15/24:1607 AMENDED REPORT 04/15/241606 BOWMAN Ab previously reported as: Test not performed White blood cell (WBC) count Ordered By: Jeremy Pascual on 04-12-2024 WBC (Bld) [#/Vol] 14.5 10*3/uL High 4.4-11.0 [facility] Lower Ext Joint Only (Routin e)on 03-21-2024 Lower Ext Joint Only (Routine) [facility] Imaging Services [address] [place] [address] Lower Ext Joint Only (Routine) MR#: [id number] Acct: [id number] Name: RANGEL TRENT Rep #: [id number] : 1975 F 48 From: Brooks Little MD PCP: Dr. Stephanie Hedrick, DO Status: REG CLI Study: Lower Ext Joint Only (Routine) Date of Exam: 0 03/21/24 Exam# [id number] Ordering Dr: Jeremy Pascual M [id number] STUDY: MRI LEFT ANKLE WITHOUT CONTRAST REASON [...] 14:18 EST Reading Location ID and State: [address] [place] [address] , Service support , CC: STERLING Pascual; Dr. Stephanie Hedrick DO Color Dipper: Signed Normal [facility] Ankle min 3 Viewson 02-09-20 Ankle min 3 Views [facility] Imaging Services [address] [place], [place] [address] Ankle min 3 Views MR#: [id number] Acct: [id number] Name: RANGEL TRENT Rep #: [id number] : 1975 F 48 From: Chad ricketts DO PCP: Dr. 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 Stephanie Hedrick DO Color Dipper: Signed Normal [facility] Foot min 3 Viewson 4 Foot min 3 Views [facility] Imaging Services [address] [place], [place] [address] Foot min 3 Views MR#: [id number] Acct: [id number] Name: RANGEL TRENT Rep #: [id number] : 1975 F 48 From: Chad ricketts DO PCP: Dr. Stephanie Hedrick DO Status: REG CLI Study: Foot min 3 Views Date of Exam: 02/09/24 Exam# [id number] Ordering Dr: Katty Kiran [id number] EXAM: XR LEFT FOOT COMPLETE, 3 OR [...] changes. No acute findings. Electronically Signed: Chad Waterman DO at 21:56 EST , CC: NORMA Kiran; Dr. Stephanie Hedrick DO Color Dipper: Signed Normal [facility] SCRN MAMM (CAD)W/KOLTON BILATo n 01-11-2024 SCRN MAMM (CAD)W/KOLTON BILAT [facility] Imaging Services [address] [place] [address] SCRN MAMM (CAD)W/KOLTON BILAT MR#: [id number] Acct: [id number] Name: RANGEL TRENT Rep #: [id number] : 1975 F 48 From: Juan Diego kc MD PCP: Dr. 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 [id number] Electronically Signed: Juan Diego Sebastian MD at 8:54 EST , CC: NORMA Escobedo; Dr. Stephanie Hedrick DO Color Dipper: Signed Normal [facility] Absolute lymphocyte countOrd ered By: HEALTH ASSESSMENT on 11-01-2022 Lymphocytes Auto (Unsp spec) [#/Vol] 1.27 10*3/uL 0.83-4.51 [facility] Absolute reticulocyte countO rdered By: HEALTH ASSESSMENT on 11-01-2022 Reticulocytes (Bld) [#/Vol] 0.00 10*3/uL 0-5 [facility] Basophil percentageOrdered B y: HEALTH ASSESSMENT on 11-01-2022 Basophil percentage 2.6 mg/dL 2.5-4.9 [facility] Bilirubin [Mass/Vol] 0.70 mg/dL 0.20-1.00 [facility] Comment on above: For patients on eltr ombopag therapy, use of Dimension [place] TBIL is not recommended. Chloride [Moles/Vol] 106 mmol/L 98-107 [facility] Cholesterol [Mass/Vol] 187 mg/dL <200 [facility] Comment on above: <200 mg/dL Desirable 200-240 mg/dL Borderline >240 mg/dL High Risk Glucose [Mass/Vol] 97 mg/dL 74-106 [facility] LDH [Catalytic activity/Vol] 149 U/L 84-246 [facility] Neutrophils (Bld) [#/Vol] 4.7 10*3/uL 2.0-7.7 [facility] Potassium [Moles/Vol] 4.0 mmol/L 3.5-5.1 [facility] Protein [Mass/Vol] 6.7 g/dL 6.4-8.2 [facility] Sodium [Moles/Vol] 138 mmol/L 136-145 [facility] Triglyceride [Mass/Vol] 58 mg/dL <199 [facility] Comment on above: The drugs N-Acetylcy steine and Metamizole may falsely depress this assay.Serum Triglycerides Reference Interval Normal <150 mg/dL Borderline high 150 - 199 mg/dL High 200 - 499 mg/dL Very High > or = 500 mg/dL WBC (Bld) [#/Vol] 6.9 10*3/uL 4.4-11.0 [facility] Bilirubin Test strip Ql (U)O rdered By: HEALTH ASSESSMENT on 11-01-2022 Bilirubin Ql (U) Negative Negative [facility] Blood erythrocytes count (nu mber/volume)Ordered By: HEALTH ASSESSMENT on 11-01-2022 RBC (Bld) [#/Vol] 4.21 10*6/uL 4.2-5.4 [facility] Blood hemoglobin measurement (mass/volume)Ordered By: HEALTH ASSESSMENT on 11-01-2022 Hemoglobin (Bld) [Mass/Vol] 13.4 g/dL 12.0-15.0 [facility] Blood platelet mean volumeOr dered By: HEALTH ASSESSMENT on 11-01-2022 Platelet mean volume (Bld) [Entitic vol] 10.9 fL 6.2-12.0 [facility] Determination of erythrocyte mean corpuscular volume (MCV)Ordered By: HEALTH ASSESSMENT on 11-01-2022 MCV (RBC) [Entitic vol] 99.5 fL 81-99 [facility] Direct bilirubinOrdered By: HEALTH ASSESSMENT on 11-01-2022 Bilirubin.direct [Mass/Vol] 0.15 mg/dL 0.00-0.30 [facility] Hematocrit Auto (Bld) [Volum e fraction]Ordered By: HEALTH ASSESSMENT on 11-01-2022 Hematocrit (Bld) [Volume fraction] 41.9 % 37-47 [facility] Ketones Test strip Ql (U)Ord ered By: HEALTH ASSESSMENT on 11-01-2022 Ketones Ql (U) Negative Negative [facility] Laboratory - Chemistry and C hemistry - challengeOrdered By: HEALTH ASSESSMENT on 11-01-2022 ALP [Catalytic activity/Vol] 48 U/L 45-117 [facility] ALT [Catalytic activity/Vol] 18 U/L 13-56 [facility] Cholesterol.total/Chol esterol in HDL [Mass ratio] 3.00 {ratio} [facility] CO2 [Moles/Vol] 26.0 mmol/L 21.0-32.0 [facility] Globulin (S) [Mass/Vol] 3.0 g/dL 2.2-4.2 [facility] Urea nitrogen/Creatinine [Mass ratio] 21.9 mg/mg 10-20 [facility] Laboratory - Hematology and Cell countsOrdered By: HEALTH ASSESSMENT on 11-01-2022 Erythrocyte distribution width (RBC) [Entitic vol] 43.6 fL 35.1-43.9 [facility] Erythrocyte distribution width (RBC) [Ratio] 11.9 % 11.6-14.6 [facility] MCH (RBC) [Entitic mass] 31.8 pg 27.0-32.0 [facility] Nucleated RBC/100 WBC (Bld) [Ratio] 0 % 0-5 [facility] MCHC Auto (RBC) [Mass/Vol]Or dered By: HEALTH ASSESSMENT on 11-01-2022 MCHC (RBC) [Mass/Vol] 32.0 g/dL 32-36 [facility] Nitrite Test strip Ql (U)Ord ered By: HEALTH ASSESSMENT on 11-01-2022 Nitrite Ql (U) Negative Negative [facility] No Panel InformationOrdered By: HEALTH ASSESSMENT on 11-01-2022 Estimated GFR (MDRD) Amer 110 mL/min >60 [facility] Comment on above: GFR Calc Estimated GFR (MDRD) Non-Af Amer 91 mL/min >60 [facility] Comment on above: Non- GFR Calc Platelets bldOrdered By: HEA LTH ASSESSMENT on 11-01-2022 Platelets (Bld) [#/Vol] 183 10*3/uL 150-450 [facility] Protein Test strip Ql (U)Ord ered By: HEALTH ASSESSMENT on 11-01-2022 Protein Ql (U) Negative Negative [facility] Segmented neutrophils/100 WB C Auto (Bld)Ordered By: HEALTH ASSESSMENT on 11-01-2022 Segmented neutrophils/100 WBC (Bld) 68.0 % 47-70 [facility] Serum or plasma albumin moises urement (mass/volume)Ordered By: HEALTH ASSESSMENT on 11-01-2022 Albumin [Mass/Vol] 3.7 g/dL 3.2-5.0 [facility] Serum or plasma albumin/glob ulin mass ratioOrdered By: HEALTH ASSESSMENT on 11-01-2022 Albumin/Globulin [Mass ratio] 1.2 {ratio} 0.9-2.4 [facility] Serum or plasma calcium moises urement (mass/volume)Ordered By: HEALTH ASSESSMENT on 11-01-2022 Calcium [Mass/Vol] 8.5 mg/dL 8.5-10.1 [facility] Serum or plasma cholesterol in HDL measurement (mass/volume)Ordered By: HEALTH ASSESSMENT on 11-01-2022 Cholesterol in HDL [Mass/Vol] 62 mg/dL >40 [facility] Comment on above: The drugs N-Acetylcy steine and Metamizole may falsely depress this assay. Reference Range HDL <40 mg/dL Low HDL Cholesterol HDL >or= 60 mg/dL High HDL Cholesterol Serum or plasma cholesterol in VLDL measurement (mass/volume)Ordered By: HEALTH ASSESSMENT on 11-01-2022 Cholesterol in VLDL [Mass/Vol] 12 mg/dL 5-40 [facility] Serum or plasma creatinine m easurement (mass/volume)Ordered By: HEALTH ASSESSMENT on 11-01-2022 Creatinine [Mass/Vol] 0.73 mg/dL 0.55-1.02 [facility] Comment on above: The validity of the calculated GFR & GFRAA in patients over 70 years has not been determined. Clinical correlation is essential. Serum or plasma low density lipoprotein (LDL) cholesterol measurement (mass/volume)Ordered By: HEALTH ASSESSMENT on 11-01-2022 Cholesterol in LDL [Mass/Vol] 113 mg/dL 0-130 [facility] Serum or plasma urea nitroge n measurement (mass/volume)Ordered By: HEALTH ASSESSMENT on 11-01-2022 Urea nitrogen [Mass/Vol] 16 mg/dL 7-18 [facility] Serum or plasma uric acid me asurement (mass/volume)Ordered By: HEALTH ASSESSMENT on 11-01-2022 Urate [Mass/Vol] 4.6 mg/dL 2.6-6.0 [facility] Comment on above: The drugs N-Acetylcy steine and Metamizole may falsely depress this assay. Thin prep Papanicolaou smear with manual screeningOrdered By: HEALTH ASSESSMENT on 11-01-2022 Thin prep Papanicolaou smear with manual screening 11 U/L 15-37 [facility] Thin prep Papanicolaou smear with manual screening 6 5-15 [facility] Urine blood detectionOrdered By: HEALTH ASSESSMENT on 11-01-2022 RBC Ql (U) 25 /ul Negative [facility] Urine clarityOrdered By: HEA LT ASSESSMENT on 11-01-2022 Clarity (U) Sl. Cloudy Clear [facility] Urine color determinationOrd ered By: HEALTH ASSESSMENT on 11-01-2022 Color (U) Yellow Yellow [facility] Urine glucose detectionOrder ed By: HEALTH ASSESSMENT on 11-01-2022 Glucose Ql (U) Normal mg/dl Normal [facility] Urine leukocyte esterase det ection by dipstickOrdered By: HEALTH ASSESSMENT on 11-01-2022 Leukocyte esterase Test strip Ql (U) Negative Negative [facility] Urine pHOrdered By: HEALTH A SSESSMENT on 11-01-2022 pH (U) 6.0 [pH] 5.0 - 8.0 [facility] Urine specific gravity measu rementOrdered By: HEALTH ASSESSMENT on 11-01-2022 Specific gravity (U) [Rel density] 1.015 1.002-1.03 0 [facility] Urobilinogen Auto test strip Ql (U)Ordered By: HEALTH ASSESSMENT on 11-01-2022 Urobilinogen Ql (U) Normal mg/dl Normal [facility] CNOVon 05-13-2022 CNOV Office Visit ([facility]) RANGEL TRENT ([id number]) 1975 F Date Time Provider Department 05/13/22 1:00 PM JUAN DONG During your visit today, we recorded the following information about you: Pulse Blood pressure Weight Height 83/minute 147/84 76.7 kg 1.689 m Ni Melvin MA 05/13/2022 1:14 PM Signed No cardiac complaints today. SHELDON Lynch MD 05/16/2022 5:53 PM Signed PRIMARY CARE PHYSICIAN: Stephanie Hedrick [address] [facility] [place] [address] REFERRING PHYSICIAN: Orlin Galvan MD ([facility]) [address] [facility] [address] [facility] [address] Patient Care Team: Stephanie Hedrick DO as PCP - General (Family Medicine) Orlin Galvan as Specialty [employer] (Cardiology) CHIEF COMPLAINT: Evaluation for arrhythmia HISTORY [...] by others. PAST MEDICAL HISTORY Diagnosis Date longterm current use of antiarrhythmic drug Palpitations Premature [...] rales. Musculoskeletal: (more content not included)... Normal [facility] Laboratory - Chemistry and C hemistry - challengeOrdered By: Dr. Bailon on 02-18-2022 HCG ( test) Ql (U) Negative [facility] Comment on above: Very dilute urine sp ecimens, as indicated by a low specificgravity, may not contain player services representative levels of hCG. If is still suspected, a first morning urinespecimen should be collected 48 hours later and tested. Absolute lymphocyte counton 12-23-2021 Lymphocytes Auto (Unsp spec) [#/Vol] 1.12 10*3/uL 0.83-4.51 [facility] Work Phone: Absolute reticulocyte counto n 12-23-2021 Reticulocytes (Bld) [#/Vol] 0.00 10*3/uL 0-5 [facility] Work Phone: Basophil percentageon 2021 Basophil percentage 3.1 mg/dL 2.5-4.9 [facility] Work Phone: [phone] Bilirubin [Mass/Vol] 0.50 mg/dL 0.20-1.00 [facility] Work Phone: Comment on above: For patients on eltr ombopag therapy, use of Dimension [place] TBIL is not recommended. Chloride [Moles/Vol] 108 mmol/L 98-107 [facility] Work Phone: [phone] Cholesterol [Mass/Vol] 210 mg/dL <200 [facility] Work Phone: [phone] Comment on above: <200 mg/dL Desirable 200-240 mg/dL Borderline >240 mg/dL High Risk Glucose [Mass/Vol] 99 mg/dL 74-106 [facility] Work Phone: [phone] Neutrophils (Bld) [#/Vol] 4.2 10*3/uL 2.0-7.7 [facility] Work Phone: [phone] Potassium [Moles/Vol] 4.2 mmol/L 3.5-5.1 [facility] Work Phone: [phone] Protein [Mass/Vol] 6.8 g/dL 6.4-8.2 [facility] Work Phone: Sodium [Moles/Vol] 139 mmol/L 136-145 [facility] Work Phone: Triglyceride [Mass/Vol] 72 mg/dL <199 [facility] Work Phone: Comment on above: The drugs N-Acetylcy steine and Metamizole may falsely depress this assay.Serum Triglycerides Reference Interval Normal <150 mg/dL Borderline high 150 - 199 mg/dL High 200 - 499 mg/dL Very High > or = 500 mg/dL WBC (Bld) [#/Vol] 6.2 10*3/uL 4.4-11.0 [facility] Work Phone: Bilirubin Test strip Ql (U)o n 12-23-2021 Bilirubin Ql (U) Negative Negative [facility] Work Phone: Blood erythrocytes count (nu mber/volume)on 12-23-2021 RBC (Bld) [#/Vol] 4.34 10*6/uL 4.2-5.4 [facility] Work Phone: Blood hemoglobin measurement (mass/volume)on 12-23-2021 Hemoglobin (Bld) [Mass/Vol] 14.3 g/dL 12.0-15.0 [facility] Work Phone: Blood platelet mean volumeon 12-23-2021 Platelet mean volume (Bld) [Entitic vol] 9.9 fL 6.2-12.0 [facility] Work Phone: Determination of erythrocyte mean corpuscular volume (MCV)on 12-23-2021 MCV (RBC) [Entitic vol] 96.3 fL 81-99 [facility] Work Phone: Direct bilirubinon 2 Bilirubin.direct [Mass/Vol] 0.11 mg/dL 0.00-0.30 [facility] Work Phone: Hematocrit Auto (Bld) [Volum e fraction]on 12-23-2021 Hematocrit (Bld) [Volume fraction] 41.8 % 37-47 [facility] Work Phone: Ketones Test strip Ql (U)on 12-23-2021 Ketones Ql (U) Negative Negative [facility] Work Phone: [phone] Laboratory - Chemistry and C hemistry - challengeon 12-23-2021 ALP [Catalytic activity/Vol] 53 U/L 45-117 [facility] Work Phone: [phone] ALT [Catalytic activity/Vol] 23 U/L 13-56 [facility] Work Phone: [phone] Cholesterol.total/Chol esterol in HDL [Mass ratio] 2.80 {ratio} [facility] Work Phone: [phone] CO2 [Moles/Vol] 26.0 mmol/L 21.0-32.0 [facility] Work Phone: [phone] Globulin (S) [Mass/Vol] 3.0 g/dL 2.2-4.2 [facility] Work Phone: [phone] Urea nitrogen/Creatinine [Mass ratio] 22.6 mg/mg 12-23 [facility] Work Phone: [phone] Laboratory - Hematology and Cell countson 12-23-2021 Erythrocyte distribution width (RBC) [Entitic vol] 42.4 fL 35.1-43.9 [facility] Work Phone: [phone] Erythrocyte distribution width (RBC) [Ratio] 11.9 % 11.6-14.6 [facility] Work Phone: [phone] MCH (RBC) [Entitic mass] 32.9 pg 27.0-32.0 [facility] Work Phone: [phone] Nucleated RBC/100 WBC (Bld) [Ratio] 0 % 0-5 [facility] Work Phone: [phone] MCHC Auto (RBC) [Mass/Vol]on 12-23-2021 MCHC (RBC) [Mass/Vol] 34.2 g/dL 32-36 [facility] Work Phone: [phone] Nitrite Test strip Ql (U)on 12-23-2021 Nitrite Ql (U) Negative Negative [facility] Work Phone: No Panel Informationon 12-23 Estimated GFR (MDRD) Amer 100 mL/min >60 [facility] Work Phone: Comment on above: GFR Calc Estimated GFR (MDRD) Non-Af Amer 83 mL/min >60 [facility] Work Phone: Comment on above: Non- GFR Calc Platelets bldon 12-23-2021 Platelets (Bld) [#/Vol] 196 10*3/uL 150-450 [facility] Work Phone: Protein Test strip Ql (U)on 12-23-2021 Protein Ql (U) 15 mg/dl Negative [facility] Work Phone: Segmented neutrophils/100 WB C Auto (Bld)on 12-23-2021 Segmented neutrophils/100 WBC (Bld) 67.5 % 47-70 [facility] Work Phone: Serum or plasma albumin moises urement (mass/volume)on 12-23-2021 Albumin [Mass/Vol] 3.8 g/dL 3.2-5.0 [facility] Work Phone: [phone] Serum or plasma albumin/glob ulin mass ratioon 12-23-2021 Albumin/Globulin [Mass ratio] 1.3 {ratio} 0.9-2.4 [facility] Work Phone: Serum or plasma calcium moises urement (mass/volume)on 12-23-2021 Calcium [Mass/Vol] 8.6 mg/dL 8.5-10.1 [facility] Work Phone: Serum or plasma cholesterol in HDL measurement (mass/volume)on 12-23-2021 Cholesterol in HDL [Mass/Vol] 74 mg/dL >40 [facility] Work Phone: Comment on above: The drugs N-Acetylcy steine and Metamizole may falsely depress this assay. Reference Range HDL <40 mg/dL Low HDL Cholesterol HDL >or= 60 mg/dL High HDL Cholesterol Serum or plasma cholesterol in VLDL measurement (mass/volume)on 12-23-2021 Cholesterol in VLDL [Mass/Vol] 14 mg/dL 5-40 [facility] Work Phone: Serum or plasma creatinine m easurement (mass/volume)on 12-23-2021 Creatinine [Mass/Vol] 0.80 mg/dL 0.55-1.02 [facility] Work Phone: Comment on above: The validity of the calculated GFR & GFRAA in patients over 70 years has not been determined. Clinical correlation is essential. Serum or plasma low density lipoprotein (LDL) cholesterol measurement (mass/volume)on 12-23-2021 Cholesterol in LDL [Mass/Vol] 122 mg/dL 0-130 [facility] Work Phone: Serum or plasma urea nitroge n measurement (mass/volume)on 12-23-2021 Urea nitrogen [Mass/Vol] 18 mg/dL 7-18 [facility] Work Phone: Serum or plasma uric acid me asurement (mass/volume)on 12-23-2021 Urate [Mass/Vol] 5.0 mg/dL 2.6-6.0 [facility] Work Phone: Comment on above: The drugs N-Acetylcy steine and Metamizole may falsely depress this assay. Thin prep Papanicolaou smear with manual screeningon 12-23-2021 Thin prep Papanicolaou smear with manual screening 17 U/L 15-37 [facility] Work Phone: Thin prep Papanicolaou smear with manual screening 5 5-15 [facility] Work Phone: Thin prep Papanicolaou smear with manual screening 165 U/L 84-246 [facility] Work Phone: Urine blood detectionon 12-05 RBC Ql (U) 10 /ul Negative [facility] Work Phone: Urine clarityon 12-23-2021 Clarity (U) Clear Clear [facility] Work Phone: Urine color determinationon 12-23-2021 Color (U) Yellow Yellow [facility] Work Phone: Urine glucose detectionon Glucose Ql (U) Normal mg/dl Normal [facility] Work Phone: Urine leukocyte esterase det ection by dipstickon 12-23-2021 Leukocyte esterase Test strip Ql (U) Negative Negative [facility] Work Phone: [phone] Urine pHon 12-23-2021 pH (U) 6.5 [pH] 5.0 - 8.0 [facility] Work Phone: [phone] Urine specific gravity measu rementon 12-23-2021 Specific gravity (U) [Rel density] 1.015 1.002-1.03 0 [facility] Work Phone: Urobilinogen Auto test strip Ql (U)on 12-23-2021 Urobilinogen Ql (U) Normal mg/dl Normal [facility] Work Phone: Office Visit: UC: kaycee bahena on 09-05-2016 Documentation of current medications (procedure) Done Invalid Interpretation Code [facility] Work Phone: Fall risk assessment No Invalid Interpretation Code [facility] Work Phone: Protein mass conc Done [facility] Work Phone: Tobacco smoking status NHIS Never smoker [facility] Work Phone: Tobacco use HS Never smoker Invalid Interpretation Code [facility] Work Phone: Lab Report: CBCDon 4 Absolute Neutrophil count 3.7 X10 3/UL Normal 2.0-7.7 [facility] Work Phone: ANC 3.7 X10 3/UL Normal 2.0-7.7 [facility] Work Phone: [phone] Basophils/100 leukocytes 0.6 % Normal 0-1 [facility] Work Phone: [phone] Basophils/100 WBC (Bld) 0.6 % Normal 0-1 [facility] Work Phone: [phone] Eosinophils/100 leukocytes 3.3 % Normal 0-5 [facility] Work Phone: Eosinophils/100 WBC (Bld) 3.3 % Normal 0-5 [facility] Work Phone: Erythrocytes (RBC) 4.28 10*6/uL Normal 4.2-5.4 [facility] Work Phone: Hematocrit (HCT) 40.5 % Normal 37-47 [facility] Work Phone: Hematocrit Volume Fraction (Bld) 40.5 % Normal 37-47 [facility] Work Phone: Hemoglobin mass conc (Bld) 13.7 g/dL Normal 12.0-15.0 [facility] Work Phone: Lymphocytes/100 leukocytes 19.7 % Normal 19-41 [facility] Work Phone: Lymphocytes/100 WBC (Bld) 19.7 % Normal 19-41 [facility] Work Phone: MCH 32.0 pg Normal 27.0-32.0 [facility] Work Phone: MCH Entitic mass (RBC) 32.0 pg Normal 27.0-32.0 [facility] Work Phone: MCHC 33.8 G/GL Normal 32-36 [facility] Work Phone: MCHC mass conc (RBC) 33.8 G/GL Normal 32-36 [facility] Work Phone: MCV 94.6 fL Normal 81-99 [facility] Work Phone: MCV Entitic volume (RBC) 94.6 fL Normal 81-99 [facility] Work Phone: Monocytes/100 leukocytes 8.7 % Normal 0-10 [facility] Work Phone: Monocytes/100 WBC (Bld) 8.7 % Normal 0-10 [facility] Work Phone: Neutrophils/100 leukocytes 67.5 % Normal 47-70 [facility] Work Phone: Neutrophils/100 WBC (Bld) 67.5 % Normal 47-70 [facility] Work Phone: Platelet mean volume Entitic volume (Bld) 11.1 fL Normal 6.2-12.0 [facility] Work Phone: Platelets 174 10*3/mm3 Normal 150-450 [facility] Work Phone: Platelets #/vol (Bld) 174 10*3/mm3 Normal 150-450 [facility] Work Phone: PMV by Luis 11.1 fL Normal 6.2-12.0 [facility] Work Phone: RBC #/vol (Bld) 4.28 10*6/uL Normal 4.2-5.4 [facility] Work Phone: WBC #/vol (Bld) 5.4 10*3/uL Normal 4.4-11.0 [facility] Work Phone: WBC (Leukocytes) 5.4 10*3/uL Normal 4.4-11.0 [facility] Work Phone: Lab Report: John 01-30-20 14 GE use only - for Link[employer] import when terms are not otherwise specified Negative Normal 0-9 Nonpreg [facility] Work Phone: tPREGS Negative Normal 0-9 Nonpreg [facility] Work Phone: Office Visiton 07-17-2009 Rapid strep test Positive Invalid Interpretation Code [facility] Work Phone: S. pyogenes DNA OLVIN+probe Ql (Throat) Positive [facility] Work Phone: ECG B/O W INTERP (MED OFFICE ) [facility] Vital Signs Date Time Vital Sign Value Performing Clinician Faci lity 07-07-2022 13:40-0400 Body height 167.[address] Stephanie Hedrick Work Phone: [facility] 07-07-2022 13:40-0400 Body mass index (BMI) [Ratio] 27.1 kg/m2 Dr. Stephanie Hedrick Work Phone: [facility] 07-07-2022 13:40-0400 Body weight 76.[address] Stephanie Hedrick Work Phone: [facility] 06-30-2022 09:23-0400 Body height 167.[address] Stephanie Hedrick Work Phone: [facility] 06-30-2022 09:23-0400 Body mass index (BMI) [Ratio] 27 kg/m2 Dr. Stephanie Hedrick Work Phone: [facility] 06-30-2022 09:23-0400 Body temperature 98.1 [degF] Dr. Stephanie Hedrick Work Phone: [facility] 06-30-2022 09:23-0400 Body weight 75.[address] Stephanie Hedrick Work Phone: [facility] 06-30-2022 09:23-0400 Diastolic blood pressure 78 mm[Hg] Dr. Stephanie Hedrick Work Phone: [facility] 06-30-2022 09:23-0400 Heart rate 75 /min Dr. Stephanie Hedrick Work Phone: [facility] 06-30-2022 09:23-0400 Respiratory rate 16 /min Dr. Stephanie Hedrick Work Phone: [facility] 06-30-2022 09:23-0400 SaO2% (BldA) [Mass fraction] 98 % Dr. Stephanie Hedrick Work Phone: [facility] 06-30-2022 09:23-0400 Systolic blood pressure 124 mm[Hg] Dr. Stephanie Hedrick Work Phone: [facility] 06-03-2022 07:10-0400 Body temperature 98.6 [degF] Dr. Stephanie Hedrick Work Phone: [facility] 06-03-2022 07:10-0400 Diastolic blood pressure 72 mm[Hg] Dr. Stephanie Hedrick Work Phone: [facility] 06-03-2022 07:10-0400 Heart rate 83 /min Dr. Stephanie Hedrick Work Phone: [facility] 06-03-2022 07:10-0400 Respiratory rate 12 /min Dr. Stephanie Hedrick Work Phone: [facility] 06-03-2022 07:10-0400 SaO2% (BldA) [Mass fraction] 98 % Dr. Stephanie Hedrick Work Phone: [facility] 06-03-2022 07:10-0400 Systolic blood pressure 122 mm[Hg] Dr. Stephanie Hedrick Work Phone: [facility] 05-13-2022 13:05-0500 Body height 168.9 cm Juan Dong MD Work Phone: [facility] 05-13-2022 13:05-0500 Body weight 76.66 kg Juan Dong MD Work Phone: [facility] 05-13-2022 13:05-0500 Diastolic blood pressure 84 mm[Hg] Juan Dong MD Work Phone: [facility] 05-13-2022 13:05-0500 Heart rate 83 /min Juan Dong MD Work Phone: [facility] 05-13-2022 13:05-0500 SaO2% (BldA) [Mass fraction] 99 % Juan Dong MD Work Phone: [facility] 05-13-2022 13:05-0500 Systolic blood pressure 147 mm[Hg] Juan Dong MD Work Phone: [facility] 04-15-2022 08:44-0500 Body height 167.[address] Stephanie Hedrick Work Phone: [facility] 04-15-2022 08:44-0500 Body mass index (BMI) [Ratio] 28.3 kg/m2 Dr. Stephanie Hedrick Work Phone: [facility] 04-15-2022 08:44-0500 Body weight 79.[address] Stephanie Hedrick Work Phone: [facility] 04-15-2022 08:44-0500 Diastolic blood pressure 90 mm[Hg] Dr. Stephanie Hedrick Work Phone: [facility] 04-15-2022 08:44-0500 Heart rate 73 /min Dr. Stephanie Hedrick Work Phone: [facility] 04-15-2022 08:44-0500 Respiratory rate 16 /min Dr. Stephanie Hedrick Work Phone: [facility] 04-15-2022 08:44-0500 SaO2% (BldA) [Mass fraction] 98 % Dr. Stephanie Hedrick Work Phone: [facility] 04-15-2022 08:44-0500 Systolic blood pressure 147 mm[Hg] Dr. Stephanie Hedrick Work Phone: [facility] 02-18-2022 09:11-0500 Body temperature 97.6 [degF] Dr. Stephanie Hedrick Work Phone: [facility] 02-18-2022 09:11-0500 Diastolic blood pressure 73 mm[Hg] Dr. Stephanie Hedrick Work Phone: [facility] 02-18-2022 09:11-0500 Heart rate 61 /min Dr. Stephanie Hedrick Work Phone: [facility] 02-18-2022 09:11-0500 Respiratory rate 18 /min Dr. Stephanie Hedrick Work Phone: [facility] 02-18-2022 09:11-0500 SaO2% (BldA) [Mass fraction] 99 % Dr. Stephanie Hedrick Work Phone: [facility] 02-18-2022 09:11-0500 Systolic blood pressure 105 mm[Hg] Dr. Stephanie Hedrick Work Phone: [facility] 02-18-2022 07:55-0500 Body height 167.[address] Stephanie Hedrick Work Phone: [facility] Work Phone: 02-18-2022 07:55-0500 Body mass index (BMI) [Ratio] 27.3 kg/m2 Dr. Stephanie Hedrick Work Phone: [facility] 02-18-2022 07:55-05[address] Body weight [address] Stephanie Hedrick Work Phone: [facility] 01-13-2022 08:25-0500 Body mass index (BMI) [Ratio] 26.6 kg/m2 Dr. Stephanie Hedrick Work Phone: [facility] 01-13-2022 08:25-0500 Body weight 74.[address] Stephanie Hedrick Work Phone: [facility] 10-15-2021 08:28-0400 Body height 177.[address] Stephanie Hedrick Work Phone: [facility] Work Phone: 10-15-2021 08:28-0400 Body mass index (BMI) [Ratio] 25.9 kg/m2 Dr. Stephanie Hedrick Work Phone: [facility] Work Phone: 10-15-2021 08:28-0400 Body weight 73.[address] Stephanie Hedrick Work Phone: [facility] Work Phone: 10-15-2021 08:28-0400 Diastolic blood pressure 87 mm[Hg] Dr. Stephanie Hedrick Work Phone: [facility] Work Phone: 10-15-2021 08:28-0400 Heart rate 59 /min Dr. Stephanie Hedrick Work Phone: [facility] Work Phone: 10-15-2021 08:28-0400 Respiratory rate 18 /min Dr. Stephanie Hedrick Work Phone: [facility] Work Phone: 10-15-2021 08:28-0400 Systolic blood pressure 125 mm[Hg] Dr. Stephanie Hedrick Work Phone: [facility] Work Phone: 09-05-2016 17:35-0400 BMI (Body Mass Index) 24.3 kg/m2 Elvia Ingram LPN [facility] Work Phone: 09-05-2016 17:35-0400 Body Temperature 98.5 [degF] Elviakimberly Ingram LPN [facility] Work Phone: 09-05-2016 17:35-0400 BP Diastolic 74 mm[Hg] Elviakimberly Ingram LPN [facility] Work Phone: 09-05-2016 17:35-0400 BP Systolic 110 mm[Hg] Elviakimberly Ingram LPN [facility] Work Phone: 09-05-2016 17:35-0400 Height 167.64 cm Elviakimberly Ingram LPN [facility] Work Phone: 09-05-2016 17:35-0400 Pulse (Heart Rate) 81 /min Elviakimberly Ingram LPN [facility] Work Phone: 09-05-2016 17:35-0400 Respiratory Rate 14 /min Elvia Ingram LPN [facility] Work Phone: 09-05-2016 17:35-0400 Weight 68.31 kg Elviakimberly Ingram LPN [facility] Work Phone: Encounters Encounter Date Encounter Type Care Provider Facility Start: 01-17-2025 ambulatory Stephanie Hedrick Facility:[facility] Start: 12-26-2024 Encounter for gynecological examination (general) (routine) without abnormal findings Gissell Escobedo ELECTRIC STOP INSTALLER [facility] Start: 12-26-2024 End: 12-26-2024 ambulatory Gissell Escobedo ELECTRIC STOP INSTALLER Facility:[facility] Start: 10-07-2024 Registered [facility] [facility]ESS[facility] -Employee Health Start: 10-07-2024 End: 10-07-[address] Stephanie Hedrick DO Work Phone: -Laboratory Start: 10-07-2024 End: 10-07-[address] Tanvir Torres MD -Laboratory Work Phone: Start: 10-07-2024 End: 10-07-2024 ambulatory Tanvir Torres Facility:[facility] Start: 07-12-2024 End: 07-12-[address] Stephanie Hedrick DO Work Phone: [facility] Work Phone: Start: 07-12-2024 End: 07-12-[address] Tanvir Torres MD -Laboratory [place] Work Phone: Start: 07-12-2024 End: 07-12-2024 ambulatory Tanvir Torres Facility:[facility] Start: 05-30-2024 End: 05-30-[address] Stephanie Hedrick DO Work Phone: [facility] Work Phone: Start: 05-30-2024 End: 05-30-[address] Stephanie Hedrick DO -Laboratory, [facility] Start: 05-30-2024 End: 05-30-2024 ambulatory Stephanie Hedrick Facility:[facility] Start: 04-12-2024 End: 04-12-[address] Jeremy Pascual DPM -Laboratory, [place] Work Phone: Start: 04-12-2024 End: 04-12-2024 [facility] Start: 03-21-2024 End: 03-21-[address] Jeremy Pascual DPM -[facility] Work Phone: Start: 03-21-2024 End: 03-21-2024 ambulatory Stephanie Hedrick Facility:[facility] Start: 02-09-2024 End: 02-09-2024 Patient encounter procedure Katty Kiran ELECTRIC STOP INSTALLER-C -Radiology, [facility] Work Phone: Start: 02-09-2024 End: 02-09-2024 ambulatory Stephanie Hedrick Facility:[facility] Start: 01-11-2024 End: 01-11-2024 ambulatory Gissell Escobedo NP Facility:[facility] Start: 01-03-2023 End: 01-03-2023 ambulatory [facility] Work Phone: Start: 01-03-2023 End: 01-03-2023 Patient encounter procedure [facility]-Outpatient Breast Imaging Work Phone: Start: 11-01-2022 Registered Referred [facility] Start: 07-27-2022 End: 07-27-[address] Stephanie Hedrick Work Phone: [facility] Start: 07-26-2022 End: 07-26-[address] Stephanie Hedrick Work Phone: [facility] Work Phone: Start: 07-26-2022 End: 07-26-[address] Stephanie Hedrick Work Phone: [facility]-Radiology, [place] Start: 07-07-2022 End: 07-07-[address] Stephanie Hedrick Work Phone: [facility] Start: 06-30-2022 End: 06-30-[address] Stephanie Hedrick Work Phone: [facility] Work Phone: Start: 06-30-2022 End: 06-30-[address] Stephanie Hedrick Work Phone: [facility] Start: 06-03-2022 End: 06-03-[address] Stephanie Hedrick Work Phone: [facility] Work Phone: Start: 06-03-2022 End: 06-03-[address] 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 Stephanie Hedrick Work Phone: [facility] Work Phone: Start: 05-05-2022 End: 05-05-[address] Stephanie Hedrick Work Phone: [facility]-Laboratory, Specimen Start: 04-15-2022 End: 04-15-[address] Stephanie Hedrick Work Phone: [facility] Start: 02-18-2022 Non-patient / Non-visit Dr. Miriam Hedrick Work Phone: [facility] Start: 02-18-2022 End: 02-18-2022 Admission to same day surgery center Dr. Stephanie Hedrick Work Phone: [facility]-Endoscopy Start: 02-18-2022 End: 02-18-[address] Stephanie Hedrick Work Phone: [facility] Work Phone: Start: 01-13-2022 Non-patient / Non-visit Dr. Miriam Hedrick Work Phone: [facility] Start: 12-30-2021 End: 12-30-[address] Stephanie Hedrick Work Phone: [facility] Work Phone: Start: 12-30-2021 End: 12-30-[address] Stephanie Hedrick Work Phone: [facility]-Outpatient Breast Imaging Start: 12-23-[address] Stephanie rodriguez Work Phone: [facility]-Employee Health Start: 10-15-2021 End: 10-15-[address] Stephanie Hedrick Work Phone: [facility] Procedures Date Procedure Procedure Detail Performing Clinician Start: 10-07-[address] Stephanie Hedrick DO Work Phone: Comment on above: Performed at: [facility] [place] [id number] Director: Dallin Vizcaino PhD, Phone: [phone] Start: 10-07-2024 C>3< complement assay Dr. Stephanie Hedrick DO Work Phone: Comment on above: Performed at: [facility] [place], [place] [id number] Director: Dallin Vizcaino PhD, Phone: [phone] Start: 10-07-2024 Serum inorganic phosphate measurement Dr. Stephanie Hedrick DO Work Phone: Start: 10-07-2024 Urnls dip stick/tablet reagent auto microscopy Dr. Stephanie Hedrick DO Work Phone: Start: 07-12-[address] Stephanie Hedrick DO Work Phone: Comment on above: Test Ordered: [id number] Antiphospholipid Sy ndromeAnticardiolipin Ab,IgG,Qn <9 GPL U/mL [...] to the Coag Studies Interp Report.Performed at: [facility] [employer] [facility] Clinical / [id number] [place] [id number] Director: Penelope Fleming MD, Phone: [phone] at: [address] [id number] Director: Dallin Vizcaino PhD, Phone: [phone] at: [facility] Lab[address] [id number] Director: Qi Carney MD, Phone: [phone] reported result: COMMENT Edited by: CHARY on 07/17/24:1308 AMENDED REPORT 07/17/24 [facility]8 [facility] previously reported as: COMMENT Test Ordered: [id number] Antiphospholipid SyndromeaPTT NOLAB Reference Range: .Test not performedPT NOLAB Reference Range: .Test not performedINR ELECTRIC STOP INSTALLER NOLAB Reference Range: .Thrombin Time NOLAB Reference [...] to the Coag Studies Interp Report.Performed at: [facility] [employer] [facility] Clinical / [id number] [place] [id number] Director: Penelope Fleming MD, Phone: [phone] at: [facility] [employer] [id number] Director: Dallin Vizcaino PhD, Phone: [phone] at: [facility] [address] [id number] Director: Qi Carney MD, Phone: [phone] Start: 07-12-2024 Urnls dip stick/tablet reagent auto microscopy Dr. Stephanie Hedrick DO Work Phone: Start: 07-12-[address] Stephanie Hedrick DO Work Phone: Comment on above: Performed at: [employer] [id number] Director: Dallin Vizcaino PhD, Phone: [phone] at: [employer] [id number] [place], [place] [id number] Director: Qi Carney MD, Phone: [phone] Start: 07-12-2024 Antibody to centromere measurement Dr. [...] Stephanie landaverde DO Work Phone: Start: 07-12-2024 C>3< complement assay Dr. Stephanie Hedrick DO Work Phone: Start: 07-12-[address] Stephanie Hedrick DO Work Phone: Comment on above: No lupus anticoagulant was detected. Start: 07-12-2024 Lupus anticoagulant assay, platelet neutralization method Dr. Stephanie Hedrick DO Work Phone: Start: 07-12-2024 Lupus antico[address] screening test Dr. Vlad Hedrick DO Work Phone: Start: 07-12-2024 Measurement of ribosomal P protein antibody Dr. Stephanie Hedrick DO Work Phone: Start: 07-12-[address] Stephanie Hedrick DO Work Phone: Start: 07-12-2024 FENDER MECHANIC antibody measurement Dr. Stephanie Hedrick DO Work Phone: Comment on above: Previous reported result: TNP AIEdited b y: INFCE on 07/17/24:1308 AMENDED REPORT 07/17/24 1308 [employer] Ab previously reported as: Test not performed Start: 07-12-2024 Serum IgM anticardiolipin measurement Dr. Stephanie Hedrick DO Work Phone: Comment on above: Negative: <13 Indeterminate: 13 - 20 Low -Med Positive: >20 - 80 High Positive: >80 Start: 07-12-[address] Vlad Hedrick DO Work Phone: Comment on above: Thyroglobulin Antibody measured by Mickie muñoz CoulterMethodologyIt should be noted that the presence of thyroglobulinantibodies may not be pathogenic nor diagnostic, especiallyat very low levels. The assay campaign specialist has found thatfour percent of individuals without evidence of thyroiddisease or autoimmunity will have positive TgAb levels upto 4 IU/mL. Start: 07-12-2024 X-ray of foot, three or [...] Consensus on Antinuclear Antibody (MARIE)Patterns (ICAP).Performed at: [address] [id number] Director: Dallin Vizcaino PhD, Phone: [phone] Start: 05-30-2024 FENDER MECHANIC antibody measurement Dr. Stephanie Hedrick DO Work Phone: Comment on above: Previous reported result: TNP AIEdited b y: INFCE on 06/04/24:0908 AMENDED REPORT 06/04/24 0908 [employer] MECH[employer] Ab previously reported as: Test not performed [...] y: INFCE on 04/15/24:1607 AMENDED REPORT 04/15/24 160 BOWMAN Ab previously reported as: Test not [...] DO Work Phone: Comment on above: HLA-B*27 [id number] allele interpretati on for all loci based on IMGT/HLAdatabase version 3.51.0This test was developed and its performance characteristicsdetermined by [employer]. It has not been cleared or approvedby the Food and Drug Administration.The FDA has determined that such clearance or approval isnot necessary.[facility] CLIA ID Number [id number] test was performed using Polymerase Chain Reaction(PCR) and Sequence Specific Oligonucleotide Probes (SSOP)technique. Sequence Based Typing (SBT) may be used as asupplemental method when necessary.If you have questions, please call HLA customer serviceat or email at [email or web address]. Start: 04-12-2024 Measurement of C-reactive protein using high sensitivity technique Dr. Stephanie Hedrick DO Work Phone: Comment on above: C-Reactive Protein (CRP) provides useful information for thediagnosis, therapy and monitoring of inflammatory processesand associated diseases. For the evaluation of Relative Riskfor Cardiovascular Disease, a High Sensitivity CRP (HSCRP)should be ordered. Start: 04-12-[address] Stephanie Hedrick DO Work Phone: Start: 04-12-2024 FENDER MECHANIC antibody measurement Dr. Stephanie Hedrick DO Work Phone: Comment on above: Previous reported result: TNP AIEdited b y: INFCE on 04/15/24:1607 AMENDED REPORT 04/15/24 1607 [employer]CH[employer] Ab previously reported as: Test not performed [...] 07-17-2009 [facility] streptococcus [facility] a Dee Rosario MS, PA-C Start: 07-17-2009 End: 07-17-2009 Rapid strep test Dee Rosario MS, PA-C Plan of Treatment Date Care Activity Detail Author Start: 05-05-2032 Urine microalbumin profile DTAP,TDAP,TD (2 - Td or Tdap) [facility] Start: 07-12-2024 Procedure [facility] Start: 07-12-2024 Lupus anticoagulant assay [facility] Start: 06-30-2022 Patient referral [facility] Work Phone: Start: 04-15-2022 Patient referral [facility] Work Phone: Start: 03-06-2022 DEPRESSION ASSESSMENT DEPRESSION ASSESSMENT [facility] Start: 02-18-2022 Patient discharge [facility] Start: 11-04-2021 Influenza vaccination INFLUENZA (#1) [facility] Start: 2021 COLOGUARD (FIT-DNA) COLOGUARD (FIT-DNA) [facility] Start: 2021 Colonoscopy COLONOSCOPY [facility] Start: 2021 COLORECTAL CANCER SCREENING COLORECTAL CANCER SCREENING [facility] Start: [address] COLONOGRAPHY [facility] Start: 2021 DIABETES SCREEN DIABETES SCREEN [facility] Start: 2021 FECAL OCCULT BLOOD FECAL OCCULT BLOOD [facility] Start: 2021 LIPID SCREEN LIPID SCREEN [facility] Start: 2021 SIGMOIDOSCOPY SIGMOIDOSCOPY [facility] Start: 06-16-2020 COVID-19 VACCINE (3 - Booster for Moderna series) COVID-19 VACCINE (3 - Booster for Moderna series) [facility] Start: 09-05-2016 End: 09-05-2016 Appointment Appointment [facility] Work Phone: Start: 2016 Mammography MAMMOGRAM [facility] Start: 2006 HPV TESTING HPV TESTING [facility] Start: 1997 PAP TESTING PAP TESTING [facility] Start: 1994 HEPATITIS C SCREENING HEPATITIS C SCREENING [facility] [facility] Start: 1994 HIV SCREENING HIV SCREENING [facility] Start: 1975 HEPATITIS B (1 of 3 - 3-dose series) HEPATITIS B (1 of 3 - 3-dose series) [facility] Cardiolipin IgG Ab [Units/volume] in Serum or Plasma [facility] Cardiolipin IgM Ab [Units/volume] in Serum or Plasma [facility] Colonoscopy [facility] Work Phone: Colonoscopy [facility] Complement C3 [Mass/volume] in Serum or Plasma [facility] Complement C4 [Mass/volume] in Serum or Plasma [facility] IgA anticardiolipin level [facility] Lupus anticoagulant screening test [facility] Partial thromboplast in time ratio [facility] Patient Education [facility] Work Phone: Patient referral [facility] Work Phone: Thrombin time [facility] Thyroglobulin antibo dy measurement [facility] Thyroperoxidase Ab [Units/volume] in Serum or Plasma [facility] Immunizations Immunization Date Immunization Notes Care Provider Fa cility 05-05-2022 tetanus toxoid, reduced diphtheria toxoid, and acellular pertussis vaccine, adsorbed Juan Dong MD Work Phone: [facility] Work Phone: 12-21-2020 influenza, injectabl e, quadrivalent, preservative free [facility] 12-21-2020 influenza, seasonal, injectable Dr. Stephanie Hedrick Work Phone: [facility] 12-21-2020 influenza, seasonal, injectable, preservative free Juan Dong MD Work Phone: [facility] Work Phone: 04-21-2020 Covid (Moderna) Dr. Stephanie pennington Work Phone: [facility] 03-24-2020 Covid (Moderna) Dr. Stephanie pennington Work Phone: [facility] 12-11-2019 influenza, injectabl e, quadrivalent, preservative free [facility] 12-11-2019 influenza, seasonal, injectable Dr. Stephanie Hedrick Work Phone: [facility] 12-11-2019 influenza, seasonal, injectable, preservative free Juan Dong MD Work Phone: [facility] Work Phone: 11-29-2018 influenza, injectabl e, quadrivalent, preservative free [facility] 11-29-2018 influenza, seasonal, injectable Dr. Stephanie Hedrick Work Phone: [facility] 11-29-2018 influenza, seasonal, injectable, preservative free Juan Dong MD Work Phone: [facility] Work Phone: 12-18-2017 influenza, injectabl e, quadrivalent, preservative free [facility] 12-18-2017 influenza, seasonal, injectable Dr. Stephanie Hedrick Work Phone: [facility] 11-30-2016 influenza, injectabl e, quadrivalent, preservative free [facility] 11-30-2016 influenza, seasonal, injectable Dr. Stephanie Hedrick Work Phone: [facility] 12-03-2015 influenza, injectabl e, quadrivalent, preservative free [facility] 12-03-2015 influenza, seasonal, injectable Dr. Stephanie Hedrick Work Phone: [facility] 12-04-2014 influenza, injectabl e, quadrivalent, preservative free [facility] 12-04-2014 influenza, seasonal, injectable Dr. Stephanie Hedrick Work Phone: [facility] 12-04-2014 influenza, seasonal, injectable, preservative free Juan Dong MD Work Phone: [facility] Work Phone: 01-13-2014 influenza, injectabl e, quadrivalent, preservative free [facility] 01-13-2014 influenza, seasonal, injectable Dr. Stephanie Hedrick Work Phone: [facility] 01-13-2014 influenza, seasonal, injectable, preservative free Juan Dong MD Work Phone: [facility] Work Phone: Payers Date Payer Category Payer Self-pay [id number] 2022 Private Health Insurance [facility] [id number] [place] [address] [address] [place] [id number] PPO [id number] 2022 Unknown [id number] Unknown [id number] Unknown [id number] 62 Unknown [id number] 62 Unknown [id number] 62 Unknown [id number] 62 Unknown [id number] 62 Unknown [id number] 62 Unknown [id number] 62 Unknown [id number] 62 Unknown [id number] 62 Unknown [id number] 62 Social History Date Type Detail Facility Start: 10-15-2021 End: 08-15-2022 Tobacco smoking status NHIS Unknown if ever smoked [facility] Start: 1975 Sex Assigned At Female [facility] Start: 05-13-2022 End: 08-23-2023 Tobacco smoking status NHIS Never smoked tobacco [facility] Work Phone: Start: 05-13-2022 Tobacco use and exposure Smokeless tobacco non-user [facility] Work Phone: Start: 05-13-2022 Alcohol intake Current drinke r of alcohol (finding) [facility] Start: 05-13-2022 [facility] Start: 1975 Sex Assigned At Not on file [facility] Start: 06-06-2024 Sex Female (finding[facility] NEGATED: Highlighted row [facility] Goals Date Patient Goal Desired Activity /State Mental Status Date Assessment Result Facility 02-18-2022 Cognitive function Level Of Cons ciousness Awake;Alert;Appropriate [facility] Work Phone: 02-18-2022 Cognitive function Voice/Name [facility] Work Phone: Clinical Notes 05-13-2022 to 07-13-2024 Juan Dong MD - 05/13/2022 1:45 PM Karli Melvin MA - 05/13/2022 1:09 PM EST Note Date & Type Note Facility 07-13-2024 Radiology Diagnostic study note [facility] Services [address] [place], [place] [id number] Foot min 3 Views MR#: [id number] Acct: [id number] Name: RANGEL TRENT Rep #: [id number] : 1975 F 49 From: Bishop Denise MD PCP: Dr. Stephanie Hedrick DO Status: REG CLI Study:Foot min 3 Views Date of Exam: 11/28 Exam# [id number] Ordering Dr: Ino Torres MD EXAM: DX [...] No inflammatory appearing arthropathy identified. Reading Location: [id number] CC: Dr. Tanvir Torres MD; Dr. Stephanie Hedrick DO ~ Color Dipper: Signed [facility] 07-13-2024 Radiology Diagnostic study note [facility] Services [address] [place], [place] [id number] Hand Min 3 Views MR#: [id number] Acct: [id number] Name: RANGEL TRENT Rep #: [id number] : 1975 F 49 From: Bishop eDnise MD PCP: Dr. Stephanie Hedrick DO Status: REG CLI Study:Hand Min 3 Views Date of Exam: 11/28 Exam# [id number] Ordering Dr: Ino Torres MD PROCEDURE: HAND [...] Torres MD; Dr. Stephanie Hedrick DO ~ Color Dipper: Signed [facility] 07-13-2024 Radiology Diagnostic study note [facility] Imaging Services [address] [place], [place] [address] Hand Min 3 Views MR#: [id number] Acct: [id number] Name: RANGEL TRENT Rep #: [id number] : 1975 F 49 From: Bishop Denise MD PCP: Dr. Stephanie Hedrick DO Status: REG CLI Study:Hand Min 3 Views Date of Exam: 11/28 Exam# [id number] Ordering Dr: Ino Torres MD PROCEDURE: HAND [...] No inflammatory appearing arthropathy identified. Reading Location: [id number] CC: Dr. Tanvir Torres MD; Dr. Stephanie Hedrick DO ~ Color Dipper: Signed [facility] 05-13-2022 Note HNO ID: [id number] Author: Juan Dong MD Service: ? Author Type: Physician Type: Progress Notes Filed: 05/16/2022 5:53 PM Note Text: PRIMARY CARE PHYSICIAN: Stephanie Hedrick [address] [place] [address] REFERRING PHYSICIAN: Orlin Galvan MD ([facility]) [address] [address] Patient Care Team: Stephanie Hedrick DO as PCP - General (Family Medicine) Orlin Galvan as Specialty [employer] (Cardiology) CHIEF COMPLAINT: Evaluation for arrhythmia HISTORY [...] by others. 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 CAR (more content not included)... [facility] 05-13-2022 History of Present illness Narrative PRIMARY CARE PHYSICIAN: Stephanie Hedrick [address] [facility] [place] [address] REFERRING PHYSICIAN: Orlin Galvan MD ([facility]) [address] [address] Patient Care Team: Stephanie Hedrick DO as PCP - General (Family Medicine) Orlin Galvan as Specialty [employer] (Cardiology) CHIEF COMPLAINT: Evaluation for arrhythmia HISTORY [...] by others. PAST MEDICAL HISTORY Diagnosis Date longterm current use of antiarrhythmic drug Palpitations Premature [...] Sinus rhythm 71 bpm; normal conduction intervals (HI 148 ms, QRS 96 ms); QTc 436 ms; conduction intervals and QTc appropriate on flecainide I have personally reviewed the Electrocardiogram. ASSESSMENT/PLAN: 1. Premature ventricular contractions (PVCs) (VPCs) - ICD9: 427.69, ICD10: I49.3 (primary diagnosis) 2. Palpitations - ICD9: 785.1, ICD10: R00.2 3. 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 Ni Melvin MA documented in this encounter [facility] Evaluation note Diagnosis Onset Date Multiple premature ventricular complexes [facility] Work Phone: Evaluation note* Diagnosis Onset Date Resolution Status Encounter for screening for malignant neoplasm of colo n [facility] Work Phone: Evaluation note* Diagnosis Onset Date Resolution Status Encounter for screening for malignant neoplasm of colo n acute Elevated blood pressure reading acute Multiple premature ventricular complexes [facility] Work Phone: Evaluation note* Diagnosis Premature ventricular contractions (PVCs) (VPCs)- Primary Other premature beats Palpitations 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 [facility] Diagnosis Onset Date Resolution Status Encounter for screening for malignant neoplasm of colo n acute Elevated blood pressure reading acute Multiple premature ventricular complexes chronic Left knee pain acute [facility] Work Phone: Evaluation note* Diagnosis Onset Date Resolution Status Elevated blood pressure reading acute Multiple premature ventricular complexes chronic Left knee pain acute Nondisplaced fracture of head of left radius acute [facility] Work Phone: Evaluation note* Diagnosis Onset Date Resolution Status Elevated blood pressure reading acute Multiple premature ventricular complexes chronic Left knee pain acute Nondisplaced fracture of head of left radius acute Nondisplaced fracture of head of left radius acute Nondisplaced fracture of head of left radius acute [facility] Work Phone: Evaluation noteNo assessment information available [facility] Work Phone: Hospital Discharge instructionsAmbulatory Orders* Orthopedics Location: None Selected [facility] Work Phone: Reason for referral (narrative)No reason for referral information [facility] Work Phone: Chief Complaint and Reason [...] 21, 2024 12:26pm Chief Complaint Admit Date [employer]OYEE [employer] October 07, 2024 7:1 1am Family History No Family History Records Found Relationship Condition Age at Onset Recorded Date/T alfred Not Specified Hypertension Unknown Disorder of thyroid Unknown Advance Directives No Advanced Directives Records Found Advance Directive Response Recorded Date/ Time Advance Directives No January 12:08pm Living Will No January 19, 2 018 9:19pm Power of Milk Collector No January 19, 2018 9:19pm Advance Directive Response Recorded Date/ Time Advance Directives No January 11:08am Living Will No February 16, 2 022 1:08pm Power of Milk Collector No February 16, 2022 1:08pm Advance Directive Response Recorded Date/ Time Advance Directives No January 12:08pm Living Will No February 16, 2 022 2:08pm Power of Milk Collector No February 16, 2022 2:08pm Advance Directive [...] Provider, Referring P rovider Active Eli Teixeira ELECTRIC STOP INSTALLER, ELECTRIC STOP INSTALLER-C Attending Provider Active Team Status: Active Member [...] Hedrick DO Primary Care Provider, Attending P apurva Active Pharmacy Informatics Manager Relationship Specialty Start Date End Date Stephanie Hedrick DO [address] [address] PCP - General Family Medicine 05/10/22 Tati Galvanl [address] [place] [address] Specialty [employer] Cardiology 05/13/22 Team Status: Inactive Member Role Status Dates Dr. Stephanie Hedrick DO Primary Care Provider, Referring P rovider Active Talia Singh PA, PA Attending Provider Active Team Status: Inactive [...] Stephanie Hedrick DO Primary Care Provider Active Lew SOLANO PA Attending Provider, Referring Pr ovider Active Team Status: Inactive Member Role Status Dates Dr. Stephanie Hedrick DO Primary Care Provider, Referring P rovider Active Christina SOLANO PA Attending Provider Active Team Status: Inactive [...] 2024 End: March 21, 2024 Dr. Jeremy aPscual DPM Referring Provider Active Start: March 21, [...] July 12, 2024 End: July 12, 2024 Team Status: Active Member Role/Relationship Status Dates Dr. Stephanie Hedrick DO Primary Care Provider Active Team Status: Inactive Member Role/Relationship Status Dates Dr. Stephanie Hedrick DO Primary Care Provider Active Start: July 12, 2024 End: July 12, 2024 Dr. Tanvir Torres MD Attending Provider Active Sta rt: July 12, 2024 End: July 12, 2024 Dr. Tanvir Torres MD Referring Provider Active Sta rt: July 12, 2024 End: July 12, 2024 Team Status: Inactive Member Role/Relationship Status Dates Dr. Stephanie Hedrick DO Primary Care Provider Active Start: October 07, 2024 End: October 07, 2024 Dr. Tanvir Torres MD Attending Provider Active Sta rt: October 07, 2024 End: October 07, 2024 Dr. Tanvir Torres MD Referring Provider Active Sta rt: October 07, 2024 End: October 07, 2024 Team Status: Active Member Role/Relationship Status Dates Dr. Stephanie Hedrick DO Primary Care Provider Active Start: October 07, 2024 Health Risk Assessment Attending Provider Active Start: October 07, 2024 Health Risk Assessment Referring Provider Active Start: October 07, 2024 Source Comments (unrecognize d section and content) In the event this informatio n is protected by the Federal Confidentiality of Alcohol and Drug Abuse Patient Records regulations: The Federal rules restrict any use of the information to criminally investigate or prosecute any alcohol or drug abuse patient.[facility] Reason for Visit (unrecogniz ed section and content) Reason Comments New Patient Ref from [facility] ventricular premature depolarization INFORMATION SOURCE (unrecogn ized section and content) DATE CREATED AUTHOR 05/17/2022 [facility] DATE CREATED AUTHOR AUTHOR'S ORGANIZ ATION 01/05/2025 [facility] FOR RECORDS PERTAINING TO PATIENTS WHO [...] BE BASED ON THE PRIMARY CLINICAL RECORDS. [employer] provides no warranty or guarantee of the accuracy or completeness of information in this document.
--- NOTE | 2025-01-24 13:58 | BI_ITS ---
EXAM: DIAG MAMM W/CAD, UNILAT; RT BRST UNILAT FARHAT ADD-ON 01/24/2025 CLINICAL HISTORY: F, Age 49 y/o , ABD MAMM RIGHT SIDE ONLY; ABN MAMM TECHNIQUE: Procedure Code: [id number]; MARLIITOBETTIE Modality: MG Procedure: DIAG MAMM W/CAD, UNILAT; RT BRST UNILAT FARHAT ADD-ON. COMPARISON: Prior exam(s) dated 01/17/2025, 01/11/2024, 01/03/2023, 12/30/2021. FINDINGS: TISSUE DENSITY: The breasts are heterogeneously dense, which may obscure small masses. Unilateral Right Breast Mammographic Findings: Follow-up examination performed for the calcifications in the right breast seen on examination of 01/17/2025. On the present examination, there are round calcifications in the central outer right breast at middle depth. These appear not significantly changed when compared to multiple priors dating back to 2021. BI/Rt Brst Unilat Farhat Add-On IMPRESSION: Probably benign right breast calcifications. Recommend short interval six-izzy h diagnostic mammogram with magnification views of the right breast. OVERALL FINAL ASSESSMENT BI-RADS 3: PROBABLY BENIGN. RECOMMENDATION: 6 Month Follow-up Additional Recommendation none A letter with findings and recommendations will be mailed to the patient. Reading Location: [id number]
== END | disposition home or self-care (01) ==
LOC: OPBI 12:51
PROVIDERS: PCP Family Medicine; Referring Provider Family Medicine; Visit Provider Family Medicine
DX: R92.1 Mammographic calcification found on diagnostic imaging of breast (principal)
CPT/HCPCS: 77061; 77065; G0279

== ENCOUNTER → 2025-02-03 | Outpatient (CLI) | payer OTHER, SELFPAY ==
[2025-02-03 14:11] LABS: Mucous, Urine 0 SEEN /hpf (<or=2+); Red Blood Cells-Urine 0 SEEN /hpf (0-5)
[2025-02-03 17:42] LABS: Hematocrit 39.3 % (37-47); Hemoglobin 13.5 g/dL (12.0-15.0); Immature Granulocytes Count 0.010 X10^3/uL (0.0-0.0); Mean Corp Hgb Conc 34.4 g/dL (32-36); Mean Corpuscular Volume 92.9 fL (81-99); Mean Platelet Vol. 10.8 fl (6.2-12.0); NRBC Flagged by Analyzer 0 % (0-5); Platelet Count 208 K/mm3 (150-450); RBC Distribution Width CV 12.6 % (11.6-14.6); RBC Distribution Width SD 42.9 fl (35.1-43.9); Red Blood Count 4.23 M/mm3 (4.2-5.4); White Blood Count 7.6 K/mm3 (4.4-11.0)
[2025-02-03 17:48] LABS: Color, Urine Yellow (Yellow); Glucose, Dipstick Normal (Normal); Ketone-Dipstick Negative (Negative); Leukocyte Esterase-Dipstick Negative /ul (Negative); Nitrite-Dipstick Negative (Negative); Occult Blood-Urine 10 /ul (Negative); Protein-Dipstick Negative (Negative); Specific Gravity, Urine 1.015 (1.002-1.030); Urine Bilirubin Dipstick Negative (Negative)
[2025-02-03 18:05] LABS: Squamous Epithelial Cells - UA 0-5 SEEN /hpf (5-10)
[2025-02-03 18:16] LABS: Creatinine, Urine (random) 39.40 mg/dL (28.00-217.00); Protein, Urine (Random) 13.1 mg/dL (0.0-12.0); Protein:Creat Ratio 332 mg/g CRE (0-200)
[2025-02-03 18:20] LABS: AST(SGOT) 22 U/L (<=31); Alanine Aminotransfer ALT/SGPT 18 U/L (<=34); Albumin, Serum 4.7 g/dL (3.5-5.0); Alkaline Phosphatase 38 U/L (35-104); Bilirubin, Direct 0.15 mg/dL (0.00-0.30); Globulin 2.7 g/dL (2.2-4.2)
[2025-02-03 18:26] LABS: CRP < 3.00 mg/L (0.0-3.0)
[2025-02-05 15:08] LABS: Anti-dsDNA Ab <1 IU/mL (0-9)
== END | disposition home or self-care (01) ==
LOC: MTLAB 13:59
PROVIDERS: PCP Family Medicine; Referring Provider Internal Medicine Rheumatology; Visit Provider Internal Medicine Rheumatology
DX: R76.89 Other specified abnormal immunological findings in serum (principal); Z79.899 Other long term (current) drug therapy
CPT/HCPCS: 36415; 80076; 81001; 82565; 82570; 84156; 85025; 85652; 86140; 86160; 86225